=== PATIENT | male | born 1940 | race Caucasian/White ===

== ENCOUNTER 2019-11-09 10:39 | Inpatient (IN) | payer MEDICARE, OTHER ==
[~2019-11-09] VITALS: Ht 182.9 cm; Wt 85.0 kg
[~2019-11-09 10:39] MED LIST: LEVO150T42 PO; NYST50SS SS; PERC5TAB12 PO; SYMB16INH INH; TASI150C PO; TIOT18INH INH
[2019-11-09] MEDS ORDERED: TASI150C PO (10:49)
[2019-11-09] MEDS ORDERED: ALBU8.5H INH (10:50)
[2019-11-09] MEDS ORDERED: PRED5TA PO (10:50)
[2019-11-09] MEDS ORDERED: LEVO125T4 PO (10:50)
[2019-11-09] MEDS ORDERED: ADV250INH (10:50)
[2019-11-09] MEDS: IPRATROPIUM 0.5MG/ALBUTEROL 2.5MG INH SOL UD 3ML (DUONEB)(J7620) NEB SCH ×4 (11:22→20:00)
--- NOTE | 2019-11-09 11:56 | REP ---
CHEST, SINGLE VIEW: Single view of the chest performed and compared to a prior study of 07/26/2015. There appear to be moderate bilateral pleural effusions left greater than right. There are also adjacent patchy areas of atelectasis or infiltrate in each lung base, left greater than right. Focal soft tissue density in the right apex could possibly represent a mass. Heart does not appear to be definitely enlarged. There is calcification of the thoracic aorta. Mediastinal silhouette is otherwise unremarkable. Electronically Signed by Dylon Almendarez MD 11/09/2019 08:06 P
[2019-11-09 12:04] LABS: VENOUS BASE EXCESS 1.8 (-2.0-2.0); VENOUS HCO3 27.5 MEQ/L (23.0-27.0); VENOUS O2 SATURATION 60.2 % (60.0-80.0); VENOUS PARTIAL PRESSURE CO2 48.4 mmHg (38.0-50.0); VENOUS PH 7.373 UNITS (7.330-7.430); VENOUS STANDARD HCO3 25.5 MEQ/L
[2019-11-09 12:06] LABS: BASO % 0.3 % (0.0-1.0); EOS # 0.1 10^3/uL (0.0-0.5); EOS % 0.6 % (0.0-3.0); HEMATOCRIT 28.5 % (42.0-52.0); HEMOGLOBIN 9.2 g/dl (13.5-17.5); LYMPH # 0.5 10^3/uL (1.5-5.0); LYMPH % 3.7 % (24.0-44.0); MEAN CORPUSCULAR HEMOGLOBIN 29.7 pg (27.0-33.0); MEAN CORPUSCULAR HGB CONC 32.3 g/dl (32.0-36.5); MEAN CORPUSCULAR VOLUME 91.9 fl (80.0-96.0); MONO # 1.6 10^3/uL (0.0-0.8); NEUTROPHILS # 12.1 10^3/uL (1.5-8.5); NEUTROPHILS % 83.6 % (36.0-66.0); PLATELET COUNT, AUTOMATED 540 10^3/uL (150-450); WHITE BLOOD COUNT 14.5 10^3/uL (4.0-10.0)
[2019-11-09 12:25] LABS: INR 1.14; PROTHROMBIN TIME 14.3 SECONDS (11.8-14.0)
[2019-11-09 12:31] LABS: INFLUENZA A AMPLIFICATION NEGATIVE (NEGATIVE); INFLUENZA B AMPLIFICATION NEGATIVE (NEGATIVE)
[2019-11-09 12:35] LABS: ALBUMIN 2.7 GM/DL (3.2-5.2); ALT/SGPT 37 U/L (12-78); BILIRUBIN,DIRECT 0.2 MG/DL (0.0-0.2); BILIRUBIN,TOTAL 0.4 MG/DL (0.2-1.0); BLOOD UREA NITROGEN 27 MG/DL (7-18); CALCIUM LEVEL 8.9 MG/DL (8.8-10.2); CARBON DIOXIDE LEVEL 25 MEQ/L (21-32); CHLORIDE LEVEL 106 MEQ/L (98-107); CK-MB VALUE MASS 1.2 NG/ML (<3.6); CPK CREATINE PHOSPHOKINASE 29 U/L (39-308); CREATININE FOR GFR 1.13 MG/DL (0.70-1.30); GLOMERULAR FILTRATION RATE > 60.0 (>42); GLUCOSE, FASTING 127 MG/DL (70-100); MB/CK RELATIVE INDEX 4.14 (< OR =4); NT-PRO BNP 1057 PG/ML (<450); POTASSIUM SERUM 4.4 MEQ/L (3.5-5.1); SODIUM LEVEL 138 MEQ/L (136-145); TOTAL PROTEIN 6.8 GM/DL (6.4-8.2); TROPONIN I < 0.02 NG/ML (< 0.10)
[2019-11-09] MEDS ORDERED: cefTRIAXone SOD 2 GM in D5W MINI-BAG PLUS 50 ML IV ONE (13:45)
[2019-11-09] MEDS ORDERED: methylPREDNISolone INJ 125 MG/2 ML VIAL (J2930) IV ONE (13:45)
[2019-11-09] MEDS ORDERED: AMLO5TAB6 PO (14:09)
[2019-11-09] MEDS ORDERED: ATOR1TAB19 PO (14:09)
[2019-11-09] MEDS ORDERED: ALBU83IN INH (14:09)
[2019-11-09] MEDS ORDERED: ACET-897 PO (14:09)
[2019-11-09] MEDS ORDERED: LOSA50TA88 PO (14:09)
[2019-11-09] MEDS ORDERED: ALBUTEROL SULFATE 2.5 MG/0.5 ML INH NEB SOLN INH PRN (15:15)
--- NOTE | 2019-11-09 15:42 | HPE ---
DATE OF ADMISSION: 11/09/2019 ADMITTING PHYSICIAN: Hospitalist group PRIMARY CARE PHYSICIAN: Dr. Jam Luna in [place] CHIEF COMPLAINT: Bilateral pneumonia, shortness of breath. HISTORY: Claude Marques has been increasingly short of breath over the past several weeks. Had a CT scan of the chest done 10/20/2019 at [facility] in [place]. Showed a moderate chronic-appearing loculated left-sided small chronic loculated right-sided pleural effusion, right lower lobe pneumonia, compressive atelectasis, left lower lobe, and a severely calcified coronary artery plaque formation, likely to be hemodynamically significant. He states he was not aware of the coronary findings nor the pneumonia, though it sounds like he has been treated with steroids, though not bronchodilator. Family was sent from Dr. Fernandez's office to be admitted, so we will put a consult in. He denies hemoptysis, fever, chills. He has been short of breath. PAST MEDICAL HISTORY: 1. Severe chronic obstructive pulmonary disease (COPD). 2. Chronic myeloid leukemia. 3. Hypothyroidism. 4. History of tongue cancer. 5. Hyperlipidemia. 6. 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 FAMILY HISTORY: Mother had throat cancer. Mother of advanced age. 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 SOCIAL HISTORY: He quit smoking 15 years ago. Moderate alcohol intake. REVIEW OF SYSTEMS: No unexplained weight loss, fever, chills, hemoptysis, rectal bleeding, epistaxis, urinary bleeding, exertional chest pain, or palpitations. PHYSICAL EXAMINATION: VITAL SIGNS: Per flow sheet. He is alert, oriented, conversant. Looks chronically ill appearing. Looks older than stated age. Pupils equal, round, and reactive to light. TMs benign. Pharynx shows a dry, white-coated tongue. Dry mucous membranes. NECK: Supple. LUNGS: Scattered rhonchi. Decreased breath sounds. Decreased lung sounds, left base more than right base. HEART: Regular rate and rhythm. No rub. No murmur. ABDOMEN: Soft, nontender. No masses. EXTREMITIES: No clubbing or cyanosis. Decreased pulses in the feet still palpale. Moves arms and legs with equal strength. Chest x-ray shows bilateral pleural effusion of the left more than the right. Question cardiac apex abnormality. White count 14.5, hemoglobin 9.2, platelets 540. Electrolytes are unremarkable. BUN 27, creatinine 1.1. BNP 1000. TSH 18. Venous blood gas was done. It is venous, so I will not dictate it. IMPRESSION: 1. Suspected bilateral pneumonia with pleural effusion. He had a CT scan of the chest done 3 weeks ago. We will repeat the CT and see if there is any progression. I made the radiologist aware of the prior study for comparison. I will ask Dr. Newton to take a look at this. He knows the patient from his last hospitalization at [facility] on July 21, where he underwent talc pleurodesis on the right side. 2. Chronic myelocytic leukemia. We will continue his Tasigna 300 mg twice a day. 3. Hypertensive heart disease. Continue amlodipine 5 mg daily and losartan 50 mg daily. 4. Hypothyroidism. Thyroid-stimulating hormone (TSH) is elevated. Will increase his levothyroxine to 137 mcg daily. 5. Hyperlipidemia. Continue atorvastatin 10 mg daily. 6. Possible coronary artery disease. Begin aspirin 81 mg daily. Advise outpatient cardiac workup. Patient was made aware of the coronary artery abnormality and will discuss this with his primary care physician, and they can decide on workup.
--- NOTE | 2019-11-09 15:56 | REP ---
CT chest without contrast: History: Effusion. Comparison CT study of the chest is from July 12, 2015. Comparison is made with today's portable chest x-ray. Findings: There is a complex predominantly cystic pleural process in the left chest with loculated areas of fluid and large amounts of stranding soft tissue across the large fluid collection in the left base. There is visceral and parietal pleural thickening which is moderate to marked. There is chronic pleural thickening in the right chest. There is a similar complex fluid collection in the right pleural space posteriorly and laterally with pleural thickening, pleural calcification, and internal soft tissue nodularity. The chest CT study from 2014 showed two chest tubes in place and a complex air and fluid collection in the right base. There was a simple appearing left pleural effusion at that time. There are compressive atelectatic changes in the left lower lobe and collapse and fibrosis is seen in the right lower lobe above the remaining right effusion. There are air bronchograms in these areas. No pulmonary parenchymal nodule or mass lesion is seen. Vascular calcification is noted. No hilar or mediastinal mass or adenopathy is appreciated. Normal adrenal glands are seen bilaterally. There is a large cyst incompletely included in the field of view in the upper pole of the left kidney measuring up to 7.3 cm in greatest diameter. Visualized upper abdominal structures are otherwise unremarkable. Impression: Complex and extensive bilateral pleural effusions with marked pleural thickening and stranding and nodularity. Infectious versus neoplastic etiologies. Chronic pleural changes on the right. Bilateral lower lobe atelectatic changes. No mass or adenopathy seen. Left renal cyst. Electronically Signed by Rodrick Samaniego MD 11/09/2019 08:09 P
--- NOTE | 2019-11-09 17:23 | ECGEPIP ---
[facility] - ED Test Date: 2019-11-09 Pat Name: KEEGAN ALEXIS Department: Room: - Gender: Male Industry Analyst: : 1940 Requested By: Nadege Hardy Order Number: [id number] Reading MD: Luis Felipe Chopra Measurements Intervals [place] Rate: 106 P: 54 DE: 145 QRS: 29 QRSD: 83 T: 16 QT: 310 QTc: 413 Interpretive Statements SINUS TACHYCARDIA POOR R WAVE PROGRESSION RATE CHANGE COMPARED TO 07/08/15 Electronically Signed on 11-09-2019 17:23:25 EST by Luis Felipe Chopra
[2019-11-09] MEDS: ASPIRIN 81 MG ENTERIC TAB PO SCH (18:21)
[2019-11-09] MEDS: DOXYCYCLINE HYCLATE 100 MG in D5W MINI-BAG PLUS 100 ML IV SCH (18:21)
[2019-11-09] MEDS: SYMBICORT 160/4.5MCG INHALER 6GM INH SCH (20:00)
[2019-11-09 20:20] VITALS: BP 164/76
[2019-11-09] MEDS: ATORVASTATIN 10 MG TAB PO SCH (21:02)
[2019-11-09] MEDS: ENOXAPARIN 40 MG/0.4 ML SYRINGE (J1650) SC SCH (21:02)
[2019-11-09] MEDS: amLODIPine 5 MG TAB PO SCH (21:02)
[2019-11-10] VITALS (20 sets, daily range): BP systolic 108–144; BP diastolic 57–72; O2SAT 98
[2019-11-10] MEDS ORDERED: UNRESOLVED PATIENT OWN MED ORDER XX SCH (00:01)
[2019-11-10] MEDS: IPRATROPIUM 0.5MG/ALBUTEROL 2.5MG INH SOL UD 3ML (DUONEB)(J7620) NEB SCH ×4 (03:01→19:29)
[2019-11-10] MEDS: LEVOTHYROXINE 137MCG TABLET (0.137MG) PO SCH (05:50)
[2019-11-10] MEDS: DOXYCYCLINE HYCLATE 100 MG in D5W MINI-BAG PLUS 100 ML IV SCH ×2 (05:50→17:24)
[2019-11-10 05:52] LABS: HEMATOCRIT 26.4 % (42.0-52.0); HEMOGLOBIN 8.4 g/dl (13.5-17.5); MEAN CORPUSCULAR HEMOGLOBIN 28.6 pg (27.0-33.0); MEAN CORPUSCULAR HGB CONC 31.8 g/dl (32.0-36.5); MEAN CORPUSCULAR VOLUME 89.8 fl (80.0-96.0); PLATELET COUNT, AUTOMATED 484 10^3/uL (150-450); RED BLOOD COUNT 2.94 10^6/uL (4.30-6.10); WHITE BLOOD COUNT 11.7 10^3/uL (4.0-10.0)
[2019-11-10] MEDS ORDERED: LEVOTHYROXINE 125MCG TABLET (0.125MG) PO SCH (06:00)
[2019-11-10 06:11] LABS: BLOOD UREA NITROGEN 34 MG/DL (7-18); CALCIUM LEVEL 8.7 MG/DL (8.8-10.2); CARBON DIOXIDE LEVEL 26 MEQ/L (21-32); CHLORIDE LEVEL 105 MEQ/L (98-107); CREATININE FOR GFR 1.05 MG/DL (0.70-1.30); GLOMERULAR FILTRATION RATE > 60.0 (>42); GLUCOSE, FASTING 161 MG/DL (70-100); SODIUM LEVEL 137 MEQ/L (136-145)
[2019-11-10] MEDS: SYMBICORT 160/4.5MCG INHALER 6GM INH SCH ×2 (07:59→19:29)
[2019-11-10] MEDS: TIOTROPIUM INHALER/CAPSULE (SPIRIVA) INH SCH (07:59)
[2019-11-10] MEDS: MOM 30ML SUSPENSION UDC PO SCH (09:00)
[2019-11-10] MEDS: LOSARTAN 50 MG TAB PO SCH (10:14)
[2019-11-10] MEDS: ASPIRIN 81 MG ENTERIC TAB PO SCH (10:14)
[2019-11-10] MEDS ORDERED: SLF 3 ML SYR IV PRN (10:30)
--- NOTE | 2019-11-10 10:53 | IPN ---
DATE: 11/10/2019 Claude was seen in the PCU. He is a patient of Dr. Fernandez. He was sent from Dr. Fernandez's office to the emergency for admission. He has been having extensive work up recently for abnormal chest x-ray, pleural effusions, nonclearing infiltrates. He had a CT scan of the chest done 10/20/2019 at [facility]. I have repeated the CT yesterday (specifically asking to do be compared to the recent CT from 10/20/2019; it was instead compared to a [address] from 2015). The case has been discussed extensively with Dr. Fernandez today, as well as Dr. Newton, who is familiar with the patient from that 2015 hospitalization. Clinically, the patient feels better. He is still coughing, but says his breathing is a little better. PHYSICAL EXAMINATION: Afebrile, 123/63, pulse of 78%, 80 oxygen saturation on 2 liters. GENERAL APPEARANCE: Chronically ill appearing. Dry mucous membranes. Coated tongue. LUNGS: Bilateral rhonchi. HEART: Regular rhythm. ABDOMEN: Soft, nontender. No peripheral edema. LABORATORY: White count is down to 11.7, hemoglobin 8.4. Electrolytes unremarkable. IMPRESSION: 1. Subacute left and chronic right pleural effusions. The case was discussed at length with Dr. Newton and then with Dr. Fernandez and then they conferred with each other. Dr. Newton plans to come back and see the patient in consultation this afternoon, and its plan is to anticipate there will be a thoracentesis performed. 2. Hypertensive heart disease. Blood pressure well controlled. 3. Chronic myelocytic leukemia. Continue with Tasigna 300 mg twice daily. 4. Hypothyroidism. Levothyroxine dose was increased yesterday. Repeat free T4, thyroid simulating hormone (TSH) in six to eight weeks. 5. Hyperlipidemia. Continue atorvastatin 10 mg daily 6. I expect coronary artery disease based on CT scan in [place] showing coronary artery abnormality. I started aspirin daily. He is already on a statin. He now understands the need for outpatient work up from cardiology.
[2019-11-10] MEDS: CLOTRIMAZOLE 10 MG TROCHE PO SCH ×3 (14:19→20:10)
[2019-11-10] MEDS: SLF 3 ML SYR IV SCH ×2 (14:19→20:11)
[2019-11-10] MEDS ORDERED: methylPREDNISolone INJ 40 MG/1 ML VIAL (J2920) IV SCH (16:00)
[2019-11-10] MEDS: cefTRIAXone SOD 2 GM in D5W MINI-BAG PLUS 50 ML IV SCH (16:05)
[2019-11-10] MEDS ORDERED: flumazeniL 0.5 MG/5 ML VIAL As Ordered ONE (17:50)
[2019-11-10] MEDS ORDERED: MIDAZOLAM INJ 2 MG/2 ML VIAL (J2250) As Ordered ONE (17:51)
[2019-11-10] MEDS ORDERED: LIDOCAINE 1% MDV 20ML VIAL As Ordered ONE (17:52)
[2019-11-10] MEDS ORDERED: LIDOCAINE 1% MDV 20ML VIAL IM ONE (18:15)
[2019-11-10] MEDS ORDERED: MIDAZOLAM INJ 2 MG/2 ML VIAL (J2250) IV ONE (18:15)
[2019-11-10] MEDS ORDERED: ONDANSETRON 4MG/2ML VIAL (J2405) IV PRN (19:00)
[2019-11-10] MEDS ORDERED: LEVALBUTEROL 1.25 MG/0.5 ML CONCENTRATE NEB NEB PRN (19:00)
[2019-11-10] MEDS ORDERED: PERCOCET 5MG/325MG TAB PO PRN (19:00)
--- NOTE | 2019-11-10 19:03 | REP ---
Portable chest x-ray: Single view. History: Chest tube. Comparison chest x-ray: November 09, 2019. Findings: A left chest tube is seen inferolaterally. Pleural opacity persists adjacent to the left lung in the left lower lateral chest although there is some improvement. There is some pleural air as well. Slight blunting of the right lateral pleural angle persists. Impression: Left chest tube in place. Electronically Signed by Rodrick Samaniego MD 11/10/2019 06:54 P
[2019-11-10 19:11] LABS: LDH LACTATE DEHYDROGENASE 80 U/L (87-241)
[2019-11-10 19:26] LABS: SOURCE, BODY FLUID pH PLEURAL
[2019-11-10] MEDS: LEVALBUTEROL 1.25 MG/0.5 ML CONCENTRATE NEB NEB SCH (19:29)
[2019-11-10 19:34] LABS: PH BODY FLUID 7.112 UNITS (NOT ESTABLISHED)
[2019-11-10] MEDS: ENOXAPARIN 40 MG/0.4 ML SYRINGE (J1650) SC SCH (20:09)
[2019-11-10] MEDS: D5W/0.9% SODIUM CHLORIDE 1,000 ML IV SCH (20:09)
[2019-11-10] MEDS: NILOTINIB 150 MG PO SCH (20:09)
[2019-11-10 20:10] LABS: CHOLESTEROL, BODY FLUID < 50 MG/DL (NOT ESTABLISHED); LDH, BODY FLUID 3055 U/L (NOT ESTABLISHED); SOURCE, BODY FLUID ALBUMIN PLEURAL; SOURCE, BODY FLUID CHOL PLEURAL; SOURCE, BODY FLUID GLUCOSE PLEURAL; SOURCE, BODY FLUID LDH PLEURAL; SOURCE, BODY FLUID TOT PROTEIN PLEURAL; SOURCE, BODY FLUID TRIG PLEURAL; TOTAL PROTEIN, BODY FLUID 5.3 G/DL (NOT ESTABLISHED); TRIGLYCERIDE, BODY FLUID 98 MG/DL (NOT ESTABLISHED)
[2019-11-10] MEDS: amLODIPine 5 MG TAB PO SCH (20:10)
[2019-11-10] MEDS: DOCUSATE SODIUM 100 MG CAP PO SCH (20:10)
[2019-11-10] MEDS: ATORVASTATIN 10 MG TAB PO SCH (20:10)
[2019-11-10 20:34] LABS: APPEARANCE, BODY FLUID CLOUDY (CLEAR); PLEURAL FL COLOR BROWN (COLORLESS); SOURCE, BODY FLUID PLEURAL
[2019-11-10 21:04] LABS: SOURCE, BODY FLUID AMYLASE PLEURAL
--- NOTE | 2019-11-10 21:26 | CR ---
DATE OF CONSULTATION: 11/10/2019 CONSULTING PHYSICIAN: Dr. Heladio Smith REASON FOR CONSULTATION: Bilateral pleural effusion, shortness of breath HISTORY OF PRESENT ILLNESS: This is a very pleasant 79-year-old male who was admitted on 11/09/2019 for bilateral pneumonia and pleural effusion. The patient has a pertinent past medical history of chronic myeloid leukemia, currently on chemotherapy, right talc pleuro[place] [address] Newton, chronic obstructive pulmonary disease (COPD), anemia, who presented to the emergency room yesterday for shortness of breath for the last week. He states that in late August he noticed that he was having flu-like symptoms with shortness of breath. He went to his primary care provider and was given prednisone from 10/05/2019 to 11/08/2019. He states that it was a taper and he was on 5 mg for at least 2 weeks near the end. He also admits getting to a short course of 2 days of Levaquin 500 mg for possible pneumonia. He noticed that his symptoms were not improving around mid October and requested to get a CT of his lungs after he fell and hit his right rib. He states that he was told that his lungs did not show anything significant except for pneumonia, the beginnings of it. He went to Dr. Fernandez's office on 11/09/2019 for the continued progression of shortness of breath, who advised him to come to the emergency room to be admitted. In the emergency room, CT of the chest showed complex extensive bilateral pleural effusion with marked pleural thickening, stranding and nodularity. Infectious versus neoplastic etiology. He was saturating at 91% on 2 liters nasal cannula, which the patient states that he is not chronically on oxygen at home, only as needed. He admits that in the last couple of weeks he has noticed that he increased the amount of pillows that he used at night from one pillow to two to three pillows. He denies any lightheadedness or dizziness. He denies any fevers. No palpitations or chest pain. He was admitted to the hospital for bilateral pneumonia and pleural effusions. PAST MEDICAL HISTORY: 1. Chronic myeloid leukemia. 2. Anemia. 3. Hypothyroidism. 4. Chronic obstructive pulmonary disease (COPD). 5. Diverticulitis. 6. Hypercholesterolemia. 7. Status post tongue cancer. SURGICAL HISTORY: 1. 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 2. Talc pleurodesis in 2015 on the right lung. MEDICATIONS: - Tylenol Extra Strength - amlodipine - atorvastatin - Symbicort - levothyroxine - losartan - Spiriva - albuterol - prednisone, not on chronically, started on 10/05/2019 until 11/09/2019 - [place] FAMILY HISTORY: Mother of throat cancer. Father due to old age. SOCIAL HISTORY: He quit smoking greater than 15 years ago, smoked previously for 20 years, one pack a day of [place] cigarettes. Admits to moderate alcohol intake, about three to four beers a day and is able to go without drinking without withdrawal symptoms. No dogs, cats or birds at home. No asbestos exposure. REVIEW OF SYSTEMS: Denies fevers, chills, sweats, or weight loss. HEENT: Denies diplopia, blindness, jaundice, epistaxis. Wears dentures. RESPIRATORY: Admits to shortness of breath, clear sputum production, paroxysmal nocturnal dyspnea, exertional dyspnea. CARDIAC: Denies myocardial infarction, palpitations, paroxysmal atrial fibrillation, anginal chest pain. GASTROINTESTINAL: Denies abdominal pain, constipation, diarrhea, dysphagia, hematochezia, melena. GENITOURINARY: Denies any dysuria, hematuria. NEUROLOGIC: Denies any focal deficits, seizures, or paresthesias. PSYCHIATRIC: Denies any anxiety or depression. ENDOCRINE: Denies any polydipsia, polyuria. Has a history of hypothyroidism, but no diabetes. HEMATOLOGY: Has a history of chronic myeloid leukemia and history of anemia. PHYSICAL EXAMINATION: VITAL SIGNS: Temperature 96.5, pulse 81, respirations 16, blood pressure 117/57 (Mean arterial pressure 77), pulse oximetry 96% on 2 liters nasal cannula. GENERAL: This is a very pleasant 79-year-old male who does not appear in acute distress, appropriately answering questions, slight tremor in his voice. No accessory muscle use. Nasal cannula in place. HEENT: Atraumatic, normocephalic. Pupils are equal, round and reactive. SKIN: Appears pale. Mucous membranes appear dry, grayish tinge appearance of tongue. He is status post partial tongue cancer resection. He has full dentures. NECK: Supple. He has a neck deformity status post his left neck resection as well. There is no lymphadenopathy. Trachea is midline. No crepitus or subcutaneous emphysema appreciated. No jugular venous distention (JVD). RESPIRATORY: Diminished breath sounds in the left lower base one-quarter way up on the left side. Dullness to percussion appreciated in the left lower base as well. Dullness to percussion in the right lower base -- left is worse than right. There is E-to-A egophony -- left worse than right. Expiratory wheezing diffusely as well. CARDIAC: Tachycardic rate. Regular rhythm. No audible murmurs, rubs or gallops. S1, S2 sounds normal. ABDOMEN: Slightly distended abdomen but nontender. Positive bowel sounds with no hepatomegaly or splenomegaly, surprisingly. EXTREMITIES: No lower extremity edema, specifically pretibial. No calf tenderness. INTEGUMENTARY: Skin appears normal. No skin breakdown and no bruising noted. NEUROLOGIC: No focal deficits noted. PSYCHIATRIC: Alert and oriented times three. Appropriate mood. LABORATORY DATA: WBC 11.7, hemoglobin 8.4, hematocrit 26.4, platelets 248. Chemistry: Sodium 137, potassium 5.0, chloride 105, carbon dioxide 26, anion gap 6, BUN 34, creatinine 1.05, fasting glucose 161, lactic acid 1.2, calcium 8.7, LDH 80. Chest CT from 11/09/2019 shows extensive bilateral pleural effusions, left more significant than on the right. Left appears to come all the way up to right above the fourth rib, right is only to the costophrenic angle. There is marked pleural thickening, stranding and nodularity. Right appears to have some chronic pleural changes, he is status post talc pleurodesis as well. There is bilateral lower lobe atelectatic changes from the pleural effusions. ASSESSMENT AND PLAN: This is a 79-year-old male with a pertinent past medical history of chronic myelogenous leukemia (CML), currently on chemotherapy, history of right sided recurrent pleural effusions, status post talc pleurodesis in 2015, chronic obstructive pulmonary disease (COPD) who presented to the emergency room for shortness of breath. IMPRESSION: 1. Bilateral pleural effusions, left significantly worse than right. 2. Chronic myeloid leukemia. 3. Chronic obstructive pulmonary disease (COPD). 4. Bilateral atelectasis/lung entrapment. 5. Status post tongue cancer with resection. 6. Hypothyroidism. 7. History of diverticulitis. 8. Hypercholesterolemia. PLAN: The patient has significant pleural effusions -- left is worse than right. He did have a talc pleurodesis on the right side and that is possibly the reason his pleural effusion is not as significant on the right. The left side is pretty significant that he will be a candidate for a chest tube placement. Possible causes for the fluid could be malignancy due to his history of CML, versus infectious. I do not believe that it is infectious, based on CT it does look like he has an entrapped lung versus infection. Even though he had a leukocytosis on admission, he was on prednisone for the last one month, which can contribute to this. He denies any fevers or chills. He also is on Solu-Medrol while admitted, which can contribute to the leukocytosis as well. He is on ceftriaxone 2 grams, they are covering for pneumonia, even though sputum culture is negative, can consider deescalating this if the Light's criteria comes back negative for infectious process. We will do a chest tube today at bedside. Consent was obtained by the patient and was performed tonight. It looks like it an adequate placement. We have sent fluid for cytology, possible causes can be osmotic hemothorax as well, for he did have a fall 3 weeks prior. Chest tube showed very dark blood, which is consistent of old blood from a recent trauma. Bowel care and pain management have been placed. Incentive spirometry and PEP therapy have been placed for better aeration of the lungs. We will continue to follow the patient along while he is admitted. IVAN
[2019-11-11] VITALS (10 sets, daily range): BP systolic 114–146; BP diastolic 55–67; O2SAT 90–99
[2019-11-11] MEDS: LEVALBUTEROL 1.25 MG/0.5 ML CONCENTRATE NEB NEB SCH ×4 (01:41→21:39)
[2019-11-11 05:41] LABS: ABG BASE EXCESS -1.7 (-2.0-2.0); ABG HCO3 22.4 MEQ/L (22.0-26.0); ABG PARTIAL PRESSURE CO2 34.8 mmHg (35.0-45.0); ABG PARTIAL PRESSURE O2 135.4 mmHg (75.0-100.0); ABG STANDARD HCO3 23.1 MEQ/L (22.0-26.0); ABG TOTAL CO2 23.4 MEQ/L (23.0-31.0); ABG pH (ARTERIAL) 7.426 UNITS (7.350-7.450)
[2019-11-11] MEDS: LEVOTHYROXINE 137MCG TABLET (0.137MG) PO SCH (05:47)
[2019-11-11] MEDS: CLOTRIMAZOLE 10 MG TROCHE PO SCH ×5 (05:47→21:23)
[2019-11-11] MEDS: DOXYCYCLINE HYCLATE 100 MG in D5W MINI-BAG PLUS 100 ML IV SCH ×2 (05:47→17:19)
[2019-11-11] MEDS: SLF 3 ML SYR IV SCH ×3 (05:48→21:24)
[2019-11-11 06:18] LABS: HEMATOCRIT 25.3 % (42.0-52.0); HEMOGLOBIN 8.2 g/dl (13.5-17.5); MEAN CORPUSCULAR HEMOGLOBIN 29.9 pg (27.0-33.0); MEAN CORPUSCULAR HGB CONC 32.4 g/dl (32.0-36.5); MEAN CORPUSCULAR VOLUME 92.3 fl (80.0-96.0); PLATELET COUNT, AUTOMATED 532 10^3/uL (150-450); RED BLOOD COUNT 2.74 10^6/uL (4.30-6.10); WHITE BLOOD COUNT 20.5 10^3/uL (4.0-10.0)
[2019-11-11 06:33] LABS: BLOOD UREA NITROGEN 45 MG/DL (7-18); CALCIUM LEVEL 8.5 MG/DL (8.8-10.2); CARBON DIOXIDE LEVEL 27 MEQ/L (21-32); CHLORIDE LEVEL 107 MEQ/L (98-107); CREATININE FOR GFR 1.06 MG/DL (0.70-1.30); GLOMERULAR FILTRATION RATE > 60.0 (>42); GLUCOSE, FASTING 140 MG/DL (70-100); POTASSIUM SERUM 4.3 MEQ/L (3.5-5.1); SODIUM LEVEL 139 MEQ/L (136-145)
[2019-11-11] MEDS: IPRATROPIUM 0.5MG/ALBUTEROL 2.5MG INH SOL UD 3ML (DUONEB)(J7620) NEB SCH ×3 (07:20→21:39)
[2019-11-11] MEDS: TIOTROPIUM INHALER/CAPSULE (SPIRIVA) INH SCH (07:20)
[2019-11-11] MEDS: SYMBICORT 160/4.5MCG INHALER 6GM INH SCH ×2 (07:20→21:39)
--- NOTE | 2019-11-11 08:21 | REP ---
Chest x-ray: Two views. History: Chest tube. Comparison chest x-ray November 10, 2019. Findings: A left-sided chest tube is noted at the base. There is some pleural air and pleural thickening. Pleural opacity is improved. There is chronic blunting of the right lateral pleural angle and apical pleural thickening is noted on the right. No new infiltrate is seen. Electronically Signed by Rodrick Samaniego MD 11/11/2019 08:12 A
[2019-11-11] MEDS: DOCUSATE SODIUM 100 MG CAP PO SCH ×2 (09:00→21:24)
[2019-11-11] MEDS: MOM 30ML SUSPENSION UDC PO SCH (09:00)
[2019-11-11] MEDS: NILOTINIB 150 MG PO SCH ×2 (09:46→17:19)
[2019-11-11] MEDS: ASPIRIN 81 MG ENTERIC TAB PO SCH (09:46)
[2019-11-11] MEDS: LOSARTAN 50 MG TAB PO SCH (09:46)
[2019-11-11] MEDS: D5W/0.9% SODIUM CHLORIDE 1,000 ML IV SCH ×2 (09:54→23:55)
--- NOTE | 2019-11-11 10:27 | IPN ---
DATE: 11/11/2019 Claude is seen in the progressive care unit (PCU). He feels much better since he had his chest tube yesterday. Did not have a high volume of fluid removed but symptomatically he is improved. He still has a cough, bringing up some sputum. No fever. PHYSICAL EXAMINATION: Afebrile. Vital signs stable. Conversant. HEENT: Unremarkable. Lungs: Decreased breath sounds right base, better aeration on the left. Chest tube in place. Heart: Regular rhythm. Abdomen: Soft, nontender. No peripheral edema. White count 20.5 (on steroids), hemoglobin 8.2, platelets 532, sodium 139, potassium 4.3, BUN 45, creatinine 1.0, glucose 140. IMPRESSION: 1. Pleural effusion. Per Dr. Newton and his team. 2. Hypertensive heart disease. Well-controlled. 3. Chronic myelocytic leukemia (CML). Continue Tasigna 300 mg twice a day. 4. Hypothyroidism. Levothyroxine dose was increased yesterday. Need to repeat thyroid testing in 6-8 weeks. 5. Exacerbation of chronic obstructive pulmonary disease (COPD). Continue with nebulized bronchodilator, intravenous steroid. 6. Suspected community-acquired pneumonia. Is on Rocephin and doxycycline for this. 7. Suspected coronary artery disease. As noted previously, needs outpatient workup. Statin and aspirin started.
--- NOTE | 2019-11-11 10:30 | ECGEPIP ---
[facility] Test Date: 2019-11-11 Pat Name: KEEGAN ALEXIS Department: Room: G4604-57 Gender: Male Editor Dictionary: LUCIUS : 1940 Requested By: ANNABEL LEBRON Order Number: [id number] Reading MD: Morgan Raines Measurements Intervals [place] Rate: 72 P: 42 [place]: 146 QRS: 29 QRSD: 101 T: 27 QT: 384 QTc: 421 Interpretive Statements SINUS RHYTHM Rate decreased from tracing done 11-09-19 Similar to tracing done 07-08-15 Electronically Signed on 11-11-2019 10:30:34 EST by Morgan Raines
[2019-11-11] MEDS ORDERED: ALTEPLASE 2 MG/2 ML VIAL (J2997 PER 1MG) XX ONE (11:30)
[2019-11-11] MEDS: predniSONE 5 MG TAB PO SCH (11:55)
[2019-11-11] MEDS: PERCOCET 5MG/325MG TAB PO PRN (15:06)
[2019-11-11] MEDS: cefTRIAXone SOD 2 GM in D5W MINI-BAG PLUS 50 ML IV SCH (15:47)
[2019-11-11] MEDS: NORCO, ANEXSIA 5/325MG TABLET (HYDROcodone/ACETAMINOPHEN) PO PRN (17:29)
[2019-11-11] MEDS: ATORVASTATIN 10 MG TAB PO SCH (21:23)
[2019-11-11] MEDS: ENOXAPARIN 40 MG/0.4 ML SYRINGE (J1650) SC SCH (21:23)
[2019-11-11] MEDS: amLODIPine 5 MG TAB PO SCH (21:24)
[2019-11-12] VITALS (7 sets, daily range): BP systolic 109–125; BP diastolic 55–62; O2SAT 98
[2019-11-12] MEDS: LEVALBUTEROL 1.25 MG/0.5 ML CONCENTRATE NEB NEB SCH ×4 (03:09→20:00)
[2019-11-12] MEDS: DOXYCYCLINE HYCLATE 100 MG in D5W MINI-BAG PLUS 100 ML IV SCH ×2 (04:01→16:43)
[2019-11-12] MEDS: NORCO, ANEXSIA 5/325MG TABLET (HYDROcodone/ACETAMINOPHEN) PO PRN (04:02)
[2019-11-12] MEDS: SLF 3 ML SYR IV SCH ×3 (05:51→20:35)
[2019-11-12] MEDS: CLOTRIMAZOLE 10 MG TROCHE PO SCH ×6 (05:53→20:35)
[2019-11-12] MEDS: LEVOTHYROXINE 137MCG TABLET (0.137MG) PO SCH (05:54)
[2019-11-12 05:56] LABS: HEMOGLOBIN 7.6 g/dl (13.5-17.5); MEAN CORPUSCULAR HEMOGLOBIN 29.1 pg (27.0-33.0); MEAN CORPUSCULAR HGB CONC 31.7 g/dl (32.0-36.5); PLATELET COUNT, AUTOMATED 502 10^3/uL (150-450); RED BLOOD COUNT 2.61 10^6/uL (4.30-6.10); WHITE BLOOD COUNT 18.8 10^3/uL (4.0-10.0)
[2019-11-12 06:09] LABS: BLOOD UREA NITROGEN 39 MG/DL (7-18); CALCIUM LEVEL 8.3 MG/DL (8.8-10.2); CARBON DIOXIDE LEVEL 26 MEQ/L (21-32); CHLORIDE LEVEL 110 MEQ/L (98-107); CREATININE FOR GFR 0.99 MG/DL (0.70-1.30); GLOMERULAR FILTRATION RATE > 60.0 (>42); GLUCOSE, FASTING 123 MG/DL (70-100); POTASSIUM SERUM 4.3 MEQ/L (3.5-5.1); SODIUM LEVEL 141 MEQ/L (136-145)
[2019-11-12 07:33] LABS: MAGNESIUM LEVEL 2.3 MG/DL (1.8-2.4)
[2019-11-12] MEDS: SYMBICORT 160/4.5MCG INHALER 6GM INH SCH ×2 (07:44→20:25)
[2019-11-12] MEDS: TIOTROPIUM INHALER/CAPSULE (SPIRIVA) INH SCH (07:44)
[2019-11-12] MEDS: IPRATROPIUM 0.5MG/ALBUTEROL 2.5MG INH SOL UD 3ML (DUONEB)(J7620) NEB SCH ×3 (07:45→20:00)
--- NOTE | 2019-11-12 08:43 | REP ---
Chest x-ray: Two views. History: Chest tube. Comparison chest x-ray: November 11, 2019. Findings: Left pleural drainage catheter remains in place at the left base. The left pleural opacity is decreasing. There is a small triangle of air adjacent to the chest tube at the left base. There is visceral and parietal pleural thickening here. There is blunting of the right lateral pleural angle unchanged and right apical pleural thickening is seen unchanged. No new parenchymal infiltrate. Electronically Signed by Rodrick Samaniego MD 11/12/2019 08:35 A
[2019-11-12] MEDS ORDERED: METOCLOPRAMIDE INJ 10MG/2ML VIAL (J2765) IV PRN (10:00)
--- NOTE | 2019-11-12 10:04 | REP ---
CT chest without contrast: History: Pleural effusion. Underlying lung. Comparison chest CT study November 09, 2019. CT findings: Chronic pleural thickening, pleural calcification, and heterogeneous fluid is seen in the right base unchanged. A left pleural drainage tube is seen in place at the left base with a loculated air collection here. There is nodular visceral and parietal pleural thickening enveloping this left base loculated cavity. The pleural thickening extends to the mid chest level posteriorly and posterolaterally. The cavity is much smaller than before tube thoracostomy. Otherwise unchanged from the November 09, 2019 study. Electronically Signed by Rodrick Samaniego MD 11/12/2019 10:16 A
[2019-11-12] MEDS: SIMETHICONE 40MG/0.6ML DROPS 30ML PO SCH ×4 (10:15→20:35)
[2019-11-12] MEDS: predniSONE 5 MG TAB PO SCH (10:17)
[2019-11-12] MEDS: LOSARTAN 50 MG TAB PO SCH (10:17)
[2019-11-12] MEDS: ASPIRIN 81 MG ENTERIC TAB PO SCH (10:17)
[2019-11-12] MEDS: BISACODYL 10 MG SUPP PR PRN ×2 (10:17→15:59)
[2019-11-12] MEDS: NILOTINIB 150 MG PO SCH ×2 (10:18→16:45)
[2019-11-12] MEDS: MOM 30ML SUSPENSION UDC PO SCH (10:18)
[2019-11-12] MEDS: DOCUSATE SODIUM 100 MG CAP PO SCH ×2 (10:18→20:35)
--- NOTE | 2019-11-12 10:47 | REP ---
CT abdomen and pelvis without IV or oral contrast: History: Abdomen pain and distension. Findings: Preliminary digital mobile ui/ux designer radiograph demonstrates multiple loops of small bowel in the central abdomen. These are dilated and air-filled. Axial CT images demonstrate several left renal cysts, the largest of which measures 6.1 cm in diameter. There is a small right renal cyst. Vascular calcifications noted. There is an intrarenal 4 mm calculus in the left kidney. No hydronephrosis is seen. No focal liver lesion is seen. The spleen is unremarkable. No abnormality is noted in the pancreas. The gallbladder is unremarkable. No retroperitoneal mass or adenopathy is seen. There is mild ectasia of the abdominal aorta, maximum AP dimension 2.7 cm. Extensive vascular calcifications noted. There is extensive left colonic diverticulosis especially in the sigmoid colon but there is no CT evidence of diverticulitis. There are multiple mildly dilated air and fluid filled loops of proximal small bowel in the left upper abdomen. Distal small bowel loops are not dilated although I do not see an obstructive lesion. A normal appendix is noted lateral to the cecum. There is a small quantity of soft tissue density and an air bubble in the subcutaneous fat of the left anterior abdominal wall suggesting a subcutaneous injection site. There is no evidence of free intraperitoneal air. No abdominal wall defect is seen. Urinary bladder, seminal vesicles and prostate appear intact. There are dystrophic calcifications in the prostate. Bone window settings show no bony destructive lesion. Impression: Mildly dilated air and fluid filled loops of small bowel in the central abdomen with normal caliber distal small bowel loops. Focal ileus versus partial obstruction. No obstructive lesion seen. Extensive left colonic diverticulosis. Normal appendix. Renal cysts and intrarenal left-sided nephrolithiasis. Electronically Signed by Rodrick Samaniego MD 11/12/2019 12:04 P
--- NOTE | 2019-11-12 12:42 | IPN ---
DATE: 11/12/2019 Claude is seen as he is being wheeled down the hallway for a stat CT of his chest. He developed abdominal distention and vomiting, and it looks like has some bowel obstruction. PHYSICAL EXAMINATION: 121/56, pulse 78, respiratory rate 29, 97% saturation. General Appearance: He looks uncomfortable, vomiting. HEENT: Unremarkable. Chest tube left side. Lungs: Good air movement bilaterally. Heart: Regular rhythm. Abdomen: Distended. Bowel sounds are decreased. Diffusely tender. No peripheral edema. LABORATORY DATA: White count is 18.1, hemoglobin 7.6, platelets 502. Sodium 141, potassium 4.3, BUN 39, creatinine 0.9, and glucose is 123. IMPRESSION: 1. Abdominal distention. Concerned for bowel obstruction. Stat CT of the chest ordered based upon this. 2. Pleural effusion. Per Dr. Newton and his team. 3. Hypertensive heart disease, well controlled on current regimen. 4. Chronic myelocytic leukemia (CML). Continue his current oral chemotherapy for this. 5. Hypothyroidism. I increased his levothyroxine during this admission. 6. Suspected community-acquired pneumonia. He is on Rocephin and doxycycline for this. 7. Suspected coronary artery disease. Continue statin and aspirin. Needs outpatient workup.
--- NOTE | 2019-11-12 13:26 | RO ---
DATE OF PROCEDURE: 11/10/2019 PREOPERATIVE DIAGNOSIS: Left pleural effusion POSTOPERATIVE DIAGNOSIS: Left pleural effusion PROCEDURE: Placement Left lateral chest tube PROCEDURE HIGH SCHOOL LEARNING SUPPORT TEACHER: Dr. De La Rosa (Attending physician was in attendance during this procedure who was Dr. Newton.) INDICATIONS: Left pleural effusion CONSENT: Consent was obtained from Mr. Marques prior to the procedure. Indication, risks and benefits were explained at length. PROCEDURE SUMMARY: A time-out was performed and after the CT of the chest was reviewed the appropriate side was confirmed and marked. My hand was washed with hand environmental services floor tech immediately prior to the procedure. We wore a surgical cap, a sterile gown and sterile gloves throughout the procedure. The patient left chest wall was prepped and draped in a sterile manner using Betadine after the patient was positioned in a supine position. A total of 20 mL of 1% lidocaine was used to anesthetize the skin, subcutaneous tissue and the superior aspect of the ribs periosteum and parietal pleura. A 2 cm incision was then made parallel to the rib in the midaxillary line at the level of the left 8th rib. The subcutaneous tissue superficially and superior to the rib was dissected bluntly to the level of pleura. The pleura was then entered bluntly and dark red blood discharge was noted from the pleural space. The parietal pleura was expanded bluntly and a clamp was inserted and swept carefully in all directions. A 24 Tamazight chest tube was then inserted using my finger as a guide. The chest tube was directed posteriorly and was inserted easily. The chest tube was secured to the skin with #2 Tevdek at the insertion site and connected securely to the Pleur-evac. A sterile dressing was placed over the insertion site. No immediate complication was noted. A post surgical chest x-ray was reviewed, which showed chest tube was placed appropriately. Estimated blood loss was minimal. Initially 200 mL of bloody pleural fluid was drained and was sent to sterilely to the lab for cytology, hematology, chemistries and cultures. The patient tolerated the procedure well with no complications. Attending addendum: note corrected. I was present and directed the procedure. IVAN
[2019-11-12] MEDS: D5W/0.9% SODIUM CHLORIDE 1,000 ML IV SCH (14:53)
[2019-11-12] MEDS: cefTRIAXone SOD 2 GM in D5W MINI-BAG PLUS 50 ML IV SCH (15:59)
--- NOTE | 2019-11-12 16:08 | IPN ---
DATE: 11/12/2019 Mr. Marques was seen and examined this morning after he got his chest x-ray. They state that while he was getting his chest x-ray, patient did have an episode of nausea and had a 400 mL nonbilious vomiting that was his meal prior to going down. Patient denies having any other episodes prior to this. He does admit to feeling lightheaded right after the episode, but felt relived after he sat down. He has noted that his shortness of breath has improve significantly since the chest tube has been placed. Overnight, telemetry did state that he had a couple episodes of ventricular tachycardia that was asymptomatic. Magnesium levels were checked and were within normal limits. No other overnight nursing events were reported. PHYSICAL EXAMINATION: VITAL SIGNS: Temperature 96.7, heart rate 78, respirations 20, blood pressure 121/56, pulse oximetry 99% on 2 liters of nasal cannula. Intake total 3270, output total 1920, balance of 1350. Chest tube total yesterday was 995 mL. GENERAL: This is a very pleasant 79-year-old male who does not appear in any acute distress, appropriately answering questions, does not use any accessory muscles, speaking in complete sentences. HEENT: Atraumatic, normocephalic. Pupils equal, round and reactive. Mucous membranes appear a little bit more moist. Continues to have a brownish-grayish tinge on his tongue status post partial tongue resection for cancer. Has full dentures in place. Neck is supple. Does have a neck deformity status post left neck resection. No lymphadenopathy and trachea is midline. No jugular venous distention (JVD) and no crepitus appreciated. RESPIRATORY: Breath sounds continue to improve. Pleural splashing that I appreciated yesterday has resolved completely today. Very minimal crackles appreciated at the bases. Very minimal expiratory wheeze appreciated on the left lower base, but that has improved significantly since yesterday as well, which was more diffusely. CARDIAC: Regular rate and rhythm. No audible murmurs, rubs or gallops. S1, S2 sounds are present. ABDOMEN: Very extended abdomen, but nontender to touch. Hypoactive bowel sounds in all four quadrants. Patient states he is passing flatulence and has not had a bowel movement since admission. EXTREMITIES: No lower extremity edema or pretibial edema or calf tenderness. INTEGUMENTARY: Skin appears very dry, but no obvious skin breakdown noted. NEUROLOGIC: No focal deficits noted. PSYCHIATRIC: Alert and oriented times three. Appropriate mood. LABORATORY DATA: WBC 18.0, hemoglobin 7.6, hematocrit 24.0, platelets 502. Chemistry: Sodium 141, potassium 4.3, chloride 110, carbon dioxide 26, BUN 39, creatinine 0.99, glucose of 123. Chest x-ray continued to have pleural thickening on the left lung base. Possible atelectasis in the left lower base. There is blunting on the right lateral pleural angle, which is unchanged since admission. ASSESSMENT AND PLAN: This is a 79-year-old male with a pertinent past medical history of chronic myelocytic leukemia, currently on chemotherapy, Tasigna history of left-sided recurrent pleural effusion status post TALC pleurodesis in 2015, chronic obstructive pulmonary disease (COPD), who presented to the emergency room (ER), for dyspnea. IMPRESSION: 1. Complicated peripneumonic effusion on the left, infectious versus malignant versus trauma. 2. Chronic myelocytic leukemia, currently on Tasigna. 3. COPD. 4. Bilateral atelectasis lung entrapment. 5. Status post tongue cancer with resection. 6. Hypothyroidism. 7. History of diverticulitis. 8. Hypercholesterolemia. PLAN: Because of the pleural thickening on the chest x-ray, we do recommend getting a CT of his chest to make sure there is no underlying malignancy or a pneumonia. Because he had the acidic pleural effusion with a significant high white count, we just want to make sure we assess for underlying pneumonia, because it is not obvious on chest x-ray. Will continue with ceftriaxone as prescribed. Will continue with the prednisone taper from the 5 mg for another two days and discontinue prior to discharge. The patient does not appear infectious, but we will cover for an infection because of the high white count on the pleural effusion. For his distended abdomen on exam, patient has no tenderness on palpation. He has not had any bowel movements since admission and is currently on pain medications. Do recommend using the bowel care tablet, up and ambulating around the room, give him dimethicone drops to help him with his flatulence. Dr. Smith has ordered a CT of the abdomen, but I do believe that he is just constipated and bowel care would be highly recommended at this current time. For his ventricular tachycardia overnight, he was asymptomatic and his magnesium levels were within normal limits. His chemotherapy drug, Tasigna, is a QT prolonged drug, so we have changed his Zofran to Reglan to help with his nausea and, if he has any more episodes overnight, could recommend to see if any other of his drugs can cause QT prolongation and discontinue it if it is not needed. At this current time, will continue with the chest tube as placed, for he had greater than 200 mL yesterday from the chemical decortication. Possible discontinuation from suction in the next 24-48 hours pending how much output he has. We will continue to follow along with the patient while he is admitted. Please make sure he uses his incentive spirometry and positive expiratory pressure (PEP) therapy as recommended as well. MTDD
[2019-11-12] MEDS: PERCOCET 5MG/325MG TAB PO PRN (16:45)
[2019-11-12] MEDS: ENOXAPARIN 40 MG/0.4 ML SYRINGE (J1650) SC SCH (20:34)
[2019-11-12] MEDS: ATORVASTATIN 10 MG TAB PO SCH (20:35)
[2019-11-12] MEDS: amLODIPine 5 MG TAB PO SCH (20:35)
--- NOTE | 2019-11-12 21:32 | IPN ---
DATE: 11/11/2019 Mr. Marques was seen and examined this morning during bedside rounds. He states that his breathing has gotten a lot better since the chest tube placement yesterday. He has been weaned off his nasal cannula from 4 liters to 2 liters, but continues to endorse he does not use oxygen at home. He does note every time he gets out bed, also, he has been passing flatulence and he feels very gassy, but has no abdominal pain, constipation or diarrhea. He would like to know if he can walk around the room or walk around the halls. He felt a little unsteady when he was coming off the bed to the wheelchair to go down to get a chest x- ray. He also notes that he feels very cold and would like to have the temperature in the room lowered down. There were no other overnight events reported by nursing or by telemetry. PHYSICAL EXAMINATION: Temperature 97.0, pulse 83, respirations 18, blood pressure 121/57 (mean arterial pressure (MAP) of 78), pulse oximetry 96% on 2 liters of nasal cannula. Intake total 1200 mL, output total 955 mL, with a net balance of positive 245 mL. Chest tube drainage cumulative is 520 mL, in the last 8 hours with 65 mL. GENERAL: This is a very pleasant 79-year-old male who does not appear in acute distress, is not using any accessory muscles to breath, appropriately answering questions in complete sentences. Nasal cannula in place, running at 2 liters. HEENT: Atraumatic, normocephalic. Pupils equal, round and reactive. Mucous membranes appear dry. Grayish tinge still appears on tongue. He is status post partial tongue resection for cancer. NECK: Supple. There is a neck deformity status post left neck resection as well. No lymphadenopathy. Trachea is midline. No crepitus. No subcutaneous emphysema. RESPIRATORY: Continues to have dullness to percussion in the left lower base. There is a pleural splash appreciated in the left up to midlung as well. Continues to have expiratory wheezing bilaterally, left worse than right. CARDIAC: Regular rate and rhythm. No audible murmurs, rubs or gallops. S1, S2 sounds are present. ABDOMEN: Still continues to be distended, nontender. Hypoactive bowel sounds in all four quadrants. EXTREMITIES: No lower extremity edema, pretibial edema or calf tenderness. INTEGUMENTARY: Skin appears normal. No skin breakdown. NEUROLOGIC: No focal deficit. PSYCHIATRIC: Alert and oriented times three. LABORATORY DATA: Hematology: WBC 20.5, hemoglobin 8.2, hematocrit 25.3, platelets 532. Chemistry: Sodium 139, potassium 4.3, chloride 107, carbon dioxide 27, anion gap 5, BUN 45, creatinine 1.06, fasting glucose 140, calcium 8.5. Arterial blood gas (ABG) this morning: pH was 7.42, pCO2 was 34.8, pO2 was 135.4. Other body source from the fluid: pH was 7.112, WBC was 1192, polymononuclear cells were 91.6%, with an LDH of 3555, which is consistent with a positive Light's criteria. MICROBIOLOGY: Gram stain is negative. Anaerobe cultures are currently pending. Acid-fast mycobacterial fungal cultures are still pending, as well. PATHOLOGY: The pleural fluid cell block should be pending, as well. IMAGING: Chest x-ray shows left-sided chest tube in base. There is some pleural thickening on the right as well that continues to have a right lateral pleural angle with some fluid continuing to be persisting. ASSESSMENT AND PLAN: This is a 79-year-old male with a pertinent past medical history of chronic myelocytic leukemia currently on chemotherapy, history of left-sided recurrent pleural effusion status post TALC pleurodesis in 2014, COPD not on chronic oxygen, who presented to the emergency room (ER) for shortness of breath. IMPRESSION: 1. Complicated peripneumonic effusion on the left. 2. Chronic myelocytic leukemia. 3. Chronic obstructive pulmonary disease (COPD). 4. Bilateral atelectasis lung entrapment. 5. Bilateral pneumonia. 6. Status post tongue cancer with resection. 7. Hypothyroidism. 8. History of diverticulitis. 9. Hypercholesterolemia. 10. Abdominal Distention possibly secondary to opioid induced constipation PLAN: Patient put out adequate output of at least at total of 455 mL of fluid in the last 24 hours and specifically, 65 mL in the last 8 hours. Based on his Light's, with the pH showing acidotic and his LDH being significantly high with 3555, and an elevated white count and a significantly high polynuclear cell, is consistent with a complicated peripneumonic effusion. So, at this current time, because he has continued to persist with the fluid in the left lower lung on chest x-ray, we will do tissue plasminogen activator (tPA) therapy at bedside, which he will have drained 4 hours since placement. Will continue with the antibiotic ceftriaxone, as prescribed. We will await the cultures. He was given a Solu-Medrol dose 40 mg times one yesterday. The patient is not on Solu-Medrol chronically. I do not believe he needs to continue this and we discussed it with Dr. Newton and Dr. Fernandez and recommended to taper him down, so we put him on prednisone 5 mg for the next three days and discontinue. He does not need to continue this upon discharge. We will follow up with a cell block and the cultures to make sure he does not have an underlying malignancy from the peripneumonic effusion. I do believe this is possibly secondary to his pneumonia that he has going on, but because of his history of chronic myelocytic leukemia and his trauma, we have to make sure there is nothing else. Will continue with bowel care as prescribed and pain management as prescribed as well. Will continue to follow along with the patient while he is admitted. At this current time, we will continue his chest tube as planned for the next 24-48 hours. IVAN
[2019-11-13] VITALS (11 sets, daily range): BP systolic 122–141; BP diastolic 57–67
[2019-11-13] MEDS: LEVALBUTEROL 1.25 MG/0.5 ML CONCENTRATE NEB NEB SCH ×4 (01:52→20:00)
[2019-11-13] MEDS: IPRATROPIUM 0.5MG/ALBUTEROL 2.5MG INH SOL UD 3ML (DUONEB)(J7620) NEB SCH ×4 (02:00→20:00)
[2019-11-13] MEDS: D5W/0.9% SODIUM CHLORIDE 1,000 ML IV SCH ×2 (03:24→14:10)
[2019-11-13 05:15] LABS: HEMATOCRIT 22.9 % (42.0-52.0); HEMOGLOBIN 7.2 g/dl (13.5-17.5); MEAN CORPUSCULAR HGB CONC 31.4 g/dl (32.0-36.5); MEAN CORPUSCULAR VOLUME 92.3 fl (80.0-96.0); PLATELET COUNT, AUTOMATED 475 10^3/uL (150-450); RED BLOOD COUNT 2.48 10^6/uL (4.30-6.10); WHITE BLOOD COUNT 13.3 10^3/uL (4.0-10.0)
[2019-11-13 05:36] LABS: BLOOD UREA NITROGEN 32 MG/DL (7-18); CALCIUM LEVEL 8.7 MG/DL (8.8-10.2); CARBON DIOXIDE LEVEL 29 MEQ/L (21-32); CHLORIDE LEVEL 111 MEQ/L (98-107); CREATININE FOR GFR 0.97 MG/DL (0.70-1.30); GLOMERULAR FILTRATION RATE > 60.0 (>42); GLUCOSE, FASTING 110 MG/DL (70-100); SODIUM LEVEL 141 MEQ/L (136-145)
[2019-11-13] MEDS: LEVOTHYROXINE 137MCG TABLET (0.137MG) PO SCH (05:49)
[2019-11-13] MEDS: DOXYCYCLINE HYCLATE 100 MG in D5W MINI-BAG PLUS 100 ML IV SCH ×2 (05:49→17:53)
[2019-11-13] MEDS: CLOTRIMAZOLE 10 MG TROCHE PO SCH ×6 (05:49→21:20)
[2019-11-13] MEDS: NORCO, ANEXSIA 5/325MG TABLET (HYDROcodone/ACETAMINOPHEN) PO PRN (05:51)
[2019-11-13] MEDS: SLF 3 ML SYR IV SCH ×3 (05:51→21:24)
[2019-11-13] MEDS ORDERED: FUROSEMIDE 40 MG/4 ML VIAL (J1940) IV ONE (08:30)
[2019-11-13] MEDS: SYMBICORT 160/4.5MCG INHALER 6GM INH SCH ×2 (08:47→20:50)
[2019-11-13] MEDS: MOM 30ML SUSPENSION UDC PO SCH (09:00)
[2019-11-13] MEDS: ASPIRIN 81 MG ENTERIC TAB PO SCH (09:07)
[2019-11-13] MEDS: DOCUSATE SODIUM 100 MG CAP PO SCH ×2 (09:07→21:23)
[2019-11-13] MEDS: LOSARTAN 50 MG TAB PO SCH (09:07)
[2019-11-13] MEDS: predniSONE 5 MG TAB PO SCH (09:08)
[2019-11-13] MEDS: NILOTINIB 150 MG PO SCH ×2 (09:11→17:53)
--- NOTE | 2019-11-13 09:35 | IPN ---
DATE: 11/13/2019 Mr. Marques is breathing well. His pain is being well controlled. His chest tube was removed yesterday. His vital signs show a T-max of 97.3 with a heart rate that ranges between 86 and 79 in a sinus rhythm, with a respiratory rate of 20 to 22 without the use of accessory muscles who is 96% to 97% saturated on 2 liters nasal cannula and whose blood pressure is 109/55 to 123/57. His intake and output over the past 24 hours has been recorded as 1948 in and 1979 out for a near equality. He has put out 365 mL from the chest tube. Weight today is 77 kg compared to 76.5 kg yesterday. He has put out 65 mL in the last 8 hours. On physical examination, he has bilateral crackles on either side with a percussion note that is full to the diaphragm. He has very coarse rhonchi and perhaps even a pleural friction rub on the left side. Abdomen is tympanitic and distended, but is nontender with active bowel sounds. He is having flatus. He has not had a bowel movement in two days and we will again give him a suppository. Extremities show no pretibial edema and no calf tenderness. No differential swelling in the upper extremities. Skin is warm, dry and perfused without cyanosis or mottling, including that of the nail beds and knees. Neck is supple. There is no jugular venous distention. No subcutaneous emphysema. Trachea is midline. Mouth shows his mucous membranes to be pink and moist. Lips and commissures without lesions. There is no thrush. Eyes show his pupils to be equal and reactive. Extraocular movements intact. Sclerae nonicteric. Neurologic shows II-XII intact along with gross motor and gross sensation intact. Gait is not tested. Psychiatric shows him to be awake, alert and oriented times three with appropriate mood and affect and conversational. His white count today is down to 13.3 with hemoglobin and hematocrit of 7.2 and 22.9 which continues to decrease. Platelet count is 475. Chemistries show a sodium of 141 with a potassium of 4.0, BUN and creatinine of 32 and 0.97. Glucose is 110 with a calcium of 8.7. His drop in hemoglobin and hematocrit could still be explained with hemodilution from yesterdays with being positive 1350. His chest x-ray is pending today. CT yesterday showed lung entrapment in the lower lobe. He had had the infiltrative process in the upper lobe which has been chronic and a small infiltrative process along with a small pleural effusion on the right side. The right side pleural effusion has calcifications which is probably secondary to the talc pleurodesis in the remote past. Chest tube is in good place. I do not see an infiltrative process on the left side, except for perhaps the very base. That could account for a pneumonia and hence parapneumonic effusion. IMPRESSION: 1. Parapneumonic effusion left side. 2. Chronic myelocytic leukemia. 3. Chronic obstructive pulmonary disease. 4. Lung entrapment left side. 5. Bilateral pneumonias, particularly on the left. 6. Status post tongue cancer with partial glossectomy. 7. Hypothyroidism. 8. Hypercholesterolemia. 9. Constipation. PLAN AND DISCUSSION: I will continue his chest tube today. I will also diurese him today. His pathology from the pleural fluid is not yet back, but as per the fluid analysis this does look like an exudative ascitic hypoglycemic pleural effusion which translates to an exudative process with a predominance of neutrophils of 91%. I am going to assign the primary lesion giving him the parapneumonic effusion to the small infiltrate process in the left lower lobe at the very base. He is currently on Rocephin. Microbiology has been negative as far as his sputum cultures are concerned. He did have many gram positive rods, but it was felt that the sputum culture was contaminated.
--- NOTE | 2019-11-13 09:53 | REP ---
PA and lateral chest: Comparison is 11/12/2019. The left thoracotomy tube is unchanged in position. There is a tiny triangular shaped pneumothorax in the left costophrenic angle, adjacent to the thoracotomy tube, unchanged. There is no apical pneumothorax on the left. Pleural thickening is again noted inferolaterally in the left hemithorax, unchanged. There is effacement of the right costophrenic angle, unchanged. There is right apical pleural thickening, unchanged. Cardiac size is normal. The katya, mediastinum, skeletal structures are unchanged. Impression: No significant interval change. Electronically Signed by Dylon Aggarwal MD 11/13/2019 09:45 A
[2019-11-13] MEDS: TIOTROPIUM INHALER/CAPSULE (SPIRIVA) INH SCH (10:25)
--- NOTE | 2019-11-13 11:31 | IPN ---
DATE: 11/13/2019 Claude is seen [facility]. He apparently did not require a nasogastric tube suctioning yesterday. He is starting to pass flatus and his bowel obstruction is improved. The case was discussed with Dr. Zuniga yesterday from surgical consultation. He has a left chest tube in and it is being managed by Dr. Newton. PHYSICAL EXAMINATION: Afebrile. 136/64. Pulse 82. 98% oxygen saturation on 2 liters. He looks more comfortable than yesterday. HEENT: Unremarkable. Left chest tube in. Fairly good air movement on that side. Bilateral rhonchi. Heart: Regular rate and rhythm. Abdomen: Distended, but less so than yesterday. Less tender than yesterday. Extremities showed no peripheral edema. Neurologic exam nonfocal. LABS: White count down to 13,000, hemoglobin 7.2, platelets 475. Sodium 141, potassium 4, BUN 32, creatinine 0.9, glucose 110. IMPRESSION: 1. Anemia. Transfuse 2 units of packed red blood cells. 2. Community acquired pneumonia with ? parapneumonic effusion. Continue Rocephin and doxycycline. Chest tube management per Dr. Newton. Cultures are pending. 3. Small bowel obstruction. Seems to be improving. He is passing flatus. He thinks he is going to have a bowel movement this morning. 4. Chronic myelocytic leukemia. Continue his oral chemotherapy for this. 5. Hypothyroidism. Levothyroxine dose was increased during this admission with outpatient followup testing required. 6. Suspected coronary artery disease. He had coronary artery lesion seen CT scan of his chest. I started aspirin and Plavix. He needs an outpatient workup for this as well.
[2019-11-13] MEDS: BISACODYL 10 MG SUPP PR PRN (14:20)
[2019-11-13] MEDS ORDERED: SIMETHICONE 80 MG CHEW TAB PO PRN (15:45)
[2019-11-13] MEDS: cefTRIAXone SOD 2 GM in D5W MINI-BAG PLUS 50 ML IV SCH (17:03)
[2019-11-13] MEDS: NYSTATIN 500,000 U/5 ML SUSP UDC SS SCH ×2 (17:53→21:21)
[2019-11-13] MEDS: amLODIPine 5 MG TAB PO SCH (21:20)
[2019-11-13] MEDS: ATORVASTATIN 10 MG TAB PO SCH (21:20)
[2019-11-13] MEDS: ENOXAPARIN 40 MG/0.4 ML SYRINGE (J1650) SC SCH (21:23)
[2019-11-14] VITALS (7 sets, daily range): BP systolic 127–158; BP diastolic 60–80
[2019-11-14] MEDS: D5W/0.9% SODIUM CHLORIDE 1,000 ML IV SCH ×2 (01:45→16:40)
[2019-11-14] MEDS: LEVALBUTEROL 1.25 MG/0.5 ML CONCENTRATE NEB NEB SCH ×4 (01:55→20:53)
[2019-11-14] MEDS: IPRATROPIUM 0.5MG/ALBUTEROL 2.5MG INH SOL UD 3ML (DUONEB)(J7620) NEB SCH ×5 (01:56→20:00)
[2019-11-14] MEDS: DOXYCYCLINE HYCLATE 100 MG in D5W MINI-BAG PLUS 100 ML IV SCH (04:09)
[2019-11-14 05:27] LABS: HEMATOCRIT 27.7 % (42.0-52.0); MEAN CORPUSCULAR HEMOGLOBIN 29.5 pg (27.0-33.0); MEAN CORPUSCULAR HGB CONC 32.5 g/dl (32.0-36.5); MEAN CORPUSCULAR VOLUME 90.8 fl (80.0-96.0); PLATELET COUNT, AUTOMATED 394 10^3/uL (150-450); RED BLOOD COUNT 3.05 10^6/uL (4.30-6.10)
[2019-11-14] MEDS: SLF 3 ML SYR IV SCH ×3 (05:48→21:13)
[2019-11-14] MEDS: LEVOTHYROXINE 137MCG TABLET (0.137MG) PO SCH (05:48)
[2019-11-14] MEDS: CLOTRIMAZOLE 10 MG TROCHE PO SCH ×5 (05:48→21:16)
[2019-11-14 05:57] LABS: BLOOD UREA NITROGEN 23 MG/DL (7-18); CALCIUM LEVEL 8.3 MG/DL (8.8-10.2); CARBON DIOXIDE LEVEL 28 MEQ/L (21-32); CHLORIDE LEVEL 110 MEQ/L (98-107); CREATININE FOR GFR 0.81 MG/DL (0.70-1.30); GLOMERULAR FILTRATION RATE > 60.0 (>42); GLUCOSE, FASTING 94 MG/DL (70-100); POTASSIUM SERUM 3.9 MEQ/L (3.5-5.1); SODIUM LEVEL 141 MEQ/L (136-145)
[2019-11-14] MEDS: SYMBICORT 160/4.5MCG INHALER 6GM INH SCH ×2 (08:23→20:53)
[2019-11-14] MEDS: TIOTROPIUM INHALER/CAPSULE (SPIRIVA) INH SCH (08:23)
[2019-11-14] MEDS ORDERED: SODIUM CHLORIDE NASAL 0.65% SPRAY BTL (OCEAN) PRN (08:45)
[2019-11-14] MEDS: MOM 30ML SUSPENSION UDC PO SCH (09:29)
[2019-11-14] MEDS: ASPIRIN 81 MG ENTERIC TAB PO SCH (09:29)
[2019-11-14] MEDS: NYSTATIN 500,000 U/5 ML SUSP UDC SS SCH ×4 (09:29→21:12)
[2019-11-14] MEDS: predniSONE 5 MG TAB PO SCH (09:30)
[2019-11-14] MEDS: LOSARTAN 50 MG TAB PO SCH (09:30)
[2019-11-14] MEDS: DOCUSATE SODIUM 100 MG CAP PO SCH ×2 (09:30→21:15)
[2019-11-14] MEDS: NILOTINIB 150 MG PO SCH ×2 (09:31→16:41)
--- NOTE | 2019-11-14 09:32 | REP ---
PA and lateral chest: Comparison is 11/13/2019. The left thoracotomy tube is unchanged. A small pneumothorax in the left costophrenic angle is unchanged. There is no apical pneumothorax. Left lateral chest wall pleural thickening is unchanged. The The right costophrenic angle effacement is unchanged. Right apical pleural thickening is unchanged. Cardiac size is normal. The katya, mediastinum, skeletal structures are unchanged. Impression: There is no interval change. Electronically Signed by Dylon Aggarwal MD 11/14/2019 09:23 A
--- NOTE | 2019-11-14 09:43 | RO ---
DATE OF PROCEDURE: 11/11/2019 PREOPERATIVE DIAGNOSIS:Loculated fluid within the left lung possible blood clots/old blood. POSTOPERATIVE DIAGNOSIS:Loculated fluid within the left lung possible blood clots/old blood. PROCEDURE: Chemical decortication with tissue plasminogen activator (tPA) through left chest tube. PROCEDURE FACE BOSS: Dr. Emelia De La Rosa ATTENDING PHYSICIAN: Marciano Newton MD PROCEDURE: The chest tube was removed off from the Pleur-evac chamber and the opening of the tube was sterilized using Betadine. 6 mg of tPA drawn up in 100 mL of normal saline was then introduced into the pleural cavity. Then was clamped. Then, we turned the patient left and right to make sure the tPA coats the pleural cavity to help with the decortication of the dried up blood inoculated within the pleural cavity. The clamps will stay in place for 4 hours, and then nursing was recommended to remove the clamps [address] him back into suction to see how much drainage was brought out. IVAN
[2019-11-14 10:13] LABS: MAGNESIUM LEVEL 2.3 MG/DL (1.8-2.4)
--- NOTE | 2019-11-14 11:26 | IPN ---
DATE: 11/13/2019 HISTORY: The patient was admitted on November 08 by the hospitalist with a history of shortness of breath and evidence for bilateral pneumonia. A chest tube was placed in a left-sided pleural effusion. There were chronic changes noted on the right consistent with a previous talc pleurodesis. He had generally been doing well, but developed some nausea and vomiting on the morning of the . A CT scan was done which showed some mildly enlarged proximal small bowel with some decompressed distal small bowel suggestive of a possible partial obstruction. 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 I was asked to see him at that time. During the day yesterday, his nausea and vomiting seemed to recede. He was given some bowel care medications and when I saw him last evening he was somewhat distended, but having some flatus and no nausea or vomiting. Vital signs show that he has been afebrile over the last 24 hours. His pulse is steady in the 70s and 80s and his blood pressure is good. Pulse oximetry has been in the low to upper 90s on nasal cannula oxygen. Intake and output show that yesterday he had 1950 in most of which was IV and he had 1980 out. He had 600 of emesis, 1000 of urine output and some chest tube drainage as well. PHYSICAL EXAMINATION: Today, the patient reports he is feeling well. He is having some clear liquids to drink when I entered the room. He reports having had a large bowel movement and a lot of gas earlier in the day. Physical exam shows that his skin is warm and dry. Heart exam shows a regular rate and rhythm. The abdomen is distended and moderately firm. He has bowel sounds present. He does have tympany to percussion fairly diffusely in the mid and upper abdomen. The abdomen is without significant tenderness. LABORATORY FINDINGS: White count is 13 with a hemoglobin of 7, hematocrit of 23 and a platelet count of 475,000. Chemistry profile shows a sodium of 141, potassium 4.0, chloride 111, CO2 of 29, BUN of 32 and creatinine of 0.97 with a glucose of 110. IMAGING STUDIES: The patient had a chest x-ray this morning. There are some somewhat dilated air filled loops of bowel evident below the left hemidiaphragm on the upper portion of the chest x-ray. IMPRESSION: The patient has apparently some degree of ileus, though I think it is unlikely that this represents a true obstruction. He is quite distended with a large amount of bowel gas. Some of this may be a response to a narcotic effect, though he has not been taking much in the way of narcotics. RECOMMENDATIONS: I think it is acceptable for the patient to take some clear liquids at this point. It would be reasonable to try to limit his narcotics as much as possible to avoid this effect. I will continue to follow him to see if his bowel function will improve without the need for any further interventions. IVAN
[2019-11-14] MEDS ORDERED: FLEET ENEMA PR ONE (11:45)
--- NOTE | 2019-11-14 12:13 | IPNPDOC ---
Text Note Date of Service The patient was seen on 11/14/19. NOTE Subjective: Patient is a 79-year-old male with a PMHx of COPD, CML (on treatment), DLP, Hypothyroidism, Hx of Tongue CA, Anemia , who presented to the emergency room with complaints of shortness of breath. Patient had a CT scan completed at [facility] on 10/20/2019. Patient was sent to the emergency room from the outpatient pulmonology office for management of pneumonia. Cardiothoracic surgery was counseled for placement of a left-sided chest tube with tac pleurodesis. Patient was seen and examined at the bedside. Patient denies any significant shortness of breath. He does report a productive cough. He denies chest pain, or urinary discomfort. Patient has not expressed any nausea or vomiting. He does report a distended abdomen but has noted the ability to pass gas. He has also been noted to have 2 bowel movements yesterday. Objective: Vitals (See below) General: Appears to be sitting up in chair comfortably, AAOx3 HEENT: NC, AT CVS: +S1S2 Lungs: Fair air entry b/l, -w/r/r Abdomen: Soft, ND, NT Extremities: - Edema, - Calf tenderness Assessment and plan: Normocytic anemia / Symptomatic anemia - likely 2/2 CML - Clinically is asymptomatic currently - s/p 2 units PRBC - Patient's hemoglobin has improved appropriately - Will continue to follow Hg CAP with Left sided parapneumonic effusion - Clinically patient has reported improvement in the reading; still reports a productive cough - Leukocytosis improving - Pleural fluid culture 11/09: Staph auerus - Blood cultures 11/08, Sputum culture 11/09 - negative - Will DC Ceftriaxone / Doxycycline; will start Keflex (Antibiotic day #5 of 10) Left sided effusion - CT in place - CTS, Dr. 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 Hypothyroidism - c/w Levothyroxine Suspected coronary artery disease - Had coronary artery lesion seen CT scan of his chest - c/w ASA and Plavix - Will need outpatient follow up with Cardiology HTN - BP well controlled - c/w Losartan, Amlodipine DLP - c/w Atorvastatin and ASA 81 COPD - No evidence of exacerbation - c/w inhaled therapy as ordered Hx of Tongue CA - Will have swallow evaluation completed today DVT prophylaxis - c/w Lovenox Disposition: - Will transition antibiotics to oral regimen - Awaiting CT removal VS,Fishbone, I+O VS, Fishbone, I+O Laboratory Tests 11/14/19 05:04 Vital Signs Date Time Temp Pulse Resp B/P (MAP) Pulse Ox O2 Delivery O2 Flow Rate FiO2 11/14/19 09:30 158/80 11/14/19 08:00 97.5 64 17 96 Nasal Cannula 2.0 I&O- Last 24 Hours up to 6 AM 11/14/19 05:59 Intake Total 2310 ml Output Total 1755 ml Balance 555 ml MAYRA CONNELLY MD Nov 14, 2019 12:13
--- NOTE | 2019-11-14 12:58 | IPN ---
DATE: 11/14/2019 Mr. Marques is sitting up comfortably in a chair. He is having flatus, but no bowel movement. He was offered suppositories yesterday. His vital signs show a T-max of 98.5 with a heart rate that ranges between 83 and 64, with a respiratory rate of 17 to 20 without the use of accessory muscles, who is 96-94% saturated on 2 liters nasal cannula, and whose blood pressure is ranging between 158/80 to 142/64. His intake and output the past 24 hours has been recorded as 2050 in and 1500 out for a positivity of 550 mL. He has put out 225 mL from the chest tube. There is no air leak. He weighs 76.1 kilos today compared to 77 kilos yesterday. On physical examination he has hollow sounds in his left side with a splash. There are coarse rhonchi, which are not clearing with coughing. The right side shows normal vesicular sounds. Percussion note is full to the diaphragm on either side. Cardiac exam is without murmurs, clicks, gallops or rubs. I cannot feel his point of maximal impulse (PMI). S1 and S2 are normal. Abdomen is distended, but nontender. Bowel sounds are positive. He is very tympanitic. I cannot appreciate hepatomegaly. There is no costovertebral angle (CVA) tenderness. Extremities show trace pretibial edema. No calf tenderness. No differential swelling of the upper extremities. Skin is warm, dry and perfused without cyanosis or mottling including that of the nail beds and the knees. Neck is supple. There is no jugular venous distention. No subcutaneous emphysema. Trachea is midline. Mouth shows his mucous membranes to be pink and moist. Lips and commissures are without lesions. There is no thrush. Eyes show his pupils to be equal and reactive. Extraocular motors are intact. Sclera nonicteric. Neuro shows II through XII intact, along with gross motor and gross sensation intact. Gait is not tested, although he can transfer from chair to bed without difficulty. Psychiatric shows him to be awake and alert, oriented times three with appropriate mood, affect and conversational. His white count today is 11.0 with hemoglobin and hematocrit after a 2 unit transfusion being 9.0 and 27.7, up from 7.2 and 22.9 yesterday. Platelet count is 394. Chemistries today show essentially normal electrolytes with a BUN and creatinine of 23 and 0.81, glucose of 94 and a calcium of 8.3. Magnesium is 2.3. His chest x-ray today still shows an entrapped lung in the left lower hemithorax at the costophrenic angle. He still has the consolidation in the right lower hemithorax and in the right upper hemithorax. There is an infiltrative pattern in the left lower hemithorax. Chest tube is in good place. He has dilated loops of bowel, some of which look to be small bowel. The adventure guide film on his CT of his abdomen done on 11/11 shows increased retained feces. IMPRESSION: 1. Parapneumonic effusion left side. 2. CML. 3. Chronic obstructive pulmonary disease (COPD). 4. Probable left sided pneumonia. 5. Lung entrapment left side. 6. Status post tongue cancer with partial glossectomy in the remote past. 7. Hypothyroidism. 8. Hypercholesterolemia. 9. Obstipation. PLAN AND DISCUSSION: Considering that he has increased fecal retention and he is distended, I have asked the nurses to administer a fleet enema. I will remove his chest tube today. He has entrapped lung and that space will refill with fluid. I would run him on the dry side. I am very sure that once the colonic feces is removed that he will open up.
[2019-11-14] MEDS: CEPHALEXIN 500 MG CAP PO SCH ×3 (13:35→21:16)
[2019-11-14] MEDS: ENOXAPARIN 40 MG/0.4 ML SYRINGE (J1650) SC SCH (21:12)
[2019-11-14] MEDS: ATORVASTATIN 10 MG TAB PO SCH (21:15)
[2019-11-14] MEDS: amLODIPine 5 MG TAB PO SCH (21:17)
[2019-11-15] VITALS: BP 121/57
[2019-11-15] MEDS: LEVALBUTEROL 1.25 MG/0.5 ML CONCENTRATE NEB NEB SCH ×4 (01:58→20:00)
[2019-11-15] MEDS: IPRATROPIUM 0.5MG/ALBUTEROL 2.5MG INH SOL UD 3ML (DUONEB)(J7620) NEB SCH ×4 (02:00→20:00)
[2019-11-15 04:00] VITALS: BP 129/60
[2019-11-15 05:32] LABS: HEMATOCRIT 27.2 % (42.0-52.0); MEAN CORPUSCULAR HEMOGLOBIN 29.8 pg (27.0-33.0); MEAN CORPUSCULAR HGB CONC 33.1 g/dl (32.0-36.5); MEAN CORPUSCULAR VOLUME 90.1 fl (80.0-96.0); PLATELET COUNT, AUTOMATED 387 10^3/uL (150-450); RED BLOOD COUNT 3.02 10^6/uL (4.30-6.10); WHITE BLOOD COUNT 11.2 10^3/uL (4.0-10.0)
[2019-11-15 05:51] LABS: BLOOD UREA NITROGEN 13 MG/DL (7-18); CALCIUM LEVEL 7.4 MG/DL (8.8-10.2); CARBON DIOXIDE LEVEL 27 MEQ/L (21-32); CHLORIDE LEVEL 114 MEQ/L (98-107); CREATININE FOR GFR 0.63 MG/DL (0.70-1.30); GLOMERULAR FILTRATION RATE > 60.0 (>42); GLUCOSE, FASTING 97 MG/DL (70-100); POTASSIUM SERUM 3.5 MEQ/L (3.5-5.1); SODIUM LEVEL 144 MEQ/L (136-145)
[2019-11-15] MEDS: SLF 3 ML SYR IV SCH ×3 (06:00→20:50)
[2019-11-15] MEDS: CLOTRIMAZOLE 10 MG TROCHE PO SCH ×5 (06:07→20:47)
[2019-11-15] MEDS: LEVOTHYROXINE 137MCG TABLET (0.137MG) PO SCH (06:07)
[2019-11-15] MEDS: D5W/0.9% SODIUM CHLORIDE 1,000 ML IV SCH ×2 (06:10→20:46)
[2019-11-15 08:00] VITALS: BP 148/68
[2019-11-15] MEDS: SYMBICORT 160/4.5MCG INHALER 6GM INH SCH ×2 (08:19→20:02)
[2019-11-15] MEDS: TIOTROPIUM INHALER/CAPSULE (SPIRIVA) INH SCH (08:19)
[2019-11-15] MEDS: NILOTINIB 150 MG PO SCH ×2 (08:27→18:10)
[2019-11-15] MEDS: DOCUSATE SODIUM 100 MG CAP PO SCH ×2 (08:28→20:47)
[2019-11-15] MEDS: NYSTATIN 500,000 U/5 ML SUSP UDC SS SCH ×4 (08:29→20:48)
[2019-11-15] MEDS: ASPIRIN 81 MG ENTERIC TAB PO SCH (08:29)
[2019-11-15] MEDS: CEPHALEXIN 500 MG CAP PO SCH ×4 (08:29→20:47)
[2019-11-15] MEDS: LOSARTAN 50 MG TAB PO SCH (08:29)
[2019-11-15] MEDS: MOM 30ML SUSPENSION UDC PO SCH (08:30)
--- NOTE | 2019-11-15 10:05 | IPNPDOC ---
Text Note Date of Service The patient was seen on 11/15/19. NOTE Subjective: Patient is a 79-year-old male with a PMHx of COPD, CML (on treatment), DLP, Hypothyroidism, Hx of Tongue CA, Anemia , who presented to the emergency room with complaints of shortness of breath. Patient had a CT scan completed at [facility] on 10/20/2019. Patient was sent to the emergency room from the outpatient pulmonology office for management of pneumonia. Cardiothoracic surgery was counseled for placement of a left-sided chest tube with tac pleurodesis. Patient was seen and examined at the bedside. Patient was seen sitting up in a chair. He denied any nausea, vomiting, abdominal pain. He does report having bowel movements yesterday. Reports no significant shortness of breath and a very mild cough. Denies chest pain. Objective: Vitals (See below) General: Appears to be sitting up in chair comfortably, AAOx3 HEENT: NC, AT CVS: +S1S2 Lungs: Air entry is fair bilaterally without evidence of rhonchi, rales or wheezing Abdomen: Abdomen is soft, without any distention or tenderness Extremities: No evidence of lower extremity edema, - Calf tenderness Assessment and plan: Normocytic anemia / Symptomatic anemia - likely 2/2 CML - Patient remains asymptomatic - s/p 2 units PRBC - Hemoglobin has remained stable - Patient's hemoglobin has improved appropriately - Will continue to follow Hg CAP with Left sided parapneumonic effusion - Patient does not reporting significant shortness of breath and does report mild coughing this morning - Leukocytosis stable - Pleural fluid culture 11/09: Staph aureus - Blood cultures 11/08, Sputum culture 11/09 - negative - c/w Keflex; s/p Ceftriaxone / Doxycycline (Antibiotic day #6 of ) Left sided parapneumonic effusion - Chest tube has been removed on 11/14/2019 - CTS, Dr. 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 Hypothyroidism - c/w Levothyroxine Suspected coronary artery disease - Had coronary artery lesion seen CT scan of his chest - c/w ASA and Plavix - Will need outpatient follow up with Cardiology HTN - BP well controlled - c/w Losartan, Amlodipine DLP - c/w Atorvastatin and ASA 81 COPD - No evidence of exacerbation - c/w inhaled therapy as ordered DVT prophylaxis - c/w Lovenox Disposition: - Swallow study - PT clearance - Anticipate discharge within the next 24 hours VS,Fishbone, I+O VS, Fishbone, I+O Laboratory Tests 11/15/19 05:11 Vital Signs Date Time Temp Pulse Resp B/P (MAP) Pulse Ox O2 Delivery O2 Flow Rate FiO2 11/15/19 08:29 129/60 11/15/19 08:00 97.9 87 87 17 Nasal Cannula 2.0 I&O- Last 24 Hours up to 6 AM 11/15/19 06:00 Intake Total 1000 ml Output Total 890 ml Balance 110 ml MAYRA CONNELLY MD Nov 15, 2019 10:05
--- NOTE | 2019-11-15 10:19 | REP ---
PA and lateral chest: Comparison is 11/14/2019. The left thoracotomy tube has been removed. The small subpulmonic pneumothorax in the left costophrenic angle is unchanged. The pleural thickening inferolaterally on the left is unchanged. There is no apical pneumothorax. Effacement of the right costophrenic angle is unchanged. Right apical pleural thickening is unchanged. Luz Marina, mediastinum, skeletal structures are unchanged. Impression: There has been interval removal of the left thoracotomy tube. There is no other interval change. Electronically Signed by Dylon Aggarwal MD 11/15/2019 10:11 A
[2019-11-15 12:00] VITALS: BP_SYST 138
[2019-11-15] MEDS ORDERED: VARIBAR NECTAR 40% w/v 240ML SUSP BTL As Ordered ONE (12:05)
[2019-11-15] MEDS ORDERED: BARIUM SULFATE 700 MG TABLET (E-Z-DISK) As Ordered ONE (12:05)
[2019-11-15] MEDS ORDERED: VARIBAR PUDDING 40% w/v 230ML TUBE As Ordered ONE (12:05)
[2019-11-15] MEDS ORDERED: E-Z-PAQUE 96% w/w SUSP 176GM BTL As Ordered ONE (12:05)
[2019-11-15] MEDS: ACETAMINOPHEN 500 MG TAB PO PRN (13:16)
[2019-11-15 16:00] VITALS: BP 130/60
--- NOTE | 2019-11-15 16:53 | REP ---
Examination Requested: Cookie Swallow Reason For Exam: Coughing with swallowing The procedure was performed by JAE Mccullough, under the direct supervision of Dr. Samaniego. The procedure was performed with Tory Pope from speech pathology present. 5 ml aliquots of thin, pudding, mixed fruit with a honey thick base, soft food, nectar, honey and pill consistency barium was administered. Penetration was visualized with thin, nectar, and honey thick barium. The detailed report of this examination will be provided by speech pathology. 3.0 minutes of fluoroscopy time was utilized for this procedure. Reviewed by JAE Resendiz 11/15/2019 01:11 P Electronically Signed by Rodrick Samaniego MD 11/15/2019 04:43 P
--- NOTE | 2019-11-15 20:17 | IPN ---
DATE: 11/15/2019 Mr. Marques is feeling well today. He has had some diarrhea, however. He notes that he has been on Ancef as an antibiotic for his bilateral pneumonias. He is eating and ambulating. His vital signs show a maximum temperature (t-max) of 97.9 with a heart rate that ranges between 87 and 83 and a respiratory rate of 18 to 17 without the use of accessory muscles, who is 94 to 97% saturated on 2 liters nasal cannula. Blood pressure is ranging between 129/60 to 148/68. His intake and output over the past 24 hours has been recorded as 1485 in and 1345 out for a positivity of 140 mL. He put out 95 mL out of the chest tube prior to having it removed yesterday. His weight today is 76 kg compared to 76.1 kg yesterday. PHYSICAL EXAMINATION: LUNGS: He has bilateral rhonchi and rales, which not all clear with coughing. Percussion note is full to the diaphragm. CARDIAC EXAM: Without murmurs, clicks, gallops or rubs. I cannot feel his point of maximum impulse (PMI). S1, S2 are normal. ABDOMEN: Soft, nontender. Bowel sounds positive. There is no hepatomegaly. No costovertebral angle tenderness. EXTREMITIES: Show no pretibial edema. No calf tenderness. No differential swelling of the upper extremities. SKIN: Warm, dry and perfused without cyanosis or mottling, including that of the nail beds and knees. NECK: Supple. There is no jugular venous distention. No subcutaneous emphysema. Trachea is midline. MOUTH: Shows his mucous membranes to be pink and moist. Lips and commissures without lesions. There is no thrush. EYES: Show his pupils to be equal and reactive. Extraocular motion intact. Sclerae anicteric. NEUROLOGIC: Shows II through XII intact with gross motor and gross sensation intact. Gait is not tested. PSYCHIATRIC: Shows him to be awake and alert, oriented times three with appropriate mood and affect and conversational. His chest x-ray today still shows the costophrenic angle lung entrapment on the left side. Gratifyingly, the fluid has not reaccumulated. His right side still shows the infiltrative processes in the upper and lower hemithoraces. LABORATORY DATA: White count today is 11.2, hemoglobin and hematocrit of 9.1 and 27.0 and a platelet count of 287. There is no differential. Electrolytes are essentially normal with a BUN and creatinine of 16 and 0.63, glucose of 97 and a calcium of 7.4. Microbiology shows the fluid culture growing Staphylococcus aureus but only a few. It is resistant to penicillin but sensitive to oxacillin. It is also resistant to erythromycin and clindamycin. He is now being treated with Ancef. His sputum culture is pending. IMPRESSION: 1. Apparent pneumonic effusion on the left side. 2. Bilateral pneumonias, more problematic on the left side. 3. Chronic obstructive pulmonary disease (COPD). 4. Lung entrapment on the left side. 5. Status post tongue cancer with partial glossectomy in the remote past. 6. Hypothyroidism. 7. Hypercholesterolemia. 8. Obstipation, now resolved with diarrhea. This may very well represent post obstipation diarrhea. PLAN/DISCUSSION: I am gratified that the fluid has not returned to the space in the left lower lobe, although I certainly expect it to. We are treating him for presumed pneumonia. I cannot really be sure if the Staphylococcus that is growing out from his pleural fluid truly represents a Staphylococcus pneumonia with Staphylococcus empyema or whether it represents a contaminant. He certainly is however getting better.
[2019-11-15] MEDS: ATORVASTATIN 10 MG TAB PO SCH (20:48)
[2019-11-15] MEDS: amLODIPine 5 MG TAB PO SCH (20:49)
[2019-11-15] MEDS: ENOXAPARIN 40 MG/0.4 ML SYRINGE (J1650) SC SCH (20:50)
[2019-11-15 23:59] VITALS: BP 152/60
[2019-11-16] MEDS: IPRATROPIUM 0.5MG/ALBUTEROL 2.5MG INH SOL UD 3ML (DUONEB)(J7620) NEB SCH ×3 (02:00→14:00)
[2019-11-16] MEDS: LEVALBUTEROL 1.25 MG/0.5 ML CONCENTRATE NEB NEB SCH ×4 (02:00→20:00)
[2019-11-16 04:00] VITALS: BP 142/62
[2019-11-16 05:51] LABS: HEMATOCRIT 28.3 % (42.0-52.0); HEMOGLOBIN 9.3 g/dl (13.5-17.5); MEAN CORPUSCULAR HEMOGLOBIN 29.4 pg (27.0-33.0); MEAN CORPUSCULAR HGB CONC 32.9 g/dl (32.0-36.5); MEAN CORPUSCULAR VOLUME 89.6 fl (80.0-96.0); PLATELET COUNT, AUTOMATED 373 10^3/uL (150-450); RED BLOOD COUNT 3.16 10^6/uL (4.30-6.10); WHITE BLOOD COUNT 10.6 10^3/uL (4.0-10.0)
[2019-11-16] MEDS: SLF 3 ML SYR IV SCH ×3 (05:59→21:14)
[2019-11-16] MEDS: CLOTRIMAZOLE 10 MG TROCHE PO SCH ×5 (06:13→21:13)
[2019-11-16] MEDS: LEVOTHYROXINE 137MCG TABLET (0.137MG) PO SCH (06:13)
[2019-11-16 06:22] LABS: BLOOD UREA NITROGEN 8 MG/DL (7-18); CALCIUM LEVEL 7.2 MG/DL (8.8-10.2); CARBON DIOXIDE LEVEL 26 MEQ/L (21-32); CHLORIDE LEVEL 114 MEQ/L (98-107); CREATININE FOR GFR 0.58 MG/DL (0.70-1.30); GLOMERULAR FILTRATION RATE > 60.0 (>42); GLUCOSE, FASTING 96 MG/DL (70-100); POTASSIUM SERUM 3.5 MEQ/L (3.5-5.1); SODIUM LEVEL 145 MEQ/L (136-145)
[2019-11-16 08:00] VITALS: BP 147/69
[2019-11-16] MEDS: SYMBICORT 160/4.5MCG INHALER 6GM INH SCH ×2 (08:01→20:20)
[2019-11-16] MEDS: TIOTROPIUM INHALER/CAPSULE (SPIRIVA) INH SCH (08:01)
--- NOTE | 2019-11-16 09:05 | REP ---
Chest x-ray: Two views. History: Chest tube. Comparison study: November 15, 2019. Findings: There is a small loculated air bubble in the left lateral pleural angle with some adjacent lateral pleural thickening unchanged. There is blunting of the end thickening of the right pleural angle also unchanged. Bibasilar fibrotic changes are noted. Some fissural thickening is seen on the lateral radiograph unchanged. No new infiltrate. Electronically Signed by Rodrick Samaniego MD 11/16/2019 08:56 A
[2019-11-16] MEDS: D5W/0.9% SODIUM CHLORIDE 1,000 ML IV SCH (09:07)
[2019-11-16] MEDS: DOCUSATE SODIUM 100 MG CAP PO SCH ×2 (09:07→21:12)
[2019-11-16] MEDS: CEPHALEXIN 500 MG CAP PO SCH ×4 (09:07→21:13)
[2019-11-16] MEDS: ASPIRIN 81 MG ENTERIC TAB PO SCH (09:08)
[2019-11-16] MEDS: MOM 30ML SUSPENSION UDC PO SCH (09:08)
[2019-11-16] MEDS: LOSARTAN 50 MG TAB PO SCH (09:08)
[2019-11-16] MEDS: NYSTATIN 500,000 U/5 ML SUSP UDC SS SCH ×4 (09:09→21:12)
[2019-11-16] MEDS: NILOTINIB 150 MG PO SCH ×2 (09:45→17:50)
--- NOTE | 2019-11-16 10:34 | IPNPDOC ---
Text Note Date of Service The patient was seen on 11/16/19. NOTE Subjective: Patient is a 79-year-old male with a PMHx of COPD, CML (on treatment), DLP, Hypothyroidism, Hx of Tongue CA, Anemia , who presented to the emergency room with complaints of shortness of breath. Patient had a CT scan completed at [facility] on 10/20/2019. Patient was sent to the emergency room from the outpatient pulmonology office for management of pneumonia. Cardiothoracic surgery was counseled for placement of a left-sided chest tube with tac pleurodesis. Patient was seen and examined at the bedside. . Currently, patient reports that he is doing well. Denies any chest pain, shortness of breath or palpitations. Is upset with the diet that he was given after the swallow evaluation. He denies any abdominal pain, urinary discomfort or diarrhea. Objective: Vitals (See below) General: Appears to be sitting up in chair comfortably, AAOx3 HEENT: NC, AT CVS: +S1S2 Lungs: Air entry is fair bilaterally without evidence of rhonchi, rales or wheezing Abdomen: Abdomen is soft, without any distention or tenderness Extremities: No evidence of lower extremity edema, - Calf tenderness Assessment and plan: Difficulty swallowing - Hx of Tongue CA - Continue modified diet because of aspiration risk - Speech therapy continues to evaluate Normocytic anemia / Symptomatic anemia - likely 2/2 CML - Patient remains asymptomatic - s/p 2 units PRBC; Hemoglobin has remained stable - Will continue to follow Hg CAP with Left sided parapneumonic effusion - Patient does not reporting significant shortness of breath and does report mild coughing this morning - Leukocytosis stable - Pleural fluid culture 11/09: Staph aureus - Blood cultures 11/08, Sputum culture 11/09 - negative - c/w Keflex; s/p Ceftriaxone / Doxycycline (Antibiotic day #7 of ) Left sided parapneumonic effusion - Chest tube has been removed on 11/14/2019 - CTS, Dr. 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 Hypothyroidism - c/w Levothyroxine Suspected coronary artery disease - Had coronary artery lesion seen CT scan of his chest - c/w ASA and Plavix - Will need outpatient follow up with Cardiology HTN - BP well controlled - c/w Losartan, Amlodipine DLP - c/w Atorvastatin and ASA 81 COPD - No evidence of exacerbation - c/w inhaled therapy as ordered DVT prophylaxis - c/w Lovenox Disposition: - Awaiting PT clearance VS,Azeb, I+O VS, Azeb, I+O Laboratory Tests 11/16/19 05:41 Vital Signs Date Time Temp Pulse Resp B/P (MAP) Pulse Ox O2 Delivery O2 Flow Rate FiO2 11/16/19 09:08 147/69 11/16/19 08:00 98.5 89 20 95 Nasal Cannula 2.0 I&O- Last 24 Hours up to 6 AM 11/16/19 06:00 Intake Total 900 ml Output Total 1850 ml Balance -950 ml MAYRA CONNELLY MD Nov 16, 2019 10:34
[2019-11-16] MEDS: ACETAMINOPHEN 500 MG TAB PO PRN ×2 (10:41→21:12)
--- NOTE | 2019-11-16 11:36 | IPN ---
DATE: 11/15/2019 The patient was admitted 6 days ago with a history of shortness of breath and evidence for pneumonia. He developed some nausea and emesis on the [address] scan had suggested some mildly dilated proximal small bowel suggestive of possible partial bowel obstruction. He has generally shown improvement over the last 24 hours with some flatus and several bowel movements. Vital signs show that he has been afebrile over the past 24 hours with a pulse in the 80s and a good blood pressure. Intake and output shows that yesterday he had 1485 in with 1345 out. He had no emesis recorded. He has three bowel movements recorded yesterday. Urine output has been good. PHYSICAL EXAMINATION: The patient is alert and appropriately responsive. The abdomen remains somewhat distended but is certainly softer than it had been. He has active bowel sounds. There is no significant tenderness on palpation. Laboratory studies show white count of 11, which is stable from yesterday. Hemoglobin of 9 with a hematocrit of 27 and platelet count of 387,000. Chemistry profile is not significantly changed from yesterday. The patient has no new abdominal imaging. IMPRESSION: Patient is having bowel movements and passing flatus with improvement in his abdominal physical examination. PLAN: At this point, I will stop following the patient as he appears to have resolved whatever process was causing his emesis. Feel free to consult surgery if necessary in the future. IVAN
[2019-11-16 12:00] VITALS: BP 120/60
--- NOTE | 2019-11-16 14:11 | IPN ---
DATE: 11/16/2019 Romi Marques continues to do well from a respiratory point of view. He is not complaining of shortness of breath and he is lying comfortably in bed. His vital signs show a maximum temperature (T-max) of 98.3 with a heart rate that ranges between 86 and 91 in sinus rhythm and a respiratory rate 18-16 without the use of accessory muscles, who is 95 and 96% saturated on 2 liters nasal cannula and his blood pressures range between 120/60 to 147/69. His intake and output over the past 24 hours is recorded as 900 in and 1275 out for a negativity of 375 mL. He weighs 75.9 kg compared to 76 kg yesterday. His chest tube was removed the day before. On physical examination his lungs show decreased breath sounds in the right lower hemithorax with some inspiratory rales at the lower left hemithorax. Percussion note is full to the diaphragm. Breath sounds are equal on either side. Cardiac exam is without murmurs, clips, gallops or rubs. I cannot feel his point of maximum impulse (PMI). S1 and S2 are normal. Abdomen is soft and nontender. Bowel sounds are positive. There is no hepatomegaly. No costovertebral angle (CVA) tenderness. Extremities still show 1+ pretibial edema with no calf tenderness. No differential swelling of the upper extremities. Skin is warm, dry and perfused without cyanosis or mottling including that of the nail beds and knees. Neck is supple. There is no jugular venous distention. No subcutaneous emphysema. Trachea is midline. Mouth shows his mucous membranes to be pink and moist. Lips and commissures are without lesions. There is no thrush. Eyes show his pupils to be equal and reactive. Extraocular movements intact. Sclerae nonicteric. Neurologic shows II-XII intact along with gross motor and gross sensation intact. Gait is not tested. Psychiatric showed him to be awake, alert and oriented times three with appropriate and affect and conversational. His white count today is 10.6 with hemoglobin and hematocrit 9.3 and 28.3 respectively with a platelet count of 373. Differential is not done today. Electrolytes show potassium 3.5, which is unchanged over the last 2 days. Remaining electrolytes are essentially normal with a BUN and creatinine of 8 and 0.58. His chest x-ray again shows the entrapped lung in the left lower hemithorax and the costophrenic angle. Surprisingly, it has not refilled with fluid yet. The right lung shows the consolidative changes in the upper hemithorax and the lower hemithorax. IMPRESSION: 1. Apparent pneumonic effusion, left side. 2. Bilateral pneumonias more problematic on the left side. 3. Chronic obstructive pulmonary disease (COPD) 4. Lung entrapment left side. 5. Status post lung cancer with partial glossectomy in the remote past. 6. Hypothyroidism. 7. Hypercholesterolemia. 8. Chronic myelocytic leukemia (CML). 9. Obstipation relieved. PLAN AND DISCUSSION: As far as I am concerned, he can be discharged home. His lung remains as expanded as its going to be to the chest wall. I will see him in post hospitalization followup in 2 weeks.
[2019-11-16 16:00] VITALS: BP 159/76
[2019-11-16 20:00] VITALS: BP 151/71
[2019-11-16] MEDS: ATORVASTATIN 10 MG TAB PO SCH (21:12)
[2019-11-16] MEDS: ENOXAPARIN 40 MG/0.4 ML SYRINGE (J1650) SC SCH (21:12)
[2019-11-16] MEDS: amLODIPine 5 MG TAB PO SCH (21:13)
[2019-11-16 23:59] VITALS: BP 120/58
[2019-11-17] MEDS: NORCO, ANEXSIA 5/325MG TABLET (HYDROcodone/ACETAMINOPHEN) PO PRN (00:43)
[2019-11-17 04:00] VITALS: BP 120/60
[2019-11-17] MEDS: LEVALBUTEROL 1.25 MG/0.5 ML CONCENTRATE NEB NEB SCH ×4 (04:16→20:00)
[2019-11-17] MEDS: LEVOTHYROXINE 137MCG TABLET (0.137MG) PO SCH (05:02)
[2019-11-17] MEDS: CLOTRIMAZOLE 10 MG TROCHE PO SCH ×2 (05:02→09:07)
[2019-11-17] MEDS: SLF 3 ML SYR IV SCH ×3 (05:02→20:42)
[2019-11-17] MEDS: TIOTROPIUM INHALER/CAPSULE (SPIRIVA) INH SCH (07:56)
[2019-11-17] MEDS: SYMBICORT 160/4.5MCG INHALER 6GM INH SCH ×2 (07:56→20:22)
--- NOTE | 2019-11-17 08:06 | REP ---
PA and lateral chest: Comparison is 11/16/2019. The small pneumothorax in the left costophrenic angle is unchanged. Pleural thickening along the left lateral chest wall and effacement of the left costophrenic angle are unchanged. Effacement right costophrenic angle and increased density inferiorly in the right lung are unchanged. Cardiac size is normal. The remainder the lung cano are clear. Impression: There is no interval change. Electronically Signed by Dylon Aggarwal MD 11/17/2019 07:58 A
[2019-11-17] MEDS: MOM 30ML SUSPENSION UDC PO SCH (08:54)
[2019-11-17] MEDS: DOCUSATE SODIUM 100 MG CAP PO SCH ×2 (08:54→20:27)
[2019-11-17 09:04] VITALS: BP 132/62
[2019-11-17] MEDS: NILOTINIB 150 MG PO SCH ×2 (09:07→17:28)
[2019-11-17] MEDS: CEPHALEXIN 500 MG CAP PO SCH ×4 (09:08→20:27)
[2019-11-17] MEDS: LOSARTAN 50 MG TAB PO SCH (09:08)
[2019-11-17] MEDS: ASPIRIN 81 MG ENTERIC TAB PO SCH (09:09)
[2019-11-17] MEDS: NYSTATIN 500,000 U/5 ML SUSP UDC SS SCH ×4 (09:09→21:28)
--- NOTE | 2019-11-17 10:44 | IPNPDOC ---
Text Note Date of Service The patient was seen on 11/17/19. NOTE Subjective: Patient is a 79-year-old male with a PMHx of COPD, CML (on treatment), DLP, Hypothyroidism, Hx of Tongue CA, Anemia , who presented to the emergency room with complaints of shortness of breath. Patient had a CT scan completed at [facility] on 10/20/2019. Patient was sent to the emergency room from the outpatient pulmonology office for management of pneumonia. Cardiothoracic surgery was counseled for placement of a left-sided chest tube with tac pleurodesis. Patient was seen and examined at the bedside. Clinically patient had reported improvement in his strength. Again is concerned about his diet, he is expressing that he is not happy with his current meals. He denies any CP, SOB or palpitations. Objective: Vitals (See below) General: Appears to be sitting up in chair comfortably, AAOx3 HEENT: NC, AT CVS: +S1S2 Lungs: Air entry remains fair bilaterally without evidence of rhonchi, wheezing or crackles Abdomen: Abdomen is soft, without any distention or tenderness Extremities: No evidence of lower extremity edema, - Calf tenderness Assessment and plan: Difficulty swallowing - Hx of Tongue CA - Continue modified diet because of aspiration risk - Speech therapy continues to evaluate and make recommendations Normocytic anemia / Symptomatic anemia - likely 2/2 CML - Patient remains asymptomatic - s/p 2 units PRBC; Hemoglobin has remained stable - Will repeat Hg tomorrow AM CAP with Left sided parapneumonic effusion - Patient does not reporting significant shortness of breath and does report mild coughing this morning - Leukocytosis stable - Pleural fluid culture 11/09: Staph aureus - Blood cultures 11/08, Sputum culture 11/09 - negative - c/w Keflex; s/p Ceftriaxone / Doxycycline (Antibiotic day #8 of ) Left sided parapneumonic effusion - Chest tube has been removed on 11/14/2019 - CTS, Dr. 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 Hypothyroidism - c/w Levothyroxine Suspected coronary artery disease - Had coronary artery lesion seen CT scan of his chest - c/w ASA and Atorvastatin - Will need outpatient follow up with Cardiology HTN - BP well controlled - c/w Losartan, Amlodipine DLP - c/w Atorvastatin and ASA 81 COPD - No evidence of exacerbation - c/w inhaled therapy as ordered DVT prophylaxis - c/w Lovenox Disposition: - Awaiting PT clearance VS,Azeb, I+O VS, Azeb, I+O Vital Signs Date Time Temp Pulse Resp B/P (MAP) Pulse Ox O2 Delivery O2 Flow Rate FiO2 11/17/19 09:04 98.1 91 20 132/62 (85) 94 Room Air 11/17/19 04:00 2.0 I&O- Last 24 Hours up to 6 AM 11/17/19 06:00 Intake Total 180 ml Output Total 1000 ml Balance -820 ml MAYRA CONNELLY MD Nov 17, 2019 10:43
[2019-11-17 11:22] VITALS: BP 140/70
[2019-11-17] MEDS: ACETAMINOPHEN 500 MG TAB PO PRN ×2 (12:10→20:28)
[2019-11-17 12:18] LABS: BLOOD UREA NITROGEN 12 MG/DL (7-18); CALCIUM LEVEL 7.7 MG/DL (8.8-10.2); CARBON DIOXIDE LEVEL 28 MEQ/L (21-32); CHLORIDE LEVEL 110 MEQ/L (98-107); CREATININE FOR GFR 0.73 MG/DL (0.70-1.30); GLOMERULAR FILTRATION RATE > 60.0 (>42); GLUCOSE, FASTING 99 MG/DL (70-100); MAGNESIUM LEVEL 2.4 MG/DL (1.8-2.4); POTASSIUM SERUM 3.8 MEQ/L (3.5-5.1); SODIUM LEVEL 142 MEQ/L (136-145)
[2019-11-17 15:36] VITALS: BP 130/61
[2019-11-17 18:24] VITALS: BP 143/81
[2019-11-17 20:00] VITALS: BP 146/79
[2019-11-17] MEDS: ATORVASTATIN 10 MG TAB PO SCH (20:27)
[2019-11-17] MEDS: amLODIPine 5 MG TAB PO SCH (20:28)
[2019-11-17] MEDS: ENOXAPARIN 40 MG/0.4 ML SYRINGE (J1650) SC SCH (20:28)
[2019-11-18 01:56] VITALS: O2SAT 98
[2019-11-18] MEDS: LEVALBUTEROL 1.25 MG/0.5 ML CONCENTRATE NEB NEB SCH ×4 (01:56→18:27)
[2019-11-18 05:13] VITALS: BP 128/65
[2019-11-18] MEDS: LEVOTHYROXINE 137MCG TABLET (0.137MG) PO SCH (05:13)
[2019-11-18] MEDS: SLF 3 ML SYR IV SCH ×3 (05:14→21:41)
[2019-11-18 07:02] LABS: BASO % 0.3 % (0.0-1.0); EOS # 0.1 10^3/uL (0.0-0.5); HEMATOCRIT 29.6 % (42.0-52.0); HEMOGLOBIN 9.7 g/dl (13.5-17.5); LYMPH # 0.4 10^3/uL (1.5-5.0); LYMPH % 4.1 % (24.0-44.0); MEAN CORPUSCULAR HEMOGLOBIN 29.3 pg (27.0-33.0); MEAN CORPUSCULAR HGB CONC 32.8 g/dl (32.0-36.5); MEAN CORPUSCULAR VOLUME 89.4 fl (80.0-96.0); MONO # 1.3 10^3/uL (0.0-0.8); NEUTROPHILS # 8.7 10^3/uL (1.5-8.5); NEUTROPHILS % 80.8 % (36.0-66.0); PLATELET COUNT, AUTOMATED 389 10^3/uL (150-450); RED BLOOD COUNT 3.31 10^6/uL (4.30-6.10); WHITE BLOOD COUNT 10.7 10^3/uL (4.0-10.0)
[2019-11-18 07:21] LABS: BLOOD UREA NITROGEN 13 MG/DL (7-18); CALCIUM LEVEL 7.7 MG/DL (8.8-10.2); CARBON DIOXIDE LEVEL 26 MEQ/L (21-32); CHLORIDE LEVEL 112 MEQ/L (98-107); CREATININE FOR GFR 0.72 MG/DL (0.70-1.30); GLOMERULAR FILTRATION RATE > 60.0 (>42); GLUCOSE, FASTING 83 MG/DL (70-100); MAGNESIUM LEVEL 2.2 MG/DL (1.8-2.4); POTASSIUM SERUM 3.5 MEQ/L (3.5-5.1); SODIUM LEVEL 144 MEQ/L (136-145)
[2019-11-18] MEDS: CEPHALEXIN 500 MG CAP PO SCH ×4 (08:33→21:41)
[2019-11-18] MEDS: ASPIRIN 81 MG ENTERIC TAB PO SCH (08:33)
[2019-11-18] MEDS: DOCUSATE SODIUM 100 MG CAP PO SCH ×2 (08:34→21:40)
[2019-11-18] MEDS: MOM 30ML SUSPENSION UDC PO SCH (08:34)
[2019-11-18] MEDS: LOSARTAN 50 MG TAB PO SCH (08:34)
[2019-11-18] MEDS: NILOTINIB 150 MG PO SCH ×2 (08:35→16:55)
[2019-11-18] MEDS: NYSTATIN 500,000 U/5 ML SUSP UDC SS SCH ×4 (08:36→21:40)
[2019-11-18] MEDS: TIOTROPIUM INHALER/CAPSULE (SPIRIVA) INH SCH (09:06)
[2019-11-18] MEDS: SYMBICORT 160/4.5MCG INHALER 6GM INH SCH ×2 (09:06→20:06)
--- NOTE | 2019-11-18 09:08 | IPNPDOC ---
Text Note Date of Service The patient was seen on 11/18/19. NOTE Subjective: Patient is a 79-year-old male with a PMHx of COPD, CML (on treatment), DLP, Hypothyroidism, Hx of Tongue CA, Anemia , who presented to the emergency room with complaints of shortness of breath. Patient had a CT scan completed at [facility] on 10/20/2019. Patient was sent to the emergency room from the outpatient pulmonology office for management of pneumonia. Cardiothoracic surgery was counseled for placement of a left-sided chest tube with tac pleurodesis. Patient was seen and examined at the bedside. Patient again was angry that his diet was modified. Denied any CP, SOB, palpitations. Denies any N/V, abdominal pain, C/D. Objective: Vitals (See below) General: Appears to be sitting up in chair comfortably, AAOx3 HEENT: NC, AT CVS: +S1S2 Lungs: Air entry is fair bilaterally without evidence of rhonchi, wheezing or crackles Abdomen: Soft, without any distention or tenderness on palpation Extremities: Lower extremities are without any edema, - Calf tenderness Assessment and plan: Difficulty swallowing - Patient is currently not satisfied with his current modified diet - Hx of Tongue CA - Continue modified diet at this time because of aspiration risk - Speech therapy continues to evaluate and make recommendations Normocytic anemia / Symptomatic anemia - likely 2/2 CML - Patient remains asymptomatic - s/p 2 units PRBC; Hemoglobin has remained stable - Hemoglobin has remained stable CAP with Left sided parapneumonic effusion - Patient does not reporting significant shortness of breath and does report mild coughing this morning - Leukocytosis stable - Pleural fluid culture 11/09: Staph aureus - Blood cultures 11/08, Sputum culture 11/09 - negative - c/w Keflex; s/p Ceftriaxone / Doxycycline (Antibiotic day #9 of ) Left sided parapneumonic effusion - Chest tube has been removed on 11/14/2019 - CTS, Dr. 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 Hypothyroidism - c/w Levothyroxine Suspected coronary artery disease - Had coronary artery lesion seen CT scan of his chest - c/w ASA and Atorvastatin - Will need outpatient follow up with Cardiology HTN - BP well controlled - c/w Losartan, Amlodipine DLP - c/w Atorvastatin and ASA 81 COPD - No evidence of exacerbation - c/w inhaled therapy as ordered DVT prophylaxis - c/w Lovenox Disposition: - Awaiting PT clearance VS,Azeb, I+O VS, Azeb I+O Laboratory Tests 11/17/19 11:15 11/18/19 06:42 Vital Signs Date Time Temp Pulse Resp B/P (MAP) Pulse Ox O2 Delivery O2 Flow Rate FiO2 11/18/19 08:34 140/72 11/18/19 05:13 98.9 92 18 94 Room Air 11/18/19 01:56 2.0 I&O- Last 24 Hours up to 6 AM 11/18/19 05:59 Intake Total 960 ml Output Total 550 ml Balance 410 ml MAYRA CONNELLY MD Nov 18, 2019 09:08
[2019-11-18 14:00] VITALS: BP 110/61
[2019-11-18 19:48] VITALS: BP 154/82
[2019-11-18] MEDS: ACETAMINOPHEN 500 MG TAB PO PRN (21:40)
[2019-11-18] MEDS: ATORVASTATIN 10 MG TAB PO SCH (21:40)
[2019-11-18] MEDS: ENOXAPARIN 40 MG/0.4 ML SYRINGE (J1650) SC SCH (21:40)
[2019-11-18] MEDS: amLODIPine 5 MG TAB PO SCH (21:41)
[2019-11-19] MEDS: LEVALBUTEROL 1.25 MG/0.5 ML CONCENTRATE NEB NEB SCH ×4 (01:50→20:00)
[2019-11-19] MEDS: SLF 3 ML SYR IV SCH ×3 (05:11→21:44)
[2019-11-19] MEDS: LEVOTHYROXINE 137MCG TABLET (0.137MG) PO SCH (05:11)
[2019-11-19 06:00] VITALS: BP 151/81
[2019-11-19 07:25] LABS: BASO % 0.4 % (0.0-1.0); EOS # 0.1 10^3/uL (0.0-0.5); HEMOGLOBIN 9.6 g/dl (13.5-17.5); LYMPH # 0.5 10^3/uL (1.5-5.0); LYMPH % 4.6 % (24.0-44.0); MEAN CORPUSCULAR HEMOGLOBIN 28.8 pg (27.0-33.0); MEAN CORPUSCULAR VOLUME 90.1 fl (80.0-96.0); MONO # 1.4 10^3/uL (0.0-0.8); MONO % 14.2 % (0.0-5.0); NEUTROPHILS # 7.7 10^3/uL (1.5-8.5); NEUTROPHILS % 77.9 % (36.0-66.0); PLATELET COUNT, AUTOMATED 379 10^3/uL (150-450); RED BLOOD COUNT 3.33 10^6/uL (4.30-6.10); WHITE BLOOD COUNT 9.9 10^3/uL (4.0-10.0)
[2019-11-19] MEDS: SYMBICORT 160/4.5MCG INHALER 6GM INH SCH ×2 (07:36→20:07)
[2019-11-19] MEDS: TIOTROPIUM INHALER/CAPSULE (SPIRIVA) INH SCH (07:36)
[2019-11-19 07:48] LABS: BLOOD UREA NITROGEN 12 MG/DL (7-18); CALCIUM LEVEL 7.8 MG/DL (8.8-10.2); CARBON DIOXIDE LEVEL 28 MEQ/L (21-32); CHLORIDE LEVEL 109 MEQ/L (98-107); CREATININE FOR GFR 0.72 MG/DL (0.70-1.30); GLOMERULAR FILTRATION RATE > 60.0 (>42); GLUCOSE, FASTING 92 MG/DL (70-100); MAGNESIUM LEVEL 2.2 MG/DL (1.8-2.4); POTASSIUM SERUM 3.3 MEQ/L (3.5-5.1); SODIUM LEVEL 140 MEQ/L (136-145)
[2019-11-19] MEDS: LOSARTAN 50 MG TAB PO SCH (08:28)
[2019-11-19] MEDS: MOM 30ML SUSPENSION UDC PO SCH (08:28)
[2019-11-19] MEDS: NYSTATIN 500,000 U/5 ML SUSP UDC SS SCH ×4 (08:28→21:43)
[2019-11-19] MEDS: CEPHALEXIN 500 MG CAP PO SCH (08:28)
[2019-11-19] MEDS: DOCUSATE SODIUM 100 MG CAP PO SCH ×2 (08:28→21:44)
[2019-11-19] MEDS: ASPIRIN 81 MG ENTERIC TAB PO SCH (08:28)
[2019-11-19] MEDS: NILOTINIB 150 MG PO SCH ×2 (08:29→17:16)
--- NOTE | 2019-11-19 09:39 | IPNPDOC ---
Text Note Date of Service The patient was seen on 11/19/19. NOTE Subjective: Patient is a 79-year-old male with a PMHx of COPD, CML (on treatment), DLP, Hypothyroidism, Hx of Tongue CA, Anemia , who presented to the emergency room with complaints of shortness of breath. Patient had a CT scan completed at [facility] on 10/20/2019. Patient was sent to the emergency room from the outpatient pulmonology office for management of pneumonia. Cardiothoracic surgery was counseled for placement of a left-sided chest tube with tac pleurodesis. Patient was seen and examined at the bedside. Patient reported that he was having a productive cough. He denied any chest pain. Did report shortness of breath. The heart and to be on supplemental oxygen. He denied nausea, vomiting, abdominal pain, diarrhea, or urinary discomfort. Objective: Vitals (See below) General: Appears to be sitting up in chair comfortably, AAOx3 HEENT: NC, AT CVS: +S1S2 Lungs: Diminished air entry. No discernible rhonchi, no wheezing appreciated, no significant crackles Abdomen: Abdomen is without any distention or tenderness and remains soft Extremities: No appreciable edema lower extremities, - Calf tenderness Assessment and plan: Difficulty swallowing - Patient is currently not satisfied with his current modified diet - Hx of Tongue CA - Yesterday patient was put on a regular diet despite discussing risks and benefits; he did appear to have increased coughing after consumption of food - At this point he has been reverted back to a modified diet - Speech therapy continues to evaluate and make recommendations Shortness of breath - Currently patient has reported coughing up of sputum - Remains hemodynamically stable and afebrile - Has required supplemental oxygen - Will check CXR Normocytic anemia / Symptomatic anemia - likely 2/2 CML - Patient remains asymptomatic - s/p 2 units PRBC; Hemoglobin has remained stable - Hemoglobin has remained stable CAP with Left sided parapneumonic effusion - Patient does not reporting significant shortness of breath and does report m ild coughing this morning - Leukocytosis stable - Pleural fluid culture 11/09: Staph aureus - Blood cultures 11/08, Sputum culture 11/09 - negative - c/w Keflex; s/p Ceftriaxone / Doxycycline (Antibiotic day #10 of ) Left sided parapneumonic effusion - Chest tube has been removed on 11/14/2019 - CTS, Dr. Newton on consultation; appreciate their input s/p Abdominal distension - likely 2/2 Ileus, less likely 2/2 SBO - Denies any nausea, vomiting, abdominal pain, does report having bowel movements yesterday - CT abdomen / pelvis 11/11: Mildly dilated air and fluid filled loops of small bowel in the central abdomen - Surgery on consultation; appreciated their input Chronic myelocytic leukemia - c/w home regimen while inpatient Hypothyroidism - c/w Levothyroxine Suspected coronary artery disease - Had coronary artery lesion seen CT scan of his chest - c/w ASA and Atorvastatin - Will need outpatient follow up with Cardiology HTN - BP well controlled - c/w Losartan, Amlodipine DLP - c/w Atorvastatin and ASA 81 COPD - No evidence of exacerbation - c/w inhaled therapy as ordered DVT prophylaxis - c/w Lovenox Disposition: - Awaiting PT clearance VS,Azeb, I+O VS, Azeb, I+O Laboratory Tests 11/19/19 06:57 Vital Signs Date Time Temp Pulse Resp B/P (MAP) Pulse Ox O2 Delivery O2 Flow Rate FiO2 11/19/19 06:00 98.6 93 20 151/81 (104) 94 Nasal Cannula 2.0 I&O- Last 24 Hours up to 6 AM 11/19/19 06:00 Intake Total 1650 ml Output Total 1075 ml Balance 575 ml MAYRA CONNELLY MD Nov 19, 2019 09:39
[2019-11-19] MEDS ORDERED: POTASSIUM CHLORIDE 10 MEQ SR TABLET PO ONE (10:00)
--- NOTE | 2019-11-19 13:48 | REP ---
REASON FOR EXAM: Dyspnea. COMPARISON: Multiple, the latest 11/17/2019. There are bibasilar opacities, status quo. There is a small amount of subpleural air on the left, which has decreased. This is seen in the left lung base. There is thickening of the fissure, status quo. There is no significant change from the prior exam. Electronically Signed by Brennen Márquez DO 11/19/2019 01:52 P
[2019-11-19] MEDS: guaiFENesin ER 600 MG TAB PO SCH ×2 (14:40→21:45)
[2019-11-19 14:48] VITALS: BP 166/76
[2019-11-19 21:24] VITALS: BP 162/75
[2019-11-19] MEDS: ENOXAPARIN 40 MG/0.4 ML SYRINGE (J1650) SC SCH (21:43)
[2019-11-19] MEDS: ACETAMINOPHEN 500 MG TAB PO PRN (21:44)
[2019-11-19] MEDS: amLODIPine 5 MG TAB PO SCH (21:45)
[2019-11-19] MEDS: ATORVASTATIN 10 MG TAB PO SCH (21:45)
[2019-11-20] MEDS: LEVALBUTEROL 1.25 MG/0.5 ML CONCENTRATE NEB NEB SCH ×4 (01:00→20:00)
[2019-11-20 05:46] VITALS: BP 133/76
[2019-11-20] MEDS: LEVOTHYROXINE 137MCG TABLET (0.137MG) PO SCH (05:58)
[2019-11-20] MEDS: SLF 3 ML SYR IV SCH ×3 (05:59→20:59)
[2019-11-20 07:02] LABS: BASO % 0.3 % (0.0-1.0); EOS # 0.1 10^3/uL (0.0-0.5); EOS % 0.6 % (0.0-3.0); HEMATOCRIT 30.1 % (42.0-52.0); HEMOGLOBIN 9.4 g/dl (13.5-17.5); LYMPH # 0.5 10^3/uL (1.5-5.0); LYMPH % 5.7 % (24.0-44.0); MEAN CORPUSCULAR HEMOGLOBIN 28.8 pg (27.0-33.0); MEAN CORPUSCULAR HGB CONC 31.2 g/dl (32.0-36.5); MEAN CORPUSCULAR VOLUME 92.3 fl (80.0-96.0); MONO # 1.4 10^3/uL (0.0-0.8); MONO % 14.4 % (0.0-5.0); NEUTROPHILS # 7.2 10^3/uL (1.5-8.5); NEUTROPHILS % 77.4 % (36.0-66.0); PLATELET COUNT, AUTOMATED 386 10^3/uL (150-450); RED BLOOD COUNT 3.26 10^6/uL (4.30-6.10); WHITE BLOOD COUNT 9.4 10^3/uL (4.0-10.0)
[2019-11-20 07:32] LABS: BLOOD UREA NITROGEN 16 MG/DL (7-18); CALCIUM LEVEL 8.1 MG/DL (8.8-10.2); CARBON DIOXIDE LEVEL 25 MEQ/L (21-32); CHLORIDE LEVEL 112 MEQ/L (98-107); CREATININE FOR GFR 0.83 MG/DL (0.70-1.30); GLOMERULAR FILTRATION RATE > 60.0 (>42); GLUCOSE, FASTING 91 MG/DL (70-100); MAGNESIUM LEVEL 2.3 MG/DL (1.8-2.4); POTASSIUM SERUM 4.2 MEQ/L (3.5-5.1); SODIUM LEVEL 145 MEQ/L (136-145)
[2019-11-20] MEDS: TIOTROPIUM INHALER/CAPSULE (SPIRIVA) INH SCH (07:53)
[2019-11-20] MEDS: SYMBICORT 160/4.5MCG INHALER 6GM INH SCH ×2 (07:53→20:24)
[2019-11-20] MEDS: MOM 30ML SUSPENSION UDC PO SCH (09:00)
[2019-11-20] MEDS: guaiFENesin ER 600 MG TAB PO SCH ×2 (09:10→20:58)
[2019-11-20] MEDS: NYSTATIN 500,000 U/5 ML SUSP UDC SS SCH ×4 (09:13→20:57)
[2019-11-20] MEDS: ASPIRIN 81 MG ENTERIC TAB PO SCH (09:13)
[2019-11-20] MEDS: LOSARTAN 50 MG TAB PO SCH (09:13)
[2019-11-20] MEDS: NILOTINIB 150 MG PO SCH ×2 (09:14→16:55)
[2019-11-20] MEDS: DOCUSATE SODIUM 100 MG CAP PO SCH ×2 (09:14→20:58)
--- NOTE | 2019-11-20 13:57 | REP ---
CT CHEST WITHOUT CONTRAST: HISTORY: Short of breath. COMPARISON: Chest x-ray is from the previous day. Comparison CT study of the chest November 12, 2019. CT FINDINGS: Chronic pleural thickening, pleural calcification, and heterogeneous fluid collection is again noted at the right base unchanged. On the left there are multiple air bubbles and small air fluid levels interspersed throughout the fluid collection at the left base. The pleural drainage catheter has been withdrawn. There is recurrent fluid content within this cavity. Visceral and parietal pleural thickening are again seen. The lung cano are essentially unchanged. IMPRESSION: Recurrent complex fluid collection containing interspersed air bubbles in the left pleural space. The previously noted left chest tubes are no longer visible. Chronic changes on the right. Electronically Signed by Rodrick Samaniego MD 11/20/2019 03:22 P
[2019-11-20 14:00] VITALS: BP 142/75
--- NOTE | 2019-11-20 14:56 | IPNPDOC ---
Text Note Date of Service The patient was seen on 11/20/19. NOTE Subjective: Patient is a 79-year-old male with a PMHx of COPD, CML (on treatment), DLP, Hypothyroidism, Hx of Tongue CA, Anemia , who presented to the emergency room with complaints of shortness of breath. Patient had a CT scan completed at [facility] on 10/20/2019. Patient was sent to the emergency room from the outpatient pulmonology office for management of pneumonia. Cardiothoracic surgery was counseled for placement of a left-sided chest tube with tac pleurodesis. Patient was seen and examined at the bedside. . Currently, patient reports that he did have some runny nose. Denies any significant shortness of breath has not expense any significant cough. Denies chest pain or palpitations. Has not expense any nausea, vomiting, abdominal pain, diarrhea, or urinary discomfort. Objective: Vitals (See below) General: Appears to be sitting up in chair comfortably, AAOx3 HEENT: NC, AT CVS: +S1S2 Lungs: Diminished air entry bilaterally. No evidence of rhonchi, wheezing or crackles Abdomen: Abdomen is soft, no distention or tenderness Extremities: Lower extremities are without edema, - Calf tenderness Assessment and plan: Difficulty swallowing - Hx of Tongue CA - Continue with the modified diet as patient may have experienced an aspiration episode 2 days ago - Speech therapy continues to evaluate and make recommendations Shortness of breath - Patient reports that he is experiencing a runny nose - Remains hemodynamically stable; low-grade temperature noted yesterday - Had required supplemental oxygen; has been titrated off - CT chest 11/19: Recurrent complex fluid collection containing interspersed air bubbles in the left pleural space. The previously noted left chest tubes are no longer visible. Chronic changes on the right. - Discuss findings with her thoracic surgery at this point, will continue with current management Normocytic anemia / Symptomatic anemia - likely 2/2 CML - Patient remains asymptomatic - s/p 2 units PRBC; Hemoglobin has remained stable - Hemoglobin has remained stable CAP with Left sided parapneumonic effusion - Patient does not reporting significant shortness of breath and does report mild coughing this morning - s/p Leukocytosis - Pleural fluid culture 11/09: Staph aureus - Blood cultures 11/08, Sputum culture 11/09 - negative - c/w Keflex; s/p Ceftriaxone / Doxycycline (Antibiotic day #10 of ) Left sided parapneumonic effusion - Chest tube has been removed on 11/14/2019 - CTS, Dr. Newton on consultation; appreciate their input s/p Abdominal distension - likely 2/2 Ileus, less likely 2/2 SBO - Denies any nausea, vomiting, abdominal pain, does report having bowel movements yesterday - CT abdomen / pelvis 11/11: Mildly dilated air and fluid filled loops of small bowel in the central abdomen - Surgery on consultation; appreciated their input Chronic myelocytic leukemia - c/w home regimen while inpatient Hypothyroidism - c/w Levothyroxine Suspected coronary artery disease - Had coronary artery lesion seen CT scan of his chest - c/w ASA and Atorvastatin - Will need outpatient follow up with Cardiology HTN - BP well controlled - c/w Losartan, Amlodipine DLP - c/w Atorvastatin and ASA 81 COPD - No evidence of exacerbation - c/w inhaled therapy as ordered DVT prophylaxis - c/w Lovenox Disposition: - Has cleared PT - Awaiting ability to tolerate room air; anticipate DC tomorrow AM VS,Azeb, I+O VS, Azeb, I+O Laboratory Tests 11/20/19 06:34 Vital Signs Date Time Temp Pulse Resp B/P (MAP) Pulse Ox O2 Delivery O2 Flow Rate FiO2 11/20/19 09:42 20 11/20/19 09:13 133/76 11/20/19 09:12 Room Air 11/20/19 05:46 98.3 95 95 2.0 I&O- Last 24 Hours up to 6 AM 11/20/19 06:00 Intake Total 640 ml Output Total 1120 ml Balance -480 ml MAYRA CONNELLY MD Nov 20, 2019 14:56
[2019-11-20] MEDS ORDERED: MOXIFLOXACIN 400 MG TAB PO ONE (15:00)
[2019-11-20] MEDS: PERCOCET 5MG/325MG TAB PO PRN (17:01)
[2019-11-20] MEDS: ATORVASTATIN 10 MG TAB PO SCH (20:58)
[2019-11-20] MEDS: ENOXAPARIN 40 MG/0.4 ML SYRINGE (J1650) SC SCH (20:58)
[2019-11-20] MEDS: amLODIPine 5 MG TAB PO SCH (21:00)
[2019-11-20 21:02] VITALS: BP 110/56
[2019-11-21] MEDS: LEVALBUTEROL 1.25 MG/0.5 ML CONCENTRATE NEB NEB SCH ×4 (00:49→19:27)
[2019-11-21 05:15] VITALS: BP 126/74
[2019-11-21] MEDS: LEVOTHYROXINE 137MCG TABLET (0.137MG) PO SCH (05:23)
[2019-11-21] MEDS: SLF 3 ML SYR IV SCH ×3 (05:34→21:50)
[2019-11-21] MEDS ORDERED: MOXIFLOXACIN 400 MG TAB PO SCH (06:00)
[2019-11-21 06:38] LABS: BASO % 0.2 % (0.0-1.0); EOS # 0.1 10^3/uL (0.0-0.5); HEMOGLOBIN 9.2 g/dl (13.5-17.5); LYMPH # 0.5 10^3/uL (1.5-5.0); LYMPH % 4.6 % (24.0-44.0); MEAN CORPUSCULAR HEMOGLOBIN 29.4 pg (27.0-33.0); MEAN CORPUSCULAR HGB CONC 31.7 g/dl (32.0-36.5); MEAN CORPUSCULAR VOLUME 92.7 fl (80.0-96.0); MONO # 1.3 10^3/uL (0.0-0.8); MONO % 12.2 % (0.0-5.0); NEUTROPHILS # 8.5 10^3/uL (1.5-8.5); PLATELET COUNT, AUTOMATED 388 10^3/uL (150-450); RED BLOOD COUNT 3.13 10^6/uL (4.30-6.10); WHITE BLOOD COUNT 10.5 10^3/uL (4.0-10.0)
[2019-11-21 07:05] LABS: BLOOD UREA NITROGEN 19 MG/DL (7-18); CALCIUM LEVEL 8.3 MG/DL (8.8-10.2); CARBON DIOXIDE LEVEL 27 MEQ/L (21-32); CHLORIDE LEVEL 111 MEQ/L (98-107); CREATININE FOR GFR 1.04 MG/DL (0.70-1.30); GLOMERULAR FILTRATION RATE > 60.0 (>42); GLUCOSE, FASTING 88 MG/DL (70-100); MAGNESIUM LEVEL 2.4 MG/DL (1.8-2.4); POTASSIUM SERUM 4.2 MEQ/L (3.5-5.1); SODIUM LEVEL 145 MEQ/L (136-145)
[2019-11-21] MEDS: TIOTROPIUM INHALER/CAPSULE (SPIRIVA) INH SCH (07:22)
[2019-11-21] MEDS: SYMBICORT 160/4.5MCG INHALER 6GM INH SCH ×2 (07:22→19:27)
[2019-11-21] MEDS ORDERED: NS 1,000 ML IV SCH (07:30)
[2019-11-21] MEDS: DOCUSATE SODIUM 100 MG CAP PO SCH ×2 (07:44→21:49)
[2019-11-21] MEDS: LOSARTAN 50 MG TAB PO SCH (07:44)
[2019-11-21] MEDS: ASPIRIN 81 MG ENTERIC TAB PO SCH (07:44)
[2019-11-21] MEDS: guaiFENesin ER 600 MG TAB PO SCH ×2 (07:44→21:49)
[2019-11-21] MEDS: NYSTATIN 500,000 U/5 ML SUSP UDC SS SCH ×5 (07:45→21:49)
[2019-11-21] MEDS: MOM 30ML SUSPENSION UDC PO SCH ×2 (07:45→07:53)
[2019-11-21] MEDS: NILOTINIB 150 MG PO SCH ×2 (07:46→17:19)
[2019-11-21 08:14] LABS: NT-PRO BNP 557 PG/ML (<450)
--- NOTE | 2019-11-21 10:45 | IPNPDOC ---
Text Note Date of Service The patient was seen on 11/21/19. NOTE Subjective: Patient is a 79-year-old male with a PMHx of COPD, CML (on treatment), DLP, Hypothyroidism, Hx of Tongue CA, Anemia , who presented to the emergency room with complaints of shortness of breath. Patient had a CT scan completed at [facility] on 10/20/2019. Patient was sent to the emergency room from the outpatient pulmonology office for management of pneumonia. Cardiothoracic surgery was counseled for placement of a left-sided chest tube with tac pleurodesis. Patient was seen and examined at the bedside. Patient reports that this morning he feels better. He denies any significant cough or shortness of breath. Denies chest pain, has been out of bed ambulating with physical therapy, although he has cleared. He is still on supplemental oxygen. Denies any nausea, vomiting or abdominal pain. Patient reports that he has been passing gas but did not have a bowel movement this morning. Objective: Vitals (See below) General: Appears to be sitting up in chair comfortably, AAOx3 HEENT: NC, AT CVS: +S1S2 Lungs: Air entry bilateral bases. Appears to be diminished. No rhonchi, crackles or wheezing noted Abdomen: Soft, nondistended and nontender Extremities: Again lower extremities are free of pitting edema, - Calf tenderness Assessment and plan: Difficulty swallowing - Hx of Tongue CA - History of a suspected aspiration event approximately 3 days ago - Speech therapy continues to evaluate and make recommendations Shortness of breath / Leukocytosis - possibly 2/2 aspiration - Remains hemodynamically stable; low-grade temperature noted on 11/18 - Had required supplemental oxygen overnight; will continue to titrate off as tolerated - CT chest 11/19: Recurrent complex fluid collection containing interspersed air bubbles in the left pleural space. The previously noted left chest tubes are no longer visible. Chronic changes on the right. - Will check PCT - s/p Moxifloxacin x 1 dose (11/19) - Discuss findings with her thoracic surgery at this point, will continue with current management Normocytic anemia / Symptomatic anemia - likely 2/2 CML - Patient remains asymptomatic - s/p 2 units PRBC; Hemoglobin has remained stable - Hemoglobin has remained stable CAP with Left sided parapneumonic effusion - Patient does not reporting significant shortness of breath and does report mild coughing this morning - s/p Leukocytosis - Pleural fluid culture 11/09: Staph aureus - Blood cultures 11/08, Sputum culture 11/09 - negative - c/w Keflex; s/p Ceftriaxone / Doxycycline (Completed 10 day course) Left sided parapneumonic effusion - Chest tube has been removed on 11/14/2019 - CTS, Dr. Newton on consultation; appreciate their input s/p Abdominal distension - likely 2/2 Ileus, less likely 2/2 SBO - Denies any nausea, vomiting, abdominal pain, does report having bowel m ovements yesterday - CT abdomen / pelvis 11/11: Mildly dilated air and fluid filled loops of small bowel in the central abdomen - Surgery on consultation; appreciated their input Chronic myelocytic leukemia - c/w home regimen while inpatient Hypothyroidism - c/w Levothyroxine Suspected coronary artery disease - Had coronary artery lesion seen CT scan of his chest - c/w ASA and Atorvastatin - Will need outpatient follow up with Cardiology HTN - BP well controlled - c/w Losartan, Amlodipine DLP - c/w Atorvastatin and ASA 81 COPD - No evidence of exacerbation - c/w inhaled therapy as ordered DVT prophylaxis - c/w Lovenox Disposition: - Has cleared PT - Awaiting ability to tolerate room air VS,Fishbone, I+O VS, Fishbone, I+O Laboratory Tests 11/21/19 06:19 Vital Signs Date Time Temp Pulse Resp B/P (MAP) Pulse Ox O2 Delivery O2 Flow Rate FiO2 11/21/19 07:45 2.0 11/21/19 07:44 126/74 11/21/19 05:15 97.4 88 16 95 Nasal Cannula I&O- Last 24 Hours up to 6 AM 11/21/19 06:00 Intake Total 710 ml Output Total 625 ml Balance 85 ml MAYRA CONNELLY MD Nov 21, 2019 10:45
[2019-11-21 14:00] VITALS: BP 123/68
[2019-11-21] MEDS: ENOXAPARIN 40 MG/0.4 ML SYRINGE (J1650) SC SCH (21:49)
[2019-11-21] MEDS: ATORVASTATIN 10 MG TAB PO SCH (21:49)
[2019-11-21] MEDS: amLODIPine 5 MG TAB PO SCH (21:50)
[2019-11-21 22:00] VITALS: BP 126/54
[2019-11-22] MEDS: LEVALBUTEROL 1.25 MG/0.5 ML CONCENTRATE NEB NEB SCH ×4 (02:35→20:00)
[2019-11-22 02:36] VITALS: O2SAT 97
[2019-11-22 06:00] VITALS: BP 149/75
[2019-11-22] MEDS: SLF 3 ML SYR IV SCH ×3 (06:01→22:00)
[2019-11-22] MEDS: LEVOTHYROXINE 137MCG TABLET (0.137MG) PO SCH (06:01)
[2019-11-22 06:22] LABS: BASO % 0.4 % (0.0-1.0); EOS # 0.1 10^3/uL (0.0-0.5); EOS % 1.1 % (0.0-3.0); HEMATOCRIT 27.5 % (42.0-52.0); HEMOGLOBIN 8.6 g/dl (13.5-17.5); LYMPH # 0.5 10^3/uL (1.5-5.0); LYMPH % 5.3 % (24.0-44.0); MEAN CORPUSCULAR HGB CONC 31.3 g/dl (32.0-36.5); MEAN CORPUSCULAR VOLUME 92.6 fl (80.0-96.0); MONO % 10.9 % (0.0-5.0); NEUTROPHILS # 7.6 10^3/uL (1.5-8.5); NEUTROPHILS % 81.4 % (36.0-66.0); PLATELET COUNT, AUTOMATED 395 10^3/uL (150-450); RED BLOOD COUNT 2.97 10^6/uL (4.30-6.10); WHITE BLOOD COUNT 9.3 10^3/uL (4.0-10.0)
[2019-11-22 06:26] LABS: BLOOD UREA NITROGEN 16 MG/DL (7-18); CALCIUM LEVEL 7.9 MG/DL (8.8-10.2); CARBON DIOXIDE LEVEL 25 MEQ/L (21-32); CHLORIDE LEVEL 113 MEQ/L (98-107); CREATININE FOR GFR 0.78 MG/DL (0.70-1.30); GLOMERULAR FILTRATION RATE > 60.0 (>42); GLUCOSE, FASTING 76 MG/DL (70-100); MAGNESIUM LEVEL 2.3 MG/DL (1.8-2.4); POTASSIUM SERUM 3.8 MEQ/L (3.5-5.1); SODIUM LEVEL 144 MEQ/L (136-145)
[2019-11-22] MEDS: SYMBICORT 160/4.5MCG INHALER 6GM INH SCH ×2 (08:06→20:05)
[2019-11-22] MEDS: TIOTROPIUM INHALER/CAPSULE (SPIRIVA) INH SCH (08:06)
[2019-11-22] MEDS: LOSARTAN 50 MG TAB PO SCH (09:23)
[2019-11-22] MEDS: ASPIRIN 81 MG ENTERIC TAB PO SCH (09:23)
[2019-11-22] MEDS: NYSTATIN 500,000 U/5 ML SUSP UDC SS SCH ×4 (09:23→22:17)
[2019-11-22] MEDS: DOCUSATE SODIUM 100 MG CAP PO SCH ×2 (09:23→22:17)
[2019-11-22] MEDS: guaiFENesin ER 600 MG TAB PO SCH ×2 (09:23→22:17)
[2019-11-22] MEDS: NILOTINIB 150 MG PO SCH ×2 (09:24→17:39)
[2019-11-22] MEDS: MOM 30ML SUSPENSION UDC PO SCH (09:24)
[2019-11-22] MEDS ORDERED: SALIVA SUBSTITUTE(MOUTHKOTE) BTL MT PRN (11:15)
--- NOTE | 2019-11-22 12:41 | IPN ---
DATE: 11/22/2019 Claude is seen while rounding for the hospitalist on [address]. He is very frustrated and that limited my evaluation of him today. He says, "I just came here for this (pointing to his left chest), and now I have all of these other things going on". He is particularly frustrated about his restriction on diet. He is getting speech therapy but he has been refusing his swallowing trials. Apparently in the past, he had a percutaneous endoscopic gastrostomy (PEG) tube. Currently recommended level 2 mechanically altered medication swallows and honey thickened liquids. Denies shortness of breath. He does have a chronic cough. Says his appetite is good but, "you won't let me eat what I want". PHYSICAL EXAMINATION: Blood pressure 149/75, pulse 89, respiratory rate 17, 95% oxygen saturation. Lying in bed in no distress. He has decreased breath sounds both bases. Heart regular rate and rhythm. Abdomen soft, nontender. Scaphoid. No peripheral edema. LABS: Sodium 144, potassium 3.8, BUN 16, creatinine 0.7, glucose 76. White count 9.3, hemoglobin 8.6, platelets 395. IMPRESSION: 1. Swallowing difficulty, history of tongue cancer, suspected aspiration event 4 days ago on altered consistent diet, which he is rejecting and that is interfering with his nutritional input. I spoke with the nurse and staff today and they will work to try to get him to improved his approach to his altered diet. He did need a PEG tube in the past when he was being treated for his tongue cancer. 2. Suspected aspiration: Not currently on antibiotic therapy. He has had a single dose of Avelox a few days ago. There is no recurrence of fever or any leukocytosis. 3. Anemia: He has been transfused during this admission. He had chronic myelocytic leukemia (CML). He is on his current outpatient treatment. 4.Community acquired pneumonia (CAP): Left-sided parapneumonic effusion status post chest tube with drainage, which has resolved. Methicillin sensitive Staphylococcus aureus (MSSA) plural culture earlier in his admission. Dr. Newton was involved at that point. 5. Chronic medical problems including hypothyroidism, hypertension, hyperlipidemia, suspected coronary artery disease - these are all stable.
[2019-11-22 14:00] VITALS: BP 146/68
[2019-11-22 21:58] VITALS: BP 142/71
[2019-11-22] MEDS: ATORVASTATIN 10 MG TAB PO SCH (22:17)
[2019-11-22] MEDS: ENOXAPARIN 40 MG/0.4 ML SYRINGE (J1650) SC SCH (22:18)
[2019-11-22] MEDS: amLODIPine 5 MG TAB PO SCH (22:20)
[2019-11-23] MEDS: LEVALBUTEROL 1.25 MG/0.5 ML CONCENTRATE NEB NEB SCH ×4 (00:28→19:48)
[2019-11-23] MEDS: SLF 3 ML SYR IV SCH ×3 (05:46→20:56)
[2019-11-23 05:49] VITALS: BP 138/68
[2019-11-23] MEDS: LEVOTHYROXINE 137MCG TABLET (0.137MG) PO SCH (05:49)
[2019-11-23 06:48] LABS: BASO % 0.2 % (0.0-1.0); EOS # 0.1 10^3/uL (0.0-0.5); EOS % 0.6 % (0.0-3.0); HEMATOCRIT 27.9 % (42.0-52.0); HEMOGLOBIN 8.7 g/dl (13.5-17.5); LYMPH # 0.6 10^3/uL (1.5-5.0); LYMPH % 5.8 % (24.0-44.0); MEAN CORPUSCULAR HEMOGLOBIN 28.6 pg (27.0-33.0); MEAN CORPUSCULAR HGB CONC 31.2 g/dl (32.0-36.5); MEAN CORPUSCULAR VOLUME 91.8 fl (80.0-96.0); MONO # 1.1 10^3/uL (0.0-0.8); MONO % 9.8 % (0.0-5.0); NEUTROPHILS # 9.1 10^3/uL (1.5-8.5); NEUTROPHILS % 82.9 % (36.0-66.0); PLATELET COUNT, AUTOMATED 401 10^3/uL (150-450); RED BLOOD COUNT 3.04 10^6/uL (4.30-6.10)
[2019-11-23 07:09] LABS: BLOOD UREA NITROGEN 16 MG/DL (7-18); CALCIUM LEVEL 8.1 MG/DL (8.8-10.2); CARBON DIOXIDE LEVEL 25 MEQ/L (21-32); CHLORIDE LEVEL 114 MEQ/L (98-107); CREATININE FOR GFR 0.79 MG/DL (0.70-1.30); GLOMERULAR FILTRATION RATE > 60.0 (>42); GLUCOSE, FASTING 85 MG/DL (70-100); MAGNESIUM LEVEL 2.4 MG/DL (1.8-2.4); POTASSIUM SERUM 3.7 MEQ/L (3.5-5.1); SODIUM LEVEL 145 MEQ/L (136-145)
[2019-11-23] MEDS: SYMBICORT 160/4.5MCG INHALER 6GM INH SCH ×2 (07:19→19:48)
[2019-11-23] MEDS: TIOTROPIUM INHALER/CAPSULE (SPIRIVA) INH SCH (07:19)
[2019-11-23] MEDS: MOM 30ML SUSPENSION UDC PO SCH (09:00)
[2019-11-23] MEDS: NYSTATIN 500,000 U/5 ML SUSP UDC SS SCH ×5 (09:50→20:53)
[2019-11-23] MEDS: ASPIRIN 81 MG ENTERIC TAB PO SCH (09:52)
[2019-11-23] MEDS: DOCUSATE SODIUM 100 MG CAP PO SCH ×2 (09:52→20:53)
[2019-11-23] MEDS: LOSARTAN 50 MG TAB PO SCH (09:52)
[2019-11-23] MEDS: guaiFENesin ER 600 MG TAB PO SCH ×2 (09:52→20:53)
[2019-11-23] MEDS: NILOTINIB 150 MG PO SCH ×2 (09:52→18:54)
[2019-11-23 14:00] VITALS: BP 135/66
[2019-11-23] MEDS ORDERED: VARIBAR NECTAR 40% w/v 240ML SUSP BTL As Ordered ONE (14:44)
[2019-11-23] MEDS ORDERED: VARIBAR PUDDING 40% w/v 230ML TUBE As Ordered ONE (14:44)
[2019-11-23] MEDS ORDERED: E-Z-PAQUE 96% w/w SUSP 176GM BTL As Ordered ONE (14:45)
--- NOTE | 2019-11-23 16:04 | REP ---
Modified barium swallow: History: Reevaluation. Status post DE glossectomy. Difficulty swallowing. Fluoroscopy time is 1.1 minutes. Findings: Honey thick nectar and liquid barium was given by spoon fall and lateral fluoroscopy was performed. There was intermittent laryngeal penetration and mild tracheal aspiration observed without effective laryngeal clearing. Electronically Signed by Rodrick Samaniego MD 11/23/2019 03:56 P
--- NOTE | 2019-11-23 16:34 | IPNPDOC ---
Date Seen The patient was seen on 11/23/19. Progress Note SUBJECTIVE: Patient reports feeling well. Denies significant SOB although noted to be at 4- 5L O2 via NC this AM. States that he is unsteady on his feet and is working with PT. No acute events reported overnight. Does not like current modified diet, primary complaint. OBJECTIVE PHYSICAL EXAMINATION: VITAL SIGNS: Please see below. General: No acute distress, Alert Eyes: Normal sclera, EOMI HENT: Atraumatic Cardiovascular: Normal rate, normal rhythm. Pulmonary: Clear to auscultation b/l, no wheezing GI: Soft, nontender, nondistended Skin: Warm and dry Neuro: CN grossly intact. No focal deficits. Strengths equal b/l. Psych: oriented x 3 LABORATORY DATA, IMAGING STUDIES, MICROBIOLOGY: Please see below. DVT prophylaxis ordered?: Lovenox ASSESSMENT AND PLAN: 1. Dysphagia with suspected aspiration event - On modified diet and working with speech. - Patient does not like current diet and hoping to advance prior to discharge. - Previous history of PEG tube in the past when he was being treated for tongue cancer. - s/p 1 dose of Abx. No clinical evidence of PNA, not on abx currently. 2. CAP w/ L. sided parapneumonic effusion - s/p chest tube drainage. - Had seen and been cleared by cardiothoracic surgery. - Plan to discharge for outpatient follow up soon once clears PT. - on 2L home O2. try to wean down to this level if possible. 3. Hypothyroidism - c/w synthroid 4. HLD - c/w atorvastatin 5. HTN - c/w norvasc and losartan 6. Severe COPD - 2L home O2. - c/w inhalers home regimen. - wean to home 2L requirement if possible. Nebs PRN for SOB. 7. Hx tongue cancer s/p treatment 8. CML with anemia 9. Suspect CAD - Coronary artery lesion see on chest CT. - On ASA and Statin. f/u cardiology post discharge. DISPOSITION: Home with increase visiting nurse hours if possible once medically/PT clears. VS, I&O, 24H, Fishbone Vital Signs/I&O Vital Signs Date Time Temp Pulse Resp B/P (MAP) Pulse Ox O2 Delivery O2 Flow Rate FiO2 11/23/19 10:00 2.0 11/23/19 09:52 135/65 11/23/19 05:49 98.0 99 18 98 Nasal Cannula I&O- Last 24 Hours up to 6 AM 11/23/19 06:00 Intake Total 360 ml Output Total 825 ml Balance -465 ml Laboratory Data 24H LABS Laboratory Tests 2 11/23/19 06:29: Immature Granulocyte % (Auto) 0.7, Neutrophils (%) (Auto) 82.9H, Lymphocytes (%) (Auto) 5.8L, Monocytes (%) (Auto) 9.8H, Eosinophils (%) (Auto) 0.6, Basophils (%) (Auto) 0.2, Neutrophils # (Auto) 9.1H, Lymphocytes # (Auto) 0.6L, Monocytes # (Auto) 1.1H, Eosinophils # (Auto) 0.1, Basophils # (Auto) 0.0, Nucleated Red Blood Cells % (auto) 0.0, Anion Gap 6L, Glomerular Filtration Rate > 60.0, Calcium Level 8.1L, Magnesium Level 2.4 CBC/BMP Laboratory Tests 11/23/19 06:29 Microbiology Microbiology 11/14/19 Gram Stain - Final, Complete 11/14/19 Sputum Culture - Final, Complete Yeast Like Organism AKASH PÉREZ MD Nov 23, 2019 16:34
[2019-11-23] MEDS: PERCOCET 5MG/325MG TAB PO PRN (18:56)
[2019-11-23 20:00] VITALS: BP 129/65
[2019-11-23] MEDS: ATORVASTATIN 10 MG TAB PO SCH (20:53)
[2019-11-23] MEDS: amLODIPine 5 MG TAB PO SCH (20:55)
[2019-11-23] MEDS: ENOXAPARIN 40 MG/0.4 ML SYRINGE (J1650) SC SCH (20:56)
[2019-11-24] MEDS: LEVALBUTEROL 1.25 MG/0.5 ML CONCENTRATE NEB NEB SCH ×4 (01:09→20:00)
[2019-11-24 06:00] VITALS: BP 132/65
[2019-11-24] MEDS: SLF 3 ML SYR IV SCH ×3 (06:00→20:40)
[2019-11-24] MEDS: LEVOTHYROXINE 137MCG TABLET (0.137MG) PO SCH (06:12)
[2019-11-24 06:14] LABS: BASO % 0.4 % (0.0-1.0); EOS # 0.1 10^3/uL (0.0-0.5); EOS % 0.8 % (0.0-3.0); HEMATOCRIT 26.6 % (42.0-52.0); HEMOGLOBIN 8.3 g/dl (13.5-17.5); LYMPH # 0.7 10^3/uL (1.5-5.0); LYMPH % 5.8 % (24.0-44.0); MEAN CORPUSCULAR HEMOGLOBIN 28.6 pg (27.0-33.0); MEAN CORPUSCULAR HGB CONC 31.2 g/dl (32.0-36.5); MEAN CORPUSCULAR VOLUME 91.7 fl (80.0-96.0); MONO # 1.2 10^3/uL (0.0-0.8); MONO % 10.2 % (0.0-5.0); NEUTROPHILS # 9.3 10^3/uL (1.5-8.5); NEUTROPHILS % 81.9 % (36.0-66.0); PLATELET COUNT, AUTOMATED 411 10^3/uL (150-450); WHITE BLOOD COUNT 11.3 10^3/uL (4.0-10.0)
[2019-11-24 06:41] LABS: BLOOD UREA NITROGEN 19 MG/DL (7-18); CALCIUM LEVEL 8.3 MG/DL (8.8-10.2); CARBON DIOXIDE LEVEL 26 MEQ/L (21-32); CHLORIDE LEVEL 115 MEQ/L (98-107); CREATININE FOR GFR 1.01 MG/DL (0.70-1.30); GLOMERULAR FILTRATION RATE > 60.0 (>42); GLUCOSE, FASTING 90 MG/DL (70-100); MAGNESIUM LEVEL 2.5 MG/DL (1.8-2.4); POTASSIUM SERUM 3.6 MEQ/L (3.5-5.1); SODIUM LEVEL 147 MEQ/L (136-145)
[2019-11-24] MEDS: TIOTROPIUM INHALER/CAPSULE (SPIRIVA) INH SCH (07:30)
[2019-11-24] MEDS: SYMBICORT 160/4.5MCG INHALER 6GM INH SCH ×2 (07:30→20:02)
[2019-11-24] MEDS: DOCUSATE SODIUM 100 MG CAP PO SCH ×2 (08:26→21:00)
[2019-11-24] MEDS: LOSARTAN 50 MG TAB PO SCH (08:26)
[2019-11-24] MEDS: MOM 30ML SUSPENSION UDC PO SCH (08:26)
[2019-11-24] MEDS: NILOTINIB 150 MG PO SCH ×2 (08:26→17:51)
[2019-11-24] MEDS: NYSTATIN 500,000 U/5 ML SUSP UDC SS SCH ×4 (08:26→21:00)
[2019-11-24] MEDS: guaiFENesin ER 600 MG TAB PO SCH ×2 (08:26→21:00)
[2019-11-24] MEDS: ASPIRIN 81 MG ENTERIC TAB PO SCH (08:26)
[2019-11-24 14:00] VITALS: BP 135/64
--- NOTE | 2019-11-24 15:42 | IPNPDOC ---
Date Seen The patient was seen on 11/24/19. Progress Note SUBJECTIVE: Patient very irritated this AM, particularly about his modified diet, which is his same complaint everyday. Swallow eval does show aspiration, but patient not willing to cooperate to further work with speech on his modified diet. No other complaints apart from food consistency. Failed PT, persistence weakness. OBJECTIVE PHYSICAL EXAMINATION: VITAL SIGNS: Please see below. General: No acute distress, Alert Eyes: Normal sclera, EOMI HENT: Atraumatic Cardiovascular: Normal rate, normal rhythm. Pulmonary: Clear to auscultation b/l, no wheezing GI: Soft, nontender, nondistended Skin: Warm and dry Neuro: CN grossly intact. No focal deficits. Strengths equal b/l. Psych: oriented x 3 LABORATORY DATA, IMAGING STUDIES, MICROBIOLOGY: Please see below. DVT prophylaxis ordered?: Lovenox ASSESSMENT AND PLAN: 1. Dysphagia with suspected aspiration event - On modified diet and working with speech, patient has been very resistant to this diet and just chose to not eat at all. - Explained in detail regarding risks of a regular diet that could potentially results in respiratory failure and , patient still wants to go on regular diet with thin liquids. - Previous history of PEG tube in the past when he was being treated for tongue cancer. - s/p 1 dose of Abx. No clinical evidence of PNA, not on abx currently. 2. CAP w/ L. sided parapneumonic effusion - s/p chest tube drainage. - Had seen and been cleared by cardiothoracic surgery. - Anticipated for discharge but patient too weak to ambulate, did not pass PT and now looking into Rehab options. Make ALC status. - on 2L home O2. try to wean down to this level if possible. 3. Hypothyroidism - c/w synthroid 4. HLD - c/w atorvastatin 5. HTN - c/w norvasc and losartan 6. Severe COPD - 2L home O2. - c/w inhalers home regimen. - wean to home 2L requirement if possible. Nebs PRN for SOB. 7. Hx tongue cancer s/p treatment 8. CML with anemia 9. Suspect CAD - Coronary artery lesion see on chest CT. - On ASA and Statin. f/u cardiology post discharge. DISPOSITION: Failed PT. likely Rehab placement. VS, I&O, 24H, Fishbone Vital Signs/I&O Vital Signs Date Time Temp Pulse Resp B/P (MAP) Pulse Ox O2 Delivery O2 Flow Rate FiO2 11/24/19 14:00 99.3 95 18 135/64 (87) 96 Nasal Cannula 2.0 I&O- Last 24 Hours up to 6 AM 11/24/19 06:00 Intake Total 420 ml Output Total 550 ml Balance -130 ml Laboratory Data 24H LABS Laboratory Tests 2 11/24/19 05:51: Immature Granulocyte % (Auto) 0.9, Neutrophils (%) (Auto) 81.9H, Lymphocytes (%) (Auto) 5.8L, Monocytes (%) (Auto) 10.2H, Eosinophils (%) (Auto) 0.8, Basophils (%) (Auto) 0.4, Neutrophils # (Auto) 9.3H, Lymphocytes # (Auto) 0.7L, Monocytes # (Auto) 1.2H, Eosinophils # (Auto) 0.1, Basophils # (Auto) 0.0, Nucleated Red Blood Cells % (auto) 0.0, Anion Gap 6L, Glomerular Filtration Rate > 60.0, Calcium Level 8.3L, Magnesium Level 2.5H CBC/BMP Laboratory Tests 11/24/19 05:51 Microbiology Microbiology 11/14/19 Gram Stain - Final, Complete 11/14/19 Sputum Culture - Final, Complete Yeast Like Organism AKASH PÉREZ MD Nov 24, 2019 15:42
[2019-11-24 20:00] VITALS: BP 138/65
[2019-11-24] MEDS ORDERED: CALCIUM CARBONATE 500 MG CHEW U/D PO PRN (20:00)
[2019-11-24] MEDS: ENOXAPARIN 40 MG/0.4 ML SYRINGE (J1650) SC SCH (20:40)
[2019-11-24] MEDS: amLODIPine 5 MG TAB PO SCH (21:00)
[2019-11-24] MEDS: ATORVASTATIN 10 MG TAB PO SCH (21:00)
[2019-11-25] MEDS: LEVALBUTEROL 1.25 MG/0.5 ML CONCENTRATE NEB NEB SCH ×4 (01:30→20:00)
[2019-11-25] MEDS: SLF 3 ML SYR IV SCH ×3 (05:49→21:48)
[2019-11-25] MEDS: LEVOTHYROXINE 137MCG TABLET (0.137MG) PO SCH (05:53)
[2019-11-25 06:00] VITALS: BP 139/68
[2019-11-25 07:35] LABS: BLOOD UREA NITROGEN 20 MG/DL (7-18); CALCIUM LEVEL 8.6 MG/DL (8.8-10.2); CARBON DIOXIDE LEVEL 28 MEQ/L (21-32); CHLORIDE LEVEL 113 MEQ/L (98-107); GLOMERULAR FILTRATION RATE > 60.0 (>42); GLUCOSE, FASTING 89 MG/DL (70-100); HEMATOCRIT 26.1 % (42.0-52.0); HEMOGLOBIN 8.2 g/dl (13.5-17.5); MEAN CORPUSCULAR HEMOGLOBIN 29.1 pg (27.0-33.0); MEAN CORPUSCULAR HGB CONC 31.4 g/dl (32.0-36.5); MEAN CORPUSCULAR VOLUME 92.6 fl (80.0-96.0); PLATELET COUNT, AUTOMATED 420 10^3/uL (150-450); POTASSIUM SERUM 3.8 MEQ/L (3.5-5.1); RED BLOOD COUNT 2.82 10^6/uL (4.30-6.10); SODIUM LEVEL 145 MEQ/L (136-145); WHITE BLOOD COUNT 11.3 10^3/uL (4.0-10.0)
[2019-11-25] MEDS: SYMBICORT 160/4.5MCG INHALER 6GM INH SCH ×2 (07:44→20:44)
[2019-11-25] MEDS: TIOTROPIUM INHALER/CAPSULE (SPIRIVA) INH SCH (07:45)
[2019-11-25] MEDS: LOSARTAN 50 MG TAB PO SCH (08:01)
[2019-11-25] MEDS: DOCUSATE SODIUM 100 MG CAP PO SCH ×2 (08:01→21:00)
[2019-11-25] MEDS: guaiFENesin ER 600 MG TAB PO SCH ×2 (08:01→21:00)
[2019-11-25] MEDS: ASPIRIN 81 MG ENTERIC TAB PO SCH (08:01)
[2019-11-25] MEDS: NILOTINIB 150 MG PO SCH ×2 (08:01→16:06)
[2019-11-25] MEDS: NYSTATIN 500,000 U/5 ML SUSP UDC SS SCH ×4 (08:02→21:00)
[2019-11-25] MEDS: MOM 30ML SUSPENSION UDC PO SCH (08:02)
--- NOTE | 2019-11-25 12:09 | IPNPDOC ---
Date Seen The patient was seen on 11/25/19. Progress Note SUBJECTIVE: Patient frustrated about inability to eat. Reports coughing and throwing food up when he eats despite being adamant about food consumption. Advised to take small sips of modified thickened fluid at a time. Denies any particular complaints apart from his dysphagia. OBJECTIVE PHYSICAL EXAMINATION: VITAL SIGNS: Please see below. General: No acute distress, Alert Eyes: Normal sclera, EOMI HENT: Atraumatic Cardiovascular: Normal rate, normal rhythm. Pulmonary: Clear to auscultation b/l, no wheezing GI: Soft, nontender, nondistended Skin: Warm and dry Neuro: CN grossly intact. No focal deficits. Strengths equal b/l. Psych: oriented x 3 LABORATORY DATA, IMAGING STUDIES, MICROBIOLOGY: Please see below. DVT prophylaxis ordered?: Lovenox ASSESSMENT AND PLAN: 1. Dysphagia with suspected aspiration event - On modified diet and working with speech, patient has been very resistant to this diet and just chose to not eat at all. - Explained in detail regarding risks of a regular diet that could potentially results in respiratory failure and , patient still wants to go on regular diet with thin liquids. - Previous history of PEG tube in the past when he was being treated for tongue cancer. - s/p 1 dose of Abx. No clinical evidence of PNA, not on abx currently. 2. CAP w/ L. sided parapneumonic effusion - s/p chest tube drainage. - Had seen and been cleared by cardiothoracic surgery. - Anticipated for discharge but patient too weak to ambulate, did not pass PT and now looking into Rehab options. Made ALC status. - on 2L home O2, fluctuating requirements. 3. Hypothyroidism - c/w synthroid 4. HLD - c/w atorvastatin 5. HTN - c/w norvasc and losartan 6. Severe COPD - 2L home O2. - c/w inhalers home regimen. - wean to home 2L requirement if possible. Nebs PRN for SOB. 7. Hx tongue cancer s/p treatment 8. CML with anemia 9. Suspect CAD - Coronary artery lesion see on chest CT. - On ASA and Statin. f/u cardiology post discharge. DISPOSITION: Failed PT. likely Rehab placement. VS, I&O, 24H, Fishbone Vital Signs/I&O Vital Signs Date Time Temp Pulse Resp B/P (MAP) Pulse Ox O2 Delivery O2 Flow Rate FiO2 11/25/19 08:01 139/68 11/25/19 07:45 3.5 11/25/19 06:00 97.8 92 18 97 Nasal Cannula I&O- Last 24 Hours up to 6 AM 11/25/19 06:00 Intake Total 1220 ml Output Total 450 ml Balance 770 ml Laboratory Data 24H LABS Laboratory Tests 2 11/25/19 06:59: Nucleated Red Blood Cells % (auto) 0.0, Anion Gap 4L, Glomerular Filtration Rate > 60.0, Calcium Level 8.6L CBC/BMP Laboratory Tests 11/25/19 06:59 AKASH PÉREZ MD Nov 25, 2019 12:09
[2019-11-25 14:00] VITALS: BP 150/71
[2019-11-25] MEDS: NS 1,000 ML IV SCH (16:07)
[2019-11-25 20:19] VITALS: BP 139/98
[2019-11-25] MEDS: ATORVASTATIN 10 MG TAB PO SCH (21:00)
[2019-11-25] MEDS: amLODIPine 5 MG TAB PO SCH (21:00)
[2019-11-25] MEDS: ENOXAPARIN 40 MG/0.4 ML SYRINGE (J1650) SC SCH (21:48)
[2019-11-26] MEDS: LEVALBUTEROL 1.25 MG/0.5 ML CONCENTRATE NEB NEB SCH ×4 (01:21→20:00)
[2019-11-26] MEDS: SLF 3 ML SYR IV SCH ×3 (03:04→22:58)
[2019-11-26] MEDS: NS 1,000 ML IV SCH (03:04)
[2019-11-26] MEDS: NORCO, ANEXSIA 5/325MG TABLET (HYDROcodone/ACETAMINOPHEN) PO PRN ×3 (03:52→20:47)
[2019-11-26] MEDS: LEVOTHYROXINE 137MCG TABLET (0.137MG) PO SCH (05:43)
[2019-11-26 06:00] VITALS: BP 154/91
[2019-11-26] MEDS: NILOTINIB 150 MG PO SCH ×2 (07:30→16:12)
[2019-11-26] MEDS: SYMBICORT 160/4.5MCG INHALER 6GM INH SCH ×2 (07:57→20:36)
[2019-11-26] MEDS: TIOTROPIUM INHALER/CAPSULE (SPIRIVA) INH SCH (07:57)
[2019-11-26] MEDS: ASPIRIN 81 MG ENTERIC TAB PO SCH (08:11)
[2019-11-26] MEDS: NYSTATIN 500,000 U/5 ML SUSP UDC SS SCH ×4 (08:11→21:00)
[2019-11-26] MEDS: LOSARTAN 50 MG TAB PO SCH (08:11)
[2019-11-26] MEDS: MOM 30ML SUSPENSION UDC PO SCH (08:11)
[2019-11-26] MEDS: DOCUSATE SODIUM 100 MG CAP PO SCH ×2 (08:11→21:00)
[2019-11-26] MEDS: guaiFENesin ER 600 MG TAB PO SCH ×2 (08:11→20:46)
[2019-11-26 09:42] LABS: HEMATOCRIT 29.7 % (42.0-52.0); HEMOGLOBIN 9.2 g/dl (13.5-17.5); MEAN CORPUSCULAR HEMOGLOBIN 28.8 pg (27.0-33.0); MEAN CORPUSCULAR VOLUME 92.8 fl (80.0-96.0); PLATELET COUNT, AUTOMATED 567 10^3/uL (150-450); WHITE BLOOD COUNT 16.8 10^3/uL (4.0-10.0)
[2019-11-26 10:03] LABS: BLOOD UREA NITROGEN 21 MG/DL (7-18); CALCIUM LEVEL 8.3 MG/DL (8.8-10.2); CARBON DIOXIDE LEVEL 25 MEQ/L (21-32); CHLORIDE LEVEL 115 MEQ/L (98-107); CREATININE FOR GFR 0.83 MG/DL (0.70-1.30); GLOMERULAR FILTRATION RATE > 60.0 (>42); GLUCOSE, FASTING 111 MG/DL (70-100); POTASSIUM SERUM 4.4 MEQ/L (3.5-5.1); SODIUM LEVEL 145 MEQ/L (136-145)
--- NOTE | 2019-11-26 10:13 | REP ---
Clinical: Hypoxia. Technique: PA and lateral. Comparison: 11/19/2019. Findings: Bibasilar opacities consistent with small/moderate pleural effusions and atelectasis/infiltrates are again appreciated. The smaller left pleural effusion includes small foci of gas suggesting complex possibly chronic empyema. No apical pneumothorax. Visualized portions of the mediastinum and cardiac silhouette are stable and within normal limits. Skeletal structures are intact. Impression: Small/moderate pleural effusions with left pleural collection containing small foci of gas. Bibasilar infiltrate/atelectasis. Electronically Signed by Marcus Obregon MD 11/26/2019 10:03 A
--- NOTE | 2019-11-26 10:27 | IPNPDOC ---
Date Seen The patient was seen on 11/26/19. Progress Note SUBJECTIVE: Patient became more SOB overnight with hypoxia requiring oxygenation via ventimask. Lung sounds coarse this AM, suspect that patient may have had another aspiration event. Thin liquids started on wednesday after oral care, patient has been refusing thickened liquids. 8L O2 is being tapered down to 4L. CXR and bloodwork reviewed. Persistent pleural effusion. Patient reports that he has not been able to sleep and that he is very tired, asking for something to help sleep. OBJECTIVE PHYSICAL EXAMINATION: VITAL SIGNS: Please see below. General: Alert, mild labored breathing on ventimask, generalized weakness Eyes: Normal sclera, EOMI HENT: Atraumatic Cardiovascular: Normal rate. Pulmonary: rales noted b/l more anteriorly. Decrease breath sounds b/l bases more on R. GI: Soft, nontender, nondistended Skin: Warm and dry. L. sided lower back hematoma. Neuro: CN grossly intact. No focal deficits. Strengths equal b/l. Psych: oriented x 3 LABORATORY DATA, IMAGING STUDIES, MICROBIOLOGY: Please see below. DVT prophylaxis ordered?: Lovenox ASSESSMENT AND PLAN: 1. Dysphagia with suspected aspiration event - On modified diet and working with speech, patient has been very resistant to this diet have stopped eating for days. - Explained in detail regarding risks of a regular diet that could potentially results in respiratory failure and . - Previous history of PEG tube in the past when he was being treated for tongue cancer, patient is now considering that again. - Images reviewed, infiltrates appear to be at the same location as before, had been treated. Will hold off on antibiotics for now unless patient's leukocytosis continue to trend up and becomes febrile. - continue to monitor VS, saturation, respiratory status. 2. CAP w/ L. sided parapneumonic effusion - s/p chest tube drainage. - Had seen and been cleared by cardiothoracic surgery. Initially plan to discharge but patient unable to go due to severe weakness and looking at Rehab placement. - Pleural effusion again noted on CXR on 11/25, relatively unchanged from before. Image reviewed with CTS. - on 2L home O2, fluctuating requirements. 3. Hypothyroidism - c/w synthroid 4. HLD - c/w atorvastatin 5. HTN - c/w norvasc and losartan 6. Severe COPD - 2L home O2 with current fluctuating requirements. - c/w inhalers home regimen. - wean to home 2L requirement if possible. Nebs PRN for SOB. 7. Hx tongue cancer s/p treatment 8. CML with anemia 9. Suspect CAD - Coronary artery lesion see on chest CT. - On ASA and Statin. f/u cardiology post discharge. DISPOSITION: Failed PT. likely Rehab placement. VS, I&O, 24H, Fishbone Vital Signs/I&O Vital Signs Date Time Temp Pulse Resp B/P (MAP) Pulse Ox O2 Delivery O2 Flow Rate FiO2 11/26/19 06:00 98.0 20 90 154/91 (112) Venturi Mask 8.0 11/26/19 04:22 88 31 I&O- Last 24 Hours up to 6 AM 11/26/19 06:00 Intake Total 1460 ml Output Total 850 ml Balance 610 ml AKASH PÉREZ MD Nov 26, 2019 10:27
[2019-11-26] MEDS ORDERED: RAMELTEON 8 MG TAB (ROZEREM) PO PRN (10:30)
[2019-11-26 14:00] VITALS: BP 138/68
[2019-11-26] MEDS: metroNIDAZOLE 500 MG in IV 1 EA IV SCH ×2 (14:41→22:58)
[2019-11-26] MEDS: cefTRIAXone SOD 1 GM in D5W MINI-BAG PLUS 50 ML IV SCH (15:49)
[2019-11-26] MEDS: amLODIPine 5 MG TAB PO SCH (20:45)
[2019-11-26] MEDS: ENOXAPARIN 40 MG/0.4 ML SYRINGE (J1650) SC SCH (20:45)
[2019-11-26] MEDS: ATORVASTATIN 10 MG TAB PO SCH (21:00)
[2019-11-26 22:00] VITALS: BP 148/71
[2019-11-27] MEDS: LEVALBUTEROL 1.25 MG/0.5 ML CONCENTRATE NEB NEB SCH ×4 (01:16→20:00)
[2019-11-27 05:38] LABS: HEMATOCRIT 27.9 % (42.0-52.0); HEMOGLOBIN 8.6 g/dl (13.5-17.5); MEAN CORPUSCULAR HEMOGLOBIN 28.8 pg (27.0-33.0); MEAN CORPUSCULAR HGB CONC 30.8 g/dl (32.0-36.5); MEAN CORPUSCULAR VOLUME 93.3 fl (80.0-96.0); PLATELET COUNT, AUTOMATED 475 10^3/uL (150-450); RED BLOOD COUNT 2.99 10^6/uL (4.30-6.10); WHITE BLOOD COUNT 13.4 10^3/uL (4.0-10.0)
[2019-11-27 06:00] VITALS: BP 157/77
[2019-11-27 06:02] LABS: BLOOD UREA NITROGEN 23 MG/DL (7-18); CALCIUM LEVEL 8.5 MG/DL (8.8-10.2); CARBON DIOXIDE LEVEL 26 MEQ/L (21-32); CHLORIDE LEVEL 117 MEQ/L (98-107); CREATININE FOR GFR 0.83 MG/DL (0.70-1.30); GLOMERULAR FILTRATION RATE > 60.0 (>42); GLUCOSE, FASTING 97 MG/DL (70-100); POTASSIUM SERUM 3.9 MEQ/L (3.5-5.1); SODIUM LEVEL 148 MEQ/L (136-145)
[2019-11-27] MEDS: LEVOTHYROXINE 137MCG TABLET (0.137MG) PO SCH (06:29)
[2019-11-27] MEDS: metroNIDAZOLE 500 MG in IV 1 EA IV SCH ×3 (06:29→22:38)
[2019-11-27] MEDS: SLF 3 ML SYR IV SCH ×3 (06:29→22:26)
[2019-11-27] MEDS: SYMBICORT 160/4.5MCG INHALER 6GM INH SCH ×2 (08:01→20:11)
[2019-11-27] MEDS: TIOTROPIUM INHALER/CAPSULE (SPIRIVA) INH SCH (08:01)
[2019-11-27] MEDS: ASPIRIN 81 MG ENTERIC TAB PO SCH (09:00)
[2019-11-27] MEDS: LOSARTAN 50 MG TAB PO SCH (09:00)
[2019-11-27] MEDS: DOCUSATE SODIUM 100 MG CAP PO SCH ×2 (09:00→20:08)
[2019-11-27] MEDS: guaiFENesin ER 600 MG TAB PO SCH ×2 (09:00→20:08)
[2019-11-27] MEDS: MOM 30ML SUSPENSION UDC PO SCH (09:00)
[2019-11-27] MEDS: NYSTATIN 500,000 U/5 ML SUSP UDC SS SCH ×4 (09:00→20:08)
[2019-11-27] MEDS: NILOTINIB 150 MG PO SCH ×2 (09:57→17:30)
--- NOTE | 2019-11-27 10:19 | IPNPDOC ---
Date Seen The patient was seen on 11/27/19. Progress Note SUBJECTIVE: Patient desat yesterday morning but appeared to improved in the evening, however noted to be on NRB this AM. More dyspneic this morning with cough. Started on Abx yesterday in setting of leukocytosis and worsening hypoxia after suspected recurrent aspiration. Patient requested PEG tube placement, had discussed with daughter about patient's requested. Plan for placement by IR today. OBJECTIVE PHYSICAL EXAMINATION: VITAL SIGNS: Please see below. General: Alert, labored breathing on NRB, generalized weakness Eyes: Normal sclera, EOMI HENT: Atraumatic Cardiovascular: Tachycardic Pulmonary: Decrease breath sounds b/l bases more on R. GI: Soft, nontender, nondistended Skin: Warm and dry. L. sided lower back hematoma. Neuro: CN grossly intact. No focal deficits. Generalized weakness LABORATORY DATA, IMAGING STUDIES, MICROBIOLOGY: Please see below. DVT prophylaxis ordered?: Lovenox ASSESSMENT AND PLAN: 1. Dysphagia with suspected recurrent aspiration events - On modified diet and working with speech, patient has been very resistant to this diet have stopped eating for days, states that he has not eaten in a month. - Explained in detail regarding risks of a regular diet that could potentially results in respiratory failure and . - Previous history of PEG tube in the past when he was being treated for tongue cancer, patient is now PEG tube placement. - Images reviewed, infiltrates appear to be at the same location as before. Initially wanted to hold repeating Abx, but restarted as patient has worsening hypoxia and more labored breathing. - restarted ceftriaxone and added metronidazole (previously doxycycline). - continue to monitor VS, saturation, respiratory status. 2. Acute on chronic respiratory failure. - CAP w/ persistent L. sided parapneumonic effusion and recurrent aspirations. - s/p chest tube drainage by CTS. Was stable post chest tube removal but now requiring high O2 requirement via NRB and ventimask likely 2/2 aspirations. Abx restarted in setting of recurrent respiratory failure. - Pleural effusion again noted on CXR on 11/25, relatively unchanged from before. Image reviewed with CTS, no intervention recommended from CTS. XR also reviewed with radiology, does not seem to change much from previous CXR. If persistent hypoxic, will repeat CT chest to determine whether L. sided effusion is large enough to benefit from therapeutic tap. Will treat with Abx and o2 support for now. - on 2L home O2, fluctuating requirements at this time. Currently requires o2 via NRB or ventimask. 3. Hypothyroidism - c/w synthroid 4. HLD - c/w atorvastatin 5. HTN - c/w norvasc and losartan 6. Severe COPD - 2L home O2 with current fluctuating requirements. Likely 2/2 aspiration not COPD exacerbation. - c/w inhalers home regimen. - wean to home 2L requirement if possible. Nebs PRN for SOB. 7. Hx tongue cancer s/p treatment 8. CML with anemia 9. Suspect CAD - Coronary artery lesion see on chest CT. - On ASA and Statin. f/u cardiology post discharge. DISPOSITION: Rehab placement once medically stable. . VS, I&O, 24H, Fishbone Vital Signs/I&O Vital Signs Date Time Temp Pulse Resp B/P (MAP) Pulse Ox O2 Delivery O2 Flow Rate FiO2 11/27/19 06:00 98.3 103 18 157/77 (103) 95 Venturi Mask 8.0 11/26/19 21:00 31 I&O- Last 24 Hours up to 6 AM 11/27/19 06:00 Intake Total 160 ml Output Total 1000 ml Balance -840 ml Laboratory Data 24H LABS Laboratory Tests 2 11/27/19 05:22: Nucleated Red Blood Cells % (auto) 0.0, Anion Gap 5L, Glomerular Filtration Rate > 60.0, Calcium Level 8.5L CBC/BMP Laboratory Tests 11/27/19 05:22 AKASH PÉREZ MD Nov 27, 2019 10:19
[2019-11-27] MEDS ORDERED: fentaNYL 100 MCG/2 ML INJECTION (J3010) As Ordered ONE (13:01)
[2019-11-27] MEDS ORDERED: LIDOCAINE 2% JELLY 30 ML As Ordered ONE (13:01)
[2019-11-27] MEDS ORDERED: ceFAZolin 1GM INJ (J0690 PER 500MG) As Ordered ONE (13:02)
[2019-11-27] MEDS ORDERED: MIDAZOLAM INJ 2 MG/2 ML VIAL (J2250) As Ordered ONE (13:02)
[2019-11-27] MEDS ORDERED: ISOVUE-300 61% 50ML VIAL (Q9967) As Ordered ONE ×2 (13:03→14:30)
[2019-11-27] MEDS ORDERED: LIDOCAINE 1% MDV 20ML VIAL As Ordered ONE (13:03)
[2019-11-27] MEDS ORDERED: diphenhydrAMINE INJ 50MG/ML VIAL (J1200) As Ordered ONE (13:04)
[2019-11-27] MEDS ORDERED: CLINDAMYCIN 600 MG/50 ML PREMIX BAG As Ordered ONE (13:11)
--- NOTE | 2019-11-27 13:32 | IRMSE ---
[facility] IR Moderate Sedation Eval. Date and Time Date: Nov 27, 2019 Time: 13:31 ASA Classification ASA Classification: III-Severe systemic dis. Mallampati Score: II NPO: Yes Obstructive Sleep Apnea: No Interval Plan: moderate sedation AMRITA JALLOH MD Nov 27, 2019 13:31
[2019-11-27] MEDS ORDERED: GLUCAGON FOR INJ 1 MG VIAL (J1610) As Ordered ONE (13:50)
--- NOTE | 2019-11-27 14:45 | REP ---
IR gastrostomy catheter placement with fluoroscopy guidance. IR moderate sedation. Clinical information: Aspiration pneumonias. Difficulty swallowing. Physician: Dr. Saucedo. Procedure: The patient and patient's healthcare proxy were advised of the benefits, risks and alternatives of the procedure and informed consent was obtained. The time-out was performed with verification of the patient's name, MRN, site of procedure and type of procedure to be performed. The patient was positioned in the supine position on the angiographic table. The site was prepped and draped in the usual sterile fashion. A 5-Yoruba Kumpe catheter in conjunction with a Glidewire was inserted through the nostril under fluoroscopy guidance, down the esophagus into the stomach. The wire was removed. The catheter was taped to the nose. Moderate sedation was performed by the physician including the presence of an independent trained observer who assisted in monitoring the patient's level of consciousness and physiologic status. Following the administration of Versed and Fentanyl, the physician spent 60 minutes of continuous face to face time with the patient. A bi application developer radiograph reveals kumpe catheter tip in the expected location of the stomach. 1 mg of glucagon was administered intravenously. The stomach was insufflated and distended with air through the nasogastric tube. The soft tissues overlying the anticipated puncture site were anesthetized with lidocaine. A gastropexy needle was advanced into the stomach and positioning was confirmed with contrast injection. The gastropexy suture was deployed and secured in the usual fashion. A total of three gastropexy sutures were deployed under fluoroscopy guidance. An 18 gauge needle was advanced into the body of the stomach under fluoroscopy guidance. Contrast was injected through the needle documenting intragastric position. An Amplatz wire was advanced into the stomach. After serial dilation under fluoroscopy guidance, a 20-Yoruba peel-away sheath was advanced over the wire into the stomach under fluoroscopy guidance. An 18-Yoruba [email or web address] gastrostomy catheter was then advanced through the peel-away sheath under fluoroscopy guidance. Contrast was injected through the gastrostomy catheter confirming position within the stomach. The balloon was insufflated and retracted to the anterior stomach wall. The catheter bumper was positioned to sandwich the anterior abdominal wall. The catheter was placed gravity drainage. The nasogastric catheter was removed. The patient tolerated the procedure well and was returned to the inpatient unit in stable condition. EBL: Less than 5 ml. Complications: None. Impression: 1. Successful percutaneous placement of 18-Yoruba gastrostomy catheter. Catheter to remain to gravity drainage for 24 hours. 2. Catheter may be used 24 hours post placement; on WednesdayNovember 27 at 1500 hours. The gastropexy sutures will dissolve within 6 weeks and the buttons will fall-off. 3. Patient to follow up in IR clinic in 2 weeks. Thank you this referral. Electronically Signed by Suma Saucedo MD 11/27/2019 02:43 P
--- NOTE | 2019-11-27 14:46 | POST-OPPD ---
Postoperative Procedure Note Date Of Procedure: Nov 27, 2019 Time Of Procedure: 14:44 PREOPERATIVE DIAGNOSIS: aspiration PNA. difficulty swallowing POSTOPERATIVE DIAGNOSIS: same FINDINGS: stomach unremarkable location PROCEDURE: 18 F gastrostomy tube placed. leave to gravity drainage for 24 hours. May use tube after 1500 hours on Wednesdaynovember 27. SURGEON: aristides ANESTHESIA: mod sed ESTIMATED BLOOD LOSS: < 5 ml COMPLICATIONS: none POSTOPERATIVE CONDITION: stable AMRITA JALLOH MD Nov 27, 2019 14:46
[2019-11-27 15:15] VITALS: BP 135/78
[2019-11-27] MEDS: cefTRIAXone SOD 1 GM in D5W MINI-BAG PLUS 50 ML IV SCH (17:55)
[2019-11-27 20:00] VITALS: BP 121/62
[2019-11-27] MEDS: amLODIPine 5 MG TAB PO SCH (20:08)
[2019-11-27] MEDS: ATORVASTATIN 10 MG TAB PO SCH (20:08)
[2019-11-27] MEDS: ENOXAPARIN 40 MG/0.4 ML SYRINGE (J1650) SC SCH (20:34)
[2019-11-28] VITALS: BP 154/70
[2019-11-28] MEDS: LEVALBUTEROL 1.25 MG/0.5 ML CONCENTRATE NEB NEB SCH ×4 (01:54→20:00)
[2019-11-28 04:00] VITALS: BP 156/74
[2019-11-28 05:45] LABS: HEMATOCRIT 28.6 % (42.0-52.0); HEMOGLOBIN 8.8 g/dl (13.5-17.5); MEAN CORPUSCULAR HEMOGLOBIN 28.5 pg (27.0-33.0); MEAN CORPUSCULAR HGB CONC 30.8 g/dl (32.0-36.5); MEAN CORPUSCULAR VOLUME 92.6 fl (80.0-96.0); PLATELET COUNT, AUTOMATED 505 10^3/uL (150-450); RED BLOOD COUNT 3.09 10^6/uL (4.30-6.10); WHITE BLOOD COUNT 11.1 10^3/uL (4.0-10.0)
[2019-11-28] MEDS: LEVOTHYROXINE 137MCG TABLET (0.137MG) PO SCH (06:00)
[2019-11-28 06:04] LABS: BLOOD UREA NITROGEN 21 MG/DL (7-18); CALCIUM LEVEL 8.7 MG/DL (8.8-10.2); CARBON DIOXIDE LEVEL 26 MEQ/L (21-32); CHLORIDE LEVEL 119 MEQ/L (98-107); CREATININE FOR GFR 0.82 MG/DL (0.70-1.30); GLOMERULAR FILTRATION RATE > 60.0 (>42); GLUCOSE, FASTING 85 MG/DL (70-100); POTASSIUM SERUM 3.9 MEQ/L (3.5-5.1); SODIUM LEVEL 153 MEQ/L (136-145)
[2019-11-28] MEDS: SLF 3 ML SYR IV SCH ×3 (06:24→21:35)
[2019-11-28] MEDS: metroNIDAZOLE 500 MG in IV 1 EA IV SCH ×3 (07:13→22:10)
[2019-11-28] MEDS: SYMBICORT 160/4.5MCG INHALER 6GM INH SCH ×2 (07:27→20:41)
[2019-11-28] MEDS: TIOTROPIUM INHALER/CAPSULE (SPIRIVA) INH SCH (07:27)
[2019-11-28] MEDS: NILOTINIB 150 MG PO SCH ×2 (07:30→17:30)
[2019-11-28 07:59] VITALS: BP 142/67
[2019-11-28] MEDS: guaiFENesin ER 600 MG TAB PO SCH ×2 (09:00→20:45)
[2019-11-28] MEDS: DOCUSATE SODIUM 100 MG CAP PO SCH ×2 (09:00→21:34)
[2019-11-28] MEDS: NYSTATIN 500,000 U/5 ML SUSP UDC SS SCH ×4 (09:48→21:34)
[2019-11-28 11:39] VITALS: BP 138/66
[2019-11-28] MEDS: cefTRIAXone SOD 1 GM in D5W MINI-BAG PLUS 50 ML IV SCH (15:37)
[2019-11-28 15:58] VITALS: BP 139/67
[2019-11-28] MEDS: ACETAMINOPHEN 500 MG TAB PO PRN (17:14)
[2019-11-28] MEDS: MOM 30ML SUSPENSION UDC PO SCH (17:15)
[2019-11-28] MEDS: LOSARTAN 50 MG TAB PO SCH (17:18)
--- NOTE | 2019-11-28 18:06 | IPNPDOC ---
Date Seen The patient was seen on 11/28/19. Progress Note SUBJECTIVE: 79-year-old male with past medical history of CML, hypertension, tongue cancer, hyperlipidemia who was admitted for loculated parapneumonic effusion, which turned out to be empyema. Patient has been treated with extensive course of antibiotics, hospitalization (prolonged due to physical deconditioning partially contributed by lack of oral intake for the past month. Patient underwent PEG tube placement yesterday by interventional radiology. He is comfortable in bed, without any complaints, denies any short of breath, chest pain, nausea, vomiting, abdominal pain, diarrhea or constipation. He does not seem to like his PEG tube. 10 point review of systems negative except for above PHYSICAL EXAMINATION: VITAL SIGNS: Please see below. GENERAL: No distress HEENT: Normocephalic, atraumatic, moist mucous membranes NECK: Supple CARDIOVASCULAR EXAMINATION: S1, S2, no murmurs RESPIRATORY EXAMINATION: Menest, scattered rhonchi, no wheezing ABDOMINAL EXAMINATION: Soft, nontender, nondistended, positive bowel sounds, PEG tube in place, draining bile EXTREMITIES: Range of motion intact SKIN: No rash NEUROLOGICAL EXAMINATION: no focal deficits] PSYCHIATRIC EXAMINATION: Calm and cooperative LABORATORY DATA, IMAGING STUDIES, MICROBIOLOGY: Please see below. ASSESSMENT AND PLAN: 79-year-old male with multiple medical comorbidities who is admitted for empyema, dysphasia, aspiration and physical deconditioning. PROBLEMS: 1. Empyema/aspiration pneumonia: Status post antibiotic course earlier in the hospitalization, antibiotics were restarted yesterday given clinical present ation, currently stable, will continue empiric antibiotics for now.. 2. Tongue cancer: History of dysphagia, status post PEG tube placement yesterday, tube feeds started. 3. COPD: Continue home regimen, supplemental oxygen as needed to maintain O2 saturation between 80-92%. 4. Hypertension: Continue losartan and Norvasc. 5. Hypothyroidism: Continue levothyroxine 6. Physical deconditioning: We'll require placement, social work coordinator arranging. DVT prophylaxis: Lovenox. GI prophylaxis: Not needed VS, I&O, 24H, Fishbone Vital Signs/I&O Vital Signs Date Time Temp Pulse Resp B/P (MAP) Pulse Ox O2 Delivery O2 Flow Rate FiO2 11/28/19 17:18 140/67 11/28/19 16:00 3.0 11/28/19 15:58 98.0 107 18 96 Nasal Cannula 11/27/19 15:15 31 I&O- Last 24 Hours up to 6 AM 11/28/19 06:00 Intake Total 200 ml Output Total 830 ml Balance -630 ml Laboratory Data 24H LABS Laboratory Tests 2 11/28/19 05:29: Nucleated Red Blood Cells % (auto) 0.0, Anion Gap 8, Glomerular Filtration Rate > 60.0, Calcium Level 8.7L CBC/BMP Laboratory Tests 11/28/19 05:29 Microbiology Microbiology 11/28/19 Gram Stain, Received Pending 11/28/19 Sputum Culture, Received Pending KIANA MARIE MD Nov 28, 2019 18:06
[2019-11-28] MEDS: ASPIRIN 81 MG CHEW TABLET GT SCH (18:45)
[2019-11-28 20:00] VITALS: BP 137/73
[2019-11-28] MEDS: ATORVASTATIN 10 MG TAB PO SCH (21:33)
[2019-11-28] MEDS: ENOXAPARIN 40 MG/0.4 ML SYRINGE (J1650) SC SCH (21:34)
[2019-11-28] MEDS: amLODIPine 5 MG TAB PO SCH (21:34)
[2019-11-28] MEDS: NORCO, ANEXSIA 5/325MG TABLET (HYDROcodone/ACETAMINOPHEN) PO PRN (21:43)
[2019-11-29] VITALS (7 sets, daily range): BP systolic 118–142; BP diastolic 60–79
[2019-11-29] MEDS: LEVALBUTEROL 1.25 MG/0.5 ML CONCENTRATE NEB NEB SCH ×4 (02:06→20:00)
[2019-11-29 04:57] LABS: HEMATOCRIT 27.8 % (42.0-52.0); HEMOGLOBIN 8.6 g/dl (13.5-17.5); MEAN CORPUSCULAR HEMOGLOBIN 28.8 pg (27.0-33.0); MEAN CORPUSCULAR HGB CONC 30.9 g/dl (32.0-36.5); PLATELET COUNT, AUTOMATED 531 10^3/uL (150-450); RED BLOOD COUNT 2.99 10^6/uL (4.30-6.10); WHITE BLOOD COUNT 9.3 10^3/uL (4.0-10.0)
[2019-11-29 05:17] LABS: BLOOD UREA NITROGEN 23 MG/DL (7-18); CALCIUM LEVEL 8.7 MG/DL (8.8-10.2); CARBON DIOXIDE LEVEL 34 MEQ/L (21-32); CHLORIDE LEVEL 118 MEQ/L (98-107); CREATININE FOR GFR 0.84 MG/DL (0.70-1.30); GLOMERULAR FILTRATION RATE > 60.0 (>42); GLUCOSE, FASTING 137 MG/DL (70-100); POTASSIUM SERUM 3.5 MEQ/L (3.5-5.1); SODIUM LEVEL 153 MEQ/L (136-145)
[2019-11-29] MEDS: LEVOTHYROXINE 137MCG TABLET (0.137MG) PO SCH (06:07)
[2019-11-29] MEDS: metroNIDAZOLE 500 MG in IV 1 EA IV SCH ×3 (06:07→23:36)
[2019-11-29] MEDS: ACETAMINOPHEN 500 MG TAB PO PRN (06:07)
[2019-11-29] MEDS: SLF 3 ML SYR IV SCH ×3 (06:08→21:25)
[2019-11-29] MEDS: SYMBICORT 160/4.5MCG INHALER 6GM INH SCH ×2 (07:17→19:59)
[2019-11-29] MEDS: TIOTROPIUM INHALER/CAPSULE (SPIRIVA) INH SCH (07:17)
[2019-11-29] MEDS: NILOTINIB 150 MG PO SCH ×2 (07:30→16:23)
[2019-11-29] MEDS: DOCUSATE SODIUM 100 MG CAP PO SCH (09:00)
[2019-11-29] MEDS: guaiFENesin ER 600 MG TAB PO SCH ×2 (09:00→21:00)
[2019-11-29] MEDS: ASPIRIN 81 MG CHEW TABLET GT SCH (09:55)
[2019-11-29] MEDS: NYSTATIN 500,000 U/5 ML SUSP UDC SS SCH ×4 (09:55→21:23)
[2019-11-29] MEDS: MOM 30ML SUSPENSION UDC PO SCH (09:55)
[2019-11-29] MEDS: LOSARTAN 50 MG TAB PO SCH (09:56)
[2019-11-29] MEDS ORDERED: D5W 1,000 ML IV SCH (11:00)
[2019-11-29] MEDS: DOCUSATE SOD LIQ 100MG/10ML UDC GT SCH ×2 (11:10→21:23)
[2019-11-29] MEDS: SODIUM CHLORIDE HYPERTONIC 3% 15ML NEB SOL INH SCH ×2 (13:16→20:00)
[2019-11-29] MEDS: cefTRIAXone SOD 1 GM in D5W MINI-BAG PLUS 50 ML IV SCH (16:22)
[2019-11-29] MEDS ORDERED: D5W/0.45% SODIUM CHLORIDE 1,000 ML IV SCH (18:45)
--- NOTE | 2019-11-29 19:39 | IPNPDOC ---
Date Seen The patient was seen on 11/29/19. Progress Note SUBJECTIVE: 79-year-old male with past medical history of CML, hypertension, tongue cancer, hyperlipidemia who was admitted for loculated parapneumonic effusion, which turned out to be empyema. Patient has been treated with extensive course of antibiotics, hospitalization (prolonged due to physical deconditioning partially contributed by lack of oral intake for the past month. Patient underwent PEG tube placement yesterday by interventional radiology. He is comfortable in bed, without any complaints, denies any short of breath, chest pain, nausea, vomiting, abdominal pain, diarrhea or constipation. He does not seem to like his PEG tube. 11/29/19 No acute events overnight, comfortable in bed, reports improvement in back pain from yesterday, slight discomfort around PEG site, tolerating tube feeds, no new complaints. 10 point review of systems negative except for above PHYSICAL EXAMINATION: VITAL SIGNS: Please see below. GENERAL: No distress HEENT: Normocephalic, atraumatic, moist mucous membranes NECK: Supple CARDIOVASCULAR EXAMINATION: S1, S2, no murmurs RESPIRATORY EXAMINATION: Menest, scattered rhonchi, no wheezing ABDOMINAL EXAMINATION: Soft, nontender, nondistended, positive bowel sounds, PEG tube in place, draining bile EXTREMITIES: Range of motion intact SKIN: No rash NEUROLOGICAL EXAMINATION: no focal deficits] PSYCHIATRIC EXAMINATION: Calm and cooperative LABORATORY DATA, IMAGING STUDIES, MICROBIOLOGY: Please see below. ASSESSMENT AND PLAN: 79-year-old male with multiple medical comorbidities who is admitted for empyema, dysphasia, aspiration and physical deconditioning. PROBLEMS: 1. Empyema/aspiration pneumonia: Status post antibiotic course earlier in the hospitalization, antibiotics were restarted due to concern for aspiration, continue empiric antibiotics for now, will discontinue tomorrow if remains unchanged. 2. Tongue cancer: History of dysphagia, status post PEG tube placement, continue tube feeds. 3. COPD: Continue home regimen, supplemental oxygen as needed to maintain O2 saturation between 80-92%. 4. Hypertension: Continue losartan and Norvasc. 5. Hypothyroidism: Continue levothyroxine 6. Physical deconditioning: ARU eval pending DVT prophylaxis: Lovenox. GI prophylaxis: Not needed VS, I&O, 24H, Fishbone Vital Signs/I&O Vital Signs Date Time Temp Pulse Resp B/P (MAP) Pulse Ox O2 Delivery O2 Flow Rate FiO2 3/25/20 16:00 97.0 95 18 142/79 (100) 96 Nasal Cannula 3.0 11/27/19 15:15 31 I&O- Last 24 Hours up to 6 AM 11/29/19 06:00 Intake Total 1280 ml Output Total 925 ml Balance 355 ml Laboratory Data 24H LABS Laboratory Tests 2 11/29/19 04:22: Nucleated Red Blood Cells % (auto) 0.0, Anion Gap 1L, Glomerular Filtration Rate > 60.0, Calcium Level 8.7L CBC/BMP Laboratory Tests 11/29/19 04:22 Microbiology Microbiology 11/28/19 Gram Stain - Final, Resulted 11/28/19 Sputum Culture, Resulted Pending KIANA MARIE MD Nov 29, 2019 19:39
[2019-11-29] MEDS ORDERED: SIMETHICONE 80 MG CHEW TAB PEG PRN (20:00)
[2019-11-29] MEDS ORDERED: ACETAMINOPHEN 500 MG TAB PEG PRN (20:00)
[2019-11-29] MEDS ORDERED: NORCO, ANEXSIA 5/325MG TABLET (HYDROcodone/ACETAMINOPHEN) PEG PRN (20:00)
[2019-11-29] MEDS ORDERED: PERCOCET 5MG/325MG TAB PEG PRN ×2 (20:00)
[2019-11-29] MEDS ORDERED: RAMELTEON 8 MG TAB (ROZEREM) PEG PRN (20:00)
[2019-11-29] MEDS ORDERED: ATORVASTATIN 10 MG TAB PEG SCH (21:00)
[2019-11-29] MEDS ORDERED: amLODIPine 5 MG TAB PEG SCH (21:00)
[2019-11-29] MEDS: ENOXAPARIN 40 MG/0.4 ML SYRINGE (J1650) SC SCH (21:23)
[2019-11-30] MEDS: LEVALBUTEROL 1.25 MG/0.5 ML CONCENTRATE NEB NEB SCH ×3 (01:17→12:58)
[2019-11-30] MEDS: SODIUM CHLORIDE HYPERTONIC 3% 15ML NEB SOL INH SCH ×2 (01:18→07:35)
[2019-11-30 04:00] VITALS: BP 127/69
[2019-11-30 06:00] LABS: HEMATOCRIT 26.3 % (42.0-52.0); HEMOGLOBIN 8.1 g/dl (13.5-17.5); MEAN CORPUSCULAR HEMOGLOBIN 28.6 pg (27.0-33.0); MEAN CORPUSCULAR HGB CONC 30.8 g/dl (32.0-36.5); MEAN CORPUSCULAR VOLUME 92.9 fl (80.0-96.0); PLATELET COUNT, AUTOMATED 519 10^3/uL (150-450); RED BLOOD COUNT 2.83 10^6/uL (4.30-6.10); WHITE BLOOD COUNT 12.3 10^3/uL (4.0-10.0)
[2019-11-30] MEDS ORDERED: LEVOTHYROXINE 137MCG TABLET (0.137MG) PEG SCH (06:00)
[2019-11-30] MEDS: SLF 3 ML SYR IV SCH (06:02)
[2019-11-30] MEDS: metroNIDAZOLE 500 MG in IV 1 EA IV SCH (06:02)
[2019-11-30 06:26] LABS: BLOOD UREA NITROGEN 20 MG/DL (7-18); CALCIUM LEVEL 8.2 MG/DL (8.8-10.2); CARBON DIOXIDE LEVEL 34 MEQ/L (21-32); CHLORIDE LEVEL 113 MEQ/L (98-107); CREATININE FOR GFR 0.84 MG/DL (0.70-1.30); GLOMERULAR FILTRATION RATE > 60.0 (>42); GLUCOSE, FASTING 113 MG/DL (70-100); POTASSIUM SERUM 3.7 MEQ/L (3.5-5.1); SODIUM LEVEL 150 MEQ/L (136-145)
[2019-11-30] MEDS ORDERED: ENTER DRUG NAME HERE (PATIENT'S OWN MED) PEG SCH (07:30)
[2019-11-30] MEDS: TIOTROPIUM INHALER/CAPSULE (SPIRIVA) INH SCH (07:34)
[2019-11-30] MEDS: SYMBICORT 160/4.5MCG INHALER 6GM INH SCH (07:34)
[2019-11-30 08:00] VITALS: BP 127/60
[2019-11-30] MEDS: ASPIRIN 81 MG CHEW TABLET GT SCH (08:34)
[2019-11-30] MEDS: DOCUSATE SOD LIQ 100MG/10ML UDC GT SCH (08:34)
[2019-11-30] MEDS: NYSTATIN 500,000 U/5 ML SUSP UDC SS SCH (08:34)
[2019-11-30 08:35] VITALS: BP 127/69
[2019-11-30] MEDS: guaiFENesin ER 600 MG TAB PO SCH (08:35)
[2019-11-30] MEDS ORDERED: LOSARTAN 50 MG TAB PEG SCH (09:00)
[2019-11-30] MEDS ORDERED: MOM 30ML SUSPENSION UDC PEG SCH (09:00)
[2019-11-30] MEDS ORDERED: ASPI81CH8 GT (11:36)
[2019-11-30 12:00] VITALS: BP 113/59
--- NOTE | 2019-11-30 17:50 | DS.PDOC ---
Discharge Summary General Date of Admission Nov 09, 2019 at 15:03 Date of Discharge 11/30/19 Attending Physician: KIANA MARIE MD Discharge Summary PROCEDURES PERFORMED DURING STAY: None. ADMITTING DIAGNOSES: 1. Aspiration pneumonia, Parapneumonic pleural effusion, physical deco nditioning, dysphasia. DISCHARGE DIAGNOSES: 1. Aspiration pneumonia, Parapneumonic pleural effusion, physical deconditioning, dysphasia. COMPLICATIONS/CHIEF COMPLAINT: CAP. HISTORY OF PRESENT ILLNESS: 79-year-old male with past medical history of CML, hypertension, tongue cancer, hyperlipidemia who was admitted for loculated parapneumonic effusion, which was concerning for empyema. Patient has been treated with extensive course of antibiotics, hospitalization was prolonged due to physical deconditioning partially contributed by lack of oral intake for the past month. Patient has significant dysphasia and showed aspiration, patient underwent PEG tube placement and has been tolerating tube feeds since then. Patient is not clinically stable, no signs of active and ongoing infectious process, all antibodies have been discontinued, stable for discharge to acute rehabilitation unit for further therapy. HOSPITAL COURSE: As above. DISCHARGE MEDICATIONS: Please see below. ALLERGIES: Please see below. PHYSICAL EXAMINATION: VITAL SIGNS: Please see below. GENERAL: No distress HEENT: Normocephalic, atraumatic, moist mucous membranes NECK: Supple CARDIOVASCULAR EXAMINATION: S1, S2, no murmurs RESPIRATORY EXAMINATION: Diminished in the bases, scattered rhonchi, no wheezing ABDOMINAL EXAMINATION: Soft, nontender, nondistended, positive bowel sounds, PEG tube in place EXTREMITIES: Range of motion intact SKIN: No rash NEUROLOGICAL EXAMINATION: no focal deficits PSYCHIATRIC EXAMINATION: Calm and cooperative LABORATORY DATA: Please see below. PROGNOSIS: Fair ACTIVITY: As tolerated. DIET: Tube Feeding DISCHARGE PLAN: Follow with PCP after discharge from acute rehabilitation unit DISPOSITION: Acute rehabilitation unit. DISCHARGE INSTRUCTIONS: 1. As above. DISCHARGE CONDITION: Stable. TIME SPENT ON DISCHARGE: Greater than 30 minutes. Vital Signs/I&Os Vital Signs Date Time Temp Pulse Resp B/P (MAP) Pulse Ox O2 Delivery O2 Flow Rate FiO2 11/30/19 16:00 2.0 11/30/19 12:00 97.6 96 19 113/59 (77) 95 Nasal Cannula 11/27/19 15:15 31 I&O- Last 24 Hours up to 6 AM 11/30/19 05:59 Intake Total 1670 ml Output Total 750 ml Balance 920 ml Laboratory Data Labs 24H Laboratory Tests 2 11/30/19 05:36: Nucleated Red Blood Cells % (auto) 0.2H, Anion Gap 3L, Glomerular Filtration Rate > 60.0, Calcium Level 8.2L CBC/BMP Laboratory Tests 11/30/19 05:36 Microbiology Microbiology 11/28/19 Gram Stain - Final, Complete 11/28/19 Sputum Culture - Final, Complete Discharge Medications Scheduled Amlodipine Besylate (Amlodipine Besylate) 5 Mg Tablet, 5 MG PO QHS, (Reported) Aspirin (Children's Aspirin) 81 Mg Tab.chew, 81 MG GT DAILY Atorvastatin Calcium (Atorvastatin Calcium) 10 Mg Tablet, 10 MG PO QHS, (Reported) Budesonide/Formoterol (Symbicort 160-4.5 Mcg Inhaler) 60 Puff/Inhaler Aers, 2 PUFF INH BID, (Reported) Levothyroxine Sodium (Levothyroxine Sodium) 125 Mcg Tablet, 125 MCG PO DAILY, (Reported) Losartan Potassium (Losartan Potassium) 50 Mg Tablet, 50 MG PO DAILY, (Reported) Nilotinib HCl (Tasigna) 150 Mg Capsule, 300 MG PO BID, (Reported) Prednisone (Prednisone) 5 Mg Tablet, 5 MG PO DAILY, (Reported) Tiotropium [place] Monohydrate (Spiriva) 5 Inhalation/Inhaler Powd, 1 INHALATION INH DAILY, (Reported) Scheduled PRN Acetaminophen (Tylenol Extra Strength) 500 Mg Tablet, 1,000 MG PO QID PRN for PAIN / FEVER, (Reported) Albuterol Sulf (Albuterol Sulfate) 2.5 Mg/3 Ml Vial.neb, 2.5 MG INH QID PRN for SHORTNESS OF BREATH, (Reported) Albuterol Sulfate (Albuterol Sulfate Hfa) 8.5 Gm Hfa.aer.ad, 2 PUFF INH QID PRN for SHORTNESS OF BREATH, (Reported) Allergies Coded Allergies: amoxicillin (Verified Allergy, Mild, "rash" see comment, 11/09/19) REACTION FROM WAS SO LONG AGO PT DOESN'T EXACTLY REMEMBER, BUT HE BELIEVES IT WAS A RASH clavulanic acid (Verified Allergy, Mild, "rash" see comment, 11/09/19) REACTION FROM WAS SO LONG AGO PT DOESN'T EXACTLY REMEMBER, BUT HE BELIEVES IT WAS A RASH codeine (Verified Allergy, Unknown, 11/09/19) simethicone (Verified Adverse Reaction, Intermediate, drops cause tongue to burn - pt has thrush at this time, 11/13/19) allergy updated per conversation dr. tineo had with patient. oxycodone (Verified Adverse Reaction, Unknown, nausea & vomiting, " i couldn't tolerate it", 11/09/19) KIANA MARIE MD Nov 30, 2019 17:44
== END 2019-11-30 18:07 | DRG 177 ==
LOC: M ED 10:39 → M ED INP 15:03 → ENRESERVDT 18:26 → ENRESERVTM 18:26 → M PCU 20:20 → M MS5PR 11-17 18:02 → M PCU 11-27 13:15
PROVIDERS: ADMIT Family Medicine; ATTEND Internal Medicine
PROC: 0W9830Z Drainage of Chest Wall with Drainage Device, Percutaneous Approach (ICD-10-PCS; principal; 2019-11-10)
PROC: 3E03317 Introduction of Other Thrombolytic into Peripheral Vein, Percutaneous Approach (ICD-10-PCS; 2019-11-11)
PROC: 30233N1 Transfusion of Nonautologous Red Blood Cells into Peripheral Vein, Percutaneous Approach (ICD-10-PCS; 2019-11-13)
PROC: 0DH63UZ Insertion of Feeding Device into Stomach, Percutaneous Approach (ICD-10-PCS; 2019-11-27)
DX: J86.9 Pyothorax without fistula (principal); J69.0 Pneumonitis due to inhalation of food and vomit; C94.80 Other specified leukemias not having achieved remission; K56.7 Ileus, unspecified; R47.02 Dysphasia; I10 Essential (primary) hypertension; E78.5 Hyperlipidemia, unspecified; Z79.82 Long term (current) use of aspirin; Z79.899 Other long term (current) drug therapy; Z88.0 Allergy status to penicillin; Z88.8 Allergy status to other drugs, medicaments and biological substances; J44.9 Chronic obstructive pulmonary disease, unspecified; E03.9 Hypothyroidism, unspecified; Z85.810 Personal history of malignant neoplasm of tongue; Z87.891 Personal history of nicotine dependence; K57.30 Diverticulosis of large intestine without perforation or abscess without bleeding; K59.03 Drug induced constipation; D64.9 Anemia, unspecified; I25.10 Atherosclerotic heart disease of native coronary artery without angina pectoris

== ENCOUNTER 2019-11-30 16:16 | Inpatient (IN) | payer MEDICARE, OTHER ==
[~2019-11-30] VITALS: Ht 182.9 cm; Wt 71.3 kg
[~2019-11-30 16:16] MED LIST changes: +ACET-897 PO; +ADV250INH; +ALBU8.5H INH; +ALBU83IN INH; +AMLO5TAB6 PO; +ASPI81CH8 GT; +ATOR1TAB19 PO; +LEVO125T4 PO; +LOSA50TA88 PO; +PRED5TA PO
[2019-11-30] MEDS ORDERED: CALCIUM CARBONATE 500 MG CHEW U/D PEG PRN (16:45)
[2019-11-30] MEDS ORDERED: LACTULOSE 20 GM/30 ML SYRUP UD PO PRN (16:45)
[2019-11-30] MEDS ORDERED: LACTULOSE 20 GM/30 ML SYRUP UD PEG PRN (17:15)
[2019-11-30 19:26] VITALS: BP 155/71
[2019-11-30] MEDS: SYMBICORT 160/4.5MCG INHALER 6GM INH SCH (19:49)
[2019-11-30] MEDS: LEVALBUTEROL 1.25 MG/0.5 ML CONCENTRATE NEB INH SCH (19:49)
[2019-11-30] MEDS: RAMELTEON 8 MG TAB (ROZEREM) PEG SCH (20:41)
[2019-11-30] MEDS: ATORVASTATIN 10 MG TAB PEG SCH (20:41)
[2019-11-30] MEDS: amLODIPine 5 MG TAB PEG SCH (20:41)
[2019-11-30] MEDS: SALIVA SUBSTITUTE(MOUTHKOTE) BTL MT SCH (20:42)
[2019-11-30] MEDS: guaiFENesin SYRUP 200 MG/10 ML UDC PEG SCH (20:42)
[2019-11-30] MEDS: CHLORHEXIDINE GLUCONATE 0.12 % 15ML UDC (PERIDEX ORAL RINSE) MT SCH (20:42)
[2019-11-30] MEDS: REMEDY PHYTOPLEX Z-GUARD PASTE 113GM TUBE (FROM STOREROOM PRODUCT) TOP SCH (20:43)
[2019-11-30 21:00] VITALS: BP 145/69
[2019-11-30] MEDS: ACETAMINOPHEN TAB 650MG DOSE (2X325MG) PEG PRN (21:02)
[2019-12-01 06:24] VITALS: BP 141/75
[2019-12-01] MEDS: LEVALBUTEROL 1.25 MG/0.5 ML CONCENTRATE NEB INH SCH ×4 (07:11→19:43)
[2019-12-01] MEDS: TIOTROPIUM INHALER/CAPSULE (SPIRIVA) INH SCH (07:11)
[2019-12-01] MEDS: SYMBICORT 160/4.5MCG INHALER 6GM INH SCH ×2 (07:11→19:44)
[2019-12-01 07:28] LABS: BASO % 0.2 % (0.0-1.0); EOS # 0.4 10^3/uL (0.0-0.5); EOS % 3.3 % (0.0-3.0); HEMATOCRIT 26.8 % (42.0-52.0); HEMOGLOBIN 8.1 g/dl (13.5-17.5); LYMPH # 0.5 10^3/uL (1.5-5.0); LYMPH % 4.3 % (24.0-44.0); MEAN CORPUSCULAR HEMOGLOBIN 28.5 pg (27.0-33.0); MEAN CORPUSCULAR HGB CONC 30.2 g/dl (32.0-36.5); MEAN CORPUSCULAR VOLUME 94.4 fl (80.0-96.0); MONO # 1.3 10^3/uL (0.0-0.8); MONO % 10.9 % (0.0-5.0); NEUTROPHILS # 9.5 10^3/uL (1.5-8.5); NEUTROPHILS % 78.9 % (36.0-66.0); PLATELET COUNT, AUTOMATED 519 10^3/uL (150-450); RED BLOOD COUNT 2.84 10^6/uL (4.30-6.10); WHITE BLOOD COUNT 12.1 10^3/uL (4.0-10.0)
[2019-12-01 07:50] LABS: ALBUMIN 1.9 GM/DL (3.2-5.2); ALT/SGPT 15 U/L (12-78); BILIRUBIN,TOTAL 0.2 MG/DL (0.2-1.0); BLOOD UREA NITROGEN 19 MG/DL (7-18); CALCIUM LEVEL 8.3 MG/DL (8.8-10.2); CARBON DIOXIDE LEVEL 35 MEQ/L (21-32); CHLORIDE LEVEL 114 MEQ/L (98-107); GLOMERULAR FILTRATION RATE > 60.0 (>42); GLUCOSE, FASTING 135 MG/DL (70-100); POTASSIUM SERUM 3.9 MEQ/L (3.5-5.1); SODIUM LEVEL 150 MEQ/L (136-145); TOTAL PROTEIN 5.7 GM/DL (6.4-8.2)
[2019-12-01] MEDS: SALIVA SUBSTITUTE(MOUTHKOTE) BTL MT SCH ×4 (08:10→21:11)
[2019-12-01] MEDS: CHLORHEXIDINE GLUCONATE 0.12 % 15ML UDC (PERIDEX ORAL RINSE) MT SCH ×2 (08:10→21:08)
[2019-12-01] MEDS: ASPIRIN 81 MG CHEW TABLET PEG SCH (08:11)
[2019-12-01] MEDS: ACETAMINOPHEN TAB 650MG DOSE (2X325MG) PEG PRN (08:11)
[2019-12-01] MEDS: guaiFENesin SYRUP 200 MG/10 ML UDC PEG SCH ×4 (08:11→21:08)
[2019-12-01] MEDS: predniSONE 5 MG TAB PEG SCH (08:11)
[2019-12-01] MEDS: LOSARTAN 50 MG TAB PEG SCH (08:11)
[2019-12-01] MEDS: LANSOPRAZOLE SUSPENSION 30 MG/10 ML ORAL SYRINGE (FIRST-LANSOPRAZOLE) PEG SCH (08:12)
[2019-12-01] MEDS: REMEDY PHYTOPLEX Z-GUARD PASTE 113GM TUBE (FROM STOREROOM PRODUCT) TOP SCH ×3 (08:12→21:47)
[2019-12-01] MEDS: ENOXAPARIN 40MG/0.4ML SYRINGE (J1650 PER 10MG) SC SCH (08:12)
[2019-12-01] MEDS: LEVOTHYROXINE 137MCG TABLET (0.137MG) PEG SCH (11:59)
[2019-12-01 14:00] VITALS: BP 143/61
--- NOTE | 2019-12-01 15:07 | HPEPDOC ---
Photostat Operator Helper Note DATE OF ADMISSION: 11-30-19 DATE OF SERVICE: 12-01-19 TIME OF ADMISSION: Please refer to physician's admission order. SOURCE OF ADMISSION INFORMATION: [facility] record and patient CHIEF COMPLAINT: aspiration pneumonia s/p PEG placement HISTORY OF PRESENT ILLNESS: 79M pmh COPD on home 02, CML, hypothyroidism, tongue cancer s/p resection with dysphagia, HLD, anemia, recent diagnosis of CAD, who presented to [facility] ED on 11-09-19 complaining of shortness of breath with CXR showing, There appear to be moderate bilateral pleural effusions left greater than right. There are also adjacent patchy areas of atelectasis or infiltrate in each lung base, left greater than right. Focal soft tissue density in the right apex could possibly represent a mass, which was ruled out on follow-up chest CT which did show Complex and extensive bilateral pleural effusions with marked pleural thickening and stranding and nodularity. Infectious versus neoplastic e tiologies. Chronic pleural changes on the right. He was treated with antibiotics for presumed pneumonia underwent a left chest tube placement performed by Dr. Newton on 11-10-19 and later a chemical decortication with tPA for loculated fluid. He developed partial bowel obstruction with abdominal di stension and evaluated by surgery who recommended a clear liquid diet which was advanced after resolution of his symptoms. He was thought to have developed an aspiration pneumonia, restarted on antibiotics in setting of leukocytosis and underwent PEG placement on 11-27-19. He was noted to have impairments in mobility and ADLs well below his baseline and deemed medically appropriate for discharge to ARU on 11-30-19. REVIEW OF SYSTEMS: The following is a completed review of systems and has been reviewed. Review of systems otherwise unremarkable. PAIN: Patient self reports no pain EYES: No recent vision changes EARS, NOSE, & THROAT: + dysphagia CARDIOVASCULAR: Denies chest pain or palpitations PULMONARY: Denies shortness of breath GASTROINTESTINAL: Denies constipation/diarrhea GENITOURINARY: denies dysuria MUSCULOSKELETAL: generalized weakness NEUROLOGICAL: denies paresthesias HEMATOLOGICAL: +CML SKIN: rash on back, +Peg PSYCHIATRIC: Unremarkable All other review of systems found to be negative. PAST MEDICAL HISTORY: as per HPI PAST SURGICAL HISTORY: as per HPI and [place] pleurodesis right side- July 2019 ALLERGIES: Please see below. MEDICATIONS: Please see below. FAMILY HISTORY: throat cancer SOCIAL HISTORY: Former smoker, +ETOH, denies illicit drugs DIET: NPO PHYSICAL EXAMINATION: VITAL SIGNS: Please see below. GENERAL: Pleasant and cooperative. No acute distress. HEENT: PERRL. Extraocular movements intact. Clear conjunctiva CARDIOVASCULAR: Regular rate and rhythm. No murmurs, rubs, or gallops LUNGS: Clear to auscultation bilaterally. No wheezes. +scattered rhonchi ABDOMEN: Soft, nontender, nondistended. Positive bowel sounds. Normal active bowel sounds, PEG site c/d/i NEUROLOGICAL: Alert and oriented times three. Cranial nerves II through XII grossly intact. Sensation grossly intact EXTREMITIES: 5\\5 strength bilateral upper extremities. 5\\5 strength right lower extremity. 5/5 strength in left lower extremity. SKIN: diffuse papular rash on his back and buttock LABORATORY DATA: Please see below. IMAGING:Imaging documentation personally reviewed by record FUNCTIONAL STATUS: Premorbid: Independent with all activities of daily life as well as mobility On Admission: Stand by assist for ambulation, bed mobility, functional transfers, Min assist for lower body dressing GOALS:Mod-I community distances for ambulation with RW, functional transfers, stairs, dressing, toileting, PEG management, Mod-with feeds, medical optimization ASSESSMENT:79-year-old M with past medical history of tongue cancer and COPD who presents status post pneumonia with dysphagia s/p PEG placement PLAN: 1. Rehab- PT/OT advance gait and ADL training, strengthen/stretch/maintain ROM all 4 limbs, energy conservation -PATIENT APPOINTMENT COORDINATOR will defer until Wednesday [place] water protocol, c/u oral rinses for oral hygiene -NPO- tube feeds 2. Neuro: no active issues 3. Cardiac: recent Chest CT with cardiac finding started on ASA, c/u losartan and amlodipine for HTN -HLD c/u statin-medicine consulted to assist in overall management -will need cardiology f/u on d/c 4. Resp; s/p course of antibiotics for CAP and alter aspiration PNA s/p PEG placement 11-27-19, c/u oral steroids, Spiriva, Xopenex, and Guaifenesin -on home c/u -will start acapella 5. Endo: hypothyroidism with elevated TSH on admission, c/u higher dose of Synthroid 137mcg daily at noon when stomach should be empty (feeds 4pm to 8am) 6. DVT ppx: Lovenox and TeDs 7. GI ppx: lansaprazole -PEG feeds, HOB 45 degrees during feeds and one hour post-feeds, aspiration precautions 8. Psych: rozerem for insomnia 9. Pain: Tylenol prn 10. Hypernatremia- Na 150 has been stable around this number for a few days, will c/u free water boluses as patient with poor po intake and recent transition to PEG -will consider gentle IVF with 1/2NS if does not improve 11. Skin: back rash possibly allergic reaction to recent administration of simethicone/magic mouthwash on inpatient vs contact dermatitis due to sweating, will start antihistamine, benadryl prn, and daily eucerin moisturizer 12. Dispo: TBD POST ADMISSION PHYSICIAN EVALUATION: Medical and functional status: Description of medical status, medical assessment: As above. Rehabilitation diagnosis and current and prior cold morbid medical conditions as above. Risk of complications and plans to mitigate them as above. Description of functional status current status is as above. Prior status as above. Status compared to preadmission: There are no clinically significant differences between the patient's current status and the information described on the preadmission screening document. Treatment plan anticipated: Treatment plan is as described above. Required disciplines including physical therapy, occupational therapy, others as noted janelle hirsch. Intensity of services: 3 hours a day, 6 days a week. Special considerations: There are no specific special or safety considerations that would likely preclude immediate implementation of an intensive rehabilitation program or subsequently influence the plan of care. ATTESTATION: Considering all the information above, it is my best judgment that this patient requires intensive rehabilitation therapy as described above and an inpatient hospital environment due to the complexity of nursing, medical, and rehabilitation needs required by the patient. Furthermore, this patient can reasonably be expected to participate in an benefit from an inpatient rehabilitation stay with an interdisciplinary team approach to the delivery of rehabilitation care under the direction and supervision of rehabilitation physician. PROGNOSIS: good ESTIMATED LENGTH OF STAY:10-14 days. PROJECTED DISCHARGE DESTINATION: Home with family support and any durable medical equipment required to increase functional safety and mobility TIME SPENT COUNSELING AND COORDINATING INITIAL CARE: Greater than 70 minutes. Vital Signs Vital Sign - Last 24 Hours 11/30/19 11/30/19 11/30/19 11/30/19 19:26 20:41 21:00 21:00 Temp 98.1 98.1 Pulse 92 83 83 Resp 18 18 B/P (MAP) 155/71 (99) 145/69 145/69 (94) Pulse Ox 90 92 O2 Delivery Nasal Cannula Nasal Cannula O2 Flow Rate 2.0 2.0 2.0 12/01/19 12/01/19 12/01/19 06:24 08:11 09:00 Temp 98.8 Pulse 77 Resp 18 B/P (MAP) 141/75 (97) 141/75 Pulse Ox 92 O2 Delivery Nasal Cannula O2 Flow Rate 2.0 2.0 Laboratory Data CBC/BMP Laboratory Tests 12/01/19 07:07 12/01/19 07:08 Labs 24H Laboratory Tests 2 12/01/19 07:07: Anion Gap 1L, Glomerular Filtration Rate > 60.0, Calcium Level 8.3L, Total Bilirubin 0.2, Aspartate Amino Transf (AST/SGOT) 14, Alanine Aminotransferase (ALT/SGPT) 15, Alkaline Phosphatase 134H, Total Protein 5.7L, Albumin 1.9L, Albumin/Globulin Ratio 0.50L 12/01/19 07:08: Immature Granulocyte % (Auto) 2.4, Neutrophils (%) (Auto) 78.9H, Lymphocytes (%) (Auto) 4.3L, Monocytes (%) (Auto) 10.9H, Eosinophils (%) (Auto) 3.3H, Basophils (%) (Auto) 0.2, Neutrophils # (Auto) 9.5H, Lymphocytes # (Auto) 0.5L, Monocytes # (Auto) 1.3H, Eosinophils # (Auto) 0.4, Basophils # (Auto) 0.0, Nucleated Red Blood Cells % (auto) 0.0 Home Medications Scheduled Amlodipine Besylate (Amlodipine Besylate) 5 Mg Tablet, 5 MG PO QHS, (Reported) Aspirin (Children's Aspirin) 81 Mg Tab.chew, 81 MG GT DAILY Atorvastatin Calcium (Atorvastatin Calcium) 10 Mg Tablet, 10 MG PO QHS, (Reported) Budesonide/Formoterol (Symbicort 160-4.5 Mcg Inhaler) 60 Puff/Inhaler Aers, 2 PUFF INH BID, (Reported) Levothyroxine Sodium (Levothyroxine Sodium) 125 Mcg Tablet, 125 MCG PO DAILY, (Reported) Losartan Potassium (Losartan Potassium) 50 Mg Tablet, 50 MG PO DAILY, (Reported) Nilotinib HCl (Tasigna) 150 Mg Capsule, 300 MG PO BID, (Reported) Prednisone (Prednisone) 5 Mg Tablet, 5 MG PO DAILY, (Reported) Tiotropium [place] Monohydrate (Spiriva) 5 Inhalation/Inhaler Powd, 1 INHALATION INH DAILY, (Reported) Scheduled PRN Acetaminophen (Tylenol Extra Strength) 500 Mg Tablet, 1,000 MG PO QID PRN for PAIN / FEVER, (Reported) Albuterol Sulf (Albuterol Sulfate) 2.5 Mg/3 Ml Vial.neb, 2.5 MG INH QID PRN for SHORTNESS OF BREATH, (Reported) Albuterol Sulfate (Albuterol Sulfate Hfa) 8.5 Gm Hfa.aer.ad, 2 PUFF INH QID PRN for SHORTNESS OF BREATH, (Reported) Allergies Coded Allergies: amoxicillin (Verified Allergy, Mild, "rash" see comment, 11/09/19) REACTION FROM WAS SO LONG AGO PT DOESN'T EXACTLY REMEMBER, BUT HE BELIEVES IT WAS A RASH clavulanic acid (Verified Allergy, Mild, "rash" see comment, 11/09/19) REACTION FROM WAS SO LONG AGO PT DOESN'T EXACTLY REMEMBER, BUT HE BELIEVES IT WAS A RASH codeine (Verified Allergy, Unknown, 11/09/19) simethicone (Verified Adverse Reaction, Intermediate, drops cause tongue to burn - pt has thrush at this time, 11/13/19) allergy updated per conversation dr. tineo had with patient. oxycodone (Verified Adverse Reaction, Unknown, nausea & vomiting, " i couldn't tolerate it", 11/09/19) A-FIB/CHADSVASC A-FIB History Current/History of A-Fib/PAF?: No CECY DOMINGUEZ MD Dec 01, 2019 15:07
[2019-12-01] MEDS ORDERED: diphenhydrAMINE 25MG CAP PEG PRN (15:30)
[2019-12-01] MEDS: CETIRIZINE (ZyrTEC) 10 MG TAB PO SCH (15:58)
[2019-12-01] MEDS: VANICREAM MOISTURIZING SKIN CREAM 113GM TUBE TOP SCH ×2 (17:09→21:09)
[2019-12-01 20:56] VITALS: BP 110/63
[2019-12-01] MEDS: amLODIPine 5 MG TAB PEG SCH (21:00)
[2019-12-01] MEDS: RAMELTEON 8 MG TAB (ROZEREM) PEG SCH (21:08)
[2019-12-01] MEDS: ATORVASTATIN 10 MG TAB PEG SCH (21:08)
[2019-12-02] MEDS: LEVALBUTEROL 1.25 MG/0.5 ML CONCENTRATE NEB INH PRN (05:18)
[2019-12-02 05:23] VITALS: BP 123/61
[2019-12-02 07:18] LABS: BLOOD UREA NITROGEN 23 MG/DL (7-18); CARBON DIOXIDE LEVEL 36 MEQ/L (21-32); CHLORIDE LEVEL 111 MEQ/L (98-107); CREATININE FOR GFR 0.76 MG/DL (0.70-1.30); GLOMERULAR FILTRATION RATE > 60.0 (>42); GLUCOSE, FASTING 117 MG/DL (70-100); POTASSIUM SERUM 4.4 MEQ/L (3.5-5.1); SODIUM LEVEL 149 MEQ/L (136-145)
[2019-12-02] MEDS: TIOTROPIUM INHALER/CAPSULE (SPIRIVA) INH SCH (07:22)
[2019-12-02] MEDS: LEVALBUTEROL 1.25 MG/0.5 ML CONCENTRATE NEB INH SCH ×4 (07:22→19:40)
[2019-12-02] MEDS: SYMBICORT 160/4.5MCG INHALER 6GM INH SCH ×2 (07:22→19:40)
[2019-12-02] MEDS: guaiFENesin SYRUP 200 MG/10 ML UDC PEG SCH ×4 (08:22→21:33)
[2019-12-02] MEDS: CHLORHEXIDINE GLUCONATE 0.12 % 15ML UDC (PERIDEX ORAL RINSE) MT SCH ×2 (08:22→21:33)
[2019-12-02] MEDS: LANSOPRAZOLE SUSPENSION 30 MG/10 ML ORAL SYRINGE (FIRST-LANSOPRAZOLE) PEG SCH (08:23)
[2019-12-02] MEDS: ASPIRIN 81 MG CHEW TABLET PEG SCH (08:23)
[2019-12-02] MEDS: CETIRIZINE (ZyrTEC) 10 MG TAB PO SCH (08:23)
[2019-12-02] MEDS: LOSARTAN 50 MG TAB PEG SCH (08:23)
[2019-12-02] MEDS: predniSONE 5 MG TAB PEG SCH (08:23)
[2019-12-02] MEDS: ENOXAPARIN 40MG/0.4ML SYRINGE (J1650 PER 10MG) SC SCH (08:23)
[2019-12-02] MEDS: VANICREAM MOISTURIZING SKIN CREAM 113GM TUBE TOP SCH ×2 (08:24→21:34)
[2019-12-02] MEDS: REMEDY PHYTOPLEX Z-GUARD PASTE 113GM TUBE (FROM STOREROOM PRODUCT) TOP SCH ×3 (08:24→21:34)
[2019-12-02] MEDS: SALIVA SUBSTITUTE(MOUTHKOTE) BTL MT SCH ×4 (08:25→21:33)
--- NOTE | 2019-12-02 09:10 | REP ---
Clinical: Dyspnea. Comparison: 11/26/2019. Findings: Moderate pleural effusions and bibasilar atelectasis/infiltrates (right greater than left) are again noted and similar to prior examination. Small right apical opacity is essentially unchanged from prior examination. No new acute pleuroparenchymal process identified. Visualized portions of the mediastinum and cardiac silhouette are stable and grossly within normal limits. Skeletal structures are intact. Impression: 1. Bilateral pleuroparenchymal changes primarily involving the lower lung zones suggesting effusions and atelectasis as well as small right apical opacity are unchanged. 2. No new acute process identified. Electronically Signed by Marcus Obregon MD 12/02/2019 09:02 A
[2019-12-02] MEDS: LEVOTHYROXINE 137MCG TABLET (0.137MG) PEG SCH (11:49)
[2019-12-02 14:00] VITALS: BP 144/82
[2019-12-02 20:00] VITALS: BP 123/59
[2019-12-02] MEDS: ATORVASTATIN 10 MG TAB PEG SCH (21:31)
[2019-12-02] MEDS: RAMELTEON 8 MG TAB (ROZEREM) PEG SCH (21:31)
[2019-12-02] MEDS: amLODIPine 5 MG TAB PEG SCH (21:32)
[2019-12-03] MEDS: ACETAMINOPHEN TAB 650MG DOSE (2X325MG) PEG PRN ×2 (05:59→20:06)
[2019-12-03 06:00] VITALS: BP_SYST 138; BP_DIAS 59; BP_DIAS 78
[2019-12-03 06:47] LABS: HEMATOCRIT 26.3 % (42.0-52.0); HEMOGLOBIN 7.9 g/dl (13.5-17.5); MEAN CORPUSCULAR HEMOGLOBIN 28.5 pg (27.0-33.0); MEAN CORPUSCULAR VOLUME 94.9 fl (80.0-96.0); PLATELET COUNT, AUTOMATED 530 10^3/uL (150-450); RED BLOOD COUNT 2.77 10^6/uL (4.30-6.10); WHITE BLOOD COUNT 11.2 10^3/uL (4.0-10.0)
[2019-12-03 07:08] LABS: BLOOD UREA NITROGEN 22 MG/DL (7-18); CALCIUM LEVEL 7.9 MG/DL (8.8-10.2); CARBON DIOXIDE LEVEL 36 MEQ/L (21-32); CHLORIDE LEVEL 108 MEQ/L (98-107); CREATININE FOR GFR 0.68 MG/DL (0.70-1.30); GLOMERULAR FILTRATION RATE > 60.0 (>42); GLUCOSE, FASTING 127 MG/DL (70-100); POTASSIUM SERUM 4.1 MEQ/L (3.5-5.1); SODIUM LEVEL 147 MEQ/L (136-145)
[2019-12-03] MEDS: TIOTROPIUM INHALER/CAPSULE (SPIRIVA) INH SCH (07:33)
[2019-12-03] MEDS: LEVALBUTEROL 1.25 MG/0.5 ML CONCENTRATE NEB INH SCH ×4 (07:34→19:43)
[2019-12-03] MEDS: CETIRIZINE (ZyrTEC) 10 MG TAB PO SCH (08:17)
[2019-12-03] MEDS: predniSONE 5 MG TAB PEG SCH (08:17)
[2019-12-03] MEDS: ENOXAPARIN 40MG/0.4ML SYRINGE (J1650 PER 10MG) SC SCH (08:17)
[2019-12-03] MEDS: ASPIRIN 81 MG CHEW TABLET PEG SCH (08:17)
[2019-12-03] MEDS: LANSOPRAZOLE SUSPENSION 30 MG/10 ML ORAL SYRINGE (FIRST-LANSOPRAZOLE) PEG SCH (08:17)
[2019-12-03] MEDS: guaiFENesin SYRUP 200 MG/10 ML UDC PEG SCH ×4 (08:18→20:06)
[2019-12-03] MEDS: CHLORHEXIDINE GLUCONATE 0.12 % 15ML UDC (PERIDEX ORAL RINSE) MT SCH ×2 (08:18→20:07)
[2019-12-03] MEDS: SALIVA SUBSTITUTE(MOUTHKOTE) BTL MT SCH ×4 (08:18→20:07)
[2019-12-03] MEDS: LOSARTAN 50 MG TAB PEG SCH (08:18)
[2019-12-03] MEDS: VANICREAM MOISTURIZING SKIN CREAM 113GM TUBE TOP SCH ×2 (08:19→20:07)
[2019-12-03] MEDS: REMEDY PHYTOPLEX Z-GUARD PASTE 113GM TUBE (FROM STOREROOM PRODUCT) TOP SCH ×3 (08:20→20:07)
[2019-12-03] MEDS: SYMBICORT 160/4.5MCG INHALER 6GM INH SCH ×2 (11:38→19:43)
[2019-12-03] MEDS: LEVOTHYROXINE 137MCG TABLET (0.137MG) PEG SCH (12:07)
[2019-12-03 14:00] VITALS: BP 140/65
[2019-12-03 19:39] VITALS: BP 129/58
[2019-12-03] MEDS: ATORVASTATIN 10 MG TAB PEG SCH (20:06)
[2019-12-03] MEDS: RAMELTEON 8 MG TAB (ROZEREM) PEG SCH (20:06)
[2019-12-03] MEDS: amLODIPine 5 MG TAB PEG SCH (20:06)
[2019-12-04] MEDS: LEVALBUTEROL 1.25 MG/0.5 ML CONCENTRATE NEB INH PRN (01:25)
[2019-12-04 01:46] VITALS: BP 149/70
[2019-12-04] MEDS ORDERED: IPRATROPIUM 0.5MG/ALBUTEROL 2.5MG INH SOL UD 3ML (DUONEB)(J7620) NEB PRN (04:00)
[2019-12-04 05:16] VITALS: BP 138/63
[2019-12-04 07:13] LABS: BASO % 0.2 % (0.0-1.0); EOS # 0.3 10^3/uL (0.0-0.5); EOS % 2.2 % (0.0-3.0); HEMATOCRIT 26.6 % (42.0-52.0); LYMPH # 0.7 10^3/uL (1.5-5.0); LYMPH % 5.5 % (24.0-44.0); MEAN CORPUSCULAR HEMOGLOBIN 28.5 pg (27.0-33.0); MEAN CORPUSCULAR HGB CONC 30.1 g/dl (32.0-36.5); MEAN CORPUSCULAR VOLUME 94.7 fl (80.0-96.0); MONO # 1.4 10^3/uL (0.0-0.8); MONO % 11.5 % (0.0-5.0); NEUTROPHILS # 9.4 10^3/uL (1.5-8.5); NEUTROPHILS % 78.6 % (36.0-66.0); PLATELET COUNT, AUTOMATED 541 10^3/uL (150-450); RED BLOOD COUNT 2.81 10^6/uL (4.30-6.10); WHITE BLOOD COUNT 11.9 10^3/uL (4.0-10.0)
[2019-12-04 07:27] LABS: BLOOD UREA NITROGEN 18 MG/DL (7-18); CARBON DIOXIDE LEVEL 35 MEQ/L (21-32); CHLORIDE LEVEL 106 MEQ/L (98-107); CREATININE FOR GFR 0.67 MG/DL (0.70-1.30); GLOMERULAR FILTRATION RATE > 60.0 (>42); GLUCOSE, FASTING 145 MG/DL (70-100); POTASSIUM SERUM 5.1 MEQ/L (3.5-5.1); SODIUM LEVEL 144 MEQ/L (136-145)
[2019-12-04] MEDS: LEVALBUTEROL 1.25 MG/0.5 ML CONCENTRATE NEB INH SCH ×2 (07:29→11:01)
[2019-12-04] MEDS: TIOTROPIUM INHALER/CAPSULE (SPIRIVA) INH SCH (07:29)
[2019-12-04] MEDS: SYMBICORT 160/4.5MCG INHALER 6GM INH SCH ×2 (07:29→19:49)
[2019-12-04] MEDS: guaiFENesin SYRUP 200 MG/10 ML UDC PEG SCH ×4 (09:48→20:55)
[2019-12-04] MEDS: ENOXAPARIN 40MG/0.4ML SYRINGE (J1650 PER 10MG) SC SCH (09:48)
[2019-12-04] MEDS: CHLORHEXIDINE GLUCONATE 0.12 % 15ML UDC (PERIDEX ORAL RINSE) MT SCH ×4 (09:48→20:55)
[2019-12-04] MEDS: ASPIRIN 81 MG CHEW TABLET PEG SCH (09:48)
[2019-12-04] MEDS: LANSOPRAZOLE SUSPENSION 30 MG/10 ML ORAL SYRINGE (FIRST-LANSOPRAZOLE) PEG SCH (09:48)
[2019-12-04] MEDS: CETIRIZINE (ZyrTEC) 10 MG TAB PO SCH (09:49)
[2019-12-04] MEDS: predniSONE 5 MG TAB PEG SCH (09:49)
[2019-12-04] MEDS: LOSARTAN 50 MG TAB PEG SCH (09:49)
[2019-12-04] MEDS: VANICREAM MOISTURIZING SKIN CREAM 113GM TUBE TOP SCH ×2 (09:50→20:55)
[2019-12-04] MEDS: REMEDY PHYTOPLEX Z-GUARD PASTE 113GM TUBE (FROM STOREROOM PRODUCT) TOP SCH ×3 (09:50→20:56)
[2019-12-04] MEDS: SALIVA SUBSTITUTE(MOUTHKOTE) BTL MT SCH ×4 (09:51→20:55)
[2019-12-04] MEDS: LEVOTHYROXINE 137MCG TABLET (0.137MG) PEG SCH (11:40)
[2019-12-04] MEDS: IPRATROPIUM 0.5MG/ALBUTEROL 2.5MG INH SOL UD 3ML (DUONEB)(J7620) NEB SCH ×3 (11:46→19:49)
[2019-12-04] MEDS ORDERED: predniSONE 5 MG TAB PEG ONE (12:15)
[2019-12-04 14:00] VITALS: BP 132/60
--- NOTE | 2019-12-04 14:40 | IPNPDOC ---
PM&R Progress Note DATE OF SERVICE: Dec 04, 2019 Industrial/Organizational Psychologist Progress Note Subjective: Patient reporting he still has a productive cough and is tired, but thinks his back rash is getting much better. He denies fevers or chills. REVIEW OF SYSTEMS: The following is a completed review of systems and has been reviewed. Review of systems otherwise unremarkable. PAIN: Patient self reports no pain EYES: No recent vision changes EARS, NOSE, & THROAT: + dysphagia CARDIOVASCULAR: Denies chest pain or palpitations PULMONARY: Denies shortness of breath GASTROINTESTINAL: Denies constipation/diarrhea GENITOURINARY: denies dysuria MUSCULOSKELETAL: generalized weakness NEUROLOGICAL: denies paresthesias HEMATOLOGICAL: +CML SKIN: rash on back, +Peg PSYCHIATRIC: Unremarkable All other review of systems found to be negative. PHYSICAL EXAMINATION: VITAL SIGNS: Please see below. GENERAL: Pleasant and cooperative. No acute distress. HEENT: PERRL. Extraocular movements intact. Clear conjunctiva CARDIOVASCULAR: Regular rate and rhythm. No murmurs, rubs, or gallops LUNGS: Clear to auscultation bilaterally. No wheezes. +scattered rhonchi ABDOMEN: Soft, nontender, nondistended. Positive bowel sounds. Normal active bowel sounds, PEG site c/d/i NEUROLOGICAL: Alert and oriented times three. Cranial nerves II through XII grossly intact. Sensation grossly intact EXTREMITIES: 5\\5 strength bilateral upper extremities. 5\\5 strength right lower extremity. 5/5 strength in left lower extremity. SKIN: diffuse papular rash on his back and buttock (improved) ASSESSMENT:79-year-old M with past medical history of tongue cancer and COPD who presents status post pneumonia with dysphagia s/p PEG placement PLAN: 1. Rehab- PT/OT advance gait and ADL training, strengthen/stretch/maintain ROM all 4 limbs, energy conservation -TANK CAR CLEANER recs appreciated, will hold off on Shaffer water protocol pending more optimal oral hygiene, c/u oral rinses for oral hygiene (increased frequency to QID) -NPO- tube feeds 2. Neuro: patient with suspicion for some cognitive impairments will have TANK CAR CLEANER assess later in the week as not interfering with participation in therapy 3. Cardiac: recent Chest CT with cardiac finding started on ASA, c/u losartan and amlodipine for HTN -HLD c/u statin-medicine consulted to assist in overall management -will need cardiology f/u on d/c 4. Resp; s/p course of antibiotics for CAP and alter aspiration PNA s/p PEG placement 11-27-19, c/u Spiriva, Xopenex prn and standing Duonebs, and Guaifenesin -will increase oral prednisone to 10mg daily -repeat CXR without new infiltrate, patient however still with productive cough, will order sputum cx again, afebrile with mild leukocytosis -on home -c/u acapella 5. Endo: hypothyroidism with elevated TSH on admission, c/u higher dose of Synthroid 137mcg daily at noon when stomach should be empty (feeds 4pm to 8am) 6. DVT ppx: Lovenox and TeDs 7. GI ppx: lansaprazole -PEG feeds, HOB 45 degrees during feeds and one hour post-feeds, aspiration precautions 8. Psych: rozerem for insomnia 9. Pain: Tylenol prn 10. Hypernatremia- resolved, c/u free water boluses 11. Skin: back rash possibly allergic reaction to recent administration of simethicone/magic mouthwash on inpatient vs contact dermatitis due to sweating, c/u antihistamine, benadryl prn, and daily eucerin moisturizer-improving 12. Dispo: TBD Allergies Coded Allergies: amoxicillin (Verified Allergy, Mild, "rash" see comment, 11/09/19) REACTION FROM WAS SO LONG AGO PT DOESN'T EXACTLY REMEMBER, BUT HE BELIEVES IT WAS A RASH clavulanic acid (Verified Allergy, Mild, "rash" see comment, 11/09/19) REACTION FROM WAS SO LONG AGO PT DOESN'T EXACTLY REMEMBER, BUT HE BELIEVES IT WAS A RASH codeine (Verified Allergy, Unknown, 11/09/19) simethicone (Verified Adverse Reaction, Intermediate, drops cause tongue to burn - pt has thrush at this time, 11/13/19) allergy updated per conversation dr. tineo had with patient. oxycodone (Verified Adverse Reaction, Unknown, nausea & vomiting, " i couldn't tolerate it", 11/09/19) Vital Signs Vital Signs Date Time Temp Pulse Resp B/P (MAP) Pulse Ox O2 Delivery O2 Flow Rate FiO2 12/04/19 09:49 138/63 12/04/19 09:00 2.0 12/04/19 05:16 97.6 80 22 93 Nasal Cannula Laboratory Data CBC/BMP Laboratory Tests 12/04/19 06:34 Labs 24H Laboratory Tests 2 12/04/19 06:34: Immature Granulocyte % (Auto) 2.0, Neutrophils (%) (Auto) 78.6H, Lymphocytes (%) (Auto) 5.5L, Monocytes (%) (Auto) 11.5H, Eosinophils (%) (Auto) 2.2, Basophils (%) (Auto) 0.2, Neutrophils # (Auto) 9.4H, Lymphocytes # (Auto) 0.7L, Monocytes # (Auto) 1.4H, Eosinophils # (Auto) 0.3, Basophils # (Auto) 0.0, Nucleated Red Blood Cells % (auto) 0.0, Anion Gap 3L, Glomerular Filtration Rate > 60.0, Calcium Level 8.0L Current Medications Current Medications Current Medications Medications (Trade) Dose Ordered Sig/Jhon Route PRN Reason Start Time Stop Time Status Last Admin Dose Admin Acetaminophen (Tylenol Tab) 650 mg Q4HP PRN PEG fever/MILD PAIN (PS 1-4) 11/30/19 16:45 12/03/19 20:06 Albuterol/ Ipratropium (Duoneb (Ipr 0.5mg/Alb 2.5mg)) 3 ml Q4HP PRN NEB SOB/WHEEZING 12/04/19 04:00 12/04/19 11:31 DC 12/04/19 03:55 Albuterol/ Ipratropium (Duoneb (Ipr 0.5mg/Alb 2.5mg)) 3 ml TID NEB 12/04/19 10:00 12/04/19 13:41 Amlodipine Besylate (Norvasc) 5 mg QHS PEG 11/30/19 21:00 12/03/19 20:06 Aspirin (Aspirin Chewable) 81 mg DAILY PEG 12/01/19 09:00 12/04/19 09:48 Atorvastatin Calcium (Lipitor) 10 mg QHS PEG 11/30/19 21:00 12/03/19 20:06 Budesonide/ Formoterol Fumarate (Symbicort 160/ 4.5mcg) 2 puff BID INH 11/30/19 21:00 12/04/19 07:29 Calcium Carbonate (Tums) 500 mg TIDP PRN PEG INDIGESTION 11/30/19 16:45 Cetirizine HCl (ZyrTEC) 10 mg DAILY PO 12/01/19 09:00 12/04/19 09:49 Chlorhexidine Gluconate (Peridex Oral Rinse) 1 ml BID MT 11/30/19 21:00 12/04/19 11:30 DC 12/04/19 09:48 Chlorhexidine Gluconate (Peridex Oral Rinse) 1 ml QID MT 12/04/19 13:00 12/04/19 11:40 Diphenhydramine HCl (Benadryl) 25 mg Q6HP PRN PEG ITCHING 12/01/19 15:30 Emollient Cream (Vanicream) applyto back and up... BID TOP 12/01/19 09:00 12/04/19 09:50 Enoxaparin Sodium (Lovenox) 40 mg DAILY SC 12/01/19 09:00 12/04/19 09:48 Guaifenesin (Robitussin) 5 ml QID PEG 11/30/19 21:00 12/04/19 11:40 Lactulose (Cephulac) 30 ml DAILY PRN PO constipation 11/30/19 16:45 11/30/19 17:02 DC Lactulose (Cephulac) 30 ml DAILYPRN PRN PEG constipation 11/30/19 17:15 Lansoprazole (First-Lansoprazole Oral Suspension) 30 mg DAILY PEG 12/01/19 09:00 12/04/19 09:48 Levalbuterol HCl (Xopenex Neb) 1.25 mg Q4HP PRN INH SOB/WHEEZING 11/30/19 16:45 12/04/19 01:25 Levalbuterol HCl (Xopenex Neb) 1.25 mg RQID INH 11/30/19 20:00 12/04/19 11:49 DC 12/04/19 11:01 Levothyroxine Sodium (Synthroid) 137 mcg DAILY@1200 PEG 12/01/19 12:00 12/04/19 11:40 Losartan Potassium (Cozaar) 50 mg DAILY PEG 12/01/19 09:00 12/04/19 09:49 Prednisone (Deltasone) 5 mg DAILY PEG 12/01/19 09:00 12/04/19 12:07 DC 12/04/19 09:49 Prednisone (Deltasone) 10 mg DAILY PEG 12/05/19 09:00 Ramelteon (Rozerem) 8 mg QHS PEG 11/30/19 21:00 12/03/19 20:06 Saliva Substitute (Mouthkote) USE DIRECTED QID MT 11/30/19 21:00 12/04/19 11:41 Tiotropium [place] (Spiriva Handihaler) 1 inhalation DAILY@08 INH 12/01/19 08:00 12/04/19 07:29 CECY DOMINGUEZ MD Dec 04, 2019 14:40
--- NOTE | 2019-12-04 19:30 | REP ---
Portable chest x-ray: Single view. History: Hypoxia. Comparison study: December 02, 2019. Findings: There is blunting of the pleural angles again noted bilaterally with plate-like atelectasis in the left base. This is unchanged from the recent prior chest x-rays and improved from November 09, 2019. Mildly prominent heart is again noted unchanged. The aorta is calcific. Pulmonary vasculature is not increased. There is some pleuroparenchymal fibrosis in both apices, right more so than left, also unchanged. impression: Stable bibasilar and biapical pleuroparenchymal changes. No acute infiltrate. Electronically Signed by Rodrick Samaniego MD 12/04/2019 07:39 P
[2019-12-04 20:30] VITALS: BP 126/60
[2019-12-04] MEDS: ACETAMINOPHEN TAB 650MG DOSE (2X325MG) PEG PRN (20:56)
[2019-12-04] MEDS: ATORVASTATIN 10 MG TAB PEG SCH (20:57)
[2019-12-04] MEDS: amLODIPine 5 MG TAB PEG SCH (20:57)
[2019-12-04] MEDS: RAMELTEON 8 MG TAB (ROZEREM) PEG SCH (20:57)
--- NOTE | 2019-12-04 22:53 | IPNPDOC ---
Date Seen The patient was seen on 12/04/19. Progress Note SUBJECTIVE: 79 y.o male w/ PMH of CML, COPD on home O2, tongue Ca w/ dysphagia s/p recent PEG placement, HTN, HLD & CAD who was recently admitted to [facility] for bilateral pneumonia w/ pleural effusion. He was treated w/ antibiotics, had a chest tube placed temporarily and has now been discharged to ARU. He reports dyspnea with mild productive cough since last night, no other changes. He has also been requiring slightly increased amount of supplemental oxygen. He is otherwise comfortable and has been working w/ PT. He denies any CP, N/V/D or abdominal pain. 10 point review of system is negative except for above. OBJECTIVE PHYSICAL EXAMINATION: VITAL SIGNS: Please see below. GENERAL: No distress HEENT: Moist mucus membranes CARDIOVASCULAR: S1, S2, no murmurs RESPIRATORY: Diminished, scattered rhonchi ABDOMINAL: Soft, non-tender, non-distended, +BS, PEG tube w/ continue feeds running at this time EXTREMITIES: No edema NEUROLOGICAL: No focal deficits PSYCHOLOGICAL: Calm LABORATORY DATA, IMAGING STUDIES, MICROBIOLOGY: Please see below. ASSESSMENT AND PLAN: 79 y.o male w/ multiple medical comorbidities who was admitted to [facility] for bilateral pnuemonia & pleural effusion is now admitted to ARU. PROBLEMS: 1. Dyspnea - likely multifactorial from underlying COPD/microaspiration of oral secretion/chronic pleural effusion/lung trapping, repeat CXR w/o acute changes, appears close to baseline, will monitor for now, PT as tolerated, supplemental oxygen as needed to maintain O2 sats between 88-92% 2. COPD - continue home regimen 3. Dysphagia - PEG placed during recent hospitalization, continue tube feeds, further recs as per speech therapy. 4. HTN - continue Norvasc & Losartan 5. Hypothyroidism - continue Levothyroxine DVT Prophylaxis - Lovenox GI Prophylaxis - PPI VS, I&O, 24H, Fishbone Vital Signs/I&O Vital Signs Date Time Temp Pulse Resp B/P (MAP) Pulse Ox O2 Delivery O2 Flow Rate FiO2 12/04/19 21:00 2.0 12/04/19 20:57 89 126/60 12/04/19 20:30 98.1 20 94 Nasal Cannula I&O- Last 24 Hours up to 6 AM 12/04/19 06:00 Intake Total 2080 ml Output Total 1325 ml Balance 755 ml Laboratory Data 24H LABS Laboratory Tests 2 12/04/19 06:34: Immature Granulocyte % (Auto) 2.0, Neutrophils (%) (Auto) 78.6H, Lymphocytes (%) (Auto) 5.5L, Monocytes (%) (Auto) 11.5H, Eosinophils (%) (Auto) 2.2, Basophils (%) (Auto) 0.2, Neutrophils # (Auto) 9.4H, Lymphocytes # (Auto) 0.7L, Monocytes # (Auto) 1.4H, Eosinophils # (Auto) 0.3, Basophils # (Auto) 0.0, Nucleated Red Blood Cells % (auto) 0.0, Anion Gap 3L, Glomerular Filtration Rate > 60.0, Calcium Level 8.0L CBC/BMP Laboratory Tests 12/04/19 06:34 KIANA MARIE MD Dec 04, 2019 22:53
[2019-12-05 06:16] VITALS: BP 140/67
[2019-12-05 06:52] LABS: BLOOD UREA NITROGEN 19 MG/DL (7-18); CALCIUM LEVEL 8.4 MG/DL (8.8-10.2); CARBON DIOXIDE LEVEL 34 MEQ/L (21-32); CHLORIDE LEVEL 103 MEQ/L (98-107); CREATININE FOR GFR 0.73 MG/DL (0.70-1.30); GLOMERULAR FILTRATION RATE > 60.0 (>42); GLUCOSE, FASTING 100 MG/DL (70-100); SODIUM LEVEL 141 MEQ/L (136-145)
[2019-12-05] MEDS: IPRATROPIUM 0.5MG/ALBUTEROL 2.5MG INH SOL UD 3ML (DUONEB)(J7620) NEB SCH ×3 (07:19→19:26)
[2019-12-05] MEDS: SYMBICORT 160/4.5MCG INHALER 6GM INH SCH ×2 (07:19→19:25)
[2019-12-05] MEDS: TIOTROPIUM INHALER/CAPSULE (SPIRIVA) INH SCH (07:19)
[2019-12-05] MEDS: LOSARTAN 50 MG TAB PEG SCH (08:31)
[2019-12-05] MEDS: CETIRIZINE (ZyrTEC) 10 MG TAB PO SCH (08:31)
[2019-12-05] MEDS: ASPIRIN 81 MG CHEW TABLET PEG SCH (08:31)
[2019-12-05] MEDS: REMEDY PHYTOPLEX Z-GUARD PASTE 113GM TUBE (FROM STOREROOM PRODUCT) TOP SCH ×3 (08:32→22:34)
[2019-12-05] MEDS: SALIVA SUBSTITUTE(MOUTHKOTE) BTL MT SCH ×4 (08:32→22:36)
[2019-12-05] MEDS: predniSONE 5 MG TAB PEG SCH (08:32)
[2019-12-05] MEDS: guaiFENesin SYRUP 200 MG/10 ML UDC PEG SCH ×4 (08:33→22:32)
[2019-12-05] MEDS: CHLORHEXIDINE GLUCONATE 0.12 % 15ML UDC (PERIDEX ORAL RINSE) MT SCH ×4 (08:33→22:32)
[2019-12-05] MEDS: LANSOPRAZOLE SUSPENSION 30 MG/10 ML ORAL SYRINGE (FIRST-LANSOPRAZOLE) PEG SCH (08:33)
[2019-12-05] MEDS: ENOXAPARIN 40MG/0.4ML SYRINGE (J1650 PER 10MG) SC SCH (08:33)
[2019-12-05] MEDS: VANICREAM MOISTURIZING SKIN CREAM 113GM TUBE TOP SCH ×2 (08:34→22:35)
[2019-12-05] MEDS: LEVOTHYROXINE 137MCG TABLET (0.137MG) PEG SCH (12:14)
[2019-12-05 14:50] VITALS: BP 102/56
--- NOTE | 2019-12-05 15:49 | IPNPDOC ---
PM&R Progress Note DATE OF SERVICE: Dec 05, 2019 Piping Supervisor Progress Note Subjective: Patient reporting his cough is a little better today and he is having trouble bringing up phlegm. He states he got dizzy in therapy today for the first time and that it has passed. He reports he is in good spirits. REVIEW OF SYSTEMS: The following is a completed review of systems and has been reviewed. Review of systems otherwise unremarkable. PAIN: Patient self reports no pain EYES: No recent vision changes EARS, NOSE, & THROAT: + dysphagia CARDIOVASCULAR: Denies chest pain or palpitations PULMONARY: Denies shortness of breath GASTROINTESTINAL: Denies constipation/diarrhea GENITOURINARY: denies dysuria MUSCULOSKELETAL: generalized weakness NEUROLOGICAL: denies paresthesias HEMATOLOGICAL: +CML SKIN: rash on back, +Peg PSYCHIATRIC: Unremarkable All other review of systems found to be negative. PHYSICAL EXAMINATION: VITAL SIGNS: Please see below. GENERAL: Pleasant and cooperative. No acute distress. HEENT: PERRL. Extraocular movements intact. Clear conjunctiva CARDIOVASCULAR: Regular rate and rhythm. No murmurs, rubs, or gallops LUNGS: Clear to auscultation bilaterally. No wheezes. +scattered rhonchi (improving) ABDOMEN: Soft, nontender, nondistended. Positive bowel sounds. Normal active bowel sounds, PEG site c/d/i NEUROLOGICAL: Alert and oriented times three. Cranial nerves II through XII grossly intact. Sensation grossly intact EXTREMITIES: 5\\5 strength bilateral upper extremities. 5\\5 strength right lower extremity. 5/5 strength in left lower extremity. SKIN: diffuse papular rash on his back and buttock (improved) ASSESSMENT:79-year-old M with past medical history of tongue cancer and COPD who presents status post pneumonia with dysphagia s/p PEG placement PLAN: 1. Rehab- PT/OT advance gait and ADL training, strengthen/stretch/maintain ROM all 4 limbs, energy conservation -ONCOLOGY PHYSICIAN recs appreciated, will hold off on Shaffer water protocol pending more optimal oral hygiene, c/u oral rinses for oral hygiene (increased frequency to QID) -NPO- tube feeds 2. Neuro: patient with suspicion for some cognitive impairments ONCOLOGY PHYSICIAN ordered 3. Cardiac: recent Chest CT with cardiac finding started on ASA, c/u losartan (lowered dose to 25mg daily for orthostatics today) and c/u amlodipine for HTN -HLD c/u statin-medicine consulted to assist in overall management -will need cardiology f/u on d/c 4. Resp- s/p course of antibiotics for CAP and alter aspiration PNA s/p PEG placement 11-27-19, c/u Spiriva, Xopenex prn and standing Duonebs, and Guaifenesin, c/u increased oral prednisone doing 10mg daily -repeat CXR without new infiltrate, ordered sputum cx, afebrile with mild leukocytosis -on home -c/u acapella 5. Endo: hypothyroidism with elevated TSH on admission, c/u higher dose of Synthroid 137mcg daily at noon when stomach should be empty (feeds 4pm to 8am) 6. DVT ppx: Lovenox and TeDs 7. GI ppx: lansaprazole -PEG feeds, HOB 45 degrees during feeds and one hour post-feeds, aspiration precautions 8. Psych: rozerem for insomnia 9. Pain: Tylenol prn 10. Hypernatremia- resolved, c/u free water boluses 11. Skin: back rash possibly allergic reaction to recent administration of simethicone/magic mouthwash on inpatient vs contact dermatitis due to sweating, c/u antihistamine, benadryl prn, and daily eucerin moisturizer-improving 12. Dispo: TBD Allergies Coded Allergies: amoxicillin (Verified Allergy, Mild, "rash" see comment, 11/09/19) REACTION FROM WAS SO LONG AGO PT DOESN'T EXACTLY REMEMBER, BUT HE BELIEVES IT WAS A RASH clavulanic acid (Verified Allergy, Mild, "rash" see comment, 11/09/19) REACTION FROM WAS SO LONG AGO PT DOESN'T EXACTLY REMEMBER, BUT HE BELIEVES IT WAS A RASH codeine (Verified Allergy, Unknown, 11/09/19) simethicone (Verified Adverse Reaction, Intermediate, drops cause tongue to burn - pt has thrush at this time, 11/13/19) allergy updated per conversation dr. tineo had with patient. oxycodone (Verified Adverse Reaction, Unknown, nausea & vomiting, " i couldn't tolerate it", 11/09/19) Vital Signs Vital Signs Date Time Temp Pulse Resp B/P (MAP) Pulse Ox O2 Delivery O2 Flow Rate FiO2 12/05/19 14:50 97.5 73 20 102/56 (71) 97 Nasal Cannula 2.0 Laboratory Data CBC/BMP Laboratory Tests 12/05/19 06:09 Labs 24H Laboratory Tests 2 12/05/19 06:09: Anion Gap 4L, Glomerular Filtration Rate > 60.0, Calcium Level 8.4L Current Medications Current Medications Current Medications Medications (Trade) Dose Ordered Sig/Jhon Route PRN Reason Start Time Stop Time Status Last Admin Dose Admin Acetaminophen (Tylenol Tab) 650 mg Q4HP PRN PEG fever/MILD PAIN (PS 1-4) 11/30/19 16:45 12/04/19 20:56 Albuterol/ Ipratropium (Duoneb (Ipr 0.5mg/Alb 2.5mg)) 3 ml Q4HP PRN NEB SOB/WHEEZING 12/04/19 04:00 12/04/19 11:31 DC 12/04/19 03:55 Albuterol/ Ipratropium (Duoneb (Ipr 0.5mg/Alb 2.5mg)) 3 ml TID NEB 12/04/19 10:00 12/05/19 13:19 Amlodipine Besylate (Norvasc) 5 mg QHS PEG 11/30/19 21:00 12/04/19 20:57 Aspirin (Aspirin Chewable) 81 mg DAILY PEG 12/01/19 09:00 12/05/19 08:31 Atorvastatin Calcium (Lipitor) 10 mg QHS PEG 11/30/19 21:00 12/04/19 20:57 Budesonide/ Formoterol Fumarate (Symbicort 160/ 4.5mcg) 2 puff BID INH 11/30/19 21:00 12/05/19 07:19 Calcium Carbonate (Tums) 500 mg TIDP PRN PEG INDIGESTION 11/30/19 16:45 Cetirizine HCl (ZyrTEC) 10 mg DAILY PO 12/01/19 09:00 12/05/19 08:31 Chlorhexidine Gluconate (Peridex Oral Rinse) 1 ml BID MT 11/30/19 21:00 12/04/19 11:30 DC 12/04/19 09:48 Chlorhexidine Gluconate (Peridex Oral Rinse) 1 ml QID MT 12/04/19 13:00 12/05/19 12:15 Diphenhydramine HCl (Benadryl) 25 mg Q6HP PRN PEG ITCHING 12/01/19 15:30 Emollient Cream (Vanicream) applyto back and up... BID TOP 12/01/19 09:00 12/05/19 08:34 Enoxaparin Sodium (Lovenox) 40 mg DAILY SC 12/01/19 09:00 12/05/19 08:33 Guaifenesin (Robitussin) 5 ml QID PEG 11/30/19 21:00 12/05/19 12:14 Lactulose (Cephulac) 30 ml DAILY PRN PO constipation 11/30/19 16:45 11/30/19 17:02 DC Lactulose (Cephulac) 30 ml DAILYPRN PRN PEG constipation 11/30/19 17:15 Lansoprazole (First-Lansoprazole Oral Suspension) 30 mg DAILY PEG 12/01/19 09:00 12/05/19 08:33 Levalbuterol HCl (Xopenex Neb) 1.25 mg Q4HP PRN INH SOB/WHEEZING 11/30/19 16:45 12/04/19 01:25 Levalbuterol HCl (Xopenex Neb) 1.25 mg RQID INH 11/30/19 20:00 12/04/19 11:49 DC 12/04/19 11:01 Levothyroxine Sodium (Synthroid) 137 mcg DAILY@1200 PEG 12/01/19 12:00 12/05/19 12:14 Losartan Potassium (Cozaar) 25 mg DAILY PEG 12/06/19 09:00 Losartan Potassium (Cozaar) 50 mg DAILY PEG 12/01/19 09:00 12/05/19 14:11 DC 12/05/19 08:31 Prednisone (Deltasone) 5 mg DAILY PEG 12/01/19 09:00 12/04/19 12:07 DC 12/04/19 09:49 Prednisone (Deltasone) 10 mg DAILY PEG 12/05/19 09:00 12/05/19 08:32 Ramelteon (Rozerem) 8 mg QHS PEG 11/30/19 21:00 12/04/19 20:57 Saliva Substitute (Mouthkote) USE DIRECTED QID MT 11/30/19 21:00 12/05/19 12:15 Tiotropium [place] (Spiriva Handihaler) 1 inhalation DAILY@08 INH 12/01/19 08:00 12/05/19 07:19 CECY DOMINGUEZ MD Dec 05, 2019 15:49
[2019-12-05 20:00] VITALS: BP 118/61
[2019-12-05] MEDS: RAMELTEON 8 MG TAB (ROZEREM) PEG SCH (22:32)
[2019-12-05] MEDS: amLODIPine 5 MG TAB PEG SCH (22:33)
[2019-12-05] MEDS: ATORVASTATIN 10 MG TAB PEG SCH (22:34)
[2019-12-06] VITALS (7 sets, daily range): BP systolic 108–132; BP diastolic 53–70
[2019-12-06 06:51] LABS: HEMATOCRIT 25.1 % (42.0-52.0); HEMOGLOBIN 7.7 g/dl (13.5-17.5); MEAN CORPUSCULAR HEMOGLOBIN 28.8 pg (27.0-33.0); MEAN CORPUSCULAR HGB CONC 30.7 g/dl (32.0-36.5); PLATELET COUNT, AUTOMATED 532 10^3/uL (150-450); RED BLOOD COUNT 2.67 10^6/uL (4.30-6.10); WHITE BLOOD COUNT 11.1 10^3/uL (4.0-10.0)
[2019-12-06 07:18] LABS: BLOOD UREA NITROGEN 19 MG/DL (7-18); CALCIUM LEVEL 8.2 MG/DL (8.8-10.2); CARBON DIOXIDE LEVEL 36 MEQ/L (21-32); CHLORIDE LEVEL 102 MEQ/L (98-107); GLOMERULAR FILTRATION RATE > 60.0 (>42); GLUCOSE, FASTING 115 MG/DL (70-100); POTASSIUM SERUM 4.2 MEQ/L (3.5-5.1); SODIUM LEVEL 138 MEQ/L (136-145)
[2019-12-06] MEDS: TIOTROPIUM INHALER/CAPSULE (SPIRIVA) INH SCH (07:48)
[2019-12-06] MEDS: SYMBICORT 160/4.5MCG INHALER 6GM INH SCH ×2 (07:48→20:03)
[2019-12-06] MEDS: IPRATROPIUM 0.5MG/ALBUTEROL 2.5MG INH SOL UD 3ML (DUONEB)(J7620) NEB SCH ×3 (07:49→21:00)
[2019-12-06] MEDS: ASPIRIN 81 MG CHEW TABLET PEG SCH (08:27)
[2019-12-06] MEDS: guaiFENesin SYRUP 200 MG/10 ML UDC PEG SCH ×4 (08:28→20:16)
[2019-12-06] MEDS: CETIRIZINE (ZyrTEC) 10 MG TAB PO SCH (08:28)
[2019-12-06] MEDS: predniSONE 5 MG TAB PEG SCH (08:28)
[2019-12-06] MEDS: LANSOPRAZOLE SUSPENSION 30 MG/10 ML ORAL SYRINGE (FIRST-LANSOPRAZOLE) PEG SCH (08:28)
[2019-12-06] MEDS: LOSARTAN 25 MG TAB PEG SCH (08:28)
[2019-12-06] MEDS: CHLORHEXIDINE GLUCONATE 0.12 % 15ML UDC (PERIDEX ORAL RINSE) MT SCH ×4 (08:28→20:16)
[2019-12-06] MEDS: SALIVA SUBSTITUTE(MOUTHKOTE) BTL MT SCH ×4 (08:29→20:18)
[2019-12-06] MEDS: ENOXAPARIN 40MG/0.4ML SYRINGE (J1650 PER 10MG) SC SCH (08:29)
[2019-12-06] MEDS: REMEDY PHYTOPLEX Z-GUARD PASTE 113GM TUBE (FROM STOREROOM PRODUCT) TOP SCH ×3 (08:30→20:17)
[2019-12-06] MEDS: VANICREAM MOISTURIZING SKIN CREAM 113GM TUBE TOP SCH ×2 (08:30→20:17)
[2019-12-06] MEDS ORDERED: diphenhydrAMINE 25MG CAP PO ONE (11:00)
[2019-12-06] MEDS ORDERED: ACETAMINOPHEN TAB 650MG DOSE (2X325MG) PO ONE (11:00)
[2019-12-06] MEDS: LEVOTHYROXINE 137MCG TABLET (0.137MG) PEG SCH (12:25)
--- NOTE | 2019-12-06 13:19 | IPNPDOC ---
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 He is agreeable to receiving a blood transfusion for his anemia. REVIEW OF SYSTEMS: The following is a completed review of systems and has been reviewed. Review of systems otherwise unremarkable. PAIN: Patient self reports no pain EYES: No recent vision changes EARS, NOSE, & THROAT: + dysphagia CARDIOVASCULAR: Denies chest pain or palpitations PULMONARY: Denies shortness of breath GASTROINTESTINAL: Denies constipation/diarrhea GENITOURINARY: denies dysuria MUSCULOSKELETAL: generalized weakness NEUROLOGICAL: denies paresthesias HEMATOLOGICAL: +CML SKIN: rash on back, +Peg PSYCHIATRIC: Unremarkable All other review of systems found to be negative. PHYSICAL EXAMINATION: VITAL SIGNS: Please see below. GENERAL: Pleasant and cooperative. No acute distress. HEENT: PERRL. Extraocular movements intact. Clear conjunctiva CARDIOVASCULAR: Regular rate and rhythm. No murmurs, rubs, or gallops LUNGS: Clear to auscultation bilaterally. No wheezes. +scattered rhonchi (improving) ABDOMEN: Soft, nontender, nondistended. Positive bowel sounds. Normal active bowel sounds, PEG site c/d/i NEUROLOGICAL: Alert and oriented times three. Cranial nerves II through XII grossly intact. Sensation grossly intact EXTREMITIES: 5\\5 strength bilateral upper extremities. 5\\5 strength right lower extremity. 5/5 strength in left lower extremity. SKIN: diffuse papular rash on his back and buttock (improved) ASSESSMENT:79-year-old M with past medical history of tongue cancer and COPD who presents status post pneumonia with dysphagia s/p PEG placement PLAN: 1. Rehab- PT/OT advance gait and ADL training, strengthen/stretch/maintain ROM all 4 limbs, energy conservation -LORRY WEIGHER recs appreciated, will hold off on Hsaffer water protocol pending more optimal oral hygiene, c/u oral rinses for oral hygiene (increased frequency to QID) -NPO- tube feeds 2. Neuro: patient with suspicion for some cognitive impairments LORRY WEIGHER ordered 3. Cardiac: recent Chest CT with cardiac finding started on ASA, c/u losartan (lowered dose to 25mg daily for orthostatics) and d/c amlodipine for persistent orthostatics --HLD c/u statin-medicine consulted to assist in overall management -will need cardiology f/u on d/c 4. Resp- s/p course of antibiotics for CAP and alter aspiration PNA s/p PEG placement 11-27-19, c/u Spiriva, Xopenex prn and standing Duonebs, and Guaifenesin, c/u increased oral prednisone doing 10mg daily -repeat CXR without new infiltrate, ordered sputum sample contaminated, afebrile with mild leukocytosis (possibly due to oral steroids) will c/u to treat symptoms, low suspicion for active pneumonia -on home -c/u acapella 5. Endo: hypothyroidism with elevated TSH on admission, c/u higher dose of Synthroid 137mcg daily at noon when stomach should be empty (feeds 4pm to 8am) 6. DVT ppx: Lovenox and TeDs 7. GI ppx: lansaprazole -PEG feeds, HOB 45 degrees during feeds and one hour post-feeds, aspiration precautions 8. Psych: rozerem for insomnia 9. Pain: Tylenol prn 10. Hypernatremia- resolved, c/u free water boluses 11. Skin: back rash-improving, c/u daily eucerin moisturizer 12. 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 Dispo: 12-15-19 to home, progressing slowly towards goals Allergies Coded Allergies: amoxicillin (Verified Allergy, Mild, "rash" see comment, 11/09/19) REACTION FROM WAS SO LONG AGO PT DOESN'T EXACTLY REMEMBER, BUT HE BELIEVES IT WAS A RASH clavulanic acid (Verified Allergy, Mild, "rash" see comment, 11/09/19) REACTION FROM WAS SO LONG AGO PT DOESN'T EXACTLY REMEMBER, BUT HE BELIEVES IT WAS A RASH codeine (Verified Allergy, Unknown, 11/09/19) simethicone (Verified Adverse Reaction, Intermediate, drops cause tongue to burn - pt has thrush at this time, 11/13/19) allergy updated per conversation dr. tineo had with patient. oxycodone (Verified Adverse Reaction, Unknown, nausea & vomiting, " i couldn't tolerate it", 11/09/19) Vital Signs Vital Signs Date Time Temp Pulse Resp B/P (MAP) Pulse Ox O2 Delivery O2 Flow Rate FiO2 12/06/19 09:00 2.0 12/06/19 08:28 132/70 12/06/19 06:00 98.1 78 18 98 Nasal Cannula Laboratory Data CBC/BMP Laboratory Tests 12/06/19 06:36 Labs 24H Laboratory Tests 2 12/06/19 06:36: Nucleated Red Blood Cells % (auto) 0.0, Anion Gap 0L, Glomerular Filtration Rate > 60.0, Calcium Level 8.2L Microbiology Microbiology 12/05/19 Gram Stain - Final, Complete 12/05/19 Sputum Culture - Final, Complete Current Medications Current Medications Current Medications Medications (Trade) Dose Ordered Sig/Jhon Route PRN Reason Start Time Stop Time Status Last Admin Dose Admin Acetaminophen (Tylenol Tab) 650 mg Q4HP PRN PEG fever/MILD PAIN (PS 1-4) 11/30/19 16:45 12/04/19 20:56 Albuterol/ Ipratropium (Duoneb (Ipr 0.5mg/Alb 2.5mg)) 3 ml Q4HP PRN NEB SOB/WHEEZING 12/04/19 04:00 12/04/19 11:31 DC 12/04/19 03:55 Albuterol/ Ipratropium (Duoneb (Ipr 0.5mg/Alb 2.5mg)) 3 ml TID NEB 12/04/19 10:00 12/06/19 12:49 Amlodipine Besylate (Norvasc) 5 mg QHS PEG 11/30/19 21:00 12/06/19 10:43 DC 12/05/19 22:33 Aspirin (Aspirin Chewable) 81 mg DAILY PEG 12/01/19 09:00 12/06/19 08:27 Atorvastatin Calcium (Lipitor) 10 mg QHS PEG 11/30/19 21:00 12/05/19 22:34 Budesonide/ Formoterol Fumarate (Symbicort 160/ 4.5mcg) 2 puff BID INH 11/30/19 21:00 12/06/19 07:48 Calcium Carbonate (Tums) 500 mg TIDP PRN PEG INDIGESTION 11/30/19 16:45 Cetirizine HCl (ZyrTEC) 10 mg DAILY PO 12/01/19 09:00 12/06/19 10:43 DC 12/06/19 08:28 Chlorhexidine Gluconate (Peridex Oral Rinse) 1 ml BID MT 11/30/19 21:00 12/04/19 11:30 DC 12/04/19 09:48 Chlorhexidine Gluconate (Peridex Oral Rinse) 1 ml QID MT 12/04/19 13:00 12/06/19 12:25 Diphenhydramine HCl (Benadryl) 25 mg Q6HP PRN PEG ITCHING 12/01/19 15:30 Emollient Cream (Vanicream) applyto back and up... BID TOP 12/01/19 09:00 12/06/19 08:30 Enoxaparin Sodium (Lovenox) 40 mg DAILY SC 12/01/19 09:00 12/06/19 08:29 Guaifenesin (Robitussin) 5 ml QID PEG 11/30/19 21:00 12/06/19 12:25 Lactulose (Cephulac) 30 ml DAILY PRN PO constipation 11/30/19 16:45 11/30/19 17:02 DC Lactulose (Cephulac) 30 ml DAILYPRN PRN PEG constipation 11/30/19 17:15 Lansoprazole (First-Lansoprazole Oral Suspension) 30 mg DAILY PEG 12/01/19 09:00 12/06/19 08:28 Levalbuterol HCl (Xopenex Neb) 1.25 mg Q4HP PRN INH SOB/WHEEZING 11/30/19 16:45 12/04/19 01:25 Levalbuterol HCl (Xopenex Neb) 1.25 mg RQID INH 11/30/19 20:00 12/04/19 11:49 DC 12/04/19 11:01 Levothyroxine Sodium (Synthroid) 137 mcg DAILY@1200 PEG 12/01/19 12:00 12/06/19 12:25 Losartan Potassium (Cozaar) 25 mg DAILY PEG 12/06/19 09:00 12/06/19 08:28 Losartan Potassium (Cozaar) 50 mg DAILY PEG 12/01/19 09:00 12/05/19 14:11 DC 12/05/19 08:31 Prednisone (Deltasone) 5 mg DAILY PEG 12/01/19 09:00 12/04/19 12:07 DC 12/04/19 09:49 Prednisone (Deltasone) 10 mg DAILY PEG 12/05/19 09:00 12/06/19 08:28 Ramelteon (Rozerem) 8 mg QHS PEG 11/30/19 21:00 12/05/19 22:32 Saliva Substitute (Mouthkote) USE DIRECTED QID MT 11/30/19 21:00 12/06/19 08:29 Tiotropium [place] (Spiriva Handihaler) 1 inhalation DAILY@08 INH 12/01/19 08:00 12/06/19 07:48 CECY DOMINGUEZ MD Dec 06, 2019 13:19
[2019-12-06] MEDS: NYSTATIN 500,000 U/5 ML SUSP UDC SSP SCH ×2 (17:30→20:16)
[2019-12-06] MEDS: ATORVASTATIN 10 MG TAB PEG SCH (20:16)
[2019-12-06] MEDS: RAMELTEON 8 MG TAB (ROZEREM) PEG SCH (20:17)
[2019-12-06] MEDS: ACETAMINOPHEN TAB 650MG DOSE (2X325MG) PEG PRN (20:31)
[2019-12-07 06:00] VITALS: BP 111/58
[2019-12-07] MEDS: SYMBICORT 160/4.5MCG INHALER 6GM INH SCH ×2 (07:25→19:44)
[2019-12-07] MEDS: TIOTROPIUM INHALER/CAPSULE (SPIRIVA) INH SCH (07:25)
[2019-12-07] MEDS: LOSARTAN 25 MG TAB PEG SCH (08:15)
[2019-12-07] MEDS: predniSONE 5 MG TAB PEG SCH (08:15)
[2019-12-07] MEDS: ASPIRIN 81 MG CHEW TABLET PEG SCH (08:15)
[2019-12-07] MEDS: NYSTATIN 500,000 U/5 ML SUSP UDC SSP SCH ×4 (08:18→20:34)
[2019-12-07] MEDS: LANSOPRAZOLE SUSPENSION 30 MG/10 ML ORAL SYRINGE (FIRST-LANSOPRAZOLE) PEG SCH (08:18)
[2019-12-07] MEDS: guaiFENesin SYRUP 200 MG/10 ML UDC PEG SCH ×4 (08:18→20:33)
[2019-12-07] MEDS: CHLORHEXIDINE GLUCONATE 0.12 % 15ML UDC (PERIDEX ORAL RINSE) MT SCH ×4 (08:19→20:34)
[2019-12-07] MEDS: ENOXAPARIN 40MG/0.4ML SYRINGE (J1650 PER 10MG) SC SCH (08:19)
[2019-12-07] MEDS: SALIVA SUBSTITUTE(MOUTHKOTE) BTL MT SCH ×4 (08:29→20:35)
[2019-12-07] MEDS: VANICREAM MOISTURIZING SKIN CREAM 113GM TUBE TOP SCH ×2 (08:30→20:36)
[2019-12-07] MEDS: REMEDY PHYTOPLEX Z-GUARD PASTE 113GM TUBE (FROM STOREROOM PRODUCT) TOP SCH ×3 (08:30→20:35)
[2019-12-07] MEDS: IPRATROPIUM 0.5MG/ALBUTEROL 2.5MG INH SOL UD 3ML (DUONEB)(J7620) NEB SCH ×2 (09:00→13:42)
--- NOTE | 2019-12-07 11:52 | IPNPDOC ---
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 He would like to continue feeds overnight instead of boluses during the day as this will be easier to manage on his own. REVIEW OF SYSTEMS: The following is a completed review of systems and has been reviewed. Review of systems otherwise unremarkable. PAIN: Patient self reports no pain EYES: No recent vision changes EARS, NOSE, & THROAT: + dysphagia CARDIOVASCULAR: Denies chest pain or palpitations PULMONARY: Denies shortness of breath GASTROINTESTINAL: Denies constipation/diarrhea GENITOURINARY: denies dysuria MUSCULOSKELETAL: generalized weakness NEUROLOGICAL: denies paresthesias HEMATOLOGICAL: +CML SKIN: rash on back, +Peg PSYCHIATRIC: Unremarkable All other review of systems found to be negative. PHYSICAL EXAMINATION: VITAL SIGNS: Please see below. GENERAL: Pleasant and cooperative. No acute distress. HEENT: PERRL. Extraocular movements intact. Clear conjunctiva CARDIOVASCULAR: Regular rate and rhythm. No murmurs, rubs, or gallops LUNGS: Clear to auscultation bilaterally. No wheezes. +scattered rhonchi (improving) ABDOMEN: Soft, nontender, nondistended. Positive bowel sounds. Normal active bowel sounds, PEG site c/d/i NEUROLOGICAL: Alert and oriented times three. Cranial nerves II through XII grossly intact. Sensation grossly intact EXTREMITIES: 5\\5 strength bilateral upper extremities. 5\\5 strength right lower extremity. 5/5 strength in left lower extremity. SKIN: diffuse papular rash on his back and buttock (improved) ASSESSMENT:79-year-old M with past medical history of tongue cancer and COPD who presents status post pneumonia with dysphagia s/p PEG placement PLAN: 1. Rehab- PT/OT advance gait and ADL training, strengthen/stretch/maintain ROM all 4 limbs, energy conservation -MANIFEST/ORDER ORGANIZER PRINT ORDERS recs appreciated, will hold off on Shaffer water protocol pending more optimal oral hygiene, c/u oral rinses for oral hygiene (increased frequency to QID) -NPO- tube feeds 2. Neuro: patient with suspicion for some cognitive impairments MANIFEST/ORDER ORGANIZER PRINT ORDERS ordered 3. Cardiac: recent Chest CT with cardiac finding started on ASA, c/u losartan (lowered dose to 25mg daily for orthostatics with tighter holding parameters) and d/c'd amlodipine for persistent orthostatics-improving -HLD c/u statin-medicine consulted to assist in overall management -will need cardiology f/u on d/c 4. Resp- s/p course of antibiotics for CAP and alter aspiration PNA s/p PEG placement 11-27-19, c/u Spiriva, Xopenex prn and standing Duonebs, and Guaifenesin, c/u increased oral prednisone doing 10mg daily -repeat CXR without new infiltrate, ordered sputum sample contaminated, afebrile with mild leukocytosis (possibly due to oral steroids) will c/u to treat symptoms, low suspicion for active pneumonia -on home -c/u acapella 5. Endo: hypothyroidism with elevated TSH on admission, c/u higher dose of Synthroid 137mcg daily at noon when stomach should be empty (feeds 4pm to 8am) 6. DVT ppx: Lovenox and TeDs 7. GI ppx: lansaprazole -PEG feeds, HOB 45 degrees during feeds and one hour post-feeds, aspiration precautions 8. Psych: will hold rozerem for sleep to see if helps with daytime fatigue 9. Pain: Tylenol prn 10. Hypernatremia- resolved, c/u free water boluses at lowered quantity 11. Skin: back rash-improving, c/u daily eucerin moisturizer 12. 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 Dispo: 12-15-19 to home, progressing slowly towards goals Allergies Coded Allergies: amoxicillin (Verified Allergy, Mild, "rash" see comment, 11/09/19) REACTION FROM WAS SO LONG AGO PT DOESN'T EXACTLY REMEMBER, BUT HE BELIEVES IT WAS A RASH clavulanic acid (Verified Allergy, Mild, "rash" see comment, 11/09/19) REACTION FROM WAS SO LONG AGO PT DOESN'T EXACTLY REMEMBER, BUT HE BELIEVES IT WAS A RASH codeine (Verified Allergy, Unknown, 11/09/19) simethicone (Verified Adverse Reaction, Intermediate, drops cause tongue to burn - pt has thrush at this time, 11/13/19) allergy updated per conversation dr. tineo had with patient. oxycodone (Verified Adverse Reaction, Unknown, nausea & vomiting, " i couldn't tolerate it", 11/09/19) Vital Signs Vital Signs Date Time Temp Pulse Resp B/P (MAP) Pulse Ox O2 Delivery O2 Flow Rate FiO2 12/07/19 09:00 2.0 12/07/19 08:15 113/54 12/07/19 06:00 96.7 83 20 98 Nasal Cannula Microbiology Microbiology 12/05/19 Gram Stain - Final, Complete 12/05/19 Sputum Culture - Final, Complete Current Medications Current Medications Current Medications Medications (Trade) Dose Ordered Sig/Jhon Route PRN Reason Start Time Stop Time Status Last Admin Dose Admin Acetaminophen (Tylenol Tab) 650 mg Q4HP PRN PEG fever/MILD PAIN (PS 1-4) 11/30/19 16:45 12/06/19 20:31 Albuterol/ Ipratropium (Duoneb (Ipr 0.5mg/Alb 2.5mg)) 3 ml Q4HP PRN NEB SOB/WHEEZING 12/04/19 04:00 12/04/19 11:31 DC 12/04/19 03:55 Albuterol/ Ipratropium (Duoneb (Ipr 0.5mg/Alb 2.5mg)) 3 ml TID NEB 12/04/19 10:00 12/06/19 12:49 Amlodipine Besylate (Norvasc) 5 mg QHS PEG 11/30/19 21:00 12/06/19 10:43 DC 12/05/19 22:33 Aspirin (Aspirin Chewable) 81 mg DAILY PEG 12/01/19 09:00 12/07/19 08:15 Atorvastatin Calcium (Lipitor) 10 mg QHS PEG 11/30/19 21:00 12/06/19 20:16 Budesonide/ Formoterol Fumarate (Symbicort 160/ 4.5mcg) 2 puff BID INH 11/30/19 21:00 12/07/19 07:25 Calcium Carbonate (Tums) 500 mg TIDP PRN PEG INDIGESTION 11/30/19 16:45 Cetirizine HCl (ZyrTEC) 10 mg DAILY PO 12/01/19 09:00 12/06/19 10:43 DC 12/06/19 08:28 Chlorhexidine Gluconate (Peridex Oral Rinse) 1 ml BID MT 11/30/19 21:00 12/04/19 11:30 DC 12/04/19 09:48 Chlorhexidine Gluconate (Peridex Oral Rinse) 1 ml QID MT 12/04/19 13:00 12/07/19 08:19 Diphenhydramine HCl (Benadryl) 25 mg Q6HP PRN PEG ITCHING 12/01/19 15:30 Emollient Cream (Vanicream) applyto back and up... BID TOP 12/01/19 09:00 12/07/19 08:30 Enoxaparin Sodium (Lovenox) 40 mg DAILY SC 12/01/19 09:00 12/07/19 08:19 Guaifenesin (Robitussin) 5 ml QID PEG 11/30/19 21:00 12/07/19 08:18 Lactulose (Cephulac) 30 ml DAILY PRN PO constipation 11/30/19 16:45 11/30/19 17:02 DC Lactulose (Cephulac) 30 ml DAILYPRN PRN PEG constipation 11/30/19 17:15 Lansoprazole (First-Lansoprazole Oral Suspension) 30 mg DAILY PEG 12/01/19 09:00 12/07/19 08:18 Levalbuterol HCl (Xopenex Neb) 1.25 mg Q4HP PRN INH SOB/WHEEZING 11/30/19 16:45 12/04/19 01:25 Levalbuterol HCl (Xopenex Neb) 1.25 mg RQID INH 11/30/19 20:00 12/04/19 11:49 DC 12/04/19 11:01 Levothyroxine Sodium (Synthroid) 137 mcg DAILY@1200 PEG 12/01/19 12:00 12/06/19 12:25 Losartan Potassium (Cozaar) 25 mg DAILY PEG 12/06/19 09:00 12/07/19 08:15 Losartan Potassium (Cozaar) 50 mg DAILY PEG 12/01/19 09:00 12/05/19 14:11 DC 12/05/19 08:31 Nystatin (Mycostatin) 5 ml QID SSP 12/06/19 17:00 12/07/19 08:18 Prednisone (Deltasone) 5 mg DAILY PEG 12/01/19 09:00 12/04/19 12:07 DC 12/04/19 09:49 Prednisone (Deltasone) 10 mg DAILY PEG 12/05/19 09:00 12/07/19 08:15 Ramelteon (Rozerem) 8 mg QHS PEG 11/30/19 21:00 12/06/19 20:17 Saliva Substitute (Mouthkote) USE DIRECTED QID MT 11/30/19 21:00 12/06/19 20:18 Tiotropium [place] (Spiriva Handihaler) 1 inhalation DAILY@08 INH 12/01/19 08:00 12/07/19 07:25 CECY DOMINGUEZ MD Dec 07, 2019 11:52
[2019-12-07] MEDS: LEVOTHYROXINE 137MCG TABLET (0.137MG) PEG SCH (12:43)
[2019-12-07 14:00] VITALS: BP 112/60
[2019-12-07] MEDS: ACETAMINOPHEN TAB 650MG DOSE (2X325MG) PEG PRN (20:34)
[2019-12-07] MEDS: ATORVASTATIN 10 MG TAB PEG SCH (20:34)
[2019-12-07 22:00] VITALS: BP 113/68
[2019-12-08 05:48] LABS: BASO # 0.1 10^3/uL (0.0-0.2); BASO % 0.4 % (0.0-1.0); EOS # 0.2 10^3/uL (0.0-0.5); EOS % 1.4 % (0.0-3.0); HEMOGLOBIN 8.7 g/dl (13.5-17.5); LYMPH # 0.7 10^3/uL (1.5-5.0); LYMPH % 5.7 % (24.0-44.0); MEAN CORPUSCULAR HEMOGLOBIN 29.2 pg (27.0-33.0); MEAN CORPUSCULAR HGB CONC 31.1 g/dl (32.0-36.5); MONO # 1.3 10^3/uL (0.0-0.8); MONO % 10.3 % (0.0-5.0); NEUTROPHILS % 79.7 % (36.0-66.0); PLATELET COUNT, AUTOMATED 500 10^3/uL (150-450); RED BLOOD COUNT 2.98 10^6/uL (4.30-6.10); WHITE BLOOD COUNT 12.5 10^3/uL (4.0-10.0)
[2019-12-08 06:00] VITALS: BP 134/90
[2019-12-08 06:11] LABS: BLOOD UREA NITROGEN 20 MG/DL (7-18); CALCIUM LEVEL 8.2 MG/DL (8.8-10.2); CARBON DIOXIDE LEVEL 32 MEQ/L (21-32); CHLORIDE LEVEL 104 MEQ/L (98-107); GLOMERULAR FILTRATION RATE > 60.0 (>42); GLUCOSE, FASTING 114 MG/DL (70-100); POTASSIUM SERUM 4.2 MEQ/L (3.5-5.1); SODIUM LEVEL 138 MEQ/L (136-145)
[2019-12-08 06:59] VITALS: BP 128/67
[2019-12-08] MEDS: IPRATROPIUM 0.5MG/ALBUTEROL 2.5MG INH SOL UD 3ML (DUONEB)(J7620) NEB SCH ×3 (07:14→15:36)
[2019-12-08] MEDS: TIOTROPIUM INHALER/CAPSULE (SPIRIVA) INH SCH (07:14)
[2019-12-08] MEDS: SYMBICORT 160/4.5MCG INHALER 6GM INH SCH ×2 (07:14→19:38)
[2019-12-08] MEDS: NYSTATIN 500,000 U/5 ML SUSP UDC SSP SCH ×4 (07:56→21:05)
[2019-12-08] MEDS: CHLORHEXIDINE GLUCONATE 0.12 % 15ML UDC (PERIDEX ORAL RINSE) MT SCH ×4 (07:56→21:05)
[2019-12-08] MEDS: guaiFENesin SYRUP 200 MG/10 ML UDC PEG SCH ×4 (07:57→21:05)
[2019-12-08] MEDS: ENOXAPARIN 40MG/0.4ML SYRINGE (J1650 PER 10MG) SC SCH (07:58)
[2019-12-08] MEDS: ASPIRIN 81 MG CHEW TABLET PEG SCH (07:58)
[2019-12-08] MEDS: LANSOPRAZOLE SUSPENSION 30 MG/10 ML ORAL SYRINGE (FIRST-LANSOPRAZOLE) PEG SCH (07:58)
[2019-12-08] MEDS: SALIVA SUBSTITUTE(MOUTHKOTE) BTL MT SCH ×4 (07:58→21:06)
[2019-12-08 08:00] VITALS: BP 120/68
[2019-12-08] MEDS: VANICREAM MOISTURIZING SKIN CREAM 113GM TUBE TOP SCH ×2 (08:00→21:07)
[2019-12-08] MEDS: REMEDY PHYTOPLEX Z-GUARD PASTE 113GM TUBE (FROM STOREROOM PRODUCT) TOP SCH ×3 (08:01→21:06)
[2019-12-08] MEDS: predniSONE 5 MG TAB PEG SCH (08:14)
[2019-12-08] MEDS: LOSARTAN 25 MG TAB PEG SCH ×2 (08:15→08:31)
[2019-12-08] MEDS: LEVOTHYROXINE 137MCG TABLET (0.137MG) PEG SCH (12:25)
[2019-12-08 14:00] VITALS: BP 131/71
--- NOTE | 2019-12-08 15:46 | IPNPDOC ---
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 He is agreeable to starting an antidepressant because he feels run down and his mood is a little depressed in the setting of recent medical complications. REVIEW OF SYSTEMS: The following is a completed review of systems and has been reviewed. Review of systems otherwise unremarkable. PAIN: Patient self reports no pain EYES: No recent vision changes EARS, NOSE, & THROAT: + dysphagia CARDIOVASCULAR: Denies chest pain or palpitations PULMONARY: Denies shortness of breath GASTROINTESTINAL: Denies constipation/diarrhea GENITOURINARY: denies dysuria MUSCULOSKELETAL: generalized weakness NEUROLOGICAL: denies paresthesias HEMATOLOGICAL: +CML SKIN: rash on back, +Peg PSYCHIATRIC: Unremarkable All other review of systems found to be negative. PHYSICAL EXAMINATION: VITAL SIGNS: Please see below. GENERAL: Pleasant and cooperative. No acute distress. HEENT: PERRL. Extraocular movements intact. Clear conjunctiva CARDIOVASCULAR: Regular rate and rhythm. No murmurs, rubs, or gallops LUNGS: Clear to auscultation bilaterally. No wheezes. +scattered rhonchi (improving) ABDOMEN: Soft, nontender, nondistended. Positive bowel sounds. Normal active bowel sounds, PEG site c/d/i NEUROLOGICAL: Alert and oriented times three. Cranial nerves II through XII grossly intact. Sensation grossly intact EXTREMITIES: 5\\5 strength bilateral upper extremities. 5\\5 strength right lower extremity. 5/5 strength in left lower extremity. SKIN: diffuse papular rash on his back and buttock (improved) ASSESSMENT:79-year-old M with past medical history of tongue cancer and COPD who presents status post pneumonia with dysphagia s/p PEG placement PLAN: 1. Rehab- PT/OT advance gait and ADL training, strengthen/stretch/maintain ROM all 4 limbs, energy conservation -STRIPPER COLOR recs appreciated, will hold off on Shaffer water protocol pending more optimal oral hygiene, c/u oral rinses for oral hygiene (increased frequency to QID) -NPO- tube feeds 2. Neuro: patient with suspicion for some cognitive impairments STRIPPER COLOR ordered 3. Cardiac: recent Chest CT with cardiac finding started on ASA, c/u losartan (lowered dose to 25mg daily for orthostatics with tighter holding parameters) and d/c'd amlodipine for persistent orthostatics-improving -HLD c/u statin-medicine consulted to assist in overall management -will need cardiology f/u on d/c 4. Resp- s/p course of antibiotics for CAP and alter aspiration PNA s/p PEG placement 11-27-19, c/u Spiriva, Xopenex prn and standing Duonebs, and Guaifenesin, c/u increased oral prednisone doing 10mg daily -repeat CXR without new infiltrate, ordered sputum sample contaminated, afebrile with mild leukocytosis (possibly due to oral steroids) will c/u to treat symptoms, low suspicion for active pneumonia -on home -c/u acapella -patient does not appear fluid overloaded and no known hx of CHF, will trial short course of low dose lasix to see if this helps optimize his breathing on exertion 5. Endo: hypothyroidism with elevated TSH on admission, c/u higher dose of Synthroid 137mcg daily at noon when stomach should be empty (feeds 4pm to 8am) 6. DVT ppx: Lovenox and TEDs 7. GI ppx: lansaprazole -PEG feeds, HOB 45 degrees during feeds and one hour post-feeds, aspiration precautions 8. Psych: patient reporting he didn't sleep well last night because the his feet press up against the baseboard of the bed, he admits he has been tired during the day in general and may be a little depressed and is open to trying an antidepressant- will start Prozac 20mg qHS to assist with sleep 9. Pain: Tylenol prn 10. Hypernatremia- resolved, c/u free water boluses at lowered quantity 11. Skin: back rash-improving, c/u daily eucerin moisturizer 12. 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 Dispo: 12-15-19 to home, progressing slowly towards goals Allergies Coded Allergies: amoxicillin (Verified Allergy, Mild, "rash" see comment, 11/09/19) REACTION FROM WAS SO LONG AGO PT DOESN'T EXACTLY REMEMBER, BUT HE BELIEVES IT WAS A RASH clavulanic acid (Verified Allergy, Mild, "rash" see comment, 11/09/19) REACTION FROM WAS SO LONG AGO PT DOESN'T EXACTLY REMEMBER, BUT HE BELIEVES IT WAS A RASH codeine (Verified Allergy, Unknown, 11/09/19) simethicone (Verified Adverse Reaction, Intermediate, drops cause tongue to burn - pt has thrush at this time, 11/13/19) allergy updated per conversation dr. tineo had with patient. oxycodone (Verified Adverse Reaction, Unknown, nausea & vomiting, " i couldn't tolerate it", 11/09/19) Vital Signs Vital Signs Date Time Temp Pulse Resp B/P (MAP) Pulse Ox O2 Delivery O2 Flow Rate FiO2 12/08/19 14:00 97.9 63 19 131/71 (91) 93 Nasal Cannula 2.0 Laboratory Data CBC/BMP Laboratory Tests 12/08/19 05:31 Labs 24H Laboratory Tests 2 12/08/19 05:31: Immature Granulocyte % (Auto) 2.5, Neutrophils (%) (Auto) 79.7H, Lymphocytes (%) (Auto) 5.7L, Monocytes (%) (Auto) 10.3H, Eosinophils (%) (Auto) 1.4, Basophils (%) (Auto) 0.4, Neutrophils # (Auto) 10.0H, Lymphocytes # (Auto) 0.7L, Monocytes # (Auto) 1.3H, Eosinophils # (Auto) 0.2, Basophils # (Auto) 0.1, Nucleated Red Blood Cells % (auto) 0.0, Anion Gap 2L, Glomerular Filtration Rate > 60.0, Calc ium Level 8.2L Microbiology Microbiology 12/05/19 Gram Stain - Final, Complete 12/05/19 Sputum Culture - Final, Complete Current Medications Current Medications Current Medications Medications (Trade) Dose Ordered Sig/Jhon Route PRN Reason Start Time Stop Time Status Last Admin Dose Admin Acetaminophen (Tylenol Tab) 650 mg Q4HP PRN PEG fever/MILD PAIN (PS 1-4) 11/30/19 16:45 12/07/19 20:34 Albuterol/ Ipratropium (Duoneb (Ipr 0.5mg/Alb 2.5mg)) 3 ml Q4HP PRN NEB SOB/WHEEZING 12/04/19 04:00 12/04/19 11:31 DC 12/04/19 03:55 Albuterol/ Ipratropium (Duoneb (Ipr 0.5mg/Alb 2.5mg)) 3 ml RQID NEB 12/08/19 12:00 12/08/19 11:13 Albuterol/ Ipratropium (Duoneb (Ipr 0.5mg/Alb 2.5mg)) 3 ml TID NEB 12/04/19 10:00 12/08/19 10:51 DC 12/07/19 13:42 Amlodipine Besylate (Norvasc) 5 mg QHS PEG 11/30/19 21:00 12/06/19 10:43 DC 12/05/19 22:33 Aspirin (Aspirin Chewable) 81 mg DAILY PEG 12/01/19 09:00 12/08/19 07:58 Atorvastatin Calcium (Lipitor) 10 mg QHS PEG 11/30/19 21:00 12/07/19 20:34 Budesonide/ Formoterol Fumarate (Symbicort 160/ 4.5mcg) 2 puff BID INH 11/30/19 21:00 12/08/19 07:14 Calcium Carbonate (Tums) 500 mg TIDP PRN PEG INDIGESTION 11/30/19 16:45 Cetirizine HCl (ZyrTEC) 10 mg DAILY PO 12/01/19 09:00 12/06/19 10:43 DC 12/06/19 08:28 Chlorhexidine Gluconate (Peridex Oral Rinse) 1 ml BID MT 11/30/19 21:00 12/04/19 11:30 DC 12/04/19 09:48 Chlorhexidine Gluconate (Peridex Oral Rinse) 1 ml QID MT 12/04/19 13:00 12/08/19 12:25 Diphenhydramine HCl (Benadryl) 25 mg Q6HP PRN PEG ITCHING 12/01/19 15:30 Emollient Cream (Vanicream) applyto back and up... BID TOP 12/01/19 09:00 12/08/19 08:00 Enoxaparin Sodium (Lovenox) 40 mg DAILY SC 12/01/19 09:00 12/08/19 07:58 Guaifenesin (Robitussin) 5 ml QID PEG 11/30/19 21:00 12/08/19 12:25 Lactulose (Cephulac) 30 ml DAILY PRN PO constipation 11/30/19 16:45 11/30/19 17:02 DC Lactulose (Cephulac) 30 ml DAILYPRN PRN PEG constipation 11/30/19 17:15 Lansoprazole (First-Lansoprazole Oral Suspension) 30 mg DAILY PEG 12/01/19 09:00 12/08/19 07:58 Levalbuterol HCl (Xopenex Neb) 1.25 mg Q4HP PRN INH SOB/WHEEZING 11/30/19 16:45 12/08/19 11:07 DC 12/04/19 01:25 Levalbuterol HCl (Xopenex Neb) 1.25 mg RQID INH 11/30/19 20:00 12/04/19 11:49 DC 12/04/19 11:01 Levothyroxine Sodium (Synthroid) 137 mcg DAILY@1200 PEG 12/01/19 12:00 12/08/19 12:25 Losartan Potassium (Cozaar) 25 mg DAILY PEG 12/06/19 09:00 12/07/19 08:15 Losartan Potassium (Cozaar) 50 mg DAILY PEG 12/01/19 09:00 12/05/19 14:11 DC 12/05/19 08:31 Nystatin (Mycostatin) 5 ml QID SSP 12/06/19 17:00 12/08/19 12:25 Prednisone (Deltasone) 5 mg DAILY PEG 12/01/19 09:00 12/04/19 12:07 DC 12/04/19 09:49 Prednisone (Deltasone) 10 mg DAILY PEG 12/05/19 09:00 12/08/19 08:14 Ramelteon (Rozerem) 8 mg QHS PEG 11/30/19 21:00 12/07/19 13:45 DC 12/06/19 20:17 Saliva Substitute (Mouthkote) USE DIRECTED QID MT 11/30/19 21:00 12/08/19 12:26 Tiotropium [place] (Spiriva Handihaler) 1 inhalation DAILY@08 INH 12/01/19 08:00 12/08/19 07:14 CECY DOMINGUEZ MD Dec 08, 2019 15:46
[2019-12-08 20:00] VITALS: BP 124/63
[2019-12-08] MEDS: FLUoxetine 20 MG CAP PO SCH (21:06)
[2019-12-08] MEDS: ATORVASTATIN 10 MG TAB PEG SCH (21:06)
[2019-12-09 06:00] VITALS: BP 148/60
[2019-12-09 06:29] LABS: HEMATOCRIT 29.6 % (42.0-52.0); HEMOGLOBIN 9.1 g/dl (13.5-17.5); MEAN CORPUSCULAR HEMOGLOBIN 29.2 pg (27.0-33.0); MEAN CORPUSCULAR HGB CONC 30.7 g/dl (32.0-36.5); MEAN CORPUSCULAR VOLUME 94.9 fl (80.0-96.0); PLATELET COUNT, AUTOMATED 497 10^3/uL (150-450); RED BLOOD COUNT 3.12 10^6/uL (4.30-6.10); WHITE BLOOD COUNT 14.9 10^3/uL (4.0-10.0)
[2019-12-09] MEDS: IPRATROPIUM 0.5MG/ALBUTEROL 2.5MG INH SOL UD 3ML (DUONEB)(J7620) NEB SCH ×4 (07:25→19:46)
[2019-12-09] MEDS: SYMBICORT 160/4.5MCG INHALER 6GM INH SCH ×2 (07:25→20:08)
[2019-12-09] MEDS: TIOTROPIUM INHALER/CAPSULE (SPIRIVA) INH SCH (07:25)
[2019-12-09] MEDS: guaiFENesin SYRUP 200 MG/10 ML UDC PEG SCH ×4 (09:32→21:19)
[2019-12-09] MEDS: CHLORHEXIDINE GLUCONATE 0.12 % 15ML UDC (PERIDEX ORAL RINSE) MT SCH ×4 (09:32→21:18)
[2019-12-09] MEDS: FUROSEMIDE 20 MG TAB PEG SCH (09:33)
[2019-12-09] MEDS: VANICREAM MOISTURIZING SKIN CREAM 113GM TUBE TOP SCH ×2 (09:33→21:20)
[2019-12-09] MEDS: predniSONE 5 MG TAB PEG SCH (09:33)
[2019-12-09] MEDS: ASPIRIN 81 MG CHEW TABLET PEG SCH (09:33)
[2019-12-09] MEDS: LANSOPRAZOLE SUSPENSION 30 MG/10 ML ORAL SYRINGE (FIRST-LANSOPRAZOLE) PEG SCH (09:33)
[2019-12-09] MEDS: NYSTATIN 500,000 U/5 ML SUSP UDC SSP SCH ×4 (09:33→21:19)
[2019-12-09] MEDS: ENOXAPARIN 40MG/0.4ML SYRINGE (J1650 PER 10MG) SC SCH (09:34)
[2019-12-09] MEDS: SALIVA SUBSTITUTE(MOUTHKOTE) BTL MT SCH ×4 (09:34→21:21)
[2019-12-09] MEDS: REMEDY PHYTOPLEX Z-GUARD PASTE 113GM TUBE (FROM STOREROOM PRODUCT) TOP SCH ×3 (09:34→21:20)
[2019-12-09] MEDS: LEVOTHYROXINE 137MCG TABLET (0.137MG) PEG SCH (13:14)
[2019-12-09] MEDS: LOSARTAN 25 MG TAB PEG SCH (13:14)
[2019-12-09 14:00] VITALS: BP 128/66
[2019-12-09 20:00] VITALS: BP 118/56
[2019-12-09] MEDS: ATORVASTATIN 10 MG TAB PEG SCH (21:19)
[2019-12-09] MEDS: FLUoxetine 20 MG CAP PO SCH (21:19)
[2019-12-10 05:00] VITALS: BP 121/66
[2019-12-10] MEDS: TIOTROPIUM INHALER/CAPSULE (SPIRIVA) INH SCH (07:19)
[2019-12-10] MEDS: IPRATROPIUM 0.5MG/ALBUTEROL 2.5MG INH SOL UD 3ML (DUONEB)(J7620) NEB SCH ×4 (07:19→20:00)
[2019-12-10] MEDS: SYMBICORT 160/4.5MCG INHALER 6GM INH SCH ×2 (07:19→20:10)
[2019-12-10] MEDS: predniSONE 5 MG TAB PEG SCH (07:34)
[2019-12-10] MEDS: ASPIRIN 81 MG CHEW TABLET PEG SCH (07:35)
[2019-12-10] MEDS: FUROSEMIDE 20 MG TAB PEG SCH (07:35)
[2019-12-10] MEDS: LANSOPRAZOLE SUSPENSION 30 MG/10 ML ORAL SYRINGE (FIRST-LANSOPRAZOLE) PEG SCH (07:35)
[2019-12-10] MEDS: CHLORHEXIDINE GLUCONATE 0.12 % 15ML UDC (PERIDEX ORAL RINSE) MT SCH ×4 (07:36→22:01)
[2019-12-10] MEDS: NYSTATIN 500,000 U/5 ML SUSP UDC SSP SCH ×4 (07:36→22:02)
[2019-12-10] MEDS: guaiFENesin SYRUP 200 MG/10 ML UDC PEG SCH ×4 (07:36→22:01)
[2019-12-10] MEDS: ENOXAPARIN 40MG/0.4ML SYRINGE (J1650 PER 10MG) SC SCH (07:37)
[2019-12-10] MEDS: SALIVA SUBSTITUTE(MOUTHKOTE) BTL MT SCH ×4 (07:37→22:03)
[2019-12-10] MEDS: VANICREAM MOISTURIZING SKIN CREAM 113GM TUBE TOP SCH ×2 (07:38→22:03)
[2019-12-10] MEDS: REMEDY PHYTOPLEX Z-GUARD PASTE 113GM TUBE (FROM STOREROOM PRODUCT) TOP SCH ×3 (07:38→22:04)
[2019-12-10] MEDS: LEVOTHYROXINE 137MCG TABLET (0.137MG) PEG SCH (13:22)
[2019-12-10] MEDS: LOSARTAN 25 MG TAB PEG SCH (13:23)
[2019-12-10 14:00] VITALS: BP 122/56
[2019-12-10] MEDS: ACETAMINOPHEN TAB 650MG DOSE (2X325MG) PEG PRN (17:47)
[2019-12-10 20:51] VITALS: BP 129/71
[2019-12-10] MEDS: FLUoxetine 20 MG CAP PO SCH (22:02)
[2019-12-10] MEDS: ATORVASTATIN 10 MG TAB PEG SCH (22:02)
[2019-12-10] MEDS: METOPROLOL TART 12.5 MG PER 1/2 TAB NG SCH (22:19)
[2019-12-11 06:00] VITALS: BP 159/78
--- NOTE | 2019-12-11 07:12 | ECGEPIP ---
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
[2019-12-11 07:24] LABS: BLOOD UREA NITROGEN 27 MG/DL (7-18); CALCIUM LEVEL 8.3 MG/DL (8.8-10.2); CARBON DIOXIDE LEVEL 34 MEQ/L (21-32); CHLORIDE LEVEL 101 MEQ/L (98-107); CREATININE FOR GFR 0.85 MG/DL (0.70-1.30); GLOMERULAR FILTRATION RATE > 60.0 (>42); GLUCOSE, FASTING 106 MG/DL (70-100); POTASSIUM SERUM 4.4 MEQ/L (3.5-5.1); SODIUM LEVEL 140 MEQ/L (136-145)
[2019-12-11] MEDS: TIOTROPIUM INHALER/CAPSULE (SPIRIVA) INH SCH (07:54)
[2019-12-11] MEDS: SYMBICORT 160/4.5MCG INHALER 6GM INH SCH ×2 (07:55→19:49)
[2019-12-11] MEDS: IPRATROPIUM 0.5MG/ALBUTEROL 2.5MG INH SOL UD 3ML (DUONEB)(J7620) NEB SCH ×4 (07:56→19:33)
[2019-12-11] MEDS: SALIVA SUBSTITUTE(MOUTHKOTE) BTL MT SCH ×4 (07:58→20:48)
[2019-12-11] MEDS: ENOXAPARIN 40MG/0.4ML SYRINGE (J1650 PER 10MG) SC SCH (07:59)
[2019-12-11] MEDS: REMEDY PHYTOPLEX Z-GUARD PASTE 113GM TUBE (FROM STOREROOM PRODUCT) TOP SCH ×3 (07:59→19:50)
[2019-12-11] MEDS: NYSTATIN 500,000 U/5 ML SUSP UDC SSP SCH ×4 (08:00→20:47)
[2019-12-11] MEDS: VANICREAM MOISTURIZING SKIN CREAM 113GM TUBE TOP SCH ×2 (08:00→20:49)
[2019-12-11] MEDS: CHLORHEXIDINE GLUCONATE 0.12 % 15ML UDC (PERIDEX ORAL RINSE) MT SCH ×4 (08:00→20:47)
[2019-12-11] MEDS: predniSONE 10 MG TAB PEG SCH (08:01)
[2019-12-11] MEDS: guaiFENesin SYRUP 200 MG/10 ML UDC PEG SCH ×4 (08:01→20:47)
[2019-12-11] MEDS: LANSOPRAZOLE SUSPENSION 30 MG/10 ML ORAL SYRINGE (FIRST-LANSOPRAZOLE) PEG SCH (08:01)
[2019-12-11] MEDS: FUROSEMIDE 20 MG TAB PEG SCH (08:01)
[2019-12-11] MEDS: ASPIRIN 81 MG CHEW TABLET PEG SCH (08:01)
[2019-12-11] MEDS: METOPROLOL TART 12.5 MG PER 1/2 TAB NG SCH ×2 (08:05→20:47)
--- NOTE | 2019-12-11 12:20 | REP ---
CHEST, TWO VIEWS: Two views of the chest are performed and compared to prior studies, most recently 12/04/2019. There is no change since the prior exams. Focal right apical pleural thickening is stable. There are areas of bibasilar infiltrates/atelectasis which are stable. Bilateral pleural fluid/thickening is stable. Once again, there are foci of air in the left pleural fluid collection. The heart is normal in size. There is calcification of the thoracic aorta. Mediastinal silhouette is unchanged. There are mild degenerative changes of the spine. IMPRESSION: Stable pleural and parenchymal abnormalities as discussed above. Electronically Signed by Dylon Almendarez MD 12/11/2019 03:12 P
[2019-12-11] MEDS: LEVOTHYROXINE 137MCG TABLET (0.137MG) PEG SCH (12:37)
--- NOTE | 2019-12-11 12:49 | IPNPDOC ---
PM&R Progress Note DATE OF SERVICE: Dec 11, 2019 Bid Writer Progress Note Subjective: Patient seen sitting up on his recliner stating his breathing and coughing have improved. He states his mood is also improving. REVIEW OF SYSTEMS: The following is a completed review of systems and has been reviewed. Review of systems otherwise unremarkable. PAIN: Patient self reports no pain EYES: No recent vision changes EARS, NOSE, & THROAT: + dysphagia CARDIOVASCULAR: Denies chest pain or palpitations PULMONARY: Denies shortness of breath GASTROINTESTINAL: Denies constipation/diarrhea GENITOURINARY: denies dysuria MUSCULOSKELETAL: generalized weakness NEUROLOGICAL: denies paresthesias HEMATOLOGICAL: +CML SKIN: rash on back, +Peg PSYCHIATRIC: Unremarkable All other review of systems found to be negative. PHYSICAL EXAMINATION: VITAL SIGNS: Please see below. GENERAL: Pleasant and cooperative. No acute distress. HEENT: PERRL. Extraocular movements intact. Clear conjunctiva CARDIOVASCULAR: Regular rate and rhythm. No murmurs, rubs, or gallops LUNGS: Clear to auscultation bilaterally. No wheezes. +scattered rhonchi (improving) ABDOMEN: Soft, nontender, nondistended. Positive bowel sounds. Normal active bowel sounds, PEG site c/d/i NEUROLOGICAL: Alert and oriented times three. Cranial nerves II through XII grossly intact. Sensation grossly intact EXTREMITIES: 5\\5 strength bilateral upper extremities. 5\\5 strength right lower extremity. 5/5 strength in left lower extremity. (-) edema SKIN: diffuse papular rash on his back and buttock (improved) ASSESSMENT:79-year-old M with past medical history of tongue cancer and COPD who presents status post pneumonia with dysphagia s/p PEG placement PLAN: 1. Rehab- PT/OT advance gait and ADL training, strengthen/stretch/maintain ROM all 4 limbs, energy conservation-ambulating with RW -FUNDRAISING ASSISTANT recs appreciated, will hold off on Shaffer water protocol pending more optimal oral hygiene, c/u oral rinses for oral hygiene (increased frequency to QID) -NPO- tube feeds 2. Neuro: patient with suspicion for some cognitive impairments FUNDRAISING ASSISTANT ordered- cognition overall improving 3. Cardiac: recent Chest CT with cardiac finding started on ASA,started on low dose metoprolol for PVCs -HLD c/u statin-medicine consulted to assist in overall management -will need cardiology f/u on d/c 4. Resp- s/p course of antibiotics for CAP and aspiration PNA s/p PEG placement 11-27-19, c/u Spiriva, Xopenex prn and standing Duonebs, and Guaifenesin, c/u increased oral prednisone doing 10mg daily -repeat CXR again today with no acute changes, but given persistent bibasilar infiltrates will start another course of Levaquin as patient still with cough and worsening leukocytosis which could still be due to steroids -on home -c/u acapella -s/p short course of oral lasix, patient does not appear fluid overloaded, but breathing improving 5. Endo: hypothyroidism with elevated TSH on admission, c/u higher dose of Synthroid 137mcg daily at noon when stomach should be empty (feeds 4pm to 8am) 6. DVT ppx: Lovenox and TEDs 7. GI ppx: lansaprazole -PEG feeds, HOB 45 degrees during feeds and one hour post-feeds, aspiration precautions 8. Psych: c/u Prozac 20mg qHS mood improving 9. Pain: Tylenol prn 10. Hypernatremia- resolved, c/u free water boluses at lowered quantity 11. Skin: back rash-improving, c/u daily eucerin moisturizer 12. 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 Dispo: 12-22-19 to home, progressing slowly towards goals Allergies Coded Allergies: amoxicillin (Verified Allergy, Mild, "rash" see comment, 11/09/19) REACTION FROM WAS SO LONG AGO PT DOESN'T EXACTLY REMEMBER, BUT HE BELIEVES IT WAS A RASH clavulanic acid (Verified Allergy, Mild, "rash" see comment, 11/09/19) REACTION FROM WAS SO LONG AGO PT DOESN'T EXACTLY REMEMBER, BUT HE BELIEVES IT WAS A RASH codeine (Verified Allergy, Unknown, 11/09/19) simethicone (Verified Adverse Reaction, Intermediate, drops cause tongue to burn - pt has thrush at this time, 11/13/19) allergy updated per conversation dr. tineo had with patient. oxycodone (Verified Adverse Reaction, Unknown, nausea & vomiting, " i couldn't tolerate it", 3/5/20) Vital Signs Vital Signs Date Time Temp Pulse Resp B/P (MAP) Pulse Ox O2 Delivery O2 Flow Rate FiO2 12/11/19 09:28 2.0 12/11/19 08:05 88 152/74 12/11/19 06:00 97.5 22 93 Nasal Cannula Laboratory Data CBC/BMP Laboratory Tests 12/11/19 06:37 Labs 24H Laboratory Tests 2 12/11/19 06:37: Anion Gap 5L, Glomerular Filtration Rate > 60.0, Calcium Level 8.3L Microbiology Microbiology 12/05/19 Gram Stain - Final, Complete 12/05/19 Sputum Culture - Final, Complete Current Medications Current Medications Current Medications Medications (Trade) Dose Ordered Sig/Jhon Route PRN Reason Start Time Stop Time Status Last Admin Dose Admin Acetaminophen (Tylenol Tab) 650 mg Q4HP PRN PEG fever/MILD PAIN (PS 1-4) 11/30/19 16:45 12/10/19 17:47 Albuterol/ Ipratropium (Duoneb (Ipr 0.5mg/Alb 2.5mg)) 3 ml Q4HP PRN NEB SOB/WHEEZING 12/04/19 04:00 12/04/19 11:31 DC 12/04/19 03:55 Albuterol/ Ipratropium (Duoneb (Ipr 0.5mg/Alb 2.5mg)) 3 ml RQID NEB 12/08/19 12:00 12/11/19 12:18 Albuterol/ Ipratropium (Duoneb (Ipr 0.5mg/Alb 2.5mg)) 3 ml TID NEB 12/04/19 10:00 12/08/19 10:51 DC 12/07/19 13:42 Amlodipine Besylate (Norvasc) 5 mg QHS PEG 11/30/19 21:00 12/06/19 10:43 DC 12/05/19 22:33 Aspirin (Aspirin Chewable) 81 mg DAILY PEG 12/01/19 09:00 12/11/19 08:01 Atorvastatin Calcium (Lipitor) 10 mg QHS PEG 11/30/19 21:00 12/10/19 22:02 Budesonide/ Formoterol Fumarate (Symbicort 160/ 4.5mcg) 2 puff BID INH 11/30/19 21:00 12/11/19 07:55 Calcium Carbonate (Tums) 500 mg TIDP PRN PEG INDIGESTION 11/30/19 16:45 Cetirizine HCl (ZyrTEC) 10 mg DAILY PO 12/01/19 09:00 12/06/19 10:43 DC 12/06/19 08:28 Chlorhexidine Gluconate (Peridex Oral Rinse) 1 ml BID MT 11/30/19 21:00 12/04/19 11:30 DC 12/04/19 09:48 Chlorhexidine Gluconate (Peridex Oral Rinse) 1 ml QID MT 12/04/19 13:00 12/11/19 08:00 Diphenhydramine HCl (Benadryl) 25 mg Q6HP PRN PEG ITCHING 12/01/19 15:30 Emollient Cream (Vanicream) applyto back and up... BID TOP 12/01/19 09:00 12/11/19 08:00 Enoxaparin Sodium (Lovenox) 40 mg DAILY SC 12/01/19 09:00 12/11/19 07:59 Fluoxetine HCl (PROzac) 20 mg QHS PO 12/08/19 21:00 12/10/19 22:02 Furosemide (Lasix) 20 mg DAILY PEG 12/09/19 09:00 12/11/19 12:30 DC 12/11/19 08:01 Guaifenesin (Robitussin) 5 ml QID PEG 11/30/19 21:00 12/11/19 08:01 Lactulose (Cephulac) 30 ml DAILY PRN PO constipation 11/30/19 16:45 11/30/19 17:02 DC Lactulose (Cephulac) 30 ml DAILYPRN PRN PEG constipation 11/30/19 17:15 Lansoprazole (First-Lansoprazole Oral Suspension) 30 mg DAILY PEG 12/01/19 09:00 12/11/19 08:01 Levalbuterol HCl (Xopenex Neb) 1.25 mg Q4HP PRN INH SOB/WHEEZING 11/30/19 16:45 12/08/19 11:07 DC 12/04/19 01:25 Levalbuterol HCl (Xopenex Neb) 1.25 mg RQID INH 11/30/19 20:00 12/04/19 11:49 DC 12/04/19 11:01 Levofloxacin (Levaquin) 750 mg DAILY@06 PEG 12/11/19 12:45 12/17/19 06:01 Levothyroxine Sodium (Synthroid) 137 mcg DAILY@1200 PEG 12/01/19 12:00 12/10/19 13:22 Losartan Potassium (Cozaar) 25 mg DAILY PEG 12/06/19 09:00 12/08/19 15:47 DC 12/07/19 08:15 Losartan Potassium (Cozaar) 25 mg DAILY@1200 PEG 12/09/19 12:00 12/10/19 13:49 DC 12/09/19 13:14 Losartan Potassium (Cozaar) 50 mg DAILY PEG 12/01/19 09:00 12/05/19 14:11 DC 12/05/19 08:31 Metoprolol Tartrate (Lopressor) 12.5 mg BID NG 12/10/19 21:00 12/11/19 08:05 Miscellaneous (Unresolved Clarification Entry) SEE LABEL COMMENTS DAILY XX 12/10/19 09:00 12/11/19 11:23 DC Nystatin (Mycostatin) 5 ml QID SSP 12/06/19 17:00 12/11/19 08:00 Patient Own Medication (Patient'S Own Med) tasigna 300mg BID peg ASDIRECTED PEG 12/11/19 12:45 UNV Prednisone (Deltasone) 5 mg DAILY PEG 12/01/19 09:00 12/04/19 12:07 DC 12/04/19 09:49 Prednisone (Deltasone) 10 mg DAILY PEG 12/05/19 09:00 12/10/19 13:29 DC 12/10/19 07:34 Prednisone (Deltasone) 10 mg DAILY PEG 12/11/19 09:00 12/11/19 08:01 Ramelteon (Rozerem) 8 mg QHS PEG 11/30/19 21:00 12/07/19 13:45 DC 12/06/19 20:17 Saliva Substitute (Mouthkote) USE DIRECTED QID MT 11/30/19 21:00 12/11/19 07:58 Tiotropium [place] (Spiriva Handihaler) 1 inhalation DAILY@08 INH 12/01/19 08:00 12/11/19 07:54 CECY DOMINGUEZ MD Dec 11, 2019 12:49
[2019-12-11] MEDS: LevoFLOXacin 750 MG TABLET PEG SCH (13:07)
[2019-12-11 14:00] VITALS: BP 116/58
[2019-12-11 20:00] VITALS: BP 116/68
[2019-12-11] MEDS: ATORVASTATIN 10 MG TAB PEG SCH (20:47)
[2019-12-11] MEDS: FLUoxetine 20 MG CAP PO SCH (20:47)
[2019-12-12] MEDS: LevoFLOXacin 750 MG TABLET PEG SCH (05:53)
[2019-12-12 06:00] VITALS: BP 132/66
[2019-12-12 06:35] LABS: BASO # 0.1 10^3/uL (0.0-0.2); BASO % 0.4 % (0.0-1.0); EOS # 0.1 10^3/uL (0.0-0.5); HEMATOCRIT 28.8 % (42.0-52.0); HEMOGLOBIN 8.8 g/dl (13.5-17.5); LYMPH # 0.7 10^3/uL (1.5-5.0); LYMPH % 5.9 % (24.0-44.0); MEAN CORPUSCULAR HEMOGLOBIN 28.9 pg (27.0-33.0); MEAN CORPUSCULAR HGB CONC 30.6 g/dl (32.0-36.5); MEAN CORPUSCULAR VOLUME 94.7 fl (80.0-96.0); MONO % 8.1 % (0.0-5.0); NEUTROPHILS # 9.8 10^3/uL (1.5-8.5); NEUTROPHILS % 83.4 % (36.0-66.0); PLATELET COUNT, AUTOMATED 443 10^3/uL (150-450); RED BLOOD COUNT 3.04 10^6/uL (4.30-6.10); WHITE BLOOD COUNT 11.8 10^3/uL (4.0-10.0)
[2019-12-12] MEDS: TIOTROPIUM INHALER/CAPSULE (SPIRIVA) INH SCH (07:10)
[2019-12-12] MEDS: SYMBICORT 160/4.5MCG INHALER 6GM INH SCH ×2 (07:10→20:10)
[2019-12-12] MEDS: IPRATROPIUM 0.5MG/ALBUTEROL 2.5MG INH SOL UD 3ML (DUONEB)(J7620) NEB SCH ×4 (07:11→20:00)
[2019-12-12] MEDS: ENOXAPARIN 40MG/0.4ML SYRINGE (J1650 PER 10MG) SC SCH (08:29)
[2019-12-12] MEDS: LANSOPRAZOLE SUSPENSION 30 MG/10 ML ORAL SYRINGE (FIRST-LANSOPRAZOLE) PEG SCH (08:29)
[2019-12-12] MEDS: guaiFENesin SYRUP 200 MG/10 ML UDC PEG SCH ×4 (08:30→20:02)
[2019-12-12] MEDS: NYSTATIN 500,000 U/5 ML SUSP UDC SSP SCH ×4 (08:30→20:02)
[2019-12-12] MEDS: CHLORHEXIDINE GLUCONATE 0.12 % 15ML UDC (PERIDEX ORAL RINSE) MT SCH ×4 (08:30→20:02)
[2019-12-12] MEDS: ASPIRIN 81 MG CHEW TABLET PEG SCH (08:30)
[2019-12-12] MEDS: METOPROLOL TART 12.5 MG PER 1/2 TAB NG SCH ×2 (08:31→08:51)
[2019-12-12] MEDS: predniSONE 10 MG TAB PEG SCH (08:31)
[2019-12-12] MEDS: SALIVA SUBSTITUTE(MOUTHKOTE) BTL MT SCH ×4 (08:32→20:12)
[2019-12-12] MEDS: VANICREAM MOISTURIZING SKIN CREAM 113GM TUBE TOP SCH ×2 (08:32→20:12)
[2019-12-12] MEDS: REMEDY PHYTOPLEX Z-GUARD PASTE 113GM TUBE (FROM STOREROOM PRODUCT) TOP SCH ×3 (08:33→20:12)
[2019-12-12] MEDS: LEVOTHYROXINE 137MCG TABLET (0.137MG) PEG SCH (12:34)
[2019-12-12 14:00] VITALS: BP 121/59
[2019-12-12 19:54] VITALS: BP 115/57
[2019-12-12] MEDS: FLUoxetine 20 MG CAP PO SCH (20:02)
[2019-12-12] MEDS: ATORVASTATIN 10 MG TAB PEG SCH (20:02)
[2019-12-12] MEDS: ACETAMINOPHEN TAB 650MG DOSE (2X325MG) PEG PRN (20:04)
[2019-12-12] MEDS: METOPROLOL TART 12.5 MG PER 1/2 TAB PEG SCH (20:11)
[2019-12-12] MEDS ORDERED: NILOTINIB 150 MG PEG SCH (21:00)
[2019-12-13] MEDS: LevoFLOXacin 750 MG TABLET PEG SCH (05:54)
[2019-12-13 06:00] VITALS: BP 136/67
[2019-12-13 06:03] LABS: BASO # 0.1 10^3/uL (0.0-0.2); BASO % 0.5 % (0.0-1.0); EOS # 0.2 10^3/uL (0.0-0.5); EOS % 1.8 % (0.0-3.0); HEMATOCRIT 29.8 % (42.0-52.0); HEMOGLOBIN 9.4 g/dl (13.5-17.5); LYMPH # 0.7 10^3/uL (1.5-5.0); LYMPH % 5.5 % (24.0-44.0); MEAN CORPUSCULAR HEMOGLOBIN 29.7 pg (27.0-33.0); MEAN CORPUSCULAR HGB CONC 31.5 g/dl (32.0-36.5); MEAN CORPUSCULAR VOLUME 94.3 fl (80.0-96.0); MONO % 8.5 % (0.0-5.0); NEUTROPHILS # 10.1 10^3/uL (1.5-8.5); NEUTROPHILS % 82.6 % (36.0-66.0); PLATELET COUNT, AUTOMATED 451 10^3/uL (150-450); RED BLOOD COUNT 3.16 10^6/uL (4.30-6.10); WHITE BLOOD COUNT 12.3 10^3/uL (4.0-10.0)
[2019-12-13 06:31] LABS: BLOOD UREA NITROGEN 26 MG/DL (7-18); CALCIUM LEVEL 8.4 MG/DL (8.8-10.2); CARBON DIOXIDE LEVEL 34 MEQ/L (21-32); CHLORIDE LEVEL 104 MEQ/L (98-107); CREATININE FOR GFR 0.85 MG/DL (0.70-1.30); GLOMERULAR FILTRATION RATE > 60.0 (>42); GLUCOSE, FASTING 114 MG/DL (70-100); POTASSIUM SERUM 4.2 MEQ/L (3.5-5.1); SODIUM LEVEL 139 MEQ/L (136-145)
[2019-12-13] MEDS: TIOTROPIUM INHALER/CAPSULE (SPIRIVA) INH SCH (07:44)
[2019-12-13] MEDS: SYMBICORT 160/4.5MCG INHALER 6GM INH SCH ×2 (07:44→19:09)
[2019-12-13] MEDS: IPRATROPIUM 0.5MG/ALBUTEROL 2.5MG INH SOL UD 3ML (DUONEB)(J7620) NEB SCH ×4 (07:44→19:09)
[2019-12-13] MEDS: NYSTATIN 500,000 U/5 ML SUSP UDC SSP SCH ×4 (08:12→20:12)
[2019-12-13] MEDS: ASPIRIN 81 MG CHEW TABLET PEG SCH (08:12)
[2019-12-13] MEDS: CHLORHEXIDINE GLUCONATE 0.12 % 15ML UDC (PERIDEX ORAL RINSE) MT SCH ×4 (08:12→20:32)
[2019-12-13] MEDS: METOPROLOL TART 12.5 MG PER 1/2 TAB PEG SCH ×2 (08:12→20:11)
[2019-12-13] MEDS: predniSONE 10 MG TAB PEG SCH (08:12)
[2019-12-13] MEDS: ENOXAPARIN 40MG/0.4ML SYRINGE (J1650 PER 10MG) SC SCH (08:13)
[2019-12-13] MEDS: guaiFENesin SYRUP 200 MG/10 ML UDC PEG SCH ×4 (08:13→20:12)
[2019-12-13] MEDS: REMEDY PHYTOPLEX Z-GUARD PASTE 113GM TUBE (FROM STOREROOM PRODUCT) TOP SCH ×3 (08:14→20:34)
[2019-12-13] MEDS: LANSOPRAZOLE SUSPENSION 30 MG/10 ML ORAL SYRINGE (FIRST-LANSOPRAZOLE) PEG SCH (08:14)
[2019-12-13] MEDS: VANICREAM MOISTURIZING SKIN CREAM 113GM TUBE TOP SCH ×2 (08:14→20:33)
[2019-12-13] MEDS: SALIVA SUBSTITUTE(MOUTHKOTE) BTL MT SCH ×4 (08:15→20:33)
[2019-12-13] MEDS ORDERED: VARIBAR PUDDING 40% w/v 230ML TUBE As Ordered ONE (08:54)
[2019-12-13] MEDS ORDERED: E-Z-PAQUE 96% w/w SUSP 176GM BTL As Ordered ONE (08:55)
[2019-12-13] MEDS ORDERED: BARIUM SULFATE 700 MG TABLET (E-Z-DISK) As Ordered ONE (08:55)
[2019-12-13] MEDS ORDERED: VARIBAR NECTAR 40% w/v 240ML SUSP BTL As Ordered ONE (08:55)
--- NOTE | 2019-12-13 11:05 | REP ---
Examination Requested: Cookie Swallow Reason For Exam: Dysphasia The procedure was performed by JAE Mccullough, under the direct supervision of Dr. Almendarez. The procedure was performed with Jackie Banks from speech pathology present. 5 ml aliquots of thin, pudding, mixed fruit with a nectar base , soft food, nectar and honey consistency barium was administered. Aspiration was visualized with thin consistency barium, penetration was visualized with nectar thick consistency barium. The detailed report of this examination will be provided by speech pathology. 2.6 minutes of fluoroscopy time was utilized for this procedure. Reviewed by JAE Resendiz 12/13/2019 10:29 A Electronically Signed by Dylon Almendarez MD 12/13/2019 10:56 A
[2019-12-13] MEDS: LEVOTHYROXINE 137MCG TABLET (0.137MG) PEG SCH (12:30)
[2019-12-13 14:00] VITALS: BP 106/58
[2019-12-13] MEDS: FLUoxetine 20 MG CAP PO SCH (20:12)
[2019-12-13] MEDS: ATORVASTATIN 10 MG TAB PEG SCH (20:12)
[2019-12-13] MEDS: ACETAMINOPHEN TAB 650MG DOSE (2X325MG) PEG PRN (20:16)
[2019-12-13 22:00] VITALS: BP 112/56
[2019-12-14] MEDS: LevoFLOXacin 750 MG TABLET PEG SCH (05:49)
[2019-12-14 06:00] VITALS: BP 121/67
[2019-12-14] MEDS: TIOTROPIUM INHALER/CAPSULE (SPIRIVA) INH SCH (07:57)
[2019-12-14] MEDS: SYMBICORT 160/4.5MCG INHALER 6GM INH SCH ×2 (07:57→19:47)
[2019-12-14] MEDS: IPRATROPIUM 0.5MG/ALBUTEROL 2.5MG INH SOL UD 3ML (DUONEB)(J7620) NEB SCH ×4 (07:58→19:50)
[2019-12-14] MEDS: REMEDY PHYTOPLEX Z-GUARD PASTE 113GM TUBE (FROM STOREROOM PRODUCT) TOP SCH ×3 (09:07→20:54)
[2019-12-14] MEDS: ASPIRIN 81 MG CHEW TABLET PEG SCH (09:08)
[2019-12-14] MEDS: LANSOPRAZOLE SUSPENSION 30 MG/10 ML ORAL SYRINGE (FIRST-LANSOPRAZOLE) PEG SCH (09:08)
[2019-12-14] MEDS: ENOXAPARIN 40MG/0.4ML SYRINGE (J1650 PER 10MG) SC SCH (09:08)
[2019-12-14] MEDS: predniSONE 10 MG TAB PEG SCH (09:08)
[2019-12-14] MEDS: METOPROLOL TART 12.5 MG PER 1/2 TAB PEG SCH ×2 (09:09→20:53)
[2019-12-14] MEDS: SALIVA SUBSTITUTE(MOUTHKOTE) BTL MT SCH ×4 (09:09→20:53)
[2019-12-14] MEDS: CHLORHEXIDINE GLUCONATE 0.12 % 15ML UDC (PERIDEX ORAL RINSE) MT SCH ×4 (09:09→20:51)
[2019-12-14] MEDS: guaiFENesin SYRUP 200 MG/10 ML UDC PEG SCH ×4 (09:09→20:52)
[2019-12-14] MEDS: NYSTATIN 500,000 U/5 ML SUSP UDC SSP SCH ×4 (09:09→20:51)
[2019-12-14] MEDS: VANICREAM MOISTURIZING SKIN CREAM 113GM TUBE TOP SCH ×2 (09:10→20:55)
--- NOTE | 2019-12-14 10:17 | IPNPDOC ---
PM&R Progress Note DATE OF SERVICE: Dec 12, 2019 Lithopress Operator Progress Note Subjective: Patient seen in bed stating he was able to walk further today and that his mood continues to improve. REVIEW OF SYSTEMS: The following is a completed review of systems and has been reviewed. Review of systems otherwise unremarkable. PAIN: Patient self reports no pain EYES: No recent vision changes EARS, NOSE, & THROAT: + dysphagia CARDIOVASCULAR: Denies chest pain or palpitations PULMONARY: Denies shortness of breath GASTROINTESTINAL: Denies constipation/diarrhea GENITOURINARY: denies dysuria MUSCULOSKELETAL: generalized weakness NEUROLOGICAL: denies paresthesias HEMATOLOGICAL: +CML SKIN: rash on back, +Peg PSYCHIATRIC: Unremarkable All other review of systems found to be negative. PHYSICAL EXAMINATION: VITAL SIGNS: Please see below. GENERAL: Pleasant and cooperative. No acute distress. HEENT: PERRL. Extraocular movements intact. Clear conjunctiva CARDIOVASCULAR: Regular rate and rhythm. No murmurs, rubs, or gallops LUNGS: Clear to auscultation bilaterally. No wheezes. +scattered rhonchi (improving) ABDOMEN: Soft, nontender, nondistended. Positive bowel sounds. Normal active bowel sounds, PEG site c/d/i NEUROLOGICAL: Alert and oriented times three. Cranial nerves II through XII grossly intact. Sensation grossly intact EXTREMITIES: 5\\5 strength bilateral upper extremities. 5\\5 strength right lower extremity. 5/5 strength in left lower extremity. (-) edema SKIN: diffuse papular rash on his back and buttock (improved) ASSESSMENT:79-year-old M with past medical history of tongue cancer and COPD who presents status post pneumonia with dysphagia s/p PEG placement PLAN: 1. Rehab- PT/OT advance gait and ADL training, strengthen/stretch/maintain ROM all 4 limbs, energy conservation-ambulating with RW -PRICING CONSULTANT recs appreciated, will hold off on Shaffer water protocol pending more optimal oral hygiene, c/u oral rinses for oral hygiene (increased frequency to QID and added nystatin for chronic oral yeast secondary to ICS usage) -NPO- tube feeds 2. Neuro: patient with suspicion for some cognitive impairments PRICING CONSULTANT ordered- cognition overall improving 3. Cardiac: recent Chest CT with cardiac finding started on ASA,started on low dose metoprolol for PVCs -HLD c/u statin-medicine consulted to assist in overall management -will need cardiology f/u on d/c 4. Resp- s/p course of antibiotics for CAP and aspiration PNA s/p PEG placement 11-27-19, c/u Spiriva, Xopenex prn and standing Duonebs, and Guaifenesin, c/u increased oral prednisone doing 10mg daily -2nd repeat CXR with no acute changes, but given persistent bibasilar infiltrates started another course of Levaquin as patient still with cough and leukocytosis which could still be due to steroids -on home -c/u acapella -s/p short course of oral lasix, patient does not appear fluid overloaded, but breathing improving 5. Endo: hypothyroidism with elevated TSH on admission, c/u higher dose of Synthroid 137mcg daily at noon when stomach should be empty (feeds 4pm to 8am) 6. DVT ppx: Lovenox and TEDs 7. GI ppx: lansaprazole -PEG feeds, HOB 45 degrees during feeds and one hour post-feeds, aspiration precautions 8. Psych: c/u Prozac 20mg qHS mood improving 9. Pain: Tylenol prn 10. Hypernatremia- resolved, c/u free water boluses at lowered quantity 11. Skin: back rash-improving, c/u daily eucerin moisturizer 12. 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 Dispo: 12-22-19 to home, progressing slowly towards goals Allergies Coded Allergies: amoxicillin (Verified Allergy, Mild, "rash" see comment, 11/09/19) REACTION FROM WAS SO LONG AGO PT DOESN'T EXACTLY REMEMBER, BUT HE BELIEVES IT WAS A RASH clavulanic acid (Verified Allergy, Mild, "rash" see comment, 11/09/19) REACTION FROM WAS SO LONG AGO PT DOESN'T EXACTLY REMEMBER, BUT HE BELIEVES IT WAS A RASH codeine (Verified Allergy, Unknown, 11/09/19) simethicone (Verified Adverse Reaction, Intermediate, drops cause tongue to burn - pt has thrush at this time, 11/13/19) allergy updated per conversation dr. tineo had with patient. oxycodone (Verified Adverse Reaction, Unknown, nausea & vomiting, " i couldn't tolerate it", 11/09/19) Vital Signs Vital Signs Date Time Temp Pulse Resp B/P (MAP) Pulse Ox O2 Delivery O2 Flow Rate FiO2 12/14/19 09:09 85 121/67 12/14/19 08:00 1.0 12/14/19 06:00 98.4 13 95 Room Air Microbiology Microbiology 12/05/19 Gram Stain - Final, Complete 12/05/19 Sputum Culture - Final, Complete Current Medications Current Medications Current Medications Medications (Trade) Dose Ordered Sig/Jhon Route PRN Reason Start Time Stop Time Status Last Admin Dose Admin Acetaminophen (Tylenol Tab) 650 mg Q4HP PRN PEG fever/MILD PAIN (PS 1-4) 11/30/19 16:45 12/13/19 20:16 Albuterol/ Ipratropium (Duoneb (Ipr 0.5mg/Alb 2.5mg)) 3 ml Q4HP PRN NEB SOB/WHEEZING 12/04/19 04:00 12/04/19 11:31 DC 12/04/19 03:55 Albuterol/ Ipratropium (Duoneb (Ipr 0.5mg/Alb 2.5mg)) 3 ml RQID NEB 12/08/19 12:00 12/13/19 16:13 Albuterol/ Ipratropium (Duoneb (Ipr 0.5mg/Alb 2.5mg)) 3 ml TID NEB 12/04/19 10:00 12/08/19 10:51 DC 12/07/19 13:42 Amlodipine Besylate (Norvasc) 5 mg QHS PEG 11/30/19 21:00 12/06/19 10:43 DC 12/05/19 22:33 Aspirin (Aspirin Chewable) 81 mg DAILY PEG 12/01/19 09:00 12/14/19 09:08 Atorvastatin Calcium (Lipitor) 10 mg QHS PEG 11/30/19 21:00 12/13/19 20:12 Budesonide/ Formoterol Fumarate (Symbicort 160/ 4.5mcg) 2 puff BID INH 11/30/19 21:00 12/14/19 07:57 Calcium Carbonate (Tums) 500 mg TIDP PRN PEG INDIGESTION 11/30/19 16:45 Cetirizine HCl (ZyrTEC) 10 mg DAILY PO 12/01/19 09:00 12/06/19 10:43 DC 12/06/19 08:28 Chlorhexidine Gluconate (Peridex Oral Rinse) 1 ml BID MT 11/30/19 21:00 12/04/19 11:30 DC 12/04/19 09:48 Chlorhexidine Gluconate (Peridex Oral Rinse) 1 ml QID MT 12/04/19 13:00 12/14/19 09:09 Diphenhydramine HCl (Benadryl) 25 mg Q6HP PRN PEG ITCHING 12/01/19 15:30 Emollient Cream (Vanicream) applyto back and up... BID TOP 12/01/19 09:00 12/14/19 09:10 Enoxaparin Sodium (Lovenox) 40 mg DAILY SC 12/01/19 09:00 12/14/19 09:08 Fluoxetine HCl (PROzac) 20 mg QHS PO 12/08/19 21:00 12/13/19 20:12 Furosemide (Lasix) 20 mg DAILY PEG 12/09/19 09:00 12/11/19 12:30 DC 12/11/19 08:01 Guaifenesin (Robitussin) 5 ml QID PEG 11/30/19 21:00 12/14/19 09:09 Lactulose (Cephulac) 30 ml DAILY PRN PO constipation 11/30/19 16:45 11/30/19 17:02 DC Lactulose (Cephulac) 30 ml DAILYPRN PRN PEG constipation 11/30/19 17:15 Lansoprazole (First-Lansoprazole Oral Suspension) 30 mg DAILY PEG 12/01/19 09:00 12/14/19 09:08 Levalbuterol HCl (Xopenex Neb) 1.25 mg Q4HP PRN INH SOB/WHEEZING 11/30/19 16:45 12/08/19 11:07 DC 12/04/19 01:25 Levalbuterol HCl (Xopenex Neb) 1.25 mg RQID INH 11/30/19 20:00 12/04/19 11:49 DC 12/04/19 11:01 Levofloxacin (Levaquin) 750 mg DAILY@06 PEG 12/11/19 12:45 12/17/19 06:01 12/14/19 05:49 Levothyroxine Sodium (Synthroid) 137 mcg DAILY@1200 PEG 12/01/19 12:00 12/13/19 12:30 Losartan Potassium (Cozaar) 25 mg DAILY PEG 12/06/19 09:00 12/08/19 15:47 DC 12/07/19 08:15 Losartan Potassium (Cozaar) 25 mg DAILY@1200 PEG 12/09/19 12:00 12/10/19 13:49 DC 12/09/19 13:14 Losartan Potassium (Cozaar) 50 mg DAILY PEG 12/01/19 09:00 12/05/19 14:11 DC 12/05/19 08:31 Metoprolol Tartrate (Lopressor) 12.5 mg BID 12/10/19 21:00 12/12/19 11:50 DC 12/12/19 08:51 Metoprolol Tartrate (Lopressor) 12.5 mg BID PEG 12/12/19 21:00 12/14/19 09:09 Miscellaneous (Unresolved Clarification Entry) SEE LABEL COMMENTS DAILY XX 12/10/19 09:00 12/11/19 11:23 DC Miscellaneous (Unresolved Patient Own Med Order) SEE LABEL COMMENTS DAILY XX 12/11/19 09:00 Nystatin (Mycostatin) 5 ml QID [facility] 12/06/19 17:00 12/14/19 09:09 Patient Own Medication (Patient'S Own Med) Nilotinib (Tasigna) 15... BID PEG 12/12/19 21:00 Hold Prednisone (Deltasone) 5 mg DAILY PEG 12/01/19 09:00 12/04/19 12:07 DC 12/04/19 09:49 Prednisone (Deltasone) 10 mg DAILY PEG 12/05/19 09:00 12/10/19 13:29 DC 12/10/19 07:34 Prednisone (Deltasone) 10 mg DAILY PEG 12/11/19 09:00 12/14/19 09:08 Ramelteon (Rozerem) 8 mg QHS PEG 11/30/19 21:00 12/07/19 13:45 DC 12/06/19 20:17 Saliva Substitute (Mouthkote) USE DIRECTED QID SC 11/30/19 21:00 12/14/19 09:09 Tiotropium [place] (Spiriva Handihaler) 1 inhalation DAILY@08 INH 12/01/19 08:00 12/14/19 07:57 CECY DOMINGUEZ MD Dec 14, 2019 10:17
[2019-12-14] MEDS: LEVOTHYROXINE 137MCG TABLET (0.137MG) PEG SCH (12:04)
[2019-12-14 14:00] VITALS: BP 123/74
--- NOTE | 2019-12-14 15:21 | IPNPDOC ---
PM&R Progress Note DATE OF SERVICE: Dec 14, 2019 [employer] Progress Note Subjective: Patient seen in therapy stating he feels well overall and agrees to trying to swallow his chemotherapy pills. REVIEW OF SYSTEMS: The following is a completed review of systems and has been reviewed. Review of systems otherwise unremarkable. PAIN: Patient self reports no pain EYES: No recent vision changes EARS, NOSE, & THROAT: + dysphagia CARDIOVASCULAR: Denies chest pain or palpitations PULMONARY: Denies shortness of breath GASTROINTESTINAL: Denies constipation/diarrhea GENITOURINARY: denies dysuria MUSCULOSKELETAL: generalized weakness NEUROLOGICAL: denies paresthesias HEMATOLOGICAL: +CML SKIN: rash on back, +Peg PSYCHIATRIC: Unremarkable All other review of systems found to be negative. PHYSICAL EXAMINATION: VITAL SIGNS: Please see below. GENERAL: Pleasant and cooperative. No acute distress. HEENT: PERRL. Extraocular movements intact. Clear conjunctiva CARDIOVASCULAR: Regular rate and rhythm. No murmurs, rubs, or gallops LUNGS: Clear to auscultation bilaterally. No wheezes. +scattered rhonchi (improving) ABDOMEN: Soft, nontender, nondistended. Positive bowel sounds. Normal active bowel sounds, PEG site c/d/i NEUROLOGICAL: Alert and oriented times three. Cranial nerves II through XII grossly intact. Sensation grossly intact (-) babinksi/clonus bilat, (-) Hoffmans (-) thenar or tongue fasiculations EXTREMITIES: 5\\5 strength bilateral upper extremities. 5\\5 strength right lower extremity. 5/5 strength in left lower extremity. (-) edema SKIN: diffuse papular rash on his back and buttock (improved) ASSESSMENT:79-year-old M with past medical history of tongue cancer and COPD who presents status post pneumonia with dysphagia s/p PEG placement PLAN: 1. 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 Neuro: patient with suspicion for some cognitive impairments [employer]ANGER ordered- cognition overall improving 3. Cardiac: recent Chest CT with cardiac finding started on ASA,started on low dose metoprolol for PVCs -HLD c/u statin-medicine consulted to assist in overall management -will need cardiology f/u on d/c 4. Resp- s/p course of antibiotics for CAP and aspiration PNA s/p PEG placement 11-27-19, c/u Spiriva, Xopenex prn and standing Duonebs, and Guaifenesin, c/u increased oral prednisone doing 10mg daily -2nd repeat CXR with no acute changes, but given persistent bibasilar infiltrates- c/u course of Levaquin, cough improving, still with leukocytosis which could still be due to steroids vs CML -on home -c/u acapella -s/p short course of oral lasix, patient does not appear fluid overloaded, but breathing improving 5. Endo: hypothyroidism with elevated TSH on admission, c/u higher dose of Synthroid 137mcg daily at noon when stomach should be empty (feeds 4pm to 8am) 6. DVT ppx: Lovenox and TEDs 7. GI ppx: lansaprazole -PEG feeds, HOB 45 degrees during feeds and one hour post-feeds, aspiration precautions 8. Psych: c/u Prozac 20mg qHS mood improving 9. Pain: Tylenol prn 10. Hypernatremia- resolved, c/u free water boluses at lowered quantity 11. Skin: back rash-improving, c/u daily eucerin moisturizer 12. 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 Dispo: 12-22-19 to home, progressing slowly towards goals Allergies Coded Allergies: amoxicillin (Verified Allergy, Mild, "rash" see comment, 11/09/19) REACTION FROM WAS SO LONG AGO PT DOESN'T EXACTLY REMEMBER, BUT HE BELIEVES IT WAS A RASH clavulanic acid (Verified Allergy, Mild, "rash" see comment, 11/09/19) REACTION FROM WAS SO LONG AGO PT DOESN'T EXACTLY REMEMBER, BUT HE BELIEVES IT WAS A RASH codeine (Verified Allergy, Unknown, 11/09/19) simethicone (Verified Adverse Reaction, Intermediate, drops cause tongue to burn - pt has thrush at this time, 11/13/19) allergy updated per conversation dr. tineo had with patient. oxycodone (Verified Adverse Reaction, Unknown, nausea & vomiting, " i couldn't tolerate it", 11/09/19) Vital Signs Vital Signs Date Time Temp Pulse Resp B/P (MAP) Pulse Ox O2 Delivery O2 Flow Rate FiO2 12/14/19 14:00 98.5 88 17 123/74 (90) 94 Nasal Cannula 1.0 Microbiology Microbiology 12/05/19 Gram Stain - Final, Complete 12/05/19 Sputum Culture - Final, Complete Current Medications Current Medications Current Medications Medications (Trade) Dose Ordered Sig/Jhon Route PRN Reason Start Time Stop Time Status Last Admin Dose Admin Acetaminophen (Tylenol Tab) 650 mg Q4HP PRN PEG fever/MILD PAIN (PS 1-4) 11/30/19 16:45 12/13/19 20:16 Albuterol/ Ipratropium (Duoneb (Ipr 0.5mg/Alb 2.5mg)) 3 ml Q4HP PRN NEB SOB/WHEEZING 12/04/19 04:00 12/04/19 11:31 DC 12/04/19 03:55 Albuterol/ Ipratropium (Duoneb (Ipr 0.5mg/Alb 2.5mg)) 3 ml RQID NEB 12/08/19 12:00 12/14/19 14:52 Albuterol/ Ipratropium (Duoneb (Ipr 0.5mg/Alb 2.5mg)) 3 ml TID NEB 12/04/19 10:00 12/08/19 10:51 DC 12/07/19 13:42 Amlodipine Besylate (Norvasc) 5 mg QHS PEG 11/30/19 21:00 12/06/19 10:43 DC 12/05/19 22:33 Aspirin (Aspirin Chewable) 81 mg DAILY PEG 12/01/19 09:00 12/14/19 09:08 Atorvastatin Calcium (Lipitor) 10 mg QHS PEG 11/30/19 21:00 12/13/19 20:12 Budesonide/ Formoterol Fumarate (Symbicort 160/ 4.5mcg) 2 puff BID INH 11/30/19 21:00 12/14/19 07:57 Calcium Carbonate (Tums) 500 mg TIDP PRN PEG INDIGESTION 11/30/19 16:45 Cetirizine HCl (ZyrTEC) 10 mg DAILY PO 12/01/19 09:00 12/06/19 10:43 DC 12/06/19 08:28 Chlorhexidine Gluconate (Peridex Oral Rinse) 1 ml BID MT 11/30/19 21:00 12/04/19 11:30 DC 12/04/19 09:48 Chlorhexidine Gluconate (Peridex Oral Rinse) 1 ml QID MT 12/04/19 13:00 12/14/19 12:04 Diphenhydramine HCl (Benadryl) 25 mg Q6HP PRN PEG ITCHING 12/01/19 15:30 Emollient Cream (Vanicream) applyto back and up... BID TOP 12/01/19 09:00 12/14/19 09:10 Enoxaparin Sodium (Lovenox) 40 mg DAILY SC 12/01/19 09:00 12/14/19 09:08 Fluoxetine HCl (PROzac) 20 mg QHS PO 12/08/19 21:00 12/13/19 20:12 Furosemide (Lasix) 20 mg DAILY PEG 12/09/19 09:00 12/11/19 12:30 DC 12/11/19 08:01 Guaifenesin (Robitussin) 5 ml QID PEG 11/30/19 21:00 12/14/19 12:04 Lactulose (Cephulac) 30 ml DAILY PRN PO constipation 11/30/19 16:45 11/30/19 17:02 DC Lactulose (Cephulac) 30 ml DAILYPRN PRN PEG constipation 11/30/19 17:15 Lansoprazole (First-Lansoprazole Oral Suspension) 30 mg DAILY PEG 12/01/19 09:00 12/14/19 09:08 Levalbuterol HCl (Xopenex Neb) 1.25 mg Q4HP PRN INH SOB/WHEEZING 11/30/19 16:45 12/08/19 11:07 DC 12/04/19 01:25 Levalbuterol HCl (Xopenex Neb) 1.25 mg RQID INH 11/30/19 20:00 12/04/19 11:49 DC 12/04/19 11:01 Levofloxacin (Levaquin) 750 mg DAILY@06 PEG 12/11/19 12:45 12/17/19 06:01 12/14/19 05:49 Levothyroxine Sodium (Synthroid) 137 mcg DAILY@1200 PEG 12/01/19 12:00 12/14/19 12:04 Losartan Potassium (Cozaar) 25 mg DAILY PEG 12/06/19 09:00 12/08/19 15:47 DC 12/07/19 08:15 Losartan Potassium (Cozaar) 25 mg DAILY@1200 PEG 12/09/19 12:00 12/10/19 13:49 DC 12/09/19 13:14 Losartan Potassium (Cozaar) 50 mg DAILY PEG 12/01/19 09:00 12/05/19 14:11 DC 12/05/19 08:31 Metoprolol Tartrate (Lopressor) 12.5 mg BID NG 12/10/19 21:00 12/12/19 11:50 DC 12/12/19 08:51 Metoprolol Tartrate (Lopressor) 12.5 mg BID PEG 12/12/19 21:00 12/14/19 09:09 Miscellaneous (Unresolved Clarification Entry) SEE LABEL COMMENTS DAILY XX 12/10/19 09:00 12/11/19 11:23 DC Miscellaneous (Unresolved Patient Own Med Order) SEE LABEL COMMENTS DAILY XX 12/11/19 09:00 12/14/19 12:51 DC Nystatin (Mycostatin) 5 ml QID SSP 12/06/19 17:00 12/14/19 12:04 Patient Own Medication (Patient'S Own Med) 300mg = 2 capsules Take ... BID PO 12/14/19 21:00 Patient Own Medication (Patient'S Own Med) Nilotinib (Tasigna) 15... BID PEG 12/12/19 21:00 12/14/19 12:37 DC Prednisone (Deltasone) 5 mg DAILY PEG 12/01/19 09:00 12/04/19 12:07 DC 12/04/19 09:49 Prednisone (Deltasone) 10 mg DAILY PEG 12/05/19 09:00 12/10/19 13:29 DC 12/10/19 07:34 Prednisone (Deltasone) 10 mg DAILY PEG 12/11/19 09:00 12/14/19 09:08 Ramelteon (Rozerem) 8 mg QHS PEG 11/30/19 21:00 12/07/19 13:45 DC 12/06/19 20:17 Saliva Substitute (Mouthkote) USE DIRECTED QID MT 11/30/19 21:00 12/14/19 12:04 Tiotropium [place] (Spiriva Handihaler) 1 inhalation DAILY@08 INH 12/01/19 08:00 12/14/19 07:57 CECY DOMINGUEZ MD Dec 14, 2019 15:21
[2019-12-14 20:05] VITALS: BP 115/58
[2019-12-14] MEDS: ATORVASTATIN 10 MG TAB PEG SCH (20:50)
[2019-12-14] MEDS: ACETAMINOPHEN TAB 650MG DOSE (2X325MG) PEG PRN (20:50)
[2019-12-14] MEDS: FLUoxetine 20 MG CAP PO SCH (20:51)
[2019-12-14] MEDS: NILOTINIB 150 MG PO SCH (21:00)
[2019-12-15] MEDS: LevoFLOXacin 750 MG TABLET PEG SCH (05:42)
[2019-12-15 05:48] VITALS: BP 136/74
[2019-12-15] MEDS: TIOTROPIUM INHALER/CAPSULE (SPIRIVA) INH SCH (07:09)
[2019-12-15] MEDS: SYMBICORT 160/4.5MCG INHALER 6GM INH SCH ×2 (07:09→19:35)
[2019-12-15] MEDS: IPRATROPIUM 0.5MG/ALBUTEROL 2.5MG INH SOL UD 3ML (DUONEB)(J7620) NEB SCH ×4 (07:09→19:36)
[2019-12-15] MEDS: NILOTINIB 150 MG PO SCH ×2 (08:25→20:23)
[2019-12-15] MEDS: ENOXAPARIN 40MG/0.4ML SYRINGE (J1650 PER 10MG) SC SCH (08:25)
[2019-12-15] MEDS: CHLORHEXIDINE GLUCONATE 0.12 % 15ML UDC (PERIDEX ORAL RINSE) MT SCH ×4 (08:25→20:34)
[2019-12-15] MEDS: LANSOPRAZOLE SUSPENSION 30 MG/10 ML ORAL SYRINGE (FIRST-LANSOPRAZOLE) PEG SCH (08:26)
[2019-12-15] MEDS: ASPIRIN 81 MG CHEW TABLET PEG SCH (08:26)
[2019-12-15] MEDS: guaiFENesin SYRUP 200 MG/10 ML UDC PEG SCH ×4 (08:26→20:44)
[2019-12-15] MEDS: NYSTATIN 500,000 U/5 ML SUSP UDC SSP SCH ×4 (08:26→20:23)
[2019-12-15] MEDS: METOPROLOL TART 12.5 MG PER 1/2 TAB PEG SCH ×2 (08:26→20:43)
[2019-12-15] MEDS: predniSONE 10 MG TAB PEG SCH (08:26)
[2019-12-15] MEDS: SALIVA SUBSTITUTE(MOUTHKOTE) BTL MT SCH ×4 (08:27→20:27)
[2019-12-15] MEDS: VANICREAM MOISTURIZING SKIN CREAM 113GM TUBE TOP SCH ×2 (08:27→20:45)
[2019-12-15] MEDS: REMEDY PHYTOPLEX Z-GUARD PASTE 113GM TUBE (FROM STOREROOM PRODUCT) TOP SCH ×3 (08:27→20:44)
[2019-12-15 11:29] LABS: BASO # 0.1 10^3/uL (0.0-0.2); BASO % 0.5 % (0.0-1.0); EOS # 0.1 10^3/uL (0.0-0.5); EOS % 0.8 % (0.0-3.0); HEMATOCRIT 32.7 % (42.0-52.0); HEMOGLOBIN 10.1 g/dl (13.5-17.5); LYMPH # 0.5 10^3/uL (1.5-5.0); LYMPH % 3.3 % (24.0-44.0); MEAN CORPUSCULAR HEMOGLOBIN 29.2 pg (27.0-33.0); MEAN CORPUSCULAR HGB CONC 30.9 g/dl (32.0-36.5); MEAN CORPUSCULAR VOLUME 94.5 fl (80.0-96.0); MONO % 6.6 % (0.0-5.0); NEUTROPHILS # 13.4 10^3/uL (1.5-8.5); NEUTROPHILS % 87.9 % (36.0-66.0); PLATELET COUNT, AUTOMATED 501 10^3/uL (150-450); RED BLOOD COUNT 3.46 10^6/uL (4.30-6.10); WHITE BLOOD COUNT 15.2 10^3/uL (4.0-10.0)
[2019-12-15 11:58] LABS: BLOOD UREA NITROGEN 28 MG/DL (7-18); CALCIUM LEVEL 8.9 MG/DL (8.8-10.2); CARBON DIOXIDE LEVEL 32 MEQ/L (21-32); CHLORIDE LEVEL 100 MEQ/L (98-107); CREATININE FOR GFR 0.98 MG/DL (0.70-1.30); GLOMERULAR FILTRATION RATE > 60.0 (>42); GLUCOSE, FASTING 116 MG/DL (70-100); POTASSIUM SERUM 4.6 MEQ/L (3.5-5.1); SODIUM LEVEL 137 MEQ/L (136-145)
[2019-12-15] MEDS: LEVOTHYROXINE 137MCG TABLET (0.137MG) PEG SCH (12:52)
--- NOTE | 2019-12-15 13:04 | IPNPDOC ---
PM&R Progress Note DATE OF SERVICE: Dec 15, 2019 [employer] Progress Note Subjective: Patient seen in his room breathing comfortably off oxygen stating his legs sometimes shake when he walks and that he doesn't think it is because he is fatigued. REVIEW OF SYSTEMS: The following is a completed review of systems and has been reviewed. Review of systems otherwise unremarkable. PAIN: Patient self reports no pain EYES: No recent vision changes EARS, NOSE, & THROAT: + dysphagia CARDIOVASCULAR: Denies chest pain or palpitations PULMONARY: Denies shortness of breath GASTROINTESTINAL: Denies constipation/diarrhea GENITOURINARY: denies dysuria MUSCULOSKELETAL: generalized weakness NEUROLOGICAL: denies paresthesias HEMATOLOGICAL: +CML SKIN: rash on back, +Peg PSYCHIATRIC: Unremarkable All other review of systems found to be negative. PHYSICAL EXAMINATION: VITAL SIGNS: Please see below. GENERAL: Pleasant and cooperative. No acute distress. HEENT: PERRL. Extraocular movements intact. Clear conjunctiva CARDIOVASCULAR: Regular rate and rhythm. No murmurs, rubs, or gallops LUNGS: Clear to auscultation bilaterally. No wheezes. +scattered rhonchi (improving) ABDOMEN: Soft, nontender, nondistended. Positive bowel sounds. Normal active bowel sounds, PEG site c/d/i NEUROLOGICAL: Alert and oriented times three. Cranial nerves II through XII grossly intact. Sensation grossly intact (-) babinksi/clonus bilat, (-) Hoffmans (-) thenar or tongue fasiculations EXTREMITIES: 5\\5 strength bilateral upper extremities. 5\\5 strength right lower extremity. 5/5 strength in left lower extremity. (-) edema SKIN: diffuse papular rash on his back and buttock (improved) ASSESSMENT:79-year-old M with past medical history of tongue cancer and COPD who presents status post pneumonia with dysphagia s/p PEG placement PLAN: 1. 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 Neuro: patient with suspicion for some cognitive impairments [employer] ordered- cognition overall improving 3. Cardiac: recent Chest CT with cardiac finding started on ASA,started on low dose metoprolol for PVCs -HLD c/u statin-medicine consulted to assist in overall management -will need cardiology f/u on d/c 4. Resp- s/p course of antibiotics for CAP and aspiration PNA s/p PEG placement 11-27-19, c/u Spiriva, Xopenex prn and standing Duonebs, and Guaifenesin, c/u oral prednisone will decrease to 5mg daily -2nd repeat CXR with no acute changes, but given persistent bibasilar infiltrates- c/u course of Levaquin, cough improving, still with leukocytosis which could still be due to steroids vs CML -on home -c/u acapella -s/p short course of oral lasix, patient does not appear fluid overloaded, but breathing improving 5. Endo: hypothyroidism with elevated TSH on admission, c/u higher dose of Synthroid 137mcg daily at noon when stomach should be empty (feeds 4pm to 8am) 6. DVT ppx: Lovenox and TEDs 7. GI ppx: lansaprazole -PEG feeds, HOB 45 degrees during feeds and one hour post-feeds, aspiration precautions 8. Psych: c/u Prozac 20mg qHS mood improving 9. Pain: Tylenol prn 10. Hypernatremia- resolved, c/u free water boluses at lowered quantity 11. Skin: back rash-improving, c/u daily eucerin moisturizer 12. 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 Dispo: 12-22-19 to home, progressing slowly towards goals Allergies Coded Allergies: amoxicillin (Verified Allergy, Mild, "rash" see comment, 11/09/19) REACTION FROM WAS SO LONG AGO PT DOESN'T EXACTLY REMEMBER, BUT HE BELIEVES IT WAS A RASH clavulanic acid (Verified Allergy, Mild, "rash" see comment, 11/09/19) REACTION FROM WAS SO LONG AGO PT DOESN'T EXACTLY REMEMBER, BUT HE BELIEVES IT WAS A RASH codeine (Verified Allergy, Unknown, 11/09/19) simethicone (Verified Adverse Reaction, Intermediate, drops cause tongue to burn - pt has thrush at this time, 11/13/19) allergy updated per conversation dr. tineo had with patient. oxycodone (Verified Adverse Reaction, Unknown, nausea & vomiting, " i couldn't tolerate it", 11/09/19) Vital Signs Vital Signs Date Time Temp Pulse Resp B/P (MAP) Pulse Ox O2 Delivery O2 Flow Rate FiO2 12/15/19 09:00 1.0 12/15/19 08:26 71 136/74 12/15/19 05:48 97.5 18 95 Nasal Cannula Laboratory Data CBC/BMP Laboratory Tests 12/15/19 11:16 Labs 24H Laboratory Tests 2 12/15/19 11:16: Immature Granulocyte % (Auto) 0.9, Neutrophils (%) (Auto) 87.9H, Lymphocytes (%) (Auto) 3.3L, Monocytes (%) (Auto) 6.6H, Eosinophils (%) (Auto) 0.8, Basophils (%) (Auto) 0.5, Neutrophils # (Auto) 13.4H, Lymphocytes # (Auto) 0.5L, Monocytes # (Auto) 1.0H, Eosinophils # (Auto) 0.1, Basophils # (Auto) 0.1, Nucleated Red Blood Cells % (auto) 0.0, Anion Gap 5L, Glomerular Filtration Rate > 60.0, Calcium Level 8.9 Microbiology Microbiology 12/05/19 Gram Stain - Final, Complete 12/05/19 Sputum Culture - Final, Complete Current Medications Current Medications Current Medications Medications (Trade) Dose Ordered Sig/Jhon Route PRN Reason Start Time Stop Time Status Last Admin Dose Admin Acetaminophen (Tylenol Tab) 650 mg Q4HP PRN PEG fever/MILD PAIN (PS 1-4) 11/30/19 16:45 12/14/19 20:50 Albuterol/ Ipratropium (Duoneb (Ipr 0.5mg/Alb 2.5mg)) 3 ml Q4HP PRN NEB SOB/WHEEZING 12/04/19 04:00 12/04/19 11:31 DC 12/04/19 03:55 Albuterol/ Ipratropium (Duoneb (Ipr 0.5mg/Alb 2.5mg)) 3 ml RQID NEB 12/08/19 12:00 12/15/19 11:17 Albuterol/ Ipratropium (Duoneb (Ipr 0.5mg/Alb 2.5mg)) 3 ml TID NEB 12/04/19 10:00 12/08/19 10:51 DC 12/07/19 13:42 Amlodipine Besylate (Norvasc) 5 mg QHS PEG 11/30/19 21:00 12/06/19 10:43 DC 12/05/19 22:33 Aspirin (Aspirin Chewable) 81 mg DAILY PEG 12/01/19 09:00 12/15/19 08:26 Atorvastatin Calcium (Lipitor) 10 mg QHS PEG 11/30/19 21:00 12/14/19 20:50 Budesonide/ Formoterol Fumarate (Symbicort 160/ 4.5mcg) 2 puff BID INH 11/30/19 21:00 12/15/19 07:09 Calcium Carbonate (Tums) 500 mg TIDP PRN PEG INDIGESTION 11/30/19 16:45 Cetirizine HCl (ZyrTEC) 10 mg DAILY PO 12/01/19 09:00 12/06/19 10:43 DC 12/06/19 08:28 Chlorhexidine Gluconate (Peridex Oral Rinse) 1 ml BID MT 11/30/19 21:00 12/04/19 11:30 DC 12/04/19 09:48 Chlorhexidine Gluconate (Peridex Oral Rinse) 1 ml QID MT 12/04/19 13:00 12/15/19 12:53 Diphenhydramine HCl (Benadryl) 25 mg Q6HP PRN PEG ITCHING 12/01/19 15:30 Emollient Cream (Vanicream) applyto back and up... BID TOP 12/01/19 09:00 12/15/19 08:27 Enoxaparin Sodium (Lovenox) 40 mg DAILY SC 12/01/19 09:00 12/15/19 08:25 Fluoxetine HCl (PROzac) 20 mg QHS PO 12/08/19 21:00 12/14/19 20:51 Furosemide (Lasix) 20 mg DAILY PEG 12/09/19 09:00 12/11/19 12:30 DC 12/11/19 08:01 Guaifenesin (Robitussin) 5 ml QID PEG 11/30/19 21:00 12/15/19 12:52 Lactulose (Cephulac) 30 ml DAILY PRN PO constipation 11/30/19 16:45 11/30/19 17:02 DC Lactulose (Cephulac) 30 ml DAILYPRN PRN PEG constipation 11/30/19 17:15 Lansoprazole (First-Lansoprazole Oral Suspension) 30 mg DAILY PEG 12/01/19 09:00 12/15/19 08:26 Levalbuterol HCl (Xopenex Neb) 1.25 mg Q4HP PRN INH SOB/WHEEZING 11/30/19 16:45 12/08/19 11:07 DC 12/04/19 01:25 Levalbuterol HCl (Xopenex Neb) 1.25 mg RQID INH 11/30/19 20:00 12/04/19 11:49 DC 12/04/19 11:01 Levofloxacin (Levaquin) 750 mg DAILY@06 PEG 12/11/19 12:45 12/17/19 06:01 12/15/19 05:42 Levothyroxine Sodium (Synthroid) 137 mcg DAILY@1200 PEG 12/01/19 12:00 12/15/19 12:52 Losartan Potassium (Cozaar) 25 mg DAILY PEG 12/06/19 09:00 12/08/19 15:47 DC 12/07/19 08:15 Losartan Potassium (Cozaar) 25 mg DAILY@1200 PEG 12/09/19 12:00 12/10/19 13:49 DC 12/09/19 13:14 Losartan Potassium (Cozaar) 50 mg DAILY PEG 12/01/19 09:00 12/05/19 14:11 DC 12/05/19 08:31 Metoprolol Tartrate (Lopressor) 12.5 mg BID NG 12/10/19 21:00 12/12/19 11:50 DC 12/12/19 08:51 Metoprolol Tartrate (Lopressor) 12.5 mg BID PEG 12/12/19 21:00 12/15/19 08:26 Miscellaneous (Unresolved Clarification Entry) SEE LABEL COMMENTS DAILY XX 12/10/19 09:00 12/11/19 11:23 DC Miscellaneous (Unresolved Patient Own Med Order) SEE LABEL COMMENTS DAILY XX 12/11/19 09:00 12/14/19 12:51 DC Nystatin (Mycostatin) 5 ml QID SSP 12/06/19 17:00 12/15/19 12:52 Patient Own Medication (Patient'S Own Med) 300mg = 2 capsules Take ... BID PO 12/14/19 21:00 12/15/19 08:25 Patient Own Medication (Patient'S Own Med) Nilotinib (Tasigna) 15... BID PEG 12/12/19 21:00 12/14/19 12:37 DC Prednisone (Deltasone) 5 mg DAILY PEG 12/01/19 09:00 12/04/19 12:07 DC 12/04/19 09:49 Prednisone (Deltasone) 10 mg DAILY PEG 12/05/19 09:00 12/10/19 13:29 DC 12/10/19 07:34 Prednisone (Deltasone) 10 mg DAILY PEG 12/11/19 09:00 12/15/19 08:26 Ramelteon (Rozerem) 8 mg QHS PEG 11/30/19 21:00 12/07/19 13:45 DC 12/06/19 20:17 Saliva Substitute (Mouthkote) USE DIRECTED QID MT 11/30/19 21:00 12/14/19 20:53 Tiotropium [place] (Spiriva Handihaler) 1 inhalation DAILY@08 INH 12/01/19 08:00 12/15/19 07:09 CECY DOMINGUEZ MD Dec 15, 2019 13:04
[2019-12-15 14:00] VITALS: BP 128/68
[2019-12-15 20:30] VITALS: BP 122/59
[2019-12-15] MEDS: ATORVASTATIN 10 MG TAB PEG SCH (20:43)
[2019-12-15] MEDS: FLUoxetine 20 MG CAP PO SCH (20:44)
[2019-12-15] MEDS: ACETAMINOPHEN TAB 650MG DOSE (2X325MG) PEG PRN (20:44)
[2019-12-16 06:06] VITALS: BP_SYST 139; BP_SYST 152; BP_DIAS 65; BP_DIAS 77
[2019-12-16] MEDS: LevoFLOXacin 750 MG TABLET PEG SCH (06:37)
[2019-12-16] MEDS: SYMBICORT 160/4.5MCG INHALER 6GM INH SCH ×2 (07:52→20:02)
[2019-12-16] MEDS: IPRATROPIUM 0.5MG/ALBUTEROL 2.5MG INH SOL UD 3ML (DUONEB)(J7620) NEB SCH ×4 (07:52→20:00)
[2019-12-16] MEDS: TIOTROPIUM INHALER/CAPSULE (SPIRIVA) INH SCH (07:52)
[2019-12-16] MEDS: ASPIRIN 81 MG CHEW TABLET PEG SCH (09:29)
[2019-12-16] MEDS: guaiFENesin SYRUP 200 MG/10 ML UDC PEG SCH ×4 (09:29→21:00)
[2019-12-16] MEDS: METOPROLOL TART 12.5 MG PER 1/2 TAB PEG SCH ×2 (09:30→21:01)
[2019-12-16] MEDS: NYSTATIN 500,000 U/5 ML SUSP UDC SSP SCH ×4 (09:30→20:52)
[2019-12-16] MEDS: CHLORHEXIDINE GLUCONATE 0.12 % 15ML UDC (PERIDEX ORAL RINSE) MT SCH ×4 (09:30→20:52)
[2019-12-16] MEDS: predniSONE 5 MG TAB PEG SCH (09:30)
[2019-12-16] MEDS: ENOXAPARIN 40MG/0.4ML SYRINGE (J1650 PER 10MG) SC SCH (09:30)
[2019-12-16] MEDS: LANSOPRAZOLE SUSPENSION 30 MG/10 ML ORAL SYRINGE (FIRST-LANSOPRAZOLE) PEG SCH (09:30)
[2019-12-16] MEDS: NILOTINIB 150 MG PO SCH ×2 (09:31→20:51)
[2019-12-16] MEDS: LEVOTHYROXINE 137MCG TABLET (0.137MG) PEG SCH (12:38)
[2019-12-16] MEDS: REMEDY PHYTOPLEX Z-GUARD PASTE 113GM TUBE (FROM STOREROOM PRODUCT) TOP SCH ×3 (12:44→20:59)
[2019-12-16] MEDS: SALIVA SUBSTITUTE(MOUTHKOTE) BTL MT SCH ×4 (12:44→20:52)
[2019-12-16] MEDS: VANICREAM MOISTURIZING SKIN CREAM 113GM TUBE TOP SCH ×2 (12:45→20:59)
[2019-12-16 14:00] VITALS: BP 136/67
[2019-12-16] MEDS: ACETAMINOPHEN TAB 650MG DOSE (2X325MG) PEG PRN ×2 (16:46→21:00)
[2019-12-16 20:30] VITALS: BP 124/62
[2019-12-16] MEDS: FLUoxetine 20 MG CAP PO SCH (20:59)
[2019-12-16] MEDS: ATORVASTATIN 10 MG TAB PEG SCH (20:59)
[2019-12-17] MEDS: LevoFLOXacin 750 MG TABLET PEG SCH (05:37)
[2019-12-17 06:00] VITALS: BP 161/70
[2019-12-17] MEDS: NILOTINIB 150 MG PO SCH ×2 (07:20→21:04)
[2019-12-17] MEDS: NYSTATIN 500,000 U/5 ML SUSP UDC SSP SCH ×4 (07:20→21:11)
[2019-12-17] MEDS: guaiFENesin SYRUP 200 MG/10 ML UDC PEG SCH ×4 (07:21→21:11)
[2019-12-17] MEDS: METOPROLOL TART 12.5 MG PER 1/2 TAB PEG SCH ×2 (07:21→21:11)
[2019-12-17] MEDS: LANSOPRAZOLE SUSPENSION 30 MG/10 ML ORAL SYRINGE (FIRST-LANSOPRAZOLE) PEG SCH (07:21)
[2019-12-17] MEDS: CHLORHEXIDINE GLUCONATE 0.12 % 15ML UDC (PERIDEX ORAL RINSE) MT SCH ×4 (07:21→21:12)
[2019-12-17] MEDS: ENOXAPARIN 40MG/0.4ML SYRINGE (J1650 PER 10MG) SC SCH (07:22)
[2019-12-17] MEDS: predniSONE 5 MG TAB PEG SCH (07:22)
[2019-12-17] MEDS: ASPIRIN 81 MG CHEW TABLET PEG SCH (07:22)
[2019-12-17] MEDS: SALIVA SUBSTITUTE(MOUTHKOTE) BTL MT SCH ×4 (07:23→21:12)
[2019-12-17] MEDS: REMEDY PHYTOPLEX Z-GUARD PASTE 113GM TUBE (FROM STOREROOM PRODUCT) TOP SCH ×3 (07:23→21:11)
[2019-12-17] MEDS: VANICREAM MOISTURIZING SKIN CREAM 113GM TUBE TOP SCH ×2 (07:24→21:11)
[2019-12-17] MEDS: TIOTROPIUM INHALER/CAPSULE (SPIRIVA) INH SCH (07:49)
[2019-12-17] MEDS: IPRATROPIUM 0.5MG/ALBUTEROL 2.5MG INH SOL UD 3ML (DUONEB)(J7620) NEB SCH ×4 (07:49→19:54)
[2019-12-17] MEDS: SYMBICORT 160/4.5MCG INHALER 6GM INH SCH ×2 (07:49→19:53)
[2019-12-17] MEDS: LEVOTHYROXINE 137MCG TABLET (0.137MG) PEG SCH (12:28)
[2019-12-17 14:00] VITALS: BP 137/66
[2019-12-17 20:00] VITALS: BP 121/67
[2019-12-17] MEDS: ATORVASTATIN 10 MG TAB PEG SCH (21:11)
[2019-12-17] MEDS: FLUoxetine 20 MG CAP PO SCH (21:11)
[2019-12-18 06:00] VITALS: BP 160/74
[2019-12-18] MEDS: IPRATROPIUM 0.5MG/ALBUTEROL 2.5MG INH SOL UD 3ML (DUONEB)(J7620) NEB SCH ×4 (08:00→20:48)
[2019-12-18] MEDS: SYMBICORT 160/4.5MCG INHALER 6GM INH SCH ×2 (08:04→20:48)
[2019-12-18] MEDS: TIOTROPIUM INHALER/CAPSULE (SPIRIVA) INH SCH (08:04)
[2019-12-18] MEDS: CHLORHEXIDINE GLUCONATE 0.12 % 15ML UDC (PERIDEX ORAL RINSE) MT SCH ×4 (08:27→21:12)
[2019-12-18] MEDS: LANSOPRAZOLE SUSPENSION 30 MG/10 ML ORAL SYRINGE (FIRST-LANSOPRAZOLE) PEG SCH (08:27)
[2019-12-18] MEDS: NILOTINIB 150 MG PO SCH ×2 (08:27→21:15)
[2019-12-18] MEDS: NYSTATIN 500,000 U/5 ML SUSP UDC SSP SCH ×4 (08:28→21:15)
[2019-12-18] MEDS: ENOXAPARIN 40MG/0.4ML SYRINGE (J1650 PER 10MG) SC SCH (08:28)
[2019-12-18] MEDS: guaiFENesin SYRUP 200 MG/10 ML UDC PEG SCH ×2 (08:28→13:01)
[2019-12-18] MEDS: METOPROLOL TART 12.5 MG PER 1/2 TAB PEG SCH ×2 (08:29→21:13)
[2019-12-18] MEDS: ASPIRIN 81 MG CHEW TABLET PEG SCH (08:29)
[2019-12-18] MEDS: predniSONE 5 MG TAB PEG SCH (08:29)
[2019-12-18] MEDS: SALIVA SUBSTITUTE(MOUTHKOTE) BTL MT SCH ×4 (08:29→21:14)
[2019-12-18] MEDS: REMEDY PHYTOPLEX Z-GUARD PASTE 113GM TUBE (FROM STOREROOM PRODUCT) TOP SCH ×3 (08:30→21:15)
[2019-12-18] MEDS: VANICREAM MOISTURIZING SKIN CREAM 113GM TUBE TOP SCH ×2 (08:30→21:16)
[2019-12-18 08:38] LABS: BASO # 0.1 10^3/uL (0.0-0.2); BASO % 0.4 % (0.0-1.0); EOS # 0.2 10^3/uL (0.0-0.5); EOS % 1.3 % (0.0-3.0); HEMATOCRIT 30.7 % (42.0-52.0); HEMOGLOBIN 9.8 g/dl (13.5-17.5); LYMPH # 0.6 10^3/uL (1.5-5.0); LYMPH % 4.6 % (24.0-44.0); MEAN CORPUSCULAR HEMOGLOBIN 29.7 pg (27.0-33.0); MEAN CORPUSCULAR HGB CONC 31.9 g/dl (32.0-36.5); MONO # 1.2 10^3/uL (0.0-0.8); MONO % 9.4 % (0.0-5.0); NEUTROPHILS # 10.6 10^3/uL (1.5-8.5); NEUTROPHILS % 83.3 % (36.0-66.0); PLATELET COUNT, AUTOMATED 376 10^3/uL (150-450); WHITE BLOOD COUNT 12.7 10^3/uL (4.0-10.0)
[2019-12-18 08:55] LABS: BLOOD UREA NITROGEN 21 MG/DL (7-18); CALCIUM LEVEL 8.2 MG/DL (8.8-10.2); CARBON DIOXIDE LEVEL 28 MEQ/L (21-32); CHLORIDE LEVEL 104 MEQ/L (98-107); CREATININE FOR GFR 0.89 MG/DL (0.70-1.30); GLOMERULAR FILTRATION RATE > 60.0 (>42); GLUCOSE, FASTING 128 MG/DL (70-100); POTASSIUM SERUM 4.1 MEQ/L (3.5-5.1); SODIUM LEVEL 138 MEQ/L (136-145)
[2019-12-18] MEDS ORDERED: LIDOCAINE 5% (LIDODERM) PATCH TD SCH ×2 (09:00→16:12)
[2019-12-18] MEDS: LEVOTHYROXINE 137MCG TABLET (0.137MG) PEG SCH (13:01)
[2019-12-18 14:37] VITALS: BP 120/65
--- NOTE | 2019-12-18 15:40 | IPNPDOC ---
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 He reports his left knee is sore, but denies falling or twisting it. REVIEW OF SYSTEMS: The following is a completed review of systems and has been reviewed. Review of systems otherwise unremarkable. PAIN: Patient self reports no pain EYES: No recent vision changes EARS, NOSE, & THROAT: + dysphagia CARDIOVASCULAR: Denies chest pain or palpitations PULMONARY: Denies shortness of breath GASTROINTESTINAL: Denies constipation/diarrhea GENITOURINARY: denies dysuria MUSCULOSKELETAL: generalized weakness NEUROLOGICAL: denies paresthesias HEMATOLOGICAL: +CML SKIN: rash on back, +Peg PSYCHIATRIC: Unremarkable All other review of systems found to be negative. PHYSICAL EXAMINATION: VITAL SIGNS: Please see below. GENERAL: Pleasant and cooperative. No acute distress. HEENT: PERRL. Extraocular movements intact. Clear conjunctiva CARDIOVASCULAR: Regular rate and rhythm. No murmurs, rubs, or gallops LUNGS: Clear to auscultation bilaterally. No wheezes. +scattered rhonchi (improving) ABDOMEN: Soft, nontender, nondistended. Positive bowel sounds. Normal active bowel sounds, PEG site c/d/i NEUROLOGICAL: Alert and oriented times three. Cranial nerves II through XII grossly intact. Sensation grossly intact (-) babinksi/clonus bilat, (-) Hoffmans (-) thenar or tongue fasciculations EXTREMITIES: 5\\5 strength bilateral upper extremities. 5\\5 strength right lower extremity. 5/5 strength in left lower extremity. (-) edema (+) TTP left medial joint line SKIN: diffuse papular rash on his back and buttock (improved) ASSESSMENT:79-year-old M with past medical history of tongue cancer and COPD who presents status post pneumonia with dysphagia s/p PEG placement PLAN: 1. 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 Neuro: patient with suspicion for some cognitive impairments PSYCHOPAEDIC NURSE ordered- cognition overall improving 3. Cardiac: recent Chest CT with cardiac finding started on ASA,started on low dose metoprolol for PVCs -HLD c/u statin-medicine consulted to assist in overall management -will need cardiology f/u on d/c 4. Resp- s/p course of antibiotics for CAP and aspiration PNA s/p PEG placement 11-27-19, c/u Spiriva, Xopenex prn and standing Duonebs, and Guaifenesin, c/u oral prednisone will decrease to 5mg daily -2nd repeat CXR with no acute changes, but given persistent bibasilar infiltrates- c/u course of Levaquin, cough improving, still with leukocytosis which could still be due to steroids vs CML -on home -c/u acapella -s/p short course of oral lasix, patient does not appear fluid overloaded, but breathing improving 5. Endo: hypothyroidism with elevated TSH on admission, c/u higher dose of Synthroid 137mcg daily 6. DVT ppx: Lovenox and TEDs 7. GI ppx: lansaprazole -PEG feeds, HOB 45 degrees during feeds and one hour post-feeds, aspiration precautions -patient today has opted to try daytime feeds, will start to educate patient on self-administration -shaffer water protocol instated today 8. Psych: c/u Prozac 20mg qHS mood improving 9. Pain: Tylenol prn, lidoderm patch to left knee with kinesiotaping 10. Hypernatremia- resolved, c/u free water boluses at lowered quantity 11. Skin: back rash-improving, c/u daily eucerin moisturizer 12. 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 Dispo: 12-22-19 to home, progressing slowly towards goals Allergies Coded Allergies: amoxicillin (Verified Allergy, Mild, "rash" see comment, 11/09/19) REACTION FROM WAS SO LONG AGO PT DOESN'T EXACTLY REMEMBER, BUT HE BELIEVES IT WAS A RASH clavulanic acid (Verified Allergy, Mild, "rash" see comment, 11/09/19) REACTION FROM WAS SO LONG AGO PT DOESN'T EXACTLY REMEMBER, BUT HE BELIEVES IT WAS A RASH codeine (Verified Allergy, Unknown, 11/09/19) simethicone (Verified Adverse Reaction, Intermediate, drops cause tongue to burn - pt has thrush at this time, 11/13/19) allergy updated per conversation dr. tineo had with patient. oxycodone (Verified Adverse Reaction, Unknown, nausea & vomiting, " i couldn't tolerate it", 11/09/19) Vital Signs Vital Signs Date Time Temp Pulse Resp B/P (MAP) Pulse Ox O2 Delivery O2 Flow Rate FiO2 12/18/19 14:37 98.8 80 18 120/65 (83) 95 Room Air 12/18/19 09:00 1.0 Laboratory Data CBC/BMP Laboratory Tests 12/18/19 08:11 Labs 24H Laboratory Tests 2 12/18/19 08:11: Immature Granulocyte % (Auto) 1.0, Neutrophils (%) (Auto) 83.3H, Lymphocytes (%) (Auto) 4.6L, Monocytes (%) (Auto) 9.4H, Eosinophils (%) (Auto) 1.3, Basophils (%) (Auto) 0.4, Neutrophils # (Auto) 10.6H, Lymphocytes # (Auto) 0.6L, Monocytes # (Auto) 1.2H, Eosinophils # (Auto) 0.2, Basophils # (Auto) 0.1, Nucleated Red Blood Cells % (auto) 0.0, Anion Gap 6L, Glomerular Filtration Rate > 60.0, Calcium Level 8.2L Current Medications Current Medications Current Medications Medications (Trade) Dose Ordered Sig/Jhon Route PRN Reason Start Time Stop Time Status Last Admin Dose Admin Acetaminophen (Tylenol Tab) 650 mg Q4HP PRN PEG fever/MILD PAIN (PS 1-4) 11/30/19 16:45 12/16/19 21:00 Albuterol/ Ipratropium (Duoneb (Ipr 0.5mg/Alb 2.5mg)) 3 ml Q4HP PRN NEB SOB/WHEEZING 12/04/19 04:00 12/04/19 11:31 DC 12/04/19 03:55 Albuterol/ Ipratropium (Duoneb (Ipr 0.5mg/Alb 2.5mg)) 3 ml RQID NEB 12/08/19 12:00 12/18/19 13:08 Albuterol/ Ipratropium (Duoneb (Ipr 0.5mg/Alb 2.5mg)) 3 ml TID NEB 12/04/19 10:00 12/08/19 10:51 DC 12/07/19 13:42 Amlodipine Besylate (Norvasc) 5 mg QHS PEG 11/30/19 21:00 12/06/19 10:43 DC 12/05/19 22:33 Aspirin (Aspirin Chewable) 81 mg DAILY PEG 12/01/19 09:00 12/18/19 08:29 Atorvastatin Calcium (Lipitor) 10 mg QHS PEG 11/30/19 21:00 12/17/19 21:11 Budesonide/ Formoterol Fumarate (Symbicort 160/ 4.5mcg) 2 puff BID INH 11/30/19 21:00 12/18/19 08:04 Calcium Carbonate (Tums) 500 mg TIDP PRN PEG INDIGESTION 11/30/19 16:45 Cetirizine HCl (ZyrTEC) 10 mg DAILY PO 12/01/19 09:00 12/06/19 10:43 DC 12/06/19 08:28 Chlorhexidine Gluconate (Peridex Oral Rinse) 1 ml BID MT 11/30/19 21:00 12/04/19 11:30 DC 12/04/19 09:48 Chlorhexidine Gluconate (Peridex Oral Rinse) 1 ml QID MT 12/04/19 13:00 12/18/19 13:02 Diphenhydramine HCl (Benadryl) 25 mg Q6HP PRN PEG ITCHING 12/01/19 15:30 Emollient Cream (Vanicream) applyto back and up... BID TOP 12/01/19 09:00 12/18/19 08:30 Enoxaparin Sodium (Lovenox) 40 mg DAILY SC 12/01/19 09:00 12/18/19 08:28 Fluoxetine HCl (PROzac) 20 mg QHS PO 12/08/19 21:00 12/17/19 21:11 Furosemide (Lasix) 20 mg DAILY PEG 12/09/19 09:00 12/11/19 12:30 DC 12/11/19 08:01 Guaifenesin (Robitussin) 5 ml QID PEG 11/30/19 21:00 12/18/19 13:01 Lactulose (Cephulac) 30 ml DAILY PRN PO constipation 11/30/19 16:45 11/30/19 17:02 DC Lactulose (Cephulac) 30 ml DAILYPRN PRN PEG constipation 11/30/19 17:15 Lansoprazole (First-Lansoprazole Oral Suspension) 30 mg DAILY PEG 12/01/19 09:00 12/18/19 08:27 Levalbuterol HCl (Xopenex Neb) 1.25 mg Q4HP PRN INH SOB/WHEEZING 11/30/19 16:45 12/08/19 11:07 DC 12/04/19 01:25 Levalbuterol HCl (Xopenex Neb) 1.25 mg RQID INH 11/30/19 20:00 12/04/19 11:49 DC 12/04/19 11:01 Levofloxacin (Levaquin) 750 mg DAILY@06 PEG 12/11/19 12:45 12/17/19 06:01 DC 12/17/19 05:37 Levothyroxine Sodium (Synthroid) 137 mcg DAILY@1200 PEG 12/01/19 12:00 12/18/19 13:01 Lidocaine (Lidoderm Patch) 1 patch DAILY TD 12/18/19 09:00 Losartan Potassium (Cozaar) 25 mg DAILY PEG 12/06/19 09:00 12/08/19 15:47 DC 12/07/19 08:15 Losartan Potassium (Cozaar) 25 mg DAILY@1200 PEG 12/09/19 12:00 12/10/19 13:49 DC 12/09/19 13:14 Losartan Potassium (Cozaar) 50 mg DAILY PEG 12/01/19 09:00 12/05/19 14:11 DC 12/05/19 08:31 Metoprolol Tartrate (Lopressor) 12.5 mg BID NG 12/10/19 21:00 12/12/19 11:50 DC 12/12/19 08:51 Metoprolol Tartrate (Lopressor) 12.5 mg BID PEG 12/12/19 21:00 12/18/19 08:29 Miscellaneous (Unresolved Clarification Entry) SEE LABEL COMMENTS DAILY XX 12/17/19 09:00 12/18/19 10:42 DC Miscellaneous (Unresolved Clarification Entry) SEE LABEL COMMENTS DAILY XX 12/10/19 09:00 12/11/19 11:23 DC Miscellaneous (Unresolved Patient Own Med Order) SEE LABEL COMMENTS DAILY XX 12/11/19 09:00 12/14/19 12:51 DC Non-Formulary Medication ( See Comment Field Below ) REMOVE LIDODERM PATCH DAILY@21 XX 12/18/19 21:00 Nystatin (Mycostatin) 5 ml QID SSP 12/06/19 17:00 12/18/19 13:01 Patient Own Medication (Patient'S Own Med) 300mg = 2 capsules Take ... BID PO 12/14/19 21:00 12/18/19 08:27 Patient Own Medication (Patient'S Own Med) Nilotinib (Tasigna) 15... BID PEG 12/12/19 21:00 12/14/19 12:37 DC Prednisone (Deltasone) 5 mg DAILY PEG 12/01/19 09:00 12/04/19 12:07 DC 12/04/19 09:49 Prednisone (Deltasone) 5 mg DAILY PEG 12/16/19 09:00 12/18/19 08:29 Prednisone (Deltasone) 10 mg DAILY PEG 12/05/19 09:00 12/10/19 13:29 DC 12/10/19 07:34 Prednisone (Deltasone) 10 mg DAILY PEG 12/11/19 09:00 12/15/19 13:04 DC 12/15/19 08:26 Ramelteon (Rozerem) 8 mg QHS PEG 11/30/19 21:00 12/07/19 13:45 DC 12/06/19 20:17 Saliva Substitute (Mouthkote) USE DIRECTED QID MT 11/30/19 21:00 12/17/19 21:12 Tiotropium [place] (Spiriva Handihaler) 1 inhalation DAILY@08 INH 12/01/19 08:00 12/18/19 08:04 CECY DOMINGUEZ MD Dec 18, 2019 15:40
[2019-12-18] MEDS ORDERED: ASPIRIN 81 MG CHEW TABLET PEG SCH (16:09)
[2019-12-18] MEDS ORDERED: ATORVASTATIN 10 MG TAB PEG SCH (16:10)
[2019-12-18] MEDS ORDERED: LANSOPRAZOLE SUSPENSION 30 MG/10 ML ORAL SYRINGE (FIRST-LANSOPRAZOLE) PEG SCH (16:11)
[2019-12-18] MEDS ORDERED: FLUoxetine 20 MG CAP PO SCH (16:11)
[2019-12-18] MEDS ORDERED: predniSONE 5 MG TAB PEG SCH (16:14)
[2019-12-18 20:00] VITALS: BP 119/65
[2019-12-18] MEDS ORDERED: **NOTE PATIENT COMMENT** MISC XX SCH (21:00)
[2019-12-18] MEDS: ACETAMINOPHEN TAB 650MG DOSE (2X325MG) PEG PRN (21:22)
[2019-12-19 06:00] VITALS: BP 135/75
[2019-12-19] MEDS ORDERED: LEVOTHYROXINE 137MCG TABLET (0.137MG) PEG SCH ×2 (06:00→07:00)
[2019-12-19] MEDS: ENOXAPARIN 40MG/0.4ML SYRINGE (J1650 PER 10MG) SC SCH (06:16)
[2019-12-19 06:17] VITALS: BP 135/75
[2019-12-19] MEDS: METOPROLOL TART 12.5 MG PER 1/2 TAB PEG SCH (06:17)
[2019-12-19] MEDS: NILOTINIB 150 MG PO SCH (06:18)
[2019-12-19] MEDS: IPRATROPIUM 0.5MG/ALBUTEROL 2.5MG INH SOL UD 3ML (DUONEB)(J7620) NEB SCH ×3 (07:35→15:17)
[2019-12-19] MEDS: SYMBICORT 160/4.5MCG INHALER 6GM INH SCH ×2 (07:35→18:32)
[2019-12-19] MEDS: TIOTROPIUM INHALER/CAPSULE (SPIRIVA) INH SCH (07:35)
[2019-12-19] MEDS: CHLORHEXIDINE GLUCONATE 0.12 % 15ML UDC (PERIDEX ORAL RINSE) MT SCH ×4 (07:52→20:28)
[2019-12-19] MEDS: NYSTATIN 500,000 U/5 ML SUSP UDC SSP SCH ×4 (07:52→20:28)
[2019-12-19] MEDS: VANICREAM MOISTURIZING SKIN CREAM 113GM TUBE TOP SCH ×2 (07:53→20:30)
[2019-12-19] MEDS: SALIVA SUBSTITUTE(MOUTHKOTE) BTL MT SCH ×4 (07:53→20:32)
[2019-12-19] MEDS: REMEDY PHYTOPLEX Z-GUARD PASTE 113GM TUBE (FROM STOREROOM PRODUCT) TOP SCH ×3 (07:53→20:29)
[2019-12-19 14:45] VITALS: BP 109/44
--- NOTE | 2019-12-19 15:56 | IPNPDOC ---
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 He reports he otherwise feels stronger and is able to walk further. REVIEW OF SYSTEMS: The following is a completed review of systems and has been reviewed. Review of systems otherwise unremarkable. PAIN: Patient self reports no pain EYES: No recent vision changes EARS, NOSE, & THROAT: + dysphagia CARDIOVASCULAR: Denies chest pain or palpitations PULMONARY: Denies shortness of breath GASTROINTESTINAL: Denies constipation/diarrhea GENITOURINARY: denies dysuria MUSCULOSKELETAL: generalized weakness NEUROLOGICAL: denies paresthesias HEMATOLOGICAL: +CML SKIN: rash on back, +Peg PSYCHIATRIC: Unremarkable All other review of systems found to be negative. PHYSICAL EXAMINATION: VITAL SIGNS: Please see below. GENERAL: Pleasant and cooperative. No acute distress. HEENT: PERRL. Extraocular movements intact. Clear conjunctiva CARDIOVASCULAR: Regular rate and rhythm. No murmurs, rubs, or gallops LUNGS: Clear to auscultation bilaterally. No wheezes. +scattered rhonchi (improving) ABDOMEN: Soft, nontender, nondistended. Positive bowel sounds. Normal active bowel sounds, PEG site c/d/i NEUROLOGICAL: Alert and oriented times three. Cranial nerves II through XII grossly intact. Sensation grossly intact (-) babinksi/clonus bilat, (-) Hoffmans (-) thenar or tongue fasciculations EXTREMITIES: 5\\5 strength bilateral upper extremities. 5\\5 strength right lower extremity. 5/5 strength in left lower extremity. (-) edema (+) TTP left medial joint line (improved) SKIN: diffuse papular rash on his back and buttock (improved) ASSESSMENT:79-year-old M with past medical history of tongue cancer and COPD who presents status post pneumonia with dysphagia s/p PEG placement PLAN: 1. 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 Neuro: patient with suspicion for some cognitive impairments TELEGRAPH OFFICE TELEPHONE CLERK ordered- cognition overall improving -patient has been having intermittent left leg shaking in therapy, most often first thing in the morning, no tone, sensory changes, or considerable weakness on exam, causes unclear at this time, recommend stretching left leg prior to standing and will consider further work-up/treatment if this does not help- will consider muscle relaxant once orthostatics improve 3. Cardiac: recent Chest CT with cardiac finding started on ASA,started on low dose metoprolol for PVCs, however will d/c these as patient having orthostatics with dizziness int he morning -HLD c/u statin-medicine consulted to assist in overall management -will need cardiology f/u on d/c 4. Resp- s/p course of antibiotics for CAP and aspiration PNA s/p PEG placement 11-27-19, c/u Spiriva, Xopenex prn and standing Duonebs, and Guaifenesin, c/u oral prednisone will decrease to 5mg daily -2nd repeat CXR with no acute changes, but given persistent bibasilar infiltrates- s/p course of Levaquin, cough improving, still with leukocytosis which could still be due to steroids vs CML -on home -c/u acapella -s/p short course of oral lasix, patient does not appear fluid overloaded, but breathing improving 5. Endo: hypothyroidism with elevated TSH on admission, c/u higher dose of Synthroid 137mcg daily 6. DVT ppx: Lovenox and TEDs 7. GI ppx: lansaprazole -PEG feeds, HOB 45 degrees during feeds and one hour post-feeds, aspiration precautions -c/u daytime feeds, will start to educate patient on self-administration -c/u shaffer water protocol 8. Psych: c/u Prozac 20mg qHS mood improving 9. Pain: Tylenol prn, c/u left knee with kinesiotaping 10. Hypernatremia- resolved, c/u free water boluses at lowered quantity 11. Skin: back rash-improving, c/u daily eucerin moisturizer 12. 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 Dispo: 12-22-19 to home with ex- for a period of time Allergies Coded Allergies: amoxicillin (Verified Allergy, Mild, "rash" see comment, 11/09/19) REACTION FROM WAS SO LONG AGO PT DOESN'T EXACTLY REMEMBER, BUT HE BELIEVES IT WAS A RASH clavulanic acid (Verified Allergy, Mild, "rash" see comment, 11/09/19) REACTION FROM WAS SO LONG AGO PT DOESN'T EXACTLY REMEMBER, BUT HE BELIEVES IT WAS A RASH codeine (Verified Allergy, Unknown, 11/09/19) simethicone (Verified Adverse Reaction, Intermediate, drops cause tongue to burn - pt has thrush at this time, 11/13/19) allergy updated per conversation dr. tineo had with patient. oxycodone (Verified Adverse Reaction, Unknown, nausea & vomiting, " i couldn't tolerate it", 11/09/19) Vital Signs Vital Signs Date Time Temp Pulse Resp B/P (MAP) Pulse Ox O2 Delivery O2 Flow Rate FiO2 12/19/19 14:45 98.0 64 18 109/44 (65) 95 Room Air 12/18/19 09:00 1.0 Current Medications Current Medications Current Medications Medications (Trade) Dose Ordered Sig/Jhon Route PRN Reason Start Time Stop Time Status Last Admin Dose Admin Acetaminophen (Tylenol Tab) 650 mg Q4HP PRN PEG fever/MILD PAIN (PS 1-4) 11/30/19 16:45 12/19/19 15:54 DC 12/18/19 21:22 Acetaminophen (Tylenol Tab) 650 mg Q4HP PRN PO fever/MILD PAIN (PS 1-4) 12/19/19 16:00 UNV Albuterol/ Ipratropium (Duoneb (Ipr 0.5mg/Alb 2.5mg)) 3 ml Q4HP PRN NEB SOB/WHEEZING 12/04/19 04:00 12/04/19 11:31 DC 12/04/19 03:55 Albuterol/ Ipratropium (Duoneb (Ipr 0.5mg/Alb 2.5mg)) 3 ml RQID NEB 12/08/19 12:00 12/19/19 15:45 DC 12/19/19 15:17 Albuterol/ Ipratropium (Duoneb (Ipr 0.5mg/Alb 2.5mg)) 3 ml TID NEB 12/04/19 10:00 12/08/19 10:51 DC 12/07/19 13:42 Amlodipine Besylate (Norvasc) 5 mg QHS PEG 11/30/19 21:00 12/06/19 10:43 DC 12/05/19 22:33 Aspirin (Aspirin Chewable) 81 mg DAILY PEG 12/01/19 09:00 12/18/19 16:09 DC 12/18/19 08:29 Aspirin (Aspirin Chewable) 81 mg DAILY PO 12/20/19 09:00 UNV Aspirin (Aspirin Chewable) 81 mg DAILY@0700 PEG 12/18/19 16:09 12/19/19 15:54 DC 12/19/19 06:16 Atorvastatin Calcium (Lipitor) 10 mg QHS PEG 11/30/19 21:00 12/18/19 16:10 DC 12/17/19 21:11 Atorvastatin Calcium (Lipitor) 10 mg QHS PO 12/19/19 21:00 UNV Atorvastatin Calcium (Lipitor) 10 mg QHS@1900 PEG 12/18/19 16:10 12/19/19 15:54 DC 12/18/19 21:13 Budesonide/ Formoterol Fumarate (Symbicort 160/ 4.5mcg) 2 puff BID INH 11/30/19 21:00 12/19/19 07:35 Calcium Carbonate (Tums) 500 mg TIDP PRN PEG INDIGESTION 11/30/19 16:45 12/19/19 15:54 DC Cetirizine HCl (ZyrTEC) 10 mg DAILY PO 12/01/19 09:00 12/06/19 10:43 DC 12/06/19 08:28 Chlorhexidine Gluconate (Peridex Oral Rinse) 1 ml BID MT 11/30/19 21:00 12/04/19 11:30 DC 12/04/19 09:48 Chlorhexidine Gluconate (Peridex Oral Rinse) 1 ml QID MT 12/04/19 13:00 12/19/19 13:42 Diphenhydramine HCl (Benadryl) 25 mg Q6HP PRN PEG ITCHING 12/01/19 15:30 Emollient Cream (Vanicream) applyto back and up... BID TOP 12/01/19 09:00 12/19/19 07:53 Enoxaparin Sodium (Lovenox) 40 mg DAILY SC 12/01/19 09:00 12/18/19 16:10 DC 12/18/19 08:28 Enoxaparin Sodium (Lovenox) 40 mg DAILY@0700 SC 12/18/19 16:10 12/19/19 06:16 Fluoxetine HCl (PROzac) 20 mg QHS PO 12/19/19 21:00 UNV Fluoxetine HCl (PROzac) 20 mg QHS PO 12/08/19 21:00 12/18/19 16:11 DC 12/17/19 21:11 Fluoxetine HCl (PROzac) 20 mg QHS@1900 PO 12/18/19 16:11 12/19/19 15:54 DC 12/18/19 21:14 Furosemide (Lasix) 20 mg DAILY PEG 12/09/19 09:00 12/11/19 12:30 DC 12/11/19 08:01 Guaifenesin (Robitussin) 5 ml QID PEG 11/30/19 21:00 12/18/19 16:12 DC 12/18/19 13:01 Lactulose (Cephulac) 30 ml DAILY PRN PO constipation 11/30/19 16:45 11/30/19 17:02 DC Lactulose (Cephulac) 30 ml DAILYPRN PRN PEG constipation 11/30/19 17:15 12/19/19 15:54 DC Lansoprazole (First-Lansoprazole Oral Suspension) 30 mg DAILY PEG 12/01/19 09:00 12/18/19 16:11 DC 12/18/19 08:27 Lansoprazole (First-Lansoprazole Oral Suspension) 30 mg DAILY@0700 PEG 12/18/19 16:11 12/19/19 15:54 DC 12/19/19 06:15 Levalbuterol HCl (Xopenex Neb) 1.25 mg Q4HP PRN INH SOB/WHEEZING 11/30/19 16:45 12/08/19 11:07 DC 12/04/19 01:25 Levalbuterol HCl (Xopenex Neb) 1.25 mg RQID INH 11/30/19 20:00 12/04/19 11:49 DC 12/04/19 11:01 Levofloxacin (Levaquin) 750 mg DAILY@06 PEG 12/11/19 12:45 12/17/19 06:01 DC 12/17/19 05:37 Levothyroxine Sodium (Synthroid) 137 mcg DAILY@0600 PEG 12/19/19 06:00 12/18/19 16:10 DC Levothyroxine Sodium (Synthroid) 137 mcg DAILY@0600 PO 12/20/19 06:00 UNV Levothyroxine Sodium (Synthroid) 137 mcg DAILY@0700 PEG 12/19/19 07:00 12/19/19 15:54 DC 12/19/19 06:16 Levothyroxine Sodium (Synthroid) 137 mcg DAILY@1200 PEG 12/01/19 12:00 12/18/19 15:39 DC 12/18/19 13:01 Lidocaine (Lidoderm Patch) 1 patch DAILY TD 12/18/19 09:00 12/18/19 16:12 DC Lidocaine (Lidoderm Patch) 1 patch DAILY@0700 TD 12/18/19 16:12 12/19/19 10:21 DC Losartan Potassium (Cozaar) 25 mg DAILY PEG 12/06/19 09:00 12/08/19 15:47 DC 12/07/19 08:15 Losartan Potassium (Cozaar) 25 mg DAILY@1200 PEG 12/09/19 12:00 12/10/19 13:49 DC 12/09/19 13:14 Losartan Potassium (Cozaar) 50 mg DAILY PEG 12/01/19 09:00 12/05/19 14:11 DC 12/05/19 08:31 Metoprolol Tartrate (Lopressor) 12.5 mg BID NG 12/10/19 21:00 12/12/19 11:50 DC 12/12/19 08:51 Metoprolol Tartrate (Lopressor) 12.5 mg BID PEG 12/12/19 21:00 12/18/19 16:13 DC 12/18/19 08:29 Metoprolol Tartrate (Lopressor) 12.5 mg BID@0700,1900 PEG 12/18/19 16:13 12/19/19 15:45 DC 12/19/19 06:17 Miscellaneous (Unresolved Clarification Entry) SEE LABEL COMMENTS DAILY XX 12/17/19 09:00 12/18/19 10:42 DC Miscellaneous (Unresolved Clarification Entry) SEE LABEL COMMENTS DAILY XX 12/10/19 09:00 12/11/19 11:23 DC Miscellaneous (Unresolved Patient Own Med Order) SEE LABEL COMMENTS DAILY XX 12/11/19 09:00 12/14/19 12:51 DC Non-Formulary Medication ( See Comment Field Below ) REMOVE LIDODERM PATCH DAILY@1900 XX 12/19/19 19:00 Non-Formulary Medication ( See Comment Field Below ) REMOVE LIDODERM PATCH DAILY@21 XX 12/18/19 21:00 12/18/19 22:00 DC 12/18/19 21:17 Nystatin (Mycostatin) 5 ml QID SSP 12/06/19 17:00 12/19/19 13:42 Pantoprazole Sodium (Protonix) 40 mg DAILY PO 12/20/19 09:00 UNV Patient Own Medication (Patient'S Own Med) 8am and 5pm on em... ASDIRECTED PO 12/19/19 17:00 UNV Patient Own Medication (Patient'S Own Med) 300mg = 2 capsules Take ... BID PO 12/14/19 21:00 12/18/19 16:08 DC 12/18/19 08:27 Patient Own Medication (Patient'S Own Med) 300mg = 2 capsules Take ... BID@0700,1700 PO 12/18/19 16:08 12/19/19 15:54 DC 12/19/19 06:18 Patient Own Medication (Patient'S Own Med) Nilotinib (Tasigna) 15... BID PEG 12/12/19 21:00 12/14/19 12:37 DC Prednisone (Deltasone) 5 mg DAILY PEG 12/01/19 09:00 12/04/19 12:07 DC 12/04/19 09:49 Prednisone (Deltasone) 5 mg DAILY PEG 12/16/19 09:00 12/18/19 16:14 DC 12/18/19 08:29 Prednisone (Deltasone) 5 mg DAILY PO 12/20/19 09:00 UNV Prednisone (Deltasone) 5 mg DAILY@0700 PEG 12/18/19 16:14 12/19/19 15:54 DC 12/19/19 06:17 Prednisone (Deltasone) 10 mg DAILY PEG 12/05/19 09:00 12/10/19 13:29 DC 12/10/19 07:34 Prednisone (Deltasone) 10 mg DAILY PEG 12/11/19 09:00 12/15/19 13:04 DC 12/15/19 08:26 Ramelteon (Rozerem) 8 mg QHS PEG 11/30/19 21:00 12/07/19 13:45 DC 12/06/19 20:17 Saliva Substitute (Mouthkote) USE DIRECTED QID MT 11/30/19 21:00 12/18/19 21:14 Tiotropium [place] (Spiriva Handihaler) 1 inhalation DAILY@08 INH 12/01/19 08:00 12/19/19 07:35 CECY DOMINGUEZ MD Dec 19, 2019 15:56
[2019-12-19] MEDS: ENTER DRUG NAME HERE (PATIENT'S OWN MED) PO SCH (18:04)
[2019-12-19] MEDS: **NOTE PATIENT COMMENT** MISC XX SCH (19:00)
[2019-12-19 20:00] VITALS: BP 120/60
[2019-12-19] MEDS: FLUoxetine 20 MG CAP PO SCH (20:29)
[2019-12-19] MEDS: ATORVASTATIN 10 MG TAB PO SCH (20:29)
[2019-12-19] MEDS: ACETAMINOPHEN TAB 650MG DOSE (2X325MG) PO PRN (20:46)
[2019-12-20] MEDS: LEVOTHYROXINE 137MCG TABLET (0.137MG) PO SCH (05:38)
[2019-12-20 06:00] VITALS: BP 138/65
[2019-12-20] MEDS: ENOXAPARIN 40MG/0.4ML SYRINGE (J1650 PER 10MG) SC SCH (06:19)
[2019-12-20 07:38] LABS: BASO # 0.1 10^3/uL (0.0-0.2); BASO % 0.6 % (0.0-1.0); EOS # 0.2 10^3/uL (0.0-0.5); HEMATOCRIT 29.5 % (42.0-52.0); HEMOGLOBIN 9.4 g/dl (13.5-17.5); LYMPH # 0.6 10^3/uL (1.5-5.0); LYMPH % 5.9 % (24.0-44.0); MEAN CORPUSCULAR HEMOGLOBIN 29.7 pg (27.0-33.0); MEAN CORPUSCULAR HGB CONC 31.9 g/dl (32.0-36.5); MEAN CORPUSCULAR VOLUME 93.4 fl (80.0-96.0); MONO # 0.9 10^3/uL (0.0-0.8); NEUTROPHILS # 8.3 10^3/uL (1.5-8.5); NEUTROPHILS % 81.9 % (36.0-66.0); PLATELET COUNT, AUTOMATED 334 10^3/uL (150-450); RED BLOOD COUNT 3.16 10^6/uL (4.30-6.10); WHITE BLOOD COUNT 10.2 10^3/uL (4.0-10.0)
[2019-12-20 07:48] LABS: BLOOD UREA NITROGEN 24 MG/DL (7-18); CARBON DIOXIDE LEVEL 28 MEQ/L (21-32); CHLORIDE LEVEL 106 MEQ/L (98-107); GLOMERULAR FILTRATION RATE > 60.0 (>42); GLUCOSE, FASTING 96 MG/DL (70-100); POTASSIUM SERUM 3.9 MEQ/L (3.5-5.1); SODIUM LEVEL 138 MEQ/L (136-145)
[2019-12-20] MEDS: PANTOPRAZOLE 40MG TAB (PROTONIX) PO SCH (07:58)
[2019-12-20] MEDS: NYSTATIN 500,000 U/5 ML SUSP UDC SSP SCH ×4 (07:58→21:37)
[2019-12-20] MEDS: predniSONE 5 MG TAB PO SCH (07:58)
[2019-12-20] MEDS: ENTER DRUG NAME HERE (PATIENT'S OWN MED) PO SCH ×2 (07:58→17:53)
[2019-12-20] MEDS: ASPIRIN 81 MG CHEW TABLET PO SCH (07:58)
[2019-12-20] MEDS: REMEDY PHYTOPLEX Z-GUARD PASTE 113GM TUBE (FROM STOREROOM PRODUCT) TOP SCH ×3 (07:59→21:37)
[2019-12-20] MEDS: SALIVA SUBSTITUTE(MOUTHKOTE) BTL MT SCH ×4 (07:59→21:38)
[2019-12-20] MEDS: CHLORHEXIDINE GLUCONATE 0.12 % 15ML UDC (PERIDEX ORAL RINSE) MT SCH ×4 (07:59→21:37)
[2019-12-20] MEDS: VANICREAM MOISTURIZING SKIN CREAM 113GM TUBE TOP SCH ×2 (08:00→21:38)
[2019-12-20 11:05] LABS: FREE T4 1.24 NG/DL (0.76-1.46)
[2019-12-20] MEDS: TIOTROPIUM INHALER/CAPSULE (SPIRIVA) INH SCH (11:14)
[2019-12-20] MEDS: SYMBICORT 160/4.5MCG INHALER 6GM INH SCH ×2 (11:14→21:00)
[2019-12-20 14:00] VITALS: BP 135/64
[2019-12-20 17:18] LABS: FREE T3 1.8 PG/ML (2.2-4.0)
[2019-12-20] MEDS: **NOTE PATIENT COMMENT** MISC XX SCH (17:54)
[2019-12-20 20:00] VITALS: BP 131/60
[2019-12-20] MEDS: ACETAMINOPHEN TAB 650MG DOSE (2X325MG) PO PRN (21:37)
[2019-12-20] MEDS: ATORVASTATIN 10 MG TAB PO SCH (21:37)
[2019-12-20] MEDS: FLUoxetine 20 MG CAP PO SCH (21:37)
[2019-12-20] MEDS: IPRATROPIUM 0.5MG/ALBUTEROL 2.5MG INH SOL UD 3ML (DUONEB)(J7620) NEB SCH (22:20)
[2019-12-21 06:00] VITALS: BP 160/74
[2019-12-21] MEDS: LEVOTHYROXINE 137MCG TABLET (0.137MG) PO SCH (06:20)
[2019-12-21] MEDS: ENOXAPARIN 40MG/0.4ML SYRINGE (J1650 PER 10MG) SC SCH (06:21)
[2019-12-21] MEDS: TIOTROPIUM INHALER/CAPSULE (SPIRIVA) INH SCH (07:27)
[2019-12-21] MEDS: SYMBICORT 160/4.5MCG INHALER 6GM INH SCH ×2 (07:27→19:12)
[2019-12-21] MEDS: IPRATROPIUM 0.5MG/ALBUTEROL 2.5MG INH SOL UD 3ML (DUONEB)(J7620) NEB SCH ×3 (07:29→19:12)
[2019-12-21] MEDS: REMEDY PHYTOPLEX Z-GUARD PASTE 113GM TUBE (FROM STOREROOM PRODUCT) TOP SCH ×3 (09:00→20:52)
[2019-12-21] MEDS: SALIVA SUBSTITUTE(MOUTHKOTE) BTL MT SCH ×4 (09:00→20:50)
[2019-12-21] MEDS: PANTOPRAZOLE 40MG TAB (PROTONIX) PO SCH (09:14)
[2019-12-21] MEDS: CHLORHEXIDINE GLUCONATE 0.12 % 15ML UDC (PERIDEX ORAL RINSE) MT SCH ×4 (09:14→20:50)
[2019-12-21] MEDS: predniSONE 5 MG TAB PO SCH (09:14)
[2019-12-21] MEDS: NYSTATIN 500,000 U/5 ML SUSP UDC SSP SCH ×4 (09:14→20:50)
[2019-12-21] MEDS: ASPIRIN 81 MG CHEW TABLET PO SCH (09:14)
[2019-12-21] MEDS: ENTER DRUG NAME HERE (PATIENT'S OWN MED) PO SCH ×2 (09:14→17:18)
[2019-12-21] MEDS: VANICREAM MOISTURIZING SKIN CREAM 113GM TUBE TOP SCH ×2 (09:15→20:51)
--- NOTE | 2019-12-21 12:22 | IPNPDOC ---
PM&R Progress Note DATE OF SERVICE: Dec 20, 2019 [place] [employer] Progress Note Subjective: Patient reporting he feels well today, he thinks his leg shaking is a little better with stretching. REVIEW OF SYSTEMS: The following is a completed review of systems and has been reviewed. Review of systems otherwise unremarkable. PAIN: Patient self reports no pain EYES: No recent vision changes EARS, NOSE, & THROAT: + dysphagia CARDIOVASCULAR: Denies chest pain or palpitations PULMONARY: Denies shortness of breath GASTROINTESTINAL: Denies constipation/diarrhea GENITOURINARY: denies dysuria MUSCULOSKELETAL: generalized weakness NEUROLOGICAL: denies paresthesias HEMATOLOGICAL: +CML SKIN: rash on back, +Peg PSYCHIATRIC: Unremarkable All other review of systems found to be negative. PHYSICAL EXAMINATION: VITAL SIGNS: Please see below. GENERAL: Pleasant and cooperative. No acute distress. HEENT: PERRL. Extraocular movements intact. Clear conjunctiva CARDIOVASCULAR: Regular rate and rhythm. No murmurs, rubs, or gallops LUNGS: Clear to auscultation bilaterally. No wheezes. +scattered rhonchi (improving) ABDOMEN: Soft, nontender, nondistended. Positive bowel sounds. Normal active bowel sounds, PEG site c/d/i NEUROLOGICAL: Alert and oriented times three. Cranial nerves II through XII grossly intact. Sensation grossly intact (-) babinksi/clonus bilat, (-) Hoffmans (-) thenar or tongue fasciculations EXTREMITIES: 5\\5 strength bilateral upper extremities. 5\\5 strength right lower extremity. 5/5 strength in left lower extremity. (-) edema (+) TTP left medial joint line (improved) SKIN: diffuse papular rash on his back and buttock (improved) ASSESSMENT:79-year-old M with past medical history of tongue cancer and COPD who presents status post pneumonia with dysphagia s/p PEG placement PLAN: 1. 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 Neuro: patient with suspicion for some cognitive impairments PULVERIZER ordered- cognition overall improving -patient has been having intermittent left leg shaking in therapy, most often first thing in the morning, no tone, sensory changes, or considerable weakness on exam, causes unclear at this time, c/u stretching left leg prior to standing and will consider further work-up/treatment if this does not help- will consider muscle relaxant once orthostatics improve 3. Cardiac: recent Chest CT with cardiac finding started on ASA,started on low dose metoprolol for PVCs, d/c'd these as patient having orthostatics with dizziness in the morning-improving today -HLD c/u statin-medicine consulted to assist in overall management -will need cardiology f/u on d/c 4. Resp- s/p course of antibiotics for CAP and aspiration PNA s/p PEG placement 11-27-19, c/u Spiriva, Xopenex prn and standing Duonebs, and Guaifenesin, c/u oral prednisone will decrease to 5mg daily-will taper off - repeat CXR with no acute changes, but given persistent bibasilar infiltrates- s/p course of Levaquin, cough improving, still with leukocytosis which could still be due to steroids vs CML-no signs of active infection -on home -c/u acapella -s/p short course of oral lasix, patient does not appear fluid overloaded, but breathing improving 5. Endo: hypothyroidism with elevated TSH on admission, c/u higher dose of Synthroid 137mcg daily-will recheck TFTs 6. DVT ppx: Lovenox and TEDs 7. GI ppx: lansaprazole -PEG feeds, HOB 45 degrees during feeds and one hour post-feeds, aspiration precautions -c/u daytime feeds, patient able to self-administer -c/u shaffer water protocol 8. Psych: c/u Prozac 20mg qHS mood improving 9. Pain: Tylenol prn, c/u left knee with kinesiotaping 10. Hypernatremia- resolved, c/u free water boluses at lowered quantity 11. Skin: back rash-improving, c/u daily eucerin moisturizer 12. 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 Dispo: 12-22-19 to home with ex- for a period of time Allergies Coded Allergies: amoxicillin (Verified Allergy, Mild, "rash" see comment, 11/09/19) REACTION FROM WAS SO LONG AGO PT DOESN'T EXACTLY REMEMBER, BUT HE BELIEVES IT WAS A RASH clavulanic acid (Verified Allergy, Mild, "rash" see comment, 11/09/19) REACTION FROM WAS SO LONG AGO PT DOESN'T EXACTLY REMEMBER, BUT HE BELIEVES IT WAS A RASH codeine (Verified Allergy, Unknown, 11/09/19) simethicone (Verified Adverse Reaction, Intermediate, drops cause tongue to burn - pt has thrush at this time, 11/13/19) allergy updated per conversation dr. tineo had with patient. oxycodone (Verified Adverse Reaction, Unknown, nausea & vomiting, " i couldn't tolerate it", 11/09/19) Vital Signs Vital Signs Date Time Temp Pulse Resp B/P (MAP) Pulse Ox O2 Delivery O2 Flow Rate FiO2 12/21/19 06:00 98.9 80 17 160/74 (102) 96 Room Air 12/18/19 09:00 1.0 Current Medications Current Medications Current Medications Medications (Trade) Dose Ordered Sig/Jhon Route PRN Reason Start Time Stop Time Status Last Admin Dose Admin Acetaminophen (Tylenol Tab) 650 mg Q4HP PRN PEG fever/MILD PAIN (PS 1-4) 11/30/19 16:45 12/19/19 15:54 DC 12/18/19 21:22 Acetaminophen (Tylenol Tab) 650 mg Q4HP PRN PO fever/MILD PAIN (PS 1-4) 12/19/19 16:00 12/20/19 21:37 Albuterol/ Ipratropium (Duoneb (Ipr 0.5mg/Alb 2.5mg)) 3 ml Q4HP PRN NEB SOB/WHEEZING 12/04/19 04:00 12/04/19 11:31 DC 12/04/19 03:55 Albuterol/ Ipratropium (Duoneb (Ipr 0.5mg/Alb 2.5mg)) 3 ml RQID NEB 12/08/19 12:00 12/19/19 15:45 DC 12/19/19 15:17 Albuterol/ Ipratropium (Duoneb (Ipr 0.5mg/Alb 2.5mg)) 3 ml RTID NEB 12/20/19 20:00 Albuterol/ Ipratropium (Duoneb (Ipr 0.5mg/Alb 2.5mg)) 3 ml TID NEB 12/04/19 10:00 12/08/19 10:51 DC 12/07/19 13:42 Amlodipine Besylate (Norvasc) 5 mg QHS PEG 11/30/19 21:00 12/06/19 10:43 DC 12/05/19 22:33 Aspirin (Aspirin Chewable) 81 mg DAILY PEG 12/01/19 09:00 12/18/19 16:09 DC 12/18/19 08:29 Aspirin (Aspirin Chewable) 81 mg DAILY PO 12/20/19 09:00 12/21/19 09:14 Aspirin (Aspirin Chewable) 81 mg DAILY@0700 PEG 12/18/19 16:09 12/19/19 15:54 DC 12/19/19 06:16 Atorvastatin Calcium (Lipitor) 10 mg QHS PEG 11/30/19 21:00 12/18/19 16:10 DC 12/17/19 21:11 Atorvastatin Calcium (Lipitor) 10 mg QHS PO 12/19/19 21:00 12/20/19 21:37 Atorvastatin Calcium (Lipitor) 10 mg QHS@1900 PEG 12/18/19 16:10 12/19/19 15:54 DC 12/18/19 21:13 Baclofen (Lioresal) 5 mg BID PO 12/21/19 09:00 Budesonide/ Formoterol Fumarate (Symbicort 160/ 4.5mcg) 2 puff BID INH 11/30/19 21:00 12/21/19 07:27 Calcium Carbonate (Tums) 500 mg TIDP PRN PEG INDIGESTION 11/30/19 16:45 12/19/19 15:54 DC Cetirizine HCl (ZyrTEC) 10 mg DAILY PO 12/01/19 09:00 12/06/19 10:43 DC 12/06/19 08:28 Chlorhexidine Gluconate (Peridex Oral Rinse) 1 ml BID MT 11/30/19 21:00 12/04/19 11:30 DC 12/04/19 09:48 Chlorhexidine Gluconate (Peridex Oral Rinse) 1 ml QID MT 12/04/19 13:00 12/21/19 09:14 Diphenhydramine HCl (Benadryl) 25 mg Q6HP PRN PEG ITCHING 12/01/19 15:30 Emollient Cream (Vanicream) applyto back and up... BID TOP 12/01/19 09:00 12/21/19 09:15 Enoxaparin Sodium (Lovenox) 40 mg DAILY SC 12/01/19 09:00 12/18/19 16:10 DC 12/18/19 08:28 Enoxaparin Sodium (Lovenox) 40 mg DAILY@0700 SC 12/18/19 16:10 12/21/19 06:21 Fluoxetine HCl (PROzac) 20 mg QHS PO 12/19/19 21:00 12/21/19 10:31 DC 12/20/19 21:37 Fluoxetine HCl (PROzac) 20 mg QHS PO 12/08/19 21:00 12/18/19 16:11 DC 12/17/19 21:11 Fluoxetine HCl (PROzac) 20 mg QHS@1900 PO 12/18/19 16:11 12/19/19 15:54 DC 12/18/19 21:14 Furosemide (Lasix) 20 mg DAILY PEG 12/09/19 09:00 12/11/19 12:30 DC 12/11/19 08:01 Guaifenesin (Robitussin) 5 ml QID PEG 11/30/19 21:00 12/18/19 16:12 DC 12/18/19 13:01 Lactulose (Cephulac) 30 ml DAILY PRN PO constipation 11/30/19 16:45 11/30/19 17:02 DC Lactulose (Cephulac) 30 ml DAILYPRN PRN PEG constipation 11/30/19 17:15 12/19/19 15:54 DC Lansoprazole (First-Lansoprazole Oral Suspension) 30 mg DAILY PEG 12/01/19 09:00 12/18/19 16:11 DC 12/18/19 08:27 Lansoprazole (First-Lansoprazole Oral Suspension) 30 mg DAILY@0700 PEG 12/18/19 16:11 12/19/19 15:54 DC 12/19/19 06:15 Levalbuterol HCl (Xopenex Neb) 1.25 mg Q4HP PRN INH SOB/WHEEZING 11/30/19 16:45 12/08/19 11:07 DC 12/04/19 01:25 Levalbuterol HCl (Xopenex Neb) 1.25 mg RQID INH 11/30/19 20:00 12/04/19 11:49 DC 12/04/19 11:01 Levofloxacin (Levaquin) 750 mg DAILY@06 PEG 12/11/19 12:45 12/17/19 06:01 DC 12/17/19 05:37 Levothyroxine Sodium (Synthroid) 137 mcg DAILY@0600 PEG 12/19/19 06:00 12/18/19 16:10 DC Levothyroxine Sodium (Synthroid) 137 mcg DAILY@0600 PO 12/20/19 06:00 12/21/19 06:20 Levothyroxine Sodium (Synthroid) 137 mcg DAILY@0700 PEG 12/19/19 07:00 12/19/19 15:54 DC 12/19/19 06:16 Levothyroxine Sodium (Synthroid) 137 mcg DAILY@1200 PEG 12/01/19 12:00 12/18/19 15:39 DC 12/18/19 13:01 Lidocaine (Lidoderm Patch) 1 patch DAILY TD 12/18/19 09:00 12/18/19 16:12 DC Lidocaine (Lidoderm Patch) 1 patch DAILY@0700 TD 12/18/19 16:12 12/19/19 10:21 DC Losartan Potassium (Cozaar) 25 mg DAILY PEG 12/06/19 09:00 12/08/19 15:47 DC 12/07/19 08:15 Losartan Potassium (Cozaar) 25 mg DAILY@1200 PEG 12/09/19 12:00 12/10/19 13:49 DC 12/09/19 13:14 Losartan Potassium (Cozaar) 50 mg DAILY PEG 12/01/19 09:00 12/05/19 14:11 DC 12/05/19 08:31 Metoprolol Tartrate (Lopressor) 12.5 mg BID NG 12/10/19 21:00 12/12/19 11:50 DC 12/12/19 08:51 Metoprolol Tartrate (Lopressor) 12.5 mg BID PEG 12/12/19 21:00 12/18/19 16:13 DC 12/18/19 08:29 Metoprolol Tartrate (Lopressor) 12.5 mg BID@0700,1900 PEG 12/18/19 16:13 12/19/19 15:45 DC 12/19/19 06:17 Miscellaneous (Unresolved Clarification Entry) SEE LABEL COMMENTS DAILY XX 12/17/19 09:00 12/18/19 10:42 DC Miscellaneous (Unresolved Clarification Entry) SEE LABEL COMMENTS DAILY XX 12/10/19 09:00 12/11/19 11:23 DC Miscellaneous (Unresolved Patient Own Med Order) SEE LABEL COMMENTS DAILY XX 12/11/19 09:00 12/14/19 12:51 DC Non-Formulary Medication ( See Comment Field Below ) REMOVE LIDODERM PATCH DAILY@1900 XX 12/19/19 19:00 12/20/19 17:54 Non-Formulary Medication ( See Comment Field Below ) REMOVE LIDODERM PATCH DAILY@21 XX 12/18/19 21:00 12/18/19 22:00 DC 12/18/19 21:17 Nystatin (Mycostatin) 5 ml QID SSP 12/06/19 17:00 12/21/19 09:14 Pantoprazole Sodium (Protonix) 40 mg DAILY PO 12/20/19 09:00 12/21/19 09:14 Patient Own Medication (Patient'S Own Med) 8am and 5pm on em... BID@0800,1700 PO 12/19/19 17:00 12/21/19 09:14 Patient Own Medication (Patient'S Own Med) 300mg = 2 capsules Take ... BID PO 12/14/19 21:00 12/18/19 16:08 DC 12/18/19 08:27 Patient Own Medication (Patient'S Own Med) 300mg = 2 capsules Take ... BID@0700,1700 PO 12/18/19 16:08 12/19/19 15:54 DC 12/19/19 06:18 Patient Own Medication (Patient'S Own Med) Nilotinib (Tasigna) 15... BID PEG 12/12/19 21:00 12/14/19 12:37 DC Prednisone (Deltasone) 5 mg DAILY PEG 12/01/19 09:00 12/04/19 12:07 DC 12/04/19 09:49 Prednisone (Deltasone) 5 mg DAILY PEG 12/16/19 09:00 12/18/19 16:14 DC 12/18/19 08:29 Prednisone (Deltasone) 5 mg DAILY PO 12/20/19 09:00 12/21/19 10:31 DC 12/21/19 09:14 Prednisone (Deltasone) 5 mg DAILY@0700 PEG 12/18/19 16:14 12/19/19 15:54 DC 12/19/19 06:17 Prednisone (Deltasone) 10 mg DAILY PEG 12/05/19 09:00 12/10/19 13:29 DC 12/10/19 07:34 Prednisone (Deltasone) 10 mg DAILY PEG 12/11/19 09:00 12/15/19 13:04 DC 12/15/19 08:26 Ramelteon (Rozerem) 8 mg QHS PEG 11/30/19 21:00 12/07/19 13:45 DC 12/06/19 20:17 Saliva Substitute (Mouthkote) USE DIRECTED QID MT 11/30/19 21:00 12/20/19 21:38 Tiotropium [place] (Spiriva Handihaler) 1 inhalation DAILY@08 INH 12/01/19 08:00 12/21/19 07:27 CECY DOMINGUEZ MD Dec 21, 2019 12:22
--- NOTE | 2019-12-21 12:22 | IPNPDOC ---
PM&R Progress Note DATE OF SERVICE: Dec 21, 2019 Mill [employer] Progress Note Subjective: Patient reports he thinks he has lost 25% of his body weight in the past year. He doesn't recall his left leg shaking in the past. REVIEW OF SYSTEMS: The following is a completed review of systems and has been reviewed. Review of systems otherwise unremarkable. PAIN: Patient self reports no pain EYES: No recent vision changes EARS, NOSE, & THROAT: + dysphagia CARDIOVASCULAR: Denies chest pain or palpitations PULMONARY: Denies shortness of breath GASTROINTESTINAL: Denies constipation/diarrhea GENITOURINARY: denies dysuria MUSCULOSKELETAL: generalized weakness NEUROLOGICAL: denies paresthesias HEMATOLOGICAL: +CML SKIN: rash on back, +Peg PSYCHIATRIC: Unremarkable All other review of systems found to be negative. PHYSICAL EXAMINATION: VITAL SIGNS: Please see below. GENERAL: Pleasant and cooperative. No acute distress. HEENT: PERRL. Extraocular movements intact. Clear conjunctiva CARDIOVASCULAR: Regular rate and rhythm. No murmurs, rubs, or gallops LUNGS: Clear to auscultation bilaterally. No wheezes. +scattered rhonchi (improving) ABDOMEN: Soft, nontender, nondistended. Positive bowel sounds. Normal active bowel sounds, PEG site c/d/i NEUROLOGICAL: Alert and oriented times three. Cranial nerves II through XII grossly intact. Sensation grossly intact (-) babinksi/clonus bilat, (-) Hoffmans (-) thenar or tongue fasciculations EXTREMITIES: 5\\5 strength bilateral upper extremities. 5\\5 strength right lower extremity. 5/5 strength in left lower extremity. (-) edema (+) TTP left medial joint line (improved) SKIN: diffuse papular rash on his back and buttock (improved) ASSESSMENT:79-year-old M with past medical history of tongue cancer and COPD who presents status post pneumonia with dysphagia s/p PEG placement PLAN: 1. Rehab- PT/OT advance gait and ADL training, strengthen/stretch/maintain ROM all 4 limbs, energy conservation-ambulating with RW -FUGITIVE DETECTIVE recs appreciated, Shaffer water protocol in place, c/u oral rinses for oral hygiene (increased frequency to QID and added nystatin for chronic oral yeast secondary to ICS usage) -NPO- tube feeds, per FUGITIVE DETECTIVE advancing towards comfort feeds, patient cleared to take all of his pills 2. Neuro: patient with suspicion for some cognitive impairments FUGITIVE DETECTIVE ordered- cognition overall improving -patient has been having intermittent left leg shaking in therapy, most often first thing in the morning, no tone, sensory changes, or considerable weakness on exam, causes unclear at this time, but appears to be myoclonus- have rechecked TFTs which show an unexpected increase in TSK despite normal FT4, have discontinued Prozac which can cause myoclonus, brain MRI ordered as well -started low dose baclofen to see if this helps his myoclonus 3. Cardiac: recent Chest CT with cardiac finding started on ASA,started on low dose metoprolol for PVCs, however d/c'd these as patient having orthostatics with dizziness in the morning-resolved -HLD c/u statin-medicine consulted to assist in overall management -will need cardiology f/u on d/c 4. Resp- s/p course of antibiotics for CAP and aspiration PNA s/p PEG placement 11-27-19, c/u Spiriva, Xopenex prn and standing Duonebs, and Guaifenesin, tapered off prednisone -2nd repeat CXR with no acute changes, but given persistent bibasilar infiltrates- s/p course of Levaquin, cough improving, still with leukocytosis which could still be due to recent steroids vs CML-no signs of active infection -on home -c/u acapella 5. Endo: hypothyroidism with elevated TSH on admission, c/u higher dose of Synthroid 137mcg daily-rechecked TFTs which shows a considerable elevation in TSH despite having increased his Synthroid dosing 6 weeks ago and timing his medication to be taken on an empty stomach (FT4 WNL), given his hx of tongue cancer with and radiation will order thyroid US and discuss case with [facility] oncology pending US results 6. DVT ppx: Lovenox and TEDs 7. GI ppx: lansaprazole -PEG feeds, HOB 45 degrees during feeds and one hour post-feeds, aspiration precautions -c/u daytime feeds, patient able to self-administer -c/u shaffer water protocol 8. Psych: held Prozac 20mg qHS as can cause myoclonus 9. Pain: Tylenol prn, c/u left knee with kinesiotaping 10. Hypernatremia- resolved, c/u free water boluses at lowered quantity 11. Skin: back rash-improving, c/u daily eucerin moisturizer 12. 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 Dispo: 12-22-19 to home with ex- for a period of time Allergies Coded Allergies: amoxicillin (Verified Allergy, Mild, "rash" see comment, 11/09/19) REACTION FROM WAS SO LONG AGO PT DOESN'T EXACTLY REMEMBER, BUT HE BELIEVES IT WAS A RASH clavulanic acid (Verified Allergy, Mild, "rash" see comment, 11/09/19) REACTION FROM WAS SO LONG AGO PT DOESN'T EXACTLY REMEMBER, BUT HE BELIEVES IT WAS A RASH codeine (Verified Allergy, Unknown, 11/09/19) simethicone (Verified Adverse Reaction, Intermediate, drops cause tongue to burn - pt has thrush at this time, 11/13/19) allergy updated per conversation dr. tineo had with patient. oxycodone (Verified Adverse Reaction, Unknown, nausea & vomiting, " i couldn't tolerate it", 11/09/19) Vital Signs Vital Signs Date Time Temp Pulse Resp B/P (MAP) Pulse Ox O2 Delivery O2 Flow Rate FiO2 12/21/19 06:00 98.9 80 17 160/74 (102) 96 Room Air 12/18/19 09:00 1.0 Current Medications Current Medications Current Medications Medications (Trade) Dose Ordered Sig/Jhon Route PRN Reason Start Time Stop Time Status Last Admin Dose Admin Acetaminophen (Tylenol Tab) 650 mg Q4HP PRN PEG fever/MILD PAIN (PS 1-4) 11/30/19 16:45 12/19/19 15:54 DC 12/18/19 21:22 Acetaminophen (Tylenol Tab) 650 mg Q4HP PRN PO fever/MILD PAIN (PS 1-4) 12/19/19 16:00 12/20/19 21:37 Albuterol/ Ipratropium (Duoneb (Ipr 0.5mg/Alb 2.5mg)) 3 ml Q4HP PRN NEB SOB/WHEEZING 12/04/19 04:00 12/04/19 11:31 DC 12/04/19 03:55 Albuterol/ Ipratropium (Duoneb (Ipr 0.5mg/Alb 2.5mg)) 3 ml RQID NEB 12/08/19 12:00 12/19/19 15:45 DC 12/19/19 15:17 Albuterol/ Ipratropium (Duoneb (Ipr 0.5mg/Alb 2.5mg)) 3 ml RTID NEB 12/20/19 20:00 Albuterol/ Ipratropium (Duoneb (Ipr 0.5mg/Alb 2.5mg)) 3 ml TID NEB 12/04/19 10:00 12/08/19 10:51 DC 12/07/19 13:42 Amlodipine Besylate (Norvasc) 5 mg QHS PEG 11/30/19 21:00 12/06/19 10:43 DC 12/05/19 22:33 Aspirin (Aspirin Chewable) 81 mg DAILY PEG 12/01/19 09:00 12/18/19 16:09 DC 12/18/19 08:29 Aspirin (Aspirin Chewable) 81 mg DAILY PO 12/20/19 09:00 12/21/19 09:14 Aspirin (Aspirin Chewable) 81 mg DAILY@0700 PEG 12/18/19 16:09 12/19/19 15:54 DC 12/19/19 06:16 Atorvastatin Calcium (Lipitor) 10 mg QHS PEG 11/30/19 21:00 12/18/19 16:10 DC 12/17/19 21:11 Atorvastatin Calcium (Lipitor) 10 mg QHS PO 12/19/19 21:00 12/20/19 21:37 Atorvastatin Calcium (Lipitor) 10 mg QHS@1900 PEG 12/18/19 16:10 12/19/19 15:54 DC 12/18/19 21:13 Baclofen (Lioresal) 5 mg BID PO 12/21/19 09:00 Budesonide/ Formoterol Fumarate (Symbicort 160/ 4.5mcg) 2 puff BID INH 11/30/19 21:00 12/21/19 07:27 Calcium Carbonate (Tums) 500 mg TIDP PRN PEG INDIGESTION 11/30/19 16:45 12/19/19 15:54 DC Cetirizine HCl (ZyrTEC) 10 mg DAILY PO 12/01/19 09:00 12/06/19 10:43 DC 12/06/19 08:28 Chlorhexidine Gluconate (Peridex Oral Rinse) 1 ml BID MT 11/30/19 21:00 12/04/19 11:30 DC 12/04/19 09:48 Chlorhexidine Gluconate (Peridex Oral Rinse) 1 ml QID MT 12/04/19 13:00 12/21/19 09:14 Diphenhydramine HCl (Benadryl) 25 mg Q6HP PRN PEG ITCHING 12/01/19 15:30 Emollient Cream (Vanicream) applyto back and up... BID TOP 12/01/19 09:00 12/21/19 09:15 Enoxaparin Sodium (Lovenox) 40 mg DAILY SC 12/01/19 09:00 12/18/19 16:10 DC 12/18/19 08:28 Enoxaparin Sodium (Lovenox) 40 mg DAILY@0700 SC 12/18/19 16:10 12/21/19 06:21 Fluoxetine HCl (PROzac) 20 mg QHS PO 12/19/19 21:00 12/21/19 10:31 DC 12/20/19 21:37 Fluoxetine HCl (PROzac) 20 mg QHS PO 12/08/19 21:00 12/18/19 16:11 DC 12/17/19 21:11 Fluoxetine HCl (PROzac) 20 mg QHS@1900 PO 12/18/19 16:11 12/19/19 15:54 DC 12/18/19 21:14 Furosemide (Lasix) 20 mg DAILY PEG 12/09/19 09:00 12/11/19 12:30 DC 12/11/19 08:01 Guaifenesin (Robitussin) 5 ml QID PEG 11/30/19 21:00 12/18/19 16:12 DC 12/18/19 13:01 Lactulose (Cephulac) 30 ml DAILY PRN PO constipation 11/30/19 16:45 11/30/19 17:02 DC Lactulose (Cephulac) 30 ml DAILYPRN PRN PEG constipation 11/30/19 17:15 12/19/19 15:54 DC Lansoprazole (First-Lansoprazole Oral Suspension) 30 mg DAILY PEG 12/01/19 09:00 12/18/19 16:11 DC 12/18/19 08:27 Lansoprazole (First-Lansoprazole Oral Suspension) 30 mg DAILY@0700 PEG 12/18/19 16:11 12/19/19 15:54 DC 12/19/19 06:15 Levalbuterol HCl (Xopenex Neb) 1.25 mg Q4HP PRN INH SOB/WHEEZING 11/30/19 16:45 12/08/19 11:07 DC 12/04/19 01:25 Levalbuterol HCl (Xopenex Neb) 1.25 mg RQID INH 11/30/19 20:00 12/04/19 11:49 DC 12/04/19 11:01 Levofloxacin (Levaquin) 750 mg DAILY@06 PEG 12/11/19 12:45 12/17/19 06:01 DC 12/17/19 05:37 Levothyroxine Sodium (Synthroid) 137 mcg DAILY@0600 PEG 12/19/19 06:00 12/18/19 16:10 DC Levothyroxine Sodium (Synthroid) 137 mcg DAILY@0600 PO 12/20/19 06:00 12/21/19 06:20 Levothyroxine Sodium (Synthroid) 137 mcg DAILY@0700 PEG 12/19/19 07:00 12/19/19 15:54 DC 12/19/19 06:16 Levothyroxine Sodium (Synthroid) 137 mcg DAILY@1200 PEG 12/01/19 12:00 12/18/19 15:39 DC 12/18/19 13:01 Lidocaine (Lidoderm Patch) 1 patch DAILY TD 12/18/19 09:00 12/18/19 16:12 DC Lidocaine (Lidoderm Patch) 1 patch DAILY@0700 TD 12/18/19 16:12 12/19/19 10:21 DC Losartan Potassium (Cozaar) 25 mg DAILY PEG 12/06/19 09:00 12/08/19 15:47 DC 12/07/19 08:15 Losartan Potassium (Cozaar) 25 mg DAILY@1200 PEG 12/09/19 12:00 12/10/19 13:49 DC 12/09/19 13:14 Losartan Potassium (Cozaar) 50 mg DAILY PEG 12/01/19 09:00 12/05/19 14:11 DC 12/05/19 08:31 Metoprolol Tartrate (Lopressor) 12.5 mg BID NG 12/10/19 21:00 12/12/19 11:50 DC 12/12/19 08:51 Metoprolol Tartrate (Lopressor) 12.5 mg BID PEG 12/12/19 21:00 12/18/19 16:13 DC 12/18/19 08:29 Metoprolol Tartrate (Lopressor) 12.5 mg BID@0700,1900 PEG 12/18/19 16:13 12/19/19 15:45 DC 12/19/19 06:17 Miscellaneous (Unresolved Clarification Entry) SEE LABEL COMMENTS DAILY XX 12/17/19 09:00 12/18/19 10:42 DC Miscellaneous (Unresolved Clarification Entry) SEE LABEL COMMENTS DAILY XX 12/10/19 09:00 12/11/19 11:23 DC Miscellaneous (Unresolved Patient Own Med Order) SEE LABEL COMMENTS DAILY XX 12/11/19 09:00 12/14/19 12:51 DC Non-Formulary Medication ( See Comment Field Below ) REMOVE LIDODERM PATCH DAILY@1900 XX 12/19/19 19:00 12/20/19 17:54 Non-Formulary Medication ( See Comment Field Below ) REMOVE LIDODERM PATCH DAILY@21 XX 12/18/19 21:00 12/18/19 22:00 DC 12/18/19 21:17 Nystatin (Mycostatin) 5 ml QID SSP 12/06/19 17:00 12/21/19 09:14 Pantoprazole Sodium (Protonix) 40 mg DAILY PO 12/20/19 09:00 12/21/19 09:14 Patient Own Medication (Patient'S Own Med) 8am and 5pm on em... BID@0800,1700 PO 12/19/19 17:00 12/21/19 09:14 Patient Own Medication (Patient'S Own Med) 300mg = 2 capsules Take ... BID PO 12/14/19 21:00 12/18/19 16:08 DC 12/18/19 08:27 Patient Own Medication (Patient'S Own Med) 300mg = 2 capsules Take ... BID@0700,1700 PO 12/18/19 16:08 12/19/19 15:54 DC 12/19/19 06:18 Patient Own Medication (Patient'S Own Med) Nilotinib (Tasigna) 15... BID PEG 12/12/19 21:00 12/14/19 12:37 DC Prednisone (Deltasone) 5 mg DAILY PEG 12/01/19 09:00 12/04/19 12:07 DC 12/04/19 09:49 Prednisone (Deltasone) 5 mg DAILY PEG 12/16/19 09:00 12/18/19 16:14 DC 12/18/19 08:29 Prednisone (Deltasone) 5 mg DAILY PO 12/20/19 09:00 12/21/19 10:31 DC 12/21/19 09:14 Prednisone (Deltasone) 5 mg DAILY@0700 PEG 12/18/19 16:14 12/19/19 15:54 DC 12/19/19 06:17 Prednisone (Deltasone) 10 mg DAILY PEG 12/05/19 09:00 12/10/19 13:29 DC 12/10/19 07:34 Prednisone (Deltasone) 10 mg DAILY PEG 12/11/19 09:00 12/15/19 13:04 DC 12/15/19 08:26 Ramelteon (Rozerem) 8 mg QHS PEG 11/30/19 21:00 12/07/19 13:45 DC 12/06/19 20:17 Saliva Substitute (Mouthkote) USE DIRECTED QID MT 11/30/19 21:00 12/20/19 21:38 Tiotropium Supply (Spiriva Handihaler) 1 inhalation DAILY@08 INH 12/01/19 08:00 12/21/19 07:27 CECY DOMINGUEZ MD Dec 21, 2019 12:22
--- NOTE | 2019-12-21 12:29 | REP ---
THYROID ULTRASOUND: Real-time sonographic evaluation of the thyroid is performed. Both lobes are relatively normal in size and diffusely heterogeneous in echotexture. Right lobe measures 4.1 x 1.1 x 1.3 cm and left lobe 3.9 x 0.9 x 1.3 cm. No discrete cystic or solid mass is seen. IMPRESSION: Heterogeneous echotexture without discrete cystic or solid mass. Electronically Signed by Dylon Almendarez MD 12/21/2019 02:33 P
[2019-12-21] MEDS: BACLOFEN 5MG PER 1/2 TABLET PO SCH ×2 (14:10→20:50)
--- NOTE | 2019-12-21 15:11 | MEDONCTEEN ---
Date/Time of Encounter Date of Encounter: Dec 21, 2019 Time of Encounter: 15:00 Telephone Encounter HEMATOLOGY/ONCOLOGY Chart and laboratory data and diagnostic data reviewed Discussion with Dr. Dayana SmithBert Is chronically ill 79-year-old gentleman has a very complex history with his cancer history dating back to 2007 when he had partial glassectomy and neck dissection Patient's history is remarkable for COPD on home O2, CML, hypothyroidism, tongue cancer, hyperlipidemia, chronic anemia, coronary artery disease and recurrent pleural effusion status post talc pleurodesis Patient was diagnosed with chronic myeloid leukemia in 2014 and remains on nitoltinib Patient's been having trouble with regulating his thyroid medication and is likely he was not taking as directed at home TSH went up to 31 Ultrasound of the thyroid just shows heterogeneous thyroid without specific masses or abnormalities Recommend going up to 200 g per day and suspected malabsorption syndrome as the primary culprit here has to Y TSH has risen Patient's been admitted since 12/01/2019 Patient developed aspiration pneumonia patient is a PEG placed Patient had significant weight loss over the past year Bloodwork 12/20/2019 white count of 10.2 Hb 9.4 Platelet count 334,000 Patient has normal renal function 0.8 TSH was 31.1 PAST MEDICAL HISTORY: 1. Severe chronic obstructive pulmonary disease (COPD). 2. Chronic myeloid leukemia. 3. Hypothyroidism. 4. History of tongue cancer. 5. Hyperlipidemia. 6. 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 FAMILY HISTORY: Mother had throat cancer. Mother of advanced age. 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 SOCIAL HISTORY: He quit smoking 15 years ago. History of moderate alcohol intake. ASSESSMENT 1. History of tongue cancer status post resection and neck dissection. Additional treatment such as chemotherapy and radiation not documented 2. Reported history of chronic myeloid leukemia on nilotinib. 3. Rising TSH in setting of oral/PEG replacement RECOMMENDATIONS 1. There is no drug drug interactions with levothyroxine and nilotinib and would recommend increasing levothyroxine dose to 200 g daily. No thyroid masses noted on ultrasound 2. Regarding patient's oncologic history and active oncologic and hematologic issues, would recommend his primary oncologist handle any additional issues. We have no records of his head and neck cancer nor do we have confirmation of h is chronic myeloid leukemia. We are not prescribing his nilotinib It is important for continuity care for the patient to follow-up with his primary oncologist. If there is more than 2 years of non-detection of BCR/ABL fusion protein levels, there could be a consideration for discontinuing nilotinib. This especially given his comorbid conditions and active issues. Patient's been on treatment for more than 5 years If a formal consult is desired, please call office and we will proceed with formal consult. Thank you kindly for allowing us to help in the care of this patient. AZID CASTELLON MD Dec 21, 2019 15:11
--- NOTE | 2019-12-21 16:08 | REP ---
MRI BRAIN WITHOUT CONTRAST: TECHNIQUE: Multiple sequences obtained in the axial and sagittal planes. FINDINGS: There is moderate atrophy. There is no midline shift or mass effect. There are mild chronic periventricular small vessel ischemic changes/gliosis in the periventricular white matter in a symmetrical pattern. There is no acute infarct, with no abnormal signal on the ADC or DWI images. No abnormal signal is seen in the brain stem or cerebellum. The VII/VIII cranial nerve complexes are unremarkable. There is no abnormal signal in the mastoids or in the paranasal sinuses. IMPRESSION: Moderate atrophy. Mild chronic periventricular small vessel ischemic changes. No acute abnormalities. No midline shift or mass effect. Electronically Signed by Dylon Almendarez MD 12/21/2019 04:27 P
[2019-12-21] MEDS: **NOTE PATIENT COMMENT** MISC XX SCH (17:18)
[2019-12-21 20:00] VITALS: BP 126/68
[2019-12-21] MEDS: ATORVASTATIN 10 MG TAB PO SCH (20:51)
[2019-12-21] MEDS: ACETAMINOPHEN TAB 650MG DOSE (2X325MG) PO PRN (20:51)
[2019-12-22] MEDS: LEVOTHYROXINE 137MCG TABLET (0.137MG) PO SCH (05:45)
[2019-12-22 06:00] VITALS: BP 141/74
[2019-12-22] MEDS: ENOXAPARIN 40MG/0.4ML SYRINGE (J1650 PER 10MG) SC SCH (06:53)
[2019-12-22 07:08] LABS: BASO % 0.3 % (0.0-1.0); EOS # 0.2 10^3/uL (0.0-0.5); EOS % 1.7 % (0.0-3.0); HEMATOCRIT 30.2 % (42.0-52.0); HEMOGLOBIN 9.6 g/dl (13.5-17.5); LYMPH # 0.6 10^3/uL (1.5-5.0); LYMPH % 5.7 % (24.0-44.0); MEAN CORPUSCULAR HEMOGLOBIN 29.4 pg (27.0-33.0); MEAN CORPUSCULAR HGB CONC 31.8 g/dl (32.0-36.5); MEAN CORPUSCULAR VOLUME 92.6 fl (80.0-96.0); MONO # 0.9 10^3/uL (0.0-0.8); MONO % 8.9 % (0.0-5.0); NEUTROPHILS # 8.4 10^3/uL (1.5-8.5); NEUTROPHILS % 83.1 % (36.0-66.0); PLATELET COUNT, AUTOMATED 328 10^3/uL (150-450); RED BLOOD COUNT 3.26 10^6/uL (4.30-6.10); WHITE BLOOD COUNT 10.2 10^3/uL (4.0-10.0)
[2019-12-22 07:36] LABS: BLOOD UREA NITROGEN 26 MG/DL (7-18); CALCIUM LEVEL 7.9 MG/DL (8.8-10.2); CARBON DIOXIDE LEVEL 28 MEQ/L (21-32); CHLORIDE LEVEL 107 MEQ/L (98-107); CREATININE FOR GFR 0.75 MG/DL (0.70-1.30); GLOMERULAR FILTRATION RATE > 60.0 (>42); GLUCOSE, FASTING 93 MG/DL (70-100); POTASSIUM SERUM 4.2 MEQ/L (3.5-5.1); SODIUM LEVEL 140 MEQ/L (136-145)
[2019-12-22] MEDS: IPRATROPIUM 0.5MG/ALBUTEROL 2.5MG INH SOL UD 3ML (DUONEB)(J7620) NEB SCH ×3 (07:50→19:29)
[2019-12-22] MEDS: SYMBICORT 160/4.5MCG INHALER 6GM INH SCH ×2 (07:50→19:24)
[2019-12-22] MEDS: TIOTROPIUM INHALER/CAPSULE (SPIRIVA) INH SCH (07:50)
[2019-12-22] MEDS: ENTER DRUG NAME HERE (PATIENT'S OWN MED) PO SCH ×2 (08:00→17:00)
[2019-12-22] MEDS: CHLORHEXIDINE GLUCONATE 0.12 % 15ML UDC (PERIDEX ORAL RINSE) MT SCH ×4 (08:55→20:56)
[2019-12-22] MEDS: NYSTATIN 500,000 U/5 ML SUSP UDC SSP SCH ×4 (08:55→20:56)
[2019-12-22] MEDS: ASPIRIN 81 MG CHEW TABLET PO SCH (08:55)
[2019-12-22] MEDS: PANTOPRAZOLE 40MG TAB (PROTONIX) PO SCH (08:55)
[2019-12-22] MEDS: BACLOFEN 5MG PER 1/2 TABLET PO SCH ×3 (08:55→17:59)
[2019-12-22] MEDS: SALIVA SUBSTITUTE(MOUTHKOTE) BTL MT SCH ×4 (08:56→21:01)
[2019-12-22] MEDS: VANICREAM MOISTURIZING SKIN CREAM 113GM TUBE TOP SCH ×2 (10:33→20:59)
[2019-12-22] MEDS: REMEDY PHYTOPLEX Z-GUARD PASTE 113GM TUBE (FROM STOREROOM PRODUCT) TOP SCH ×3 (10:33→21:00)
[2019-12-22 14:00] VITALS: BP 108/62
--- NOTE | 2019-12-22 16:07 | IPNPDOC ---
PM&R Progress Note DATE OF SERVICE: Dec 22, 2019 Almond Huller Progress Note Subjective: Patient reports his left leg shaking today is better with the increased dose of baclofen. He now recalls his left leg did shake when he got up from the chair beginning last summer, but does not believe it was as bad as it has been recently. REVIEW OF SYSTEMS: The following is a completed review of systems and has been reviewed. Review of systems otherwise unremarkable. PAIN: Patient self reports no pain EYES: No recent vision changes EARS, NOSE, & THROAT: + dysphagia CARDIOVASCULAR: Denies chest pain or palpitations PULMONARY: Denies shortness of breath GASTROINTESTINAL: Denies constipation/diarrhea GENITOURINARY: denies dysuria MUSCULOSKELETAL: generalized weakness NEUROLOGICAL: denies paresthesias HEMATOLOGICAL: +CML SKIN: rash on back, +Peg PSYCHIATRIC: Unremarkable All other review of systems found to be negative. PHYSICAL EXAMINATION: VITAL SIGNS: Please see below. GENERAL: Pleasant and cooperative. No acute distress. HEENT: PERRL. Extraocular movements intact. Clear conjunctiva CARDIOVASCULAR: Regular rate and rhythm. No murmurs, rubs, or gallops LUNGS: Clear to auscultation bilaterally. No wheezes. +scattered rhonchi (impr oving) ABDOMEN: Soft, nontender, nondistended. Positive bowel sounds. Normal active bowel sounds, PEG site c/d/i NEUROLOGICAL: Alert and oriented times three. Cranial nerves II through XII grossly intact. Sensation grossly intact (-) babinksi/clonus bilat, (-) Hoffmans (-) thenar or tongue fasciculations EXTREMITIES: 5\\5 strength bilateral upper extremities. 5\\5 strength right lower extremity. 5/5 strength in left lower extremity. (-) edema (+) TTP left medial joint line (improved) SKIN: diffuse papular rash on his back and buttock (improved) ASSESSMENT:79-year-old M with past medical history of tongue cancer and COPD who presents status post pneumonia with dysphagia s/p PEG placement PLAN: 1. Rehab- PT/OT advance gait and ADL training, strengthen/stretch/maintain ROM all 4 limbs, energy conservation-ambulating with RW -MODERATE NEEDS TEACHER recs appreciated, Alfonso water protocol in place, c/u oral rinses for oral hygiene (increased frequency to QID and added nystatin for chronic oral yeast secondary to ICS usage) -tube feeds, per MODERATE NEEDS TEACHER advancing towards comfort feeds, patient cleared to take a ll of his pills 2. Neuro: patient with suspicion for some cognitive impairments MODERATE NEEDS TEACHER ordered-cognition overall improving -patient has been having intermittent left leg shaking in therapy, most often fi rst thing in the morning or when getting up from a chair- no tone, sensory changes, or considerable weakness on exam, causes unclear at this time, but appears to be myoclonus- brain MRI negative, c/u Baclofen at 5mg TID which seems to helping-neurology also consulted to assist in management -will order cervical MRI, B1, B12, folate, copper serum levels per neuro recs, appreciated-f/u as outpatient 3. Cardiac: recent Chest CT with cardiac finding started on ASA,started on low dose metoprolol for PVCs, however d/c'd these as patient having orthostatics with dizziness in the morning-resolved -HLD c/u statin-medicine consulted to assist in overall management -will need cardiology f/u on d/c 4. Resp- s/p course of antibiotics for CAP and aspiration PNA s/p PEG placement 11-27-19, c/u Spiriva, Xopenex prn and standing Duonebs, and Guaifenesin, tapered off prednisone -2nd repeat CXR with no acute changes, but given persistent bibasilar infiltrates- s/p course of Levaquin, cough improving, still with leukocytosis which could still be due to recent steroids vs CML-no signs of active infection -on home -c/u acapella 5. Endo: hypothyroidism with elevated TSH on admission on increased dose of Synthroid 137mcg daily -rechecked TFTs 12-20-19 which shows a considerable elevation in TSH despite having increased his Synthroid dosing 6 weeks ago and timing his medication to be taken on an empty stomach (FT4 WNL), given his hx of tongue cancer with and neck radiation and concern for more malignancy thyroid US was ordered 12-21-19 showing, "Heterogeneous echotexture without discrete cystic or solid mass."- discussed case with Dr. Song who did not believe there was concern for thyroid cancer and to f/u with own oncologist for further work-up- recs appreciated - given normal FT4 and suspicion there is a Cgundhzknodh-ssetylmhe-pjkzchs axis dysfunction will refer to endocrinology on d/c in the [place] area for further eval and c/u current dose of Synthroid despite elevated TSH 6. DVT ppx: Lovenox and TEDs 7. GI ppx: lansaprazole -PEG feeds, HOB 45 degrees during feeds and one hour post-feeds, aspiration precautions -c/u daytime feeds, patient able to self-administer -c/u alfonso water protocol 8. Psych: had held Prozac 20mg qHS as can cause myoclonus, however given new hx today that his left leg shaking began last summer per his daughter and corroborated by patient, will restart Prozac as myoclonus predated SSRI initiation 9. Pain: Tylenol prn, c/u left knee with kinesiotaping 10. Hypernatremia- resolved, c/u free water boluses at lowered quantity 11. Skin: back rash-improving, c/u daily Eucerin moisturizer 12. 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 Dispo: 12-26-19 to home with ex- for a period of time Allergies Coded Allergies: amoxicillin (Verified Allergy, Mild, "rash" see comment, 11/09/19) REACTION FROM WAS SO LONG AGO PT DOESN'T EXACTLY REMEMBER, BUT HE BELIEVES IT WAS A RASH clavulanic acid (Verified Allergy, Mild, "rash" see comment, 11/09/19) REACTION FROM WAS SO LONG AGO PT DOESN'T EXACTLY REMEMBER, BUT HE BELIEVES IT WAS A RASH codeine (Verified Allergy, Unknown, 11/09/19) simethicone (Verified Adverse Reaction, Intermediate, drops cause tongue to burn - pt has thrush at this time, 11/13/19) allergy updated per conversation dr. tineo had with patient. oxycodone (Verified Adverse Reaction, Unknown, nausea & vomiting, " i couldn't tolerate it", 11/09/19) Vital Signs Vital Signs Date Time Temp Pulse Resp B/P (MAP) Pulse Ox O2 Delivery O2 Flow Rate FiO2 12/22/19 14:00 97.9 83 16 108/62 (77) 93 Room Air 12/18/19 09:00 1.0 Laboratory Data CBC/BMP Laboratory Tests 12/22/19 06:49 Labs 24H Laboratory Tests 2 12/22/19 06:49: Immature Granulocyte % (Auto) 0.3, Neutrophils (%) (Auto) 83.1H, Lymphocytes (%) (Auto) 5.7L, Monocytes (%) (Auto) 8.9H, Eosinophils (%) (Auto) 1.7, Basophils (%) (Auto) 0.3, Neutrophils # (Auto) 8.4, Lymphocytes # (Auto) 0.6L, Monocytes # (Auto) 0.9H, Eosinophils # (Auto) 0.2, Basophils # (Auto) 0.0, Nucleated Red Blood Cells % (auto) 0.0, Anion Gap 5L, Glomerular Filtration Rate > 60.0, Calcium Level 7.9L Current Medications Current Medications Current Medications Medications (Trade) Dose Ordered Sig/Jhon Route PRN Reason Start Time Stop Time Status Last Admin Dose Admin Acetaminophen (Tylenol Tab) 650 mg Q4HP PRN PEG fever/MILD PAIN (PS 1-4) 11/30/19 16:45 12/19/19 15:54 DC 12/18/19 21:22 Acetaminophen (Tylenol Tab) 650 mg Q4HP PRN PO fever/MILD PAIN (PS 1-4) 12/19/19 16:00 12/21/19 20:51 Albuterol/ Ipratropium (Duoneb (Ipr 0.5mg/Alb 2.5mg)) 3 ml Q4HP PRN NEB SOB/WHEEZING 12/04/19 04:00 12/04/19 11:31 DC 12/04/19 03:55 Albuterol/ Ipratropium (Duoneb (Ipr 0.5mg/Alb 2.5mg)) 3 ml RQID NEB 12/08/19 12:00 12/19/19 15:45 DC 12/19/19 15:17 Albuterol/ Ipratropium (Duoneb (Ipr 0.5mg/Alb 2.5mg)) 3 ml RTID NEB 12/20/19 20:00 12/22/19 14:07 Albuterol/ Ipratropium (Duoneb (Ipr 0.5mg/Alb 2.5mg)) 3 ml TID NEB 12/04/19 10:00 4/3/20 10:51 DC 12/07/19 13:42 Amlodipine Besylate (Norvasc) 5 mg QHS PEG 11/30/19 21:00 12/06/19 10:43 DC 12/05/19 22:33 Aspirin (Aspirin Chewable) 81 mg DAILY PEG 12/01/19 09:00 12/18/19 16:09 DC 12/18/19 08:29 Aspirin (Aspirin Chewable) 81 mg DAILY PO 12/20/19 09:00 12/22/19 08:55 Aspirin (Aspirin Chewable) 81 mg DAILY@0700 PEG 12/18/19 16:09 12/19/19 15:54 DC 12/19/19 06:16 Atorvastatin Calcium (Lipitor) 10 mg QHS PEG 11/30/19 21:00 12/18/19 16:10 DC 12/17/19 21:11 Atorvastatin Calcium (Lipitor) 10 mg QHS PO 12/19/19 21:00 12/21/19 20:51 Atorvastatin Calcium (Lipitor) 10 mg QHS@1900 PEG 12/18/19 16:10 12/19/19 15:54 DC 12/18/19 21:13 Baclofen (Lioresal) 5 mg BID PO 12/21/19 09:00 12/22/19 11:07 DC 12/22/19 08:55 Baclofen (Lioresal) 5 mg TID@0800,1200,1600 PO 12/22/19 12:00 12/22/19 13:03 Budesonide/ Formoterol Fumarate (Symbicort 160/ 4.5mcg) 2 puff BID INH 11/30/19 21:00 12/22/19 07:50 Calcium Carbonate (Tums) 500 mg TIDP PRN PEG INDIGESTION 11/30/19 16:45 12/19/19 15:54 DC Cetirizine HCl (ZyrTEC) 10 mg DAILY PO 12/01/19 09:00 12/06/19 10:43 DC 12/06/19 08:28 Chlorhexidine Gluconate (Peridex Oral Rinse) 1 ml BID MT 11/30/19 21:00 12/04/19 11:30 DC 12/04/19 09:48 Chlorhexidine Gluconate (Peridex Oral Rinse) 1 ml QID MT 12/04/19 13:00 12/22/19 13:03 Diphenhydramine HCl (Benadryl) 25 mg Q6HP PRN PEG ITCHING 12/01/19 15:30 Emollient Cream (Vanicream) applyto back and up... BID TOP 12/01/19 09:00 12/21/19 20:51 Enoxaparin Sodium (Lovenox) 40 mg DAILY SC 12/01/19 09:00 12/18/19 16:10 DC 12/18/19 08:28 Enoxaparin Sodium (Lovenox) 40 mg DAILY@0700 SC 12/18/19 16:10 12/22/19 06:53 Fluoxetine HCl (PROzac) 20 mg DAILY PO 12/22/19 09:00 Fluoxetine HCl (PROzac) 20 mg QHS PO 12/19/19 21:00 12/21/19 10:31 DC 12/20/19 21:37 Fluoxetine HCl (PROzac) 20 mg QHS PO 12/08/19 21:00 12/18/19 16:11 DC 12/17/19 21:11 Fluoxetine HCl (PROzac) 20 mg QHS@1900 PO 12/18/19 16:11 12/19/19 15:54 DC 12/18/19 21:14 Furosemide (Lasix) 20 mg DAILY PEG 12/09/19 09:00 12/11/19 12:30 DC 12/11/19 08:01 Guaifenesin (Robitussin) 5 ml QID PEG 11/30/19 21:00 12/18/19 16:12 DC 12/18/19 13:01 Lactulose (Cephulac) 30 ml DAILY PRN PO constipation 11/30/19 16:45 11/30/19 17:02 DC Lactulose (Cephulac) 30 ml DAILYPRN PRN PEG constipation 11/30/19 17:15 12/19/19 15:54 DC Lansoprazole (First-Lansoprazole Oral Suspension) 30 mg DAILY PEG 12/01/19 09:00 12/18/19 16:11 DC 12/18/19 08:27 Lansoprazole (First-Lansoprazole Oral Suspension) 30 mg DAILY@0700 PEG 12/18/19 16:11 12/19/19 15:54 DC 12/19/19 06:15 Levalbuterol HCl (Xopenex Neb) 1.25 mg Q4HP PRN INH SOB/WHEEZING 11/30/19 16:45 12/08/19 11:07 DC 12/04/19 01:25 Levalbuterol HCl (Xopenex Neb) 1.25 mg RQID INH 11/30/19 20:00 12/04/19 11:49 DC 12/04/19 11:01 Levofloxacin (Levaquin) 750 mg DAILY@06 PEG 12/11/19 12:45 12/17/19 06:01 DC 12/17/19 05:37 Levothyroxine Sodium (Synthroid) 137 mcg DAILY@0600 PEG 12/19/19 06:00 12/18/19 16:10 DC Levothyroxine Sodium (Synthroid) 137 mcg DAILY@0600 PO 12/20/19 06:00 12/22/19 05:45 Levothyroxine Sodium (Synthroid) 137 mcg DAILY@0700 PEG 12/19/19 07:00 12/19/19 15:54 DC 12/19/19 06:16 Levothyroxine Sodium (Synthroid) 137 mcg DAILY@1200 PEG 12/01/19 12:00 12/18/19 15:39 DC 12/18/19 13:01 Lidocaine (Lidoderm Patch) 1 patch DAILY TD 12/18/19 09:00 12/18/19 16:12 DC Lidocaine (Lidoderm Patch) 1 patch DAILY@0700 TD 12/18/19 16:12 12/19/19 10:21 DC Losartan Potassium (Cozaar) 25 mg DAILY PEG 12/06/19 09:00 12/08/19 15:47 DC 12/07/19 08:15 Losartan Potassium (Cozaar) 25 mg DAILY@1200 PEG 12/09/19 12:00 12/10/19 13:49 DC 12/09/19 13:14 Losartan Potassium (Cozaar) 50 mg DAILY PEG 12/01/19 09:00 12/05/19 14:11 DC 12/05/19 08:31 Metoprolol Tartrate (Lopressor) 12.5 mg BID NG 12/10/19 21:00 12/12/19 11:50 DC 12/12/19 08:51 Metoprolol Tartrate (Lopressor) 12.5 mg BID PEG 12/12/19 21:00 12/18/19 16:13 DC 12/18/19 08:29 Metoprolol Tartrate (Lopressor) 12.5 mg BID@0700,1900 PEG 12/18/19 16:13 12/19/19 15:45 DC 12/19/19 06:17 Miscellaneous (Unresolved Clarification Entry) SEE LABEL COMMENTS DAILY XX 12/17/19 09:00 12/18/19 10:42 DC Miscellaneous (Unresolved Clarification Entry) SEE LABEL COMMENTS DAILY XX 12/10/19 09:00 12/11/19 11:23 DC Miscellaneous (Unresolved Patient Own Med Order) SEE LABEL COMMENTS DAILY XX 12/11/19 09:00 12/14/19 12:51 DC Non-Formulary Medication ( See Comment Field Below ) REMOVE LIDODERM PATCH DAILY@1900 XX 12/19/19 19:00 12/21/19 17:18 Non-Formulary Medication ( See Comment Field Below ) REMOVE LIDODERM PATCH DAILY@21 XX 12/18/19 21:00 12/18/19 22:00 DC 12/18/19 21:17 Nystatin (Mycostatin) 5 ml QID SSP 12/06/19 17:00 12/22/19 13:03 Pantoprazole Sodium (Protonix) 40 mg DAILY PO 12/20/19 09:00 12/22/19 08:55 Patient Own Medication (Patient'S Own Med) 8am and 5pm on em... BID@0800,1700 PO 12/19/19 17:00 12/21/19 17:18 Patient Own Medication (Patient'S Own Med) 300mg = 2 capsules Take ... BID PO 12/14/19 21:00 12/18/19 16:08 DC 12/18/19 08:27 Patient Own Medication (Patient'S Own Med) 300mg = 2 capsules Take ... BID@0700,1700 PO 12/18/19 16:08 12/19/19 15:54 DC 12/19/19 06:18 Patient Own Medication (Patient'S Own Med) Nilotinib (Tasigna) 15... BID PEG 12/12/19 21:00 12/14/19 12:37 DC Prednisone (Deltasone) 5 mg DAILY PEG 12/01/19 09:00 12/04/19 12:07 DC 12/04/19 09:49 Prednisone (Deltasone) 5 mg DAILY PEG 12/16/19 09:00 12/18/19 16:14 DC 12/18/19 08:29 Prednisone (Deltasone) 5 mg DAILY PO 12/20/19 09:00 12/21/19 10:31 DC 12/21/19 09:14 Prednisone (Deltasone) 5 mg DAILY@0700 PEG 12/18/19 16:14 12/19/19 15:54 DC 12/19/19 06:17 Prednisone (Deltasone) 10 mg DAILY PEG 12/05/19 09:00 12/10/19 13:29 DC 12/10/19 07:34 Prednisone (Deltasone) 10 mg DAILY PEG 12/11/19 09:00 12/15/19 13:04 DC 12/15/19 08:26 Ramelteon (Rozerem) 8 mg QHS PEG 11/30/19 21:00 12/07/19 13:45 DC 12/06/19 20:17 Saliva Substitute (Mouthkote) USE DIRECTED QID MT 11/30/19 21:00 12/22/19 13:04 Thiamine HCl (Thiamine HCl) 100 mg DAILY PO 12/22/19 09:00 Tiotropium [place] (Spiriva Handihaler) 1 inhalation DAILY@08 INH 12/01/19 08:00 12/22/19 07:50 CECY DOMINGUEZ MD Dec 22, 2019 16:07
[2019-12-22 16:32] LABS: FOLATE > 24.0 NG/ML (>5.4); VITAMIN B12 LEVEL 397 PG/ML (247-911)
[2019-12-22] MEDS: FLUoxetine 20 MG CAP PO SCH (17:58)
[2019-12-22] MEDS: THIAMINE 100 MG TAB PO SCH (17:58)
[2019-12-22] MEDS: **NOTE PATIENT COMMENT** MISC XX SCH (19:28)
--- NOTE | 2019-12-22 20:16 | REPVR ---
PROCEDURE INFORMATION: Exam: MR Cervical Spine Without Contrast Exam date and time: 12/22/2019 2:58 PM Age: 79 years old Clinical indication: Other: Jerking movements; Additional info: Lle myoclonic jerks TECHNIQUE: Imaging protocol: Multiplanar magnetic resonance images of the cervical spine without contrast. COMPARISON: Thyroid, ST head+neck US 12/21/2019 11:02 AM FINDINGS: Mild nonspecific reversal of the cervical lordosis. Grade 1 anterolisthesis of C3 on C4. Vertebral body heights are preserved. Multilevel disc desiccation. No evidence of discitis/osteomyelitis. No abnormal cord signal or cord expansion. No epidural fluid collection. Heterogeneous marrow signal with foci of increased STIR signal predominately involving endplates. C2-C3: No significant central or foraminal stenosis. C3-C4: Right greater than left uncinate spurring and facet joint arthropathy. No significant central canal stenosis. [id number] right and mild left foraminal stenosis. C4-C5: Minimal disc osteophyte complex with left greater than right uncinate spurring. No significant central canal stenosis. Mild right and moderate left foraminal stenosis. C5-C6: Mild disc osteophyte complex with bilateral uncinate spurring. No significant central canal stenosis. There is pjga-[id number] bilateral foraminal stenosis. C6-C7: Mild disc osteophyte complex without significant central or foraminal stenosis. C7-T1: Mild disc osteophyte complex without significant central or foraminal stenosis. IMPRESSION: 1. Heterogeneous marrow signal including foci of increased STIR signal predominately centered about the endplates. This is at least in part on a degenerative endplate basis, follow-up recommended to exclude neoplastic process. 2. No abnormal cord signal. 3. Mild for age degenerative change as above without significant central canal compromise or cord compression. Electronically signed by: Jaron Bermudez On 12/22/2019 20:16:11 PM
[2019-12-22] MEDS: ATORVASTATIN 10 MG TAB PO SCH (20:56)
[2019-12-22] MEDS: ACETAMINOPHEN TAB 650MG DOSE (2X325MG) PO PRN (20:56)
[2019-12-22 21:07] VITALS: BP 140/83
[2019-12-23 06:00] VITALS: BP 158/80
[2019-12-23] MEDS: LEVOTHYROXINE 137MCG TABLET (0.137MG) PO SCH (06:09)
[2019-12-23] MEDS: ENOXAPARIN 40MG/0.4ML SYRINGE (J1650 PER 10MG) SC SCH (06:11)
[2019-12-23] MEDS: TIOTROPIUM INHALER/CAPSULE (SPIRIVA) INH SCH (07:25)
[2019-12-23] MEDS: IPRATROPIUM 0.5MG/ALBUTEROL 2.5MG INH SOL UD 3ML (DUONEB)(J7620) NEB SCH ×3 (07:26→19:57)
[2019-12-23] MEDS: SYMBICORT 160/4.5MCG INHALER 6GM INH SCH ×2 (07:29→19:57)
[2019-12-23] MEDS: ENTER DRUG NAME HERE (PATIENT'S OWN MED) PO SCH ×2 (08:00→17:00)
[2019-12-23] MEDS: THIAMINE 100 MG TAB PO SCH (09:05)
[2019-12-23] MEDS: NYSTATIN 500,000 U/5 ML SUSP UDC SSP SCH ×4 (09:05→21:05)
[2019-12-23] MEDS: CHLORHEXIDINE GLUCONATE 0.12 % 15ML UDC (PERIDEX ORAL RINSE) MT SCH ×4 (09:05→21:05)
[2019-12-23] MEDS: FLUoxetine 20 MG CAP PO SCH (09:05)
[2019-12-23] MEDS: BACLOFEN 5MG PER 1/2 TABLET PO SCH ×3 (09:05→17:09)
[2019-12-23] MEDS: ASPIRIN 81 MG CHEW TABLET PO SCH (09:05)
[2019-12-23] MEDS: PANTOPRAZOLE 40MG TAB (PROTONIX) PO SCH (09:05)
[2019-12-23] MEDS: REMEDY PHYTOPLEX Z-GUARD PASTE 113GM TUBE (FROM STOREROOM PRODUCT) TOP SCH ×3 (09:07→21:00)
[2019-12-23] MEDS: SALIVA SUBSTITUTE(MOUTHKOTE) BTL MT SCH ×4 (09:07→21:05)
[2019-12-23] MEDS: VANICREAM MOISTURIZING SKIN CREAM 113GM TUBE TOP SCH ×2 (09:08→21:00)
--- NOTE | 2019-12-23 14:47 | CR ---
DATE OF CONSULTATION: 12/22/2019 REFERRING PHYSICIAN: Dayana Weber MD REASON FOR CONSULTATION: Left leg tremor. HISTORY OF PRESENT ILLNESS Claude Marques is a 79-year-old man with history of man with history of CML tongue cancer, COPD, coronary artery disease, hypothyroidism admitted to [facility] due to pneumonia recently. He is in rehabilitation currently. He had bilateral pleural effusion with pneumonia and concern for a mass in the lungs. I was consulted in rehab unit because of difficulty walking triggered by left leg jerks and tremor triggered by walking. According to the patient's daughter his left leg jerks, shakes and tremors have been going on since Summer 2018. The patient uses cane or walker at his baseline. Whenever he tries to walk he gets jerks and shakes of his left leg. If he takes 5-10 steps his left leg jerks. He has to quickly sit down due to fear of falling. It goes away after resting for few seconds. He denies any headaches, neck pain, back pain, numbness, weakness of legs, arms, dysphagia, dysarthria, diplopia or urinary incontinence. He denies any tremor of his arms. DIAGNOSTIC STUDIES MRI scan of brain showed moderate atrophy and small-vessel ischemic disease of brain. Hemoglobin was 9.6, platelet count was 328 with normal metabolic profile and blood WBCs 10.2. PAST MEDICAL HISTORY: As per HPI. FAMILY HISTORY: Significant for throat cancer. SOCIAL HISTORY: He is a former smoker. He drinks three beers a day. REVIEW OF SYSTEMS All systems were reviewed and found to be noncontributory except as mentioned in history present illness. HOME MEDICATIONS: - amlodipine 5 mg by mouth daily - aspirin 81 mg by mouth daily - Lipitor 10 mg by mouth daily - Symbicort 2 puffs inhalation twice a day - levothyroxine 25 mcg by mouth daily - losartan 50 mg by mouth daily - prednisone 5 mg by mouth daily - Spiriva one inhalation daily - Tasigna 150 mg, two tablets by mouth twice a day - albuterol inhaler ALLERGIES: PENICILLIN, CODEINE, OXICONAZOLE. PHYSICAL EXAMINATION Temperature 97.9, pulse 83, respiratory rate 16, blood pressure 108/62, heart regular rate and rhythm. Lungs: Clear to auscultation. Abdomen: Soft, nontender, nondistended, no pedal edema. No musculoskeletal abnormalities. No rash. No signs of meningeal irritation. No tremor, dysmetria. The patient is awake, alert, oriented to place, person and time. Normal speech, comprehension and repetition. Extraoral muscles are intact. No facial weakness. Visual cano are full to confrontation. Tongue and uvula are midline. No nystagmus. 5/5 strength in all upper extremities. Deep tendon flexes are 2+ throughout. Normal sensation to touch, vibration in feet. Gait is unsteady. He uses a walker for ambulation. After walking 5-6 steps he had shiver-like myoclonic jerks of left leg and he wanted to quickly sit back down. On second attempt he walked for 15 - 20 feet without triggering any left leg jerks. ASSESSMENT 1. Suspected propriospinal myoclonic jerks of left leg triggered by walking, although there is no clonus on dorsiflexion of feet and his Babinski signs are negative bilaterally. 2. Gait difficulty related to above. 3. Small vessel ischemic disease of brain and age-appropriate atrophy of brain. PLAN 1. MRI cervical spine. 2. Check vitamin B12, vitamin B1, serum copper etc. 3. Physical therapy and continue using a walker. 4. Baclofen 5-10 mg by mouth twice a day and slowly increase it. 5. Clonazepam as contingency plan. Keppra would be another option. 6. Follow with our office in 2-4 weeks after hospital discharge. We will consider EMG nerve conduction study of legs on outpatient basis.
[2019-12-23 15:00] VITALS: BP 144/64
[2019-12-23] MEDS: **NOTE PATIENT COMMENT** MISC XX SCH ×2 (17:10→17:12)
[2019-12-23 20:00] VITALS: BP 125/67
[2019-12-23] MEDS: ATORVASTATIN 10 MG TAB PO SCH (21:05)
[2019-12-24 06:00] VITALS: BP 162/75
[2019-12-24] MEDS: LEVOTHYROXINE 137MCG TABLET (0.137MG) PO SCH (06:00)
[2019-12-24] MEDS: ENOXAPARIN 40MG/0.4ML SYRINGE (J1650 PER 10MG) SC SCH (06:01)
[2019-12-24] MEDS: TIOTROPIUM INHALER/CAPSULE (SPIRIVA) INH SCH (07:13)
[2019-12-24] MEDS: IPRATROPIUM 0.5MG/ALBUTEROL 2.5MG INH SOL UD 3ML (DUONEB)(J7620) NEB SCH ×3 (07:14→20:00)
[2019-12-24] MEDS: SYMBICORT 160/4.5MCG INHALER 6GM INH SCH ×2 (07:15→20:06)
[2019-12-24] MEDS: ENTER DRUG NAME HERE (PATIENT'S OWN MED) PO SCH ×2 (08:00→17:00)
[2019-12-24] MEDS: PANTOPRAZOLE 40MG TAB (PROTONIX) PO SCH (08:20)
[2019-12-24] MEDS: ASPIRIN 81 MG CHEW TABLET PO SCH (08:20)
[2019-12-24] MEDS: BACLOFEN 5MG PER 1/2 TABLET PO SCH ×3 (08:20→17:48)
[2019-12-24] MEDS: NYSTATIN 500,000 U/5 ML SUSP UDC SSP SCH ×4 (08:20→20:59)
[2019-12-24] MEDS: THIAMINE 100 MG TAB PO SCH (08:20)
[2019-12-24] MEDS: FLUoxetine 20 MG CAP PO SCH (08:20)
[2019-12-24] MEDS: CHLORHEXIDINE GLUCONATE 0.12 % 15ML UDC (PERIDEX ORAL RINSE) MT SCH ×4 (08:20→20:59)
[2019-12-24] MEDS: VANICREAM MOISTURIZING SKIN CREAM 113GM TUBE TOP SCH ×2 (08:21→21:00)
[2019-12-24] MEDS: SALIVA SUBSTITUTE(MOUTHKOTE) BTL MT SCH ×4 (08:22→20:57)
[2019-12-24] MEDS: REMEDY PHYTOPLEX Z-GUARD PASTE 113GM TUBE (FROM STOREROOM PRODUCT) TOP SCH ×3 (08:22→21:00)
[2019-12-24 14:00] VITALS: BP 130/62
[2019-12-24 20:00] VITALS: BP 129/73
[2019-12-24] MEDS: ATORVASTATIN 10 MG TAB PO SCH (20:58)
[2019-12-25] MEDS: LEVOTHYROXINE 137MCG TABLET (0.137MG) PO SCH (05:41)
[2019-12-25 06:00] VITALS: BP 146/74
[2019-12-25 06:28] LABS: BASO % 0.4 % (0.0-1.0); EOS # 0.4 10^3/uL (0.0-0.5); EOS % 4.4 % (0.0-3.0); HEMATOCRIT 29.9 % (42.0-52.0); HEMOGLOBIN 9.5 g/dl (13.5-17.5); LYMPH # 0.7 10^3/uL (1.5-5.0); LYMPH % 7.4 % (24.0-44.0); MEAN CORPUSCULAR HEMOGLOBIN 29.7 pg (27.0-33.0); MEAN CORPUSCULAR HGB CONC 31.8 g/dl (32.0-36.5); MEAN CORPUSCULAR VOLUME 93.4 fl (80.0-96.0); MONO % 10.7 % (0.0-5.0); NEUTROPHILS % 76.6 % (36.0-66.0); PLATELET COUNT, AUTOMATED 309 10^3/uL (150-450); WHITE BLOOD COUNT 9.2 10^3/uL (4.0-10.0)
[2019-12-25 06:47] LABS: BLOOD UREA NITROGEN 29 MG/DL (7-18); CALCIUM LEVEL 8.5 MG/DL (8.8-10.2); CARBON DIOXIDE LEVEL 29 MEQ/L (21-32); CHLORIDE LEVEL 104 MEQ/L (98-107); CREATININE FOR GFR 0.83 MG/DL (0.70-1.30); GLOMERULAR FILTRATION RATE > 60.0 (>42); GLUCOSE, FASTING 94 MG/DL (70-100); POTASSIUM SERUM 4.3 MEQ/L (3.5-5.1); SODIUM LEVEL 138 MEQ/L (136-145)
[2019-12-25] MEDS: IPRATROPIUM 0.5MG/ALBUTEROL 2.5MG INH SOL UD 3ML (DUONEB)(J7620) NEB SCH ×3 (08:00→19:59)
[2019-12-25] MEDS: ENTER DRUG NAME HERE (PATIENT'S OWN MED) PO SCH ×2 (08:00→17:00)
[2019-12-25] MEDS: REMEDY PHYTOPLEX Z-GUARD PASTE 113GM TUBE (FROM STOREROOM PRODUCT) TOP SCH ×3 (08:18→21:03)
[2019-12-25] MEDS: VANICREAM MOISTURIZING SKIN CREAM 113GM TUBE TOP SCH ×2 (09:00→21:05)
[2019-12-25] MEDS: PANTOPRAZOLE 40MG TAB (PROTONIX) PO SCH (09:02)
[2019-12-25] MEDS: ENOXAPARIN 40MG/0.4ML SYRINGE (J1650 PER 10MG) SC SCH (09:02)
[2019-12-25] MEDS: BACLOFEN 5MG PER 1/2 TABLET PO SCH (09:03)
[2019-12-25] MEDS: CHLORHEXIDINE GLUCONATE 0.12 % 15ML UDC (PERIDEX ORAL RINSE) MT SCH ×4 (09:03→21:02)
[2019-12-25] MEDS: ASPIRIN 81 MG CHEW TABLET PO SCH (09:03)
[2019-12-25] MEDS: FLUoxetine 20 MG CAP PO SCH (09:03)
[2019-12-25] MEDS: THIAMINE 100 MG TAB PO SCH (09:03)
[2019-12-25] MEDS: NYSTATIN 500,000 U/5 ML SUSP UDC SSP SCH ×4 (09:03→21:02)
[2019-12-25] MEDS: SALIVA SUBSTITUTE(MOUTHKOTE) BTL MT SCH ×4 (09:05→21:05)
[2019-12-25] MEDS: TIOTROPIUM INHALER/CAPSULE (SPIRIVA) INH SCH (11:16)
[2019-12-25] MEDS: SYMBICORT 160/4.5MCG INHALER 6GM INH SCH ×2 (11:17→19:59)
[2019-12-25] MEDS ORDERED: THIA100TA PO (11:24)
[2019-12-25] MEDS ORDERED: PANT40TA3 PO (11:24)
[2019-12-25] MEDS ORDERED: SYMB16INH INH (11:24)
[2019-12-25] MEDS ORDERED: NYST50SS SSP (11:24)
[2019-12-25] MEDS ORDERED: ASPI81CH8 PO (11:24)
[2019-12-25] MEDS ORDERED: SYNT137T7 PO (11:24)
[2019-12-25] MEDS ORDERED: ALBU8.5H INH (11:24)
[2019-12-25] MEDS ORDERED: ATOR1TAB19 PO (11:24)
[2019-12-25] MEDS ORDERED: BACL10TA2 PO (11:24)
[2019-12-25] MEDS ORDERED: TIOT18INH INH (11:24)
[2019-12-25] MEDS ORDERED: PERI12LIQ MT (11:24)
--- NOTE | 2019-12-25 12:15 | IPNPDOC ---
PM&R Progress Note DATE OF SERVICE: Dec 25, 2019 [facility] Progress Note Subjective: Patient seen in therapy stating his left leg shaking is worse today and he is frustrated. He agrees to trial a higher dose of baclofen and to stop the Prozac again which had been restarted over the weekend as this may be unmasking/exacerbating his myoclonus. REVIEW OF SYSTEMS: The following is a completed review of systems and has been reviewed. Review of systems otherwise unremarkable. PAIN: Patient self reports no pain EYES: No recent vision changes EARS, NOSE, & THROAT: + dysphagia CARDIOVASCULAR: Denies chest pain or palpitations PULMONARY: Denies shortness of breath GASTROINTESTINAL: Denies constipation/diarrhea GENITOURINARY: denies dysuria MUSCULOSKELETAL: generalized weakness NEUROLOGICAL: denies paresthesias, +LLE myoclonus HEMATOLOGICAL: +CML SKIN: rash on back, +Peg PSYCHIATRIC: Unremarkable All other review of systems found to be negative. PHYSICAL EXAMINATION: VITAL SIGNS: Please see below. GENERAL: Pleasant and cooperative. No acute distress. HEENT: PERRL. Extraocular movements intact. Clear conjunctiva CARDIOVASCULAR: Regular rate and rhythm. No murmurs, rubs, or gallops LUNGS: Clear to auscultation bilaterally. No wheezes. +scattered rhonchi (improving) ABDOMEN: Soft, nontender, nondistended. Positive bowel sounds. Normal active bowel sounds, PEG site c/d/i NEUROLOGICAL: Alert and oriented times three. Cranial nerves II through XII grossly intact. Sensation grossly intact (-) babinksi/clonus bilat, (-) Hoffmans (-) thenar or tongue fasciculations EXTREMITIES: 5\\5 strength bilateral upper extremities. 5\\5 strength right lower extremity. 5/5 strength in left lower extremity. (-) edema (+) TTP left medial joint line (improved) SKIN: diffuse papular rash on his back and buttock (improved) Gait: intermittent LLE myoclonus jerks with ambulation ASSESSMENT:79-year-old M with past medical history of tongue cancer and COPD who presents status post pneumonia with dysphagia s/p PEG placement PLAN: 1. Rehab- PT/OT advance gait and ADL training, strengthen/stretch/maintain ROM all 4 limbs, energy conservation-ambulating with RW, but unsteady when the myoclonus jerks start and will require a wheelchair for safety -CD MIXER recs appreciated, Alfonso water protocol in place, c/u oral rinses for oral hygiene (increased frequency to QID and added nystatin for chronic oral yeast secondary to ICS usage) -tube feeds, per CD MIXER advancing towards comfort feeds, patient cleared to take all of his pills 2. 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 Cardiac: recent Chest CT with cardiac finding started on ASA,started on low dose metoprolol for PVCs, however d/c'd these as patient having orthostatics with dizziness in the morning-resolved -HLD c/u statin-medicine consulted to assist in overall management -will need cardiology f/u on d/c 4. Resp- s/p course of antibiotics for CAP and aspiration PNA s/p PEG placement 11-27-19, c/u Spiriva, Xopenex prn and standing Duonebs, and Guaifenesin, tapered off prednisone -2nd repeat CXR with no acute changes, but given persistent bibasilar infiltrates- s/p course of Levaquin, cough improving-leukocytosis improving -on home -c/u acapella 5. Endo: hypothyroidism with elevated TSH on admission on increased dose of Synthroid 137mcg daily -rechecked TFTs 12-20-19 which shows a considerable elevation in TSH despite having increased his Synthroid dosing 6 weeks ago and timing his medication to be taken on an empty stomach (FT4 WNL), given his hx of tongue cancer with and neck radiation and concern for more malignancy thyroid US was ordered 12-21-19 showing, "Heterogeneous echotexture without discrete cystic or solid mass."- discussed case with Dr. Song who did not believe there was concern for thyroid cancer and to f/u with own oncologist for further work-up- recs appreciated - given normal FT4 and suspicion there is a Tfjoptzzitaz-ahrhpxrxp-khvregp axis dysfunction will refer to endocrinology on d/c in the [facility] area for further eval and c/u current dose of Synthroid despite elevated TSH 6. DVT ppx: Lovenox and TEDs 7. GI ppx: lansaprazole -PEG feeds, HOB 45 degrees during feeds and one hour post-feeds, aspiration precautions -c/u daytime feeds, patient able to self-administer -c/u alfonso water protocol 8. Psych: avoid SSRIs as may seems to exacerbate myoclonus 9. Pain: Tylenol prn, c/u left knee with kinesiotaping 10. Hypernatremia- resolved, c/u free water boluses at lowered quantity 11. Skin: back rash-resolved 12. 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 Dispo: 12-26-19 to home with ex- for a period of time DME: Patient will require a wheelchair to safely complete his MRADLs and in a timely manner. He is unable to use a walker or cane safely in the setting of his myoclonic jerks and is at increased risk of falls. He agreeable to use a whee lchair, his home is wheelchair accessible and his family is able ot help him use it. Allergies Coded Allergies: amoxicillin (Verified Allergy, Mild, "rash" see comment, 11/09/19) REACTION FROM WAS SO LONG AGO PT DOESN'T EXACTLY REMEMBER, BUT HE BELIEVES IT WAS A RASH clavulanic acid (Verified Allergy, Mild, "rash" see comment, 11/09/19) REACTION FROM WAS SO LONG AGO PT DOESN'T EXACTLY REMEMBER, BUT HE BELIEVES IT WAS A RASH codeine (Verified Allergy, Unknown, 11/09/19) simethicone (Verified Adverse Reaction, Intermediate, drops cause tongue to burn - pt has thrush at this time, 11/13/19) allergy updated per conversation dr. tineo had with patient. oxycodone (Verified Adverse Reaction, Unknown, nausea & vomiting, " i couldn't tolerate it", 11/09/19) Vital Signs Vital Signs Date Time Temp Pulse Resp B/P (MAP) Pulse Ox O2 Delivery O2 Flow Rate FiO2 12/25/19 06:00 98.8 57 16 146/74 (98) 94 Room Air Laboratory Data CBC/BMP Laboratory Tests 12/25/19 06:11 Labs 24H Laboratory Tests 2 12/25/19 06:11: Immature Granulocyte % (Auto) 0.5, Neutrophils (%) (Auto) 76.6H, Lymphocytes (%) (Auto) 7.4L, Monocytes (%) (Auto) 10.7H, Eosinophils (%) (Auto) 4.4H, Basophils (%) (Auto) 0.4, Neutrophils # (Auto) 7.0, Lymphocytes # (Auto) 0.7L, Monocytes # (Auto) 1.0H, Eosinophils # (Auto) 0.4, Basophils # (Auto) 0.0, Nucleated Red Blood Cells % (auto) 0.0, Anion Gap 5L, Glomerular Filtration Rate > 60.0, Calcium Level 8.5L Current Medications Current Medications Current Medications Medications (Trade) Dose Ordered Sig/Jhon Route PRN Reason Start Time Stop Time Status Last Admin Dose Admin Acetaminophen (Tylenol Tab) 650 mg Q4HP PRN PEG fever/MILD PAIN (PS 1-4) 11/30/19 16:45 12/19/19 15:54 DC 12/18/19 21:22 Acetaminophen (Tylenol Tab) 650 mg Q4HP PRN PO fever/MILD PAIN (PS 1-4) 12/19/19 16:00 12/22/19 20:56 Albuterol/ Ipratropium (Duoneb (Ipr 0.5mg/Alb 2.5mg)) 3 ml Q4HP PRN NEB SOB/WHEEZING 12/04/19 04:00 12/04/19 11:31 DC 12/04/19 03:55 Albuterol/ Ipratropium (Duoneb (Ipr 0.5mg/Alb 2.5mg)) 3 ml RQID NEB 12/08/19 12:00 12/19/19 15:45 DC 12/19/19 15:17 Albuterol/ Ipratropium (Duoneb (Ipr 0.5mg/Alb 2.5mg)) 3 ml RTID NEB 12/20/19 20:00 12/24/19 13:39 Albuterol/ Ipratropium (Duoneb (Ipr 0.5mg/Alb 2.5mg)) 3 ml TID NEB 12/04/19 10:00 12/08/19 10:51 DC 12/07/19 13:42 Amlodipine Besylate (Norvasc) 5 mg QHS PEG 11/30/19 21:00 12/06/19 10:43 DC 12/05/19 22:33 Aspirin (Aspirin Chewable) 81 mg DAILY PEG 12/01/19 09:00 12/18/19 16:09 DC 12/18/19 08:29 Aspirin (Aspirin Chewable) 81 mg DAILY PO 12/20/19 09:00 12/25/19 09:03 Aspirin (Aspirin Chewable) 81 mg DAILY@0700 PEG 12/18/19 16:09 12/19/19 15:54 DC 12/19/19 06:16 Atorvastatin Calcium (Lipitor) 10 mg QHS PEG 11/30/19 21:00 12/18/19 16:10 DC 12/17/19 21:11 Atorvastatin Calcium (Lipitor) 10 mg QHS PO 12/19/19 21:00 12/24/19 20:58 Atorvastatin Calcium (Lipitor) 10 mg QHS@1900 PEG 12/18/19 16:10 12/19/19 15:54 DC 12/18/19 21:13 Baclofen (Lioresal) 5 mg BID PO 12/21/19 09:00 12/22/19 11:07 DC 12/22/19 08:55 Baclofen (Lioresal) 5 mg TID@0800,1200,1600 PO 12/22/19 12:00 12/25/19 10:01 DC 12/25/19 09:03 Baclofen (Lioresal) 10 mg TID@0800,1200,1600 PO 12/25/19 12:00 Budesonide/ Formoterol Fumarate (Symbicort 160/ 4.5mcg) 2 puff BID INH 11/30/19 21:00 12/25/19 11:17 Calcium Carbonate (Tums) 500 mg TIDP PRN PEG INDIGESTION 11/30/19 16:45 12/19/19 15:54 DC Cetirizine HCl (ZyrTEC) 10 mg DAILY PO 12/01/19 09:00 12/06/19 10:43 DC 12/06/19 08:28 Chlorhexidine Gluconate (Peridex Oral Rinse) 1 ml BID MT 11/30/19 21:00 12/04/19 11:30 DC 12/04/19 09:48 Chlorhexidine Gluconate (Peridex Oral Rinse) 1 ml QID MT 12/04/19 13:00 12/25/19 09:03 Diphenhydramine HCl (Benadryl) 25 mg Q6HP PRN PEG ITCHING 12/01/19 15:30 Emollient Cream (Vanicream) applyto back and up... BID TOP 12/01/19 09:00 12/24/19 21:00 Enoxaparin Sodium (Lovenox) 40 mg DAILY SC 12/01/19 09:00 12/18/19 16:10 DC 12/18/19 08:28 Enoxaparin Sodium (Lovenox) 40 mg DAILY SC 12/25/19 09:00 12/25/19 09:02 Enoxaparin Sodium (Lovenox) 40 mg DAILY@0700 SC 12/18/19 16:10 12/24/19 09:24 DC 12/24/19 06:01 Fluoxetine HCl (PROzac) 20 mg DAILY PO 12/22/19 09:00 12/25/19 10:01 DC 12/25/19 09:03 Fluoxetine HCl (PROzac) 20 mg QHS PO 12/19/19 21:00 12/21/19 10:31 DC 12/20/19 21:37 Fluoxetine HCl (PROzac) 20 mg QHS PO 12/08/19 21:00 12/18/19 16:11 DC 12/17/19 21:11 Fluoxetine HCl (PROzac) 20 mg QHS@1900 PO 12/18/19 16:11 12/19/19 15:54 DC 12/18/19 21:14 Furosemide (Lasix) 20 mg DAILY PEG 12/09/19 09:00 12/11/19 12:30 DC 12/11/19 08:01 Guaifenesin (Robitussin) 5 ml QID PEG 11/30/19 21:00 12/18/19 16:12 DC 12/18/19 13:01 Lactulose (Cephulac) 30 ml DAILY PRN PO constipation 11/30/19 16:45 11/30/19 17:02 DC Lactulose (Cephulac) 30 ml DAILYPRN PRN PEG constipation 11/30/19 17:15 12/19/19 15:54 DC Lansoprazole (First-Lansoprazole Oral Suspension) 30 mg DAILY PEG 12/01/19 09:00 12/18/19 16:11 DC 12/18/19 08:27 Lansoprazole (First-Lansoprazole Oral Suspension) 30 mg DAILY@0700 PEG 12/18/19 16:11 12/19/19 15:54 DC 12/19/19 06:15 Levalbuterol HCl (Xopenex Neb) 1.25 mg Q4HP PRN INH SOB/WHEEZING 11/30/19 16:45 12/08/19 11:07 DC 12/04/19 01:25 Levalbuterol HCl (Xopenex Neb) 1.25 mg RQID INH 11/30/19 20:00 12/04/19 11:49 DC 12/04/19 11:01 Levofloxacin (Levaquin) 750 mg DAILY@06 PEG 12/11/19 12:45 12/17/19 06:01 DC 12/17/19 05:37 Levothyroxine Sodium (Synthroid) 137 mcg DAILY@0600 PEG 12/19/19 06:00 12/18/19 16:10 DC Levothyroxine Sodium (Synthroid) 137 mcg DAILY@0600 PO 12/20/19 06:00 12/25/19 05:41 Levothyroxine Sodium (Synthroid) 137 mcg DAILY@0700 PEG 12/19/19 07:00 12/19/19 15:54 DC 12/19/19 06:16 Levothyroxine Sodium (Synthroid) 137 mcg DAILY@1200 PEG 12/01/19 12:00 12/18/19 15:39 DC 12/18/19 13:01 Lidocaine (Lidoderm Patch) 1 patch DAILY TD 12/18/19 09:00 12/18/19 16:12 DC Lidocaine (Lidoderm Patch) 1 patch DAILY@0700 TD 12/18/19 16:12 12/19/19 10:21 DC Losartan Potassium (Cozaar) 25 mg DAILY PEG 12/06/19 09:00 12/08/19 15:47 DC 12/07/19 08:15 Losartan Potassium (Cozaar) 25 mg DAILY@1200 PEG 12/09/19 12:00 12/10/19 13:49 DC 12/09/19 13:14 Losartan Potassium (Cozaar) 50 mg DAILY PEG 12/01/19 09:00 12/05/19 14:11 DC 12/05/19 08:31 Metoprolol Tartrate (Lopressor) 12.5 mg BID NG 12/10/19 21:00 12/12/19 11:50 DC 12/12/19 08:51 Metoprolol Tartrate (Lopressor) 12.5 mg BID PEG 12/12/19 21:00 12/18/19 16:13 DC 12/18/19 08:29 Metoprolol Tartrate (Lopressor) 12.5 mg BID@0700,1900 PEG 12/18/19 16:13 12/19/19 15:45 DC 12/19/19 06:17 Miscellaneous (Unresolved Clarification Entry) SEE LABEL COMMENTS DAILY XX 12/17/19 09:00 12/18/19 10:42 DC Miscellaneous (Unresolved Clarification Entry) SEE LABEL COMMENTS DAILY XX 12/10/19 09:00 12/11/19 11:23 DC Miscellaneous (Unresolved Patient Own Med Order) SEE LABEL COMMENTS DAILY XX 12/11/19 09:00 12/14/19 12:51 DC Non-Formulary Medication ( See Comment Field Below ) REMOVE LIDODERM PATCH DAILY@1900 XX 12/19/19 19:00 12/24/19 18:21 DC 12/22/19 19:28 Non-Formulary Medication ( See Comment Field Below ) REMOVE LIDODERM PATCH DAILY@21 XX 12/18/19 21:00 12/18/19 22:00 DC 12/18/19 21:17 Nystatin (Mycostatin) 5 ml QID SSP 12/06/19 17:00 12/25/19 09:03 Pantoprazole Sodium (Protonix) 40 mg DAILY PO 4/15/20 09:00 12/25/19 09:02 Patient Own Medication (Patient'S Own Med) 8am and 5pm on em... BID@0800,1700 PO 12/19/19 17:00 12/21/19 17:18 Patient Own Medication (Patient'S Own Med) 300mg = 2 capsules Take ... BID PO 12/14/19 21:00 12/18/19 16:08 DC 12/18/19 08:27 Patient Own Medication (Patient'S Own Med) 300mg = 2 capsules Take ... BID@0700,1700 PO 12/18/19 16:08 12/19/19 15:54 DC 12/19/19 06:18 Patient Own Medication (Patient'S Own Med) Nilotinib (Tasigna) 15... BID PEG 12/12/19 21:00 12/14/19 12:37 DC Prednisone (Deltasone) 5 mg DAILY PEG 12/01/19 09:00 12/04/19 12:07 DC 12/04/19 09:49 Prednisone (Deltasone) 5 mg DAILY PEG 12/16/19 09:00 12/18/19 16:14 DC 12/18/19 08:29 Prednisone (Deltasone) 5 mg DAILY PO 12/20/19 09:00 12/21/19 10:31 DC 12/21/19 09:14 Prednisone (Deltasone) 5 mg DAILY@0700 PEG 12/18/19 16:14 12/19/19 15:54 DC 12/19/19 06:17 Prednisone (Deltasone) 10 mg DAILY PEG 12/05/19 09:00 12/10/19 13:29 DC 12/10/19 07:34 Prednisone (Deltasone) 10 mg DAILY PEG 12/11/19 09:00 12/15/19 13:04 DC 12/15/19 08:26 Ramelteon (Rozerem) 8 mg QHS PEG 11/30/19 21:00 12/07/19 13:45 DC 12/06/19 20:17 Saliva Substitute (Mouthkote) USE DIRECTED QID MT 11/30/19 21:00 12/25/19 09:05 Thiamine HCl (Thiamine HCl) 100 mg DAILY PO 12/22/19 09:00 12/25/19 09:03 Tiotropium [place] (Spiriva Handihaler) 1 inhalation DAILY@08 INH 12/01/19 08:00 12/25/19 11:16 CECY DOMINGUEZ MD Dec 25, 2019 12:15
[2019-12-25] MEDS: BACLOFEN 10 MG TAB PO SCH ×2 (13:18→17:25)
[2019-12-25 14:00] VITALS: BP 127/60
[2019-12-25 20:00] VITALS: BP 127/62
[2019-12-25] MEDS: ATORVASTATIN 10 MG TAB PO SCH (21:02)
[2019-12-26 06:00] VITALS: BP 145/66
[2019-12-26] MEDS: LEVOTHYROXINE 137MCG TABLET (0.137MG) PO SCH (06:22)
[2019-12-26] MEDS: TIOTROPIUM INHALER/CAPSULE (SPIRIVA) INH SCH (07:14)
[2019-12-26] MEDS: IPRATROPIUM 0.5MG/ALBUTEROL 2.5MG INH SOL UD 3ML (DUONEB)(J7620) NEB SCH (07:14)
[2019-12-26] MEDS: SYMBICORT 160/4.5MCG INHALER 6GM INH SCH (07:14)
[2019-12-26] MEDS: ENTER DRUG NAME HERE (PATIENT'S OWN MED) PO SCH (08:00)
[2019-12-26 08:06] LABS: VITAMIN B1 LEVEL WHOLE BLOOD 191.6 nmol/L (66.5-200.0)
[2019-12-26] MEDS: ASPIRIN 81 MG CHEW TABLET PO SCH (08:37)
[2019-12-26] MEDS: PANTOPRAZOLE 40MG TAB (PROTONIX) PO SCH (08:37)
[2019-12-26] MEDS: ENOXAPARIN 40MG/0.4ML SYRINGE (J1650 PER 10MG) SC SCH (08:37)
[2019-12-26] MEDS: CHLORHEXIDINE GLUCONATE 0.12 % 15ML UDC (PERIDEX ORAL RINSE) MT SCH (08:37)
[2019-12-26] MEDS: THIAMINE 100 MG TAB PO SCH (08:37)
[2019-12-26] MEDS: BACLOFEN 10 MG TAB PO SCH (08:37)
[2019-12-26] MEDS: SALIVA SUBSTITUTE(MOUTHKOTE) BTL MT SCH (08:37)
[2019-12-26] MEDS: NYSTATIN 500,000 U/5 ML SUSP UDC SSP SCH (08:37)
[2019-12-26] MEDS: REMEDY PHYTOPLEX Z-GUARD PASTE 113GM TUBE (FROM STOREROOM PRODUCT) TOP SCH (08:38)
[2019-12-26] MEDS: VANICREAM MOISTURIZING SKIN CREAM 113GM TUBE TOP SCH (08:38)
--- NOTE | 2019-12-26 11:45 | PMRDS ---
DATE OF ADMISSION: 11/30/2019 DATE OF DISCHARGE: 12/26/2019 CHIEF COMPLAINT/DISCHARGE DIAGNOSIS: Aspiration pneumonia, status post percutaneous endoscopic gastrostomy (PEG) placement with propriospinal myoclonus. HISTORY OF PRESENT ILLNESS: 79M pmh COPD on home 02, CML, hypothyroidism, tongue cancer s/p resection with dysphagia, HLD, anemia, recent diagnosis of CAD, who presented to [facility] ED on 11-09-19 complaining of shortness of breath with CXR showing, There appear to be moderate bilateral pleural effusions left greater than right. There are also adjacent patchy areas of atelectasis or infiltrate in each lung base, left greater than right. Focal soft tissue density in the right apex could possibly represent a mass, which was ruled out on follow-up chest CT which did show Complex and extensive bilateral pleural effusions with marked pleural thickening and stranding and nodularity. Infectious versus neoplastic etiologies. Chronic pleural changes on the right. He was treated with antibiotics for presumed pneumonia underwent a left chest tube placement performed by Dr. Newton on 11-10-19 and later a chemical decortication with tPA for loculated fluid. He developed partial bowel obstruction with abdominal distension and evaluated by surgery who recommended a clear liquid diet which was advanced after resolution of his symptoms. He was thought to have developed an aspiration pneumonia, restarted on antibiotics in setting of leukocytosis and underwent PEG placement on 11-27-19. He was noted to have impairments in mobility and ADLs well below his baseline and deemed medically appropriate for discharge to ARU on 11-30-19. PAST MEDICAL HISTORY: As per history of present illness (HPI). HOSPITAL COURSE: The patient was admitted and enrolled in a comprehensive physical therapy (PT)/occupational therapy (OT), speech language pathology program. He received 24-hour nursing supervision, and weekly team meetings were held to discuss his progress. The patient was advanced from nothing by mouth gradually to [place] Water Protocol with frequent oral daily rinses. Eventually, the patient was advanced to be able to take his pills with puree; however, due to his poor by mouth intake, PEG was continued with daytime boluses to meet the patient's nutritional needs. The patient finished up a course of antibiotics for his community-acquired pneumonia, which was restarted at a later date due to persistent leukocytosis and persistent cough. He was started on low-dose oral steroids, Spiriva, and breathing treatments, which helped wean him off of oxygen. On admission, the patient had been started on an increased dose of Synthroid for elevated thyroid-stimulating hormone (TSH), thyroid function test (TFT), TFTs were rechecked on 12/20/2019 showing a paradoxical increase in TSH despite having time to Synthroid dosing to be given on an empty stomach. Free T4, however, was normal and given the patient's dramatic weight loss over the past year and poor by mouth intake and concerns for potentially causing hyperthyroidism, the patient's Synthroid dose was not changed. Thyroid ultrasound was obtained showing heterogeneous echotexture without discrete cystic or solid mass, and case was discussed with Dr. Song, in house oncologist, who did not believe there was concern for thyroid cancer at this time. The patient and his family were instructed to see an boiler technician upon discharge for further recommendations. The patient was started early on his hospital course on Prozac, which improved his overall mood, and this was later discontinued as it was thought to be exacerbating left lower extremity myoclonus that the patient had developed last summer but had grown worse on the rehabilitation floor. The patient was started on baclofen for what was deemed to be propriospinal myoclonus with improvements in his myoclonic jerks. Brain MRI and cervical MRI were ordered per neurology consult recommendations with no significant findings; and vitamin B12, folate, and B1 levels were found to be within normal limits in addition to plasma copper. The patient was instructed to follow closely with neurology for his left lower extremity myoclonic jerks. Initially, the patient was thought to be safe to return home with a rolling walker. However, given his intermittent instability with the myoclonus, it was deemed more appropriate for him to have a wheelchair. The patient was able to self-administer his daily boluses and participated fully in his oral hygiene. Of note, his blood pressure medications were ultimately discontinued completely due to a.m. orthostatics, which did improve with the discontinuation of blood pressure (BP) medications. The patient was deemed medically and functionally stable to return home with 24/ care to be provided by his ex- and close followup with his oncologist, primary care physician, pulmonology, and neurology. DISCHARGE MEDICATIONS: As per instructions. FUNCTIONAL HISTORY ON DISCHARGE: The patient was standby assist for functional transfers, able to ambulate 20 feet at a min assist level and then later 180 feet at a standby assist level; and in occupational therapy, the patient was modified independent for bed mobility, sit to stand with rolling walker. Thank you for this referral. edited: 12/27/2019 0944 darling LOVE
== END 2019-12-26 12:00 | disposition home health service (06) | DRG 92 ==
LOC: M PM&R 18:10
PROVIDERS: ADMIT Physical Medicine & Rehabilitation; ATTEND Physical Medicine & Rehabilitation
DX: R26.89 Other abnormalities of gait and mobility (principal); E87.1 Hypo-osmolality and hyponatremia; C92.10 Chronic myeloid leukemia, BCR/ABL-positive, not having achieved remission; J44.9 Chronic obstructive pulmonary disease, unspecified; E03.9 Hypothyroidism, unspecified; R13.10 Dysphagia, unspecified; I25.10 Atherosclerotic heart disease of native coronary artery without angina pectoris; Z85.810 Personal history of malignant neoplasm of tongue; Z93.1 Gastrostomy status; G47.00 Insomnia, unspecified; Z88.0 Allergy status to penicillin; Z88.5 Allergy status to narcotic agent; R06.02 Shortness of breath; D63.8 Anemia in other chronic diseases classified elsewhere; R21 Rash and other nonspecific skin eruption; I10 Essential (primary) hypertension; G25.3 Myoclonus